=== PATIENT | female | born 1930 | race Hispanic/Latino ===

== ENCOUNTER 2016-12-25 10:16 | Inpatient (IN) | payer MEDICARE ==
[2016-12-25 10:31] VITALS: BMI 30.2
--- NOTE | 2016-12-25 10:59 | ED PDOC ---
Arrival/HPI - General Chief Complaint: Chest Pain Time Seen by Provider: 12/25/16 10:25 Historian: Patient - History of Present Illness Narrative History of Present Illness (Text): 12/25/16 10:40 An 86 year old female presents to the emergency department complaining of chest pain. Patient reports the pain is across the chest, it is intermittent, which started last week but the latest constant episode since 9:30am, about 2 hours ago. Patient has some nausea but denies any vomiting, fever, sweating, hematochezia, abdominal pain, shortness of breath, cough or any other complaints at this time. PMD: Dr. Padilla Time/Duration: 1-3 hours Symptom Onset: Sudden Symptom Course: Intermittent Quality: Other Activities at Onset: Rest Context: Home Past Medical History - Provider Review Nursing Documentation Reviewed: Yes - Infectious Disease Hx of Infectious Diseases: None - Tetanus Immunization Tetanus Immunization: Unknown - Reproductive Menopause: Yes - Cardiac Hx Cardiac Disorders: Yes Hx Hypertension: Yes - Pulmonary Hx Chronic Obstructive Pulmonary Disease (COPD): Yes (daughter denies) - Neurological HX Cerebrovascular Accident: No - HEENT Hx HEENT Disorder: Yes ([place]) Hx Blind: No Hx Cataracts: Yes (b/l sx) Hx Difficulty Chewing: No Hx Epistaxis: No Hx Glaucoma: No Hx Macular Degeneration: No - Renal Hx Renal Failure: No - Endocrine/Metabolic Hx Diabetes Mellitus Type 2: Yes - Hematological/Oncological Hx Anemia: No Hx Cancer: No Hx Hepatitis A: No Hx Hepatitis B: No Hx Hepatitis C: No - Integumentary Hx Dermatological Disorder: Yes Hx Basal Cell Carcinoma: No Hx Eczema: No Hx Melanoma: No Hx Psoriasis: No Hx Squamous Cell Carcinoma: No - Musculoskeletal/Rheumatological Hx Arthritis: Yes (OA) - Gastrointestinal Hx Gastrointestinal Disorders: Yes (bleeding gastric ulcers) Hx Crohn's Disease: No Hx Diverticulitis: No Hx Gastroesophageal Reflux: No Hx Liver Failure: No - Genitourinary/Gynecological Hx Genitourinary Disorders: No Hx Hematuria: No Hx Incontinence: No Hx Sexually Transmitted Diseases: No Hx Urinary Tract Infection: No - Psychiatric Hx Psychophysiologic Disorder: Yes Hx Anxiety: Yes Hx Emotional Abuse: No Hx Physical Abuse: No Hx Substance Use: No - Surgical History Hx Appendectomy: Yes Other/Comment: 'bowel surgery for ulcers' x 2 per pt, partial gastrectomy - Anesthesia Hx Anesthesia: Yes Hx Anesthesia Reactions: No Hx Malignant Hyperthermia: No - Suicidal Assessment Feels Threatened In Home Enviroment: No Family/Social History - Physician Review Nursing Documentation Reviewed: Yes Family/Social History: Aortic/Thoracic Disection Smoking Status: Never Smoked Hx Alcohol Use: No Hx Substance Use: No Hx Substance Use Treatment: No Allergies/Home Meds Allergies/Adverse Reactions: Allergies No Known Allergies Allergy (Verified 12/25/16 10:57) Home Medications: Home Meds Medication Instructions Recorded Confirmed Diazepam 5 mg PO PRN PRN 12/25/16 12/25/16 Losartan [Cozaar] 25 mg PO DAILY 12/25/16 12/25/16 metFORMIN [glucOPHAGE] 500 mg PO BID 12/25/16 12/25/16 traMADol [Ultram] 50 mg PO Q6 PRN 12/25/16 12/25/16 Review of Systems - Physician Review All systems were reviewed & negative as marked: Yes - Review of Systems Constitutional: absent: Fevers Respiratory: absent: SOB, Cough Cardiovascular: Chest Pain Gastrointestinal: Nausea. absent: Abdominal Pain, Hematochezia Endocrine: absent: Diaphoresis Physical Exam - Physical Exam Narrative Physical Exam (Text): Constitutional: No acute distress. Head: Normocephalic. Atraumatic. Eyes: PERRL. ENT: Moist mucous membranes. Neck: Supple. Cardiovascular: Regular rate. Chest: No tenderness. Respiratory: Clear to auscultation bilaterally. GI: Soft. Nontender. Nondistended. Back: No CVA tenderness. Musculoskeletal: No tenderness or swelling of extremities. Skin: No rash. Neurologic: Alert and oriented x2, no focal deficit. Vital Signs Reviewed: Yes Vital Signs Temp Pulse Resp BP Pulse Ox 12/25/16 14:16 97.6 F 68 18 110/76 12/25/16 13:45 97.9 F 73 18 141/57 L 98 12/25/16 13:20 68 18 110/76 98 12/25/16 12:30 72 18 108/84 96 12/25/16 10:27 97.6 F 67 16 132/79 96 Temperature: Afebrile Blood Pressure: Normal Pulse: Regular Respiratory Rate: Normal Appearance: Positive for: Well-Appearing, Non-Toxic, Comfortable Pain Distress: None Mental Status: No: Alert and Oriented X 3 Medical Decision Making ED Course and Treatment: 12/25/16 10:40 Impression: A 86 year old female with chest pain. Differential Diagnosis include but are not limited to: Chest wall pain, PNA, gastritis, r/o ACS Plan: -- EKG -- Chest X-ray -- Labs -- Urinalysis -- Aspirin and Zofran -- Reassess and disposition Prior Visits: Notes and results from previous visits were reviewed. The patient last presented to the emergency department on 08/13/16 for evaluation of black stool. Progress Notes: EKG: Ordered, reviewed, and independently interpreted the EKG. Rate : 60 BPM Rhythm : NSR Interpretation : No ST-segment elevations 12/25/16 11:20 Chest X-ray: Creator : Michi Crystal MD COMPARISON: 08/13/2016 FINDINGS: LUNGS: No active pulmonary disease. PLEURA: No significant pleural effusion identified, no pneumothorax apparent. CARDIOVASCULAR: There is moderate cardiomegaly. There is moderate vascular congestion. OSSEOUS STRUCTURES: No significant abnormalities. VISUALIZED UPPER ABDOMEN: Normal. OTHER FINDINGS: None. IMPRESSION: There is moderate cardiomegaly. There is moderate vascular congestion. 12/25/16 11:[address] Padilla, who is aware and agrees with the plan to place the patient in Telemetry for observation for chest pain. Consult placed for Dr. Mohr at his recommendation. I have discussed the results and plan with the patient, who expresses understanding. Patient given the opportunity to ask question, all questions were answered and there is agreement with the plan to be admitted to the hospital. - Lab Interpretations Lab Results: 12/25/16 11:00 12/25/16 11:00 Lab Results 12/25/16 11:00: WBC 7.7, RBC 5.51, Hgb 10.6 L, Hct 35.6 L, MCV 64.6 L, MCH 19.2 L, MCHC 29.8 L, RDW 19.5 H, Plt Count 319, Gran % 55.1, Lymph % (Auto) 36.0 H, [place] % (Auto) 6.7 H, Eos % (Auto) 1.6, Baso % (Auto) 0.6, Gran # 4.26, Lymph # 2.8, [place] # 0.5, Eos # 0.1, Baso # 0.05 12/25/16 11:00: Sodium 136, Potassium 3.8, Chloride 100, Carbon Dioxide 30, Anion Gap 10, BUN 18, Creatinine 1.0, Est GFR ( Amer) > 60, Est GFR (Non- Af Amer) 53, Random Glucose 201 H, Calcium 9.7, Total Bilirubin 1.2, AST 22, ALT 16, Alkaline Phosphatase 108, Total Creatine Kinase 26 L, Troponin I < 0.01 D, Total Protein 7.2, Albumin 3.7, Globulin 3.5, Albumin/Globulin Ratio 1.1, Lipase 35 I have reviewed the lab results: Yes - RAD Interpretation Radiology Orders: 12/25/16 10:53 CHEST PORTABLE [RAD] Stat - Medication Orders Current Medication Orders: Aspirin (Ecotrin) 81 mg PO DAILY AUGUSTINE Atorvastatin Calcium (Lipitor) 20 mg PO DIN AUGUSTINE Diazepam (Valium) 5 mg PO BID PRN; Protocol PRN Reason: Anxiety Docusate Sodium (Colace) 100 mg PO DAILY AUGUSTINE Insulin Human Regular (Humulin R Med) 0 units SC ACHS AUGUSTINE PRN Reason: Protocol Losartan Potassium (Cozaar) 25 mg PO DAILY AUGUSTINE Last Admin: 12/25/16 14:10 Dose: Pantoprazole Sodium (Protonix Ec Tab) 40 mg PO 0630 AUGUSTINE Polyethylene Glycol (Miralax) 17 gm PO DIN PRN PRN Reason: Constipation Tramadol HCl (Ultram) 50 mg PO Q6 PRN PRN Reason: Pain, severe (8-10) Discontinued Medications Aspirin (Aspirin) 325 mg PO STAT STA Stop: 12/25/16 10:54 Last Admin: 12/25/16 11:24 Dose: 325 mg Ondansetron HCl (Zofran Inj) 4 mg IVP STAT STA Stop: 12/25/16 10:54 Last Admin: 12/25/16 11:24 Dose: 4 mg Pneumococcal Polyvalent Vaccine (Pneumovax 23 Vaccine) 0.5 ml IM .ONCE ONE Stop: 12/25/16 14:25 Last Admin: 12/25/16 14:54 Dose: - Scribe Statement The provider has reviewed the documentation as recorded by the Scribe Mikayla Lion Provider Scribe Attestation: All medical record entries made by the Scribe were at my direction and personally dictated by me. I have reviewed the chart and agree that the record accurately reflects my personal performance of the history, physical exam, medical decision making, and the department course for this patient. I have also personally directed, reviewed, and agree with the discharge instructions and disposition. Disposition/Present on Arrival - Present on Arrival Any Indicators Present on Arrival: No History of DVT/PE: No History of Uncontrolled Diabetes: No Urinary Catheter: No History of Decub. Ulcer: No History Surgical Site Infection Following: None - Disposition Have Diagnosis and Disposition been Completed?: Yes Diagnosis: Chest pain Disposition: HOSPITALIZED Disposition Time: 11:44 Patient Plan: Observation, Telemetry Condition: FAIR
[2016-12-25 11:16] LABS: ADD MANUAL DIFF? NO
--- NOTE | 2016-12-25 11:19 | RAD ---
HISTORY: r/o PNA COMPARISON: 08/13/2016 FINDINGS: LUNGS: No active pulmonary disease. PLEURA: No significant pleural effusion identified, no pneumothorax apparent. CARDIOVASCULAR: There is moderate cardiomegaly. There is moderate vascular congestion. OSSEOUS STRUCTURES: No significant abnormalities. VISUALIZED UPPER ABDOMEN: Normal. OTHER FINDINGS: None. IMPRESSION: There is moderate cardiomegaly. There is moderate vascular congestion.
[2016-12-25 11:27] LABS: ALB/GLOB RATIO 1.1 (1.1-1.8); ALKALINE PHOSPHATASE 108 U/L (38-133); ALT/SGPT 16 U/L (7-56); AST/SGOT 22 U/L (15-39); BILIRUBIN,TOTAL 1.2 mg/dL (0.2-1.3); BLOOD UREA NITROGEN 18 mg/dL (7-21); CALCIUM 9.7 mg/dL (8.4-10.5); CARBON DIOXIDE 30 mmol/L (21-33); CHLORIDE 100 mmol/L (98-107); GFR AFRICAN-AMERICAN > 60; GLUCOSE,RANDOM 201 mg/dL (70-110); LIPASE 35 U/L (23-300); POTASSIUM 3.8 mmol/L (3.6-5.0); SODIUM 136 mmol/L (132-148); TOTAL PROTEIN 7.2 g/dL (5.8-8.3)
[2016-12-25 11:28] LABS: BASO # 0.05 K/mm3 (0.0-2.0); BASO % 0.6 % (0.0-3.0); EOS # 0.1 (0.0-0.7); EOS % 1.6 % (1.5-5.0); GRAN # 4.26 (1.4-6.5); GRAN % 55.1 % (50.0-68.0); HEMATOCRIT 35.6 % (36.0-48.0); LYMPH # 2.8 (1.2-3.4); MEAN CELL VOLUME 64.6 fL (80.0-105.0); MEAN CORPUSCULAR HEMOGLOBIN 19.2 pg (25.0-35.0); MEAN CORPUSCULAR HGB CONC 29.8 g/dl (31.0-37.0); MONO # 0.5 (0.1-0.6); MONO % 6.7 % (1.0-6.0); PLATELET COUNT 319 10^3/uL (120.0-450.0); RED CELL DISTRIBUTION WIDTH 19.5 % (11.5-14.5); WHITE BLOOD COUNT 7.7 10^3/ul (4.5-11.0)
[2016-12-25 11:40] LABS: TROPONIN I < 0.01 ng/mL
[2016-12-25] MEDS ORDERED: POLYETHYLENE GLYCOL 3350 17 GM/Dose PACKET PO PRN (14:14)
--- NOTE | 2016-12-25 14:19 | CP.PCM.HP ---
History of Present Illness - History of Present Illness History of Present Illness: 86 year old female with history of hypertension, diabetes mellitus II , spinal stenosis, gastric ulcers and arthritis presented to the ER with chest pressure. According to her , Hung, she has been complaining of chest pressure for the last week. She says the pressure lasts for a few seconds and then goes away on its own. Patient denies nausea, vomiting, diaphoresis, or fever. Present on Admission - Present on Admission Any Indicators Present on Admission: No Review of Systems - Cardiovascular Cardiovascular: As Per HPI - Respiratory Respiratory: absent: Cough, Dyspnea - Musculoskeletal Musculoskeletal: Abnormal Gait, Back Pain Past Patient History - Infectious Disease Hx of Infectious Diseases: None - Tetanus Immunizations Tetanus Immunization: Unknown - Past Social History Smoking Status: Never Smoked - CARDIAC Hx Cardiac Disorders: Yes Hx Hypertension: Yes - NEUROLOGICAL HX Cerebrovascular Accident: No - HEENT Hx HEENT Problems: Yes ([place]) Hx Blind: No Hx Cataracts: Yes (b/l sx) Hx Difficulty Chewing: No Hx Epistaxis: No Hx Glaucoma: No Hx Macular Degeneration: No - RENAL Hx Renal Failure: No - ENDOCRINE/METABOLIC Hx Diabetes Mellitus Type 2: Yes - HEMATOLOGICAL/ONCOLOGICAL Hx Anemia: No Hx Cancer: No Hx Hepatitis A: No Hx Hepatitis B: No Hx Hepatitis C: No - INTEGUMENTARY Hx Dermatological Problems: Yes Hx Basil Cell: No Hx Eczema: No Hx Melanoma: No Hx Psoriasis: No Hx Squamous Cell: No - MUSCULOSKELETAL/RHEUMATOLOGICAL Hx Arthritis: Yes (OA) - GASTROINTESTINAL Hx Gastrointestinal Disorders: Yes (bleeding gastric ulcers) Hx Crohn's Disease: No Hx Diverticulitis: No Hx Gastroesophageal Reflux: No Hx Liver Failure: No - GENITOURINARY/GYNECOLOGICAL Hx Genitourinary Disorders: No Hx Hematuria: No Hx Incontinence: No Hx Sexually Transmitted Disorders: No Hx Urinary Tract Infection: No - PSYCHIATRIC Hx Psychophysiologic Disorder: Yes Hx Anxiety: Yes Hx Emotional Abuse: No Hx Physical Abuse: No Hx Substance Use: No - SURGICAL HISTORY Hx Appendectomy: Yes Other/Comment: 'bowel surgery for ulcers' x 2 per pt, partial gastrectomy - ANESTHESIA Hx Anesthesia: Yes Hx Anesthesia Reactions: No Hx Malignant Hyperthermia: No Meds Allergies/Adverse Reactions: Allergies Allergy/AdvReac Type Severity Reaction Status Date / Time No Known Allergies Allergy Verified 12/25/16 10:57 Physical Exam - Constitutional Appears: No Acute Distress - Head Exam Head Exam: ATRAUMATIC, NORMOCEPHALIC - Respiratory Exam Respiratory Exam: Clear to Auscultation Bilateral, NORMAL BREATHING PATTERN - Cardiovascular Exam Cardiovascular Exam: +S1, +S2 - GI/Abdominal Exam GI & Abdominal Exam: Normal Bowel Sounds, Soft. absent: Tenderness - Extremities Exam Extremities exam: Positive for: normal inspection - Neurological Exam Neurological exam: Alert, Oriented x3 Results - Vital Signs Recent Vital Signs: Last Vital Signs Temp 97.6 F 12/25/16 10:27 Pulse 68 12/25/16 13:20 Resp 18 12/25/16 13:20 BP 110/76 12/25/16 13:20 Pulse Ox 98 12/25/16 13:20 - Labs Result Diagrams: 12/25/16 11:00 12/25/16 11:00 Assessment & Plan - Assessment and Plan (Free Text) Assessment: Chest pressure R/O ACS DMII HTN Arthritis H/O gastric ulcers and partial gastrectomy Microcytic anemia Plan: Patient complaining of chest pressure. Cardiac enzymes and troponin X [address] Mohr Hold metformin Accuchecks with SS insulin coverage Patient with microcytic anemia - check iron and TIBC levels continue Protonix for gastritis Colace and Miralax PRN for constipation
[2016-12-25] MEDS ORDERED: Pneumococcal 23-Valent Vaccine IM ONE (14:24)
[2016-12-25] MEDS: Insulin Reg-MEDIUM-Coverage SC SCH ×2 (16:18→21:49)
[2016-12-25 16:52] LABS: IRON 23 ug/dL (45-180)
[2016-12-25 16:59] LABS: TROPONIN I 2.04 ng/mL
[2016-12-25] MEDS ORDERED: Enoxaparin 60 mg Syringe SC STA (19:18)
[2016-12-25 21:23] LABS: URINE BILIRUBIN NEGATIVE (NEGATIVE); URINE BLOOD SMALL (NEGATIVE); URINE GLUCOSE (UA) NEGATIVE (NEGATIVE); URINE KETONE NEGATIVE (NEGATIVE); URINE LEUKOCYTE ESTERASE NEGATIVE Leu/uL (NEGATIVE); URINE PROTEIN NEGATIVE mg/dL (<30 mg/dL); URINE UROBILINOGEN 0.2 E.U./dL (<1 E.U./dL)
[2016-12-25 21:26] LABS: URINE APPEARANCE CLEAR (CLEAR); URINE COLOR YELLOW (YELLOW)
[2016-12-25 22:04] LABS: URINE RBC 0 - 2 /hpf (0-2); URINE WBC 0 - 2 /hpf (0-6)
--- NOTE | 2016-12-26 01:39 | CARD ---
APPROVED REPORT EKG Measurement Heart [id number] <Conclusion> Normal sinus rhythm with sinus arrhythmia Left axis deviation Moderate voltage criteria for LVH, may be normal variant Nonspecific ST abnormality Abnormal ECG
[2016-12-26] MEDS: Pantoprazole 40 mg EC Tab PO SCH (06:03)
[2016-12-26 07:37] LABS: ADD MANUAL DIFF? NO
[2016-12-26 07:48] LABS: BASO # 0.07 K/mm3 (0.0-2.0); EOS # 0.1 (0.0-0.7); EOS % 0.7 % (1.5-5.0); GRAN % 62.3 % (50.0-68.0); HEMATOCRIT 34.6 % (36.0-48.0); LYMPH % 29.2 % (22.0-35.0); MEAN CELL VOLUME 64.3 fL (80.0-105.0); MEAN CORPUSCULAR HEMOGLOBIN 19.1 pg (25.0-35.0); MEAN CORPUSCULAR HGB CONC 29.8 g/dl (31.0-37.0); MONO # 0.5 (0.1-0.6); MONO % 6.8 % (1.0-6.0); PLATELET COUNT 344 10^3/uL (120.0-450.0); RED CELL DISTRIBUTION WIDTH 19.6 % (11.5-14.5); WHITE BLOOD COUNT 6.9 10^3/ul (4.5-11.0)
[2016-12-26] MEDS: Insulin Reg-MEDIUM-Coverage SC SCH ×4 (08:00→21:57)
[2016-12-26 08:06] LABS: ALB/GLOB RATIO 1.2 (1.1-1.8); ALKALINE PHOSPHATASE 99 U/L (38-133); ALT/SGPT 14 U/L (7-56); AST/SGOT 30 U/L (15-39); BILIRUBIN,TOTAL 1.1 mg/dL (0.2-1.3); BLOOD UREA NITROGEN 18 mg/dL (7-21); CALCIUM 9.6 mg/dL (8.4-10.5); CARBON DIOXIDE 31 mmol/L (21-33); CHLORIDE 99 mmol/L (98-107); GFR AFRICAN-AMERICAN > 60; GLUCOSE,RANDOM 135 mg/dL (70-110); POTASSIUM 4.7 mmol/L (3.6-5.0); SODIUM 137 mmol/L (132-148); TOTAL PROTEIN 6.9 g/dL (5.8-8.3)
[2016-12-26] MEDS ORDERED: Lidocaine 2% Inj (20ml) ONE ×2 (08:20)
[2016-12-26] MEDS ORDERED: Nitroglycerin 50mg in D5W 0 MG/0 ML BOTTLE IV ONE (08:21)
[2016-12-26] MEDS ORDERED: Heparin 0 ML IV ONE (08:21)
[2016-12-26] MEDS ORDERED: Iohexol 350mgl/ml 50 ML ONE (08:23)
[2016-12-26] MEDS ORDERED: Iohexol 350 MG/100 ML VIAL ONE (08:23)
[2016-12-26] MEDS ORDERED: Phenylephrine 10 mg/ml Inj ONE (08:34)
[2016-12-26] MEDS ORDERED: Midazolam 2 MG/2 ML VIAL ONE (08:36)
[2016-12-26 08:39] LABS: TROPONIN I 3.87 ng/mL
--- NOTE | 2016-12-26 08:57 | PN ---
DATE: 12/26/2016 She is an 86-year-old white female. She is obese and disabled due to severe osteoarthritis. PAST MEDICAL HISTORY: Coronary artery disease, hypertension, diabetes mellitus , severe osteoarthritis, bursitis of the hip, bursitis of the knee. The patient presented in the Emergency Room yesterday with chest pain. The patient was evaluated and admitted to the [facility] in [place]. The patient is in room 270, bed 2. She was seen this morning. PHYSICAL EXAMINATION: VITAL SIGNS: The patient's pulse is 56, blood pressure 146/75. Respirations are 19. O2 sat is 94% on room air. HEAD: Normocephalic. NECK: The thyroid is not enlarged. HEART: NSR. S1, S2 present. No murmur. No rubs. LUNGS: Trachea is central. Breath sounds are vesicular. No adventitious sounds are heard. ABDOMEN: Soft. No masses. No tenderness noted. CENTRAL NERVOUS SYSTEM: The patient is conscious, rational, and oriented, has some deficit in hearing, and the patient denies any complaints this morning. LABORATORY WORK: Shows that the patient's hemoglobin 10.3. The patient's chemistry: The sugar is 155. The patient's troponin is 2.04; it was elevated from time of admission. The patient's cardiologists are Dr. Mohr and Dr. Garcia. They are following up the patient. She is placed on Plavix, as well as aspirin and beta-chloe. LIST OF MEDICATIONS: The patient is on Colace 100 mg daily, Losartan 25 mg daily, aspirin 81 mg daily, insulin coverage for hyperglycemia, Lipitor 20 mg daily, metoprolol 25 mg b.i.d., MiraLax 17 grams daily, pantoprazole 40 mg daily. The patient is on Tylenol for pain, and Valium 5 mg b.i.d. p.r.n. for anxiety, and Aspirin as mentioned 325 mg daily at this time. The patient is also placed on Lovenox for deep vein thrombosis and prevention of pulmonary embolus. She is also on Plavix 75 mg daily. The patient received pneumococcal vaccine, and the patient is on a 2-gram sodium heart-healthy diet. We will follow up. The patient's condition is not clearly established at this time. She does have unstable angina with abnormal troponin, which makes her condition critical. Giulia Padilla MD cc: [phone] TT: 12/26/2016 08:56:14 Confirmation # [id number] Dictation # [id number] jn MTDD
[2016-12-26 09:02] LABS: CHOLESTEROL 132 mg/dL (130-200)
[2016-12-26] MEDS ORDERED: Sodium Chloride 0.9% 1,000 ML IV SCH (10:15)
--- NOTE | 2016-12-26 10:28 | CON ---
DATE: 12/26/2016 SERVICE: Cardiology. PHYSICIAN: Priscila Mohr MD. REASON FOR CONSULTATION: Cardiac evaluation, admitted with chest pain, unstable angina, [id number] nt myocardial infarction. BRIEF CLINICAL HISTORY: This is an 86-year-old female with past medical history significant for hype rtension, diabetes, history of black tarry stool, admitted in July when the patient's hemoglobin d ropped to 7. The patient says he had chest tightness yesterday across the chest from right to left t ight band-like ____. First troponin was negative. Second troponin is 2, but he still feels chest pa in. The patient was started on aspirin, Plavix, and gave 1 dose of Lovenox. PAST MEDICAL HISTORY: Significant for hypertension, gouty arthritis, diabetes, lumbar spinal stenosi s, gastroesophageal reflux, over-reactive bladder, difficult to control, poorly controlled, and histo ry of GI bleed on 08/13/2016. Previous cardiac workup as follows: The patient had echocardiography on 05/11/2016 that showed eject ion fraction of 55%, no aortic regurgitation, mild to moderate valvular aortic stenosis, trace mitral regurgitation, mild to moderate tricuspid regurgitation, RV systolic pressure 23. EKG on last admission was normal sinus. Recent EKG shows normal sinus, left atrial abnormality, LVH. CURRENT MEDICATIONS: The patient at home was taking tramadol, metformin, losartan, ____, atorvastati n, Lipitor, and baby aspirin 81 mg daily. ALLERGIES: No known drug allergies. REVIEW OF SYSTEMS: A 14-point review of systems is negative except per HPI. PHYSICAL EXAMINATION: VITAL SIGNS: Temperature afebrile, heart rate ____, blood pressure 146/75. HEENT: PERRLA. Extraocular muscles intact. NECK: Supple. No carotid bruits. No thyromegaly. CHEST: Clear to auscultation. HEART: S1, S2 regular. ABDOMEN: Soft. EXTREMITIES: Clubbing and cyanosis negative. LABORATORY DATA: WBC 6.9, hemoglobin 10.3, hematocrit 34.6, platelet count 344. Chemistry shows sod ium 137, potassium 4.7, chloride 99, carbon dioxide 30, anion gap of 12, BUN 18, creatinine 1.0. Tro ponin 3.87. IMPRESSION: Non-ST segment myocardial infarction, unstable angina, rising troponin - first one was 0 .1, second 2.4; now it is 3.87. Chest pain. ____. Diabetes, hypertension, hyperlipidemia, gouty ar thritis, lumbar spinal stenosis, gastroesophageal reflux, overactive bladder, difficult to control. Last echo shows ejection fraction 55%. No aortic regurgitation, mild to moderate valvular aortic janet nosis, trace to mild mitral regurgitation, mild to moderate tricuspid regurgitation, right ventricula r systolic pressure 23, dated 05/11/2016. In view of recent myocardial infarction, worsening chest pain, ____, myocardial infarction and non-ST myocardial infarction. The patient ____ risks, benefits, and alternatives were discussed with the p miguelangel. The patient agreed. Discussed also with the and discussed with Dr. Padilla. Isac l take to the computer lab para professional, and if needed, we will put bare metal stent because the patient has a history of black tarry stools and dropped the hemoglobin to 7 in July. Further recommendation after the cardiac catheterization will follow. We will give aspirin, Plavix started yesterday. Lovenox was gi dionna, and we will follow hemoglobin and hematocrit. Further recommendation after the cardiac catheter ization. Thank you, Dr. Padilla, for providing the opportunity in taking care of the patient. We will keep n.p.o. for now for cardiac catheterization. Priscila Mohr MD cc:Giulia Padilla MD [phone] TT: 12/26/2016 09:53:57 Confirmation # [id number] Dictation # [id number] jn 12/26/2016 09:27:05
--- NOTE | 2016-12-26 18:27 | CARD ---
APPROVED REPORT Procedure(s) performed: Left Heart Catheterization HISTORY The patient is a 86 year-old female with a history of : diabetes mellitus with insulin treatment , hypertension , dyslipidemia , Admitted with NSTEMI. INDICATION The indication(s) include : unstable angina , non-STEMI . CASE TECHNIQUE The patient was brought urgently to the Cardiac Catheterization Laboratory in a fasting state and was prepped and draped in a sterile manner. The right femoral groin was infiltrated with 2% Lidocaine subcutaneous anesthesia. A 6 Fr x 11 cm Anais sheath was inserted into the right femoral artery without difficulty. Coronary angiography was performed using coronary diagnostic catheters. The left coronary system was accessed and visualized with a Diagnostic ,6 Fr JL 4 catheter. The right coronary system was accessed and visualized with a Diagnostic ,6 Fr JR 4 catheter. The left ventricle was accessed and visualized with a 6 Fr Pigtail catheter. Left ventricular/Aortic Valve gradient assessed on pullback. Left ventriculogram was performed in ANDRADE projection. Closure device was deployed with a 6 Fr / 7 Fr MynxGrip without any complications. The patient tolerated the procedure well and there were no complications associated with the procedure. Vessel Analysis The patient's coronary anatomy is co-dominant. The left main coronary artery is a large size vessel with diffuse calcification noted throughout this vessel and with significant stenosis. There is a 90% stenosis in the distal segment. The left main bifurcates to the left anterior descending and circumflex. The left anterior descending artery is a medium size vessel with diffuse calcification noted throughout this vessel and with significant stenosis. There is a 90% stenosis in the ostial segment. Mid LAD has 95 % stenosis The first diagonal branch is a medium size vessel with diffuse calcification noted throughout this vessel and without significant stenosis. The circumflex artery is a large size vessel with diffuse calcification noted throughout this vessel and with significant stenosis. There is a 95% stenosis in the ostial segment. Mid to Distal Cx has 60-70% stenosis The first obtuse marginal branch is a medium size vessel with diffuse calcification noted throughout this vessel and with significant stenosis. There is a 90% stenosis in the proximal segment. The left posterior descending artery is a medium size vessel with diffuse calcification noted throughout this vessel and without significant stenosis. The right coronary artery is a medium size vessel with diffuse calcification noted throughout this vessel and without significant stenosis. There is a 30-40% stenosis in the proximal segment. The right posterior descending artery is a small size vessel with intimal irregularities and without significant stenosis. Left Ventricle The left ventricle is mildly enlarged in size with mild to moderately decreased contractility. Ischemic cardiomyopathy. The left ventricular ejection fraction is estimated to be 35-40%. The left ventricular end diastolic pressure is 20-25 mmHg. There was no gradient across the aortic valve upon pullback. Conclusion Triple vessel Disease including Ledft Main, Ostial LAD, Mid LAD and Ostial Cx DIz Mild Disease in RCA LVEF-35-40%, EDP-20-25% Recommendations Complete Revascularization:Consideration would Be OHS VS High Risk PTCA using Impella device and Pt.'s age and comorbidities and Natalie op risk of CVA in case of OHS. Interim Beta chloe, Nitrates, ASA., Lovenox 12 hrs after Cath. CC; Drs. Gonzales/ Radha.
[2016-12-26] MEDS: Nitroglycerin 2% Ointment Foilpak UD TOP SCH (18:57)
[2016-12-27] MEDS: Nitroglycerin 2% Ointment Foilpak UD TOP SCH ×4 (00:27→17:43)
[2016-12-27] MEDS: Pantoprazole 40 mg EC Tab PO SCH (05:37)
--- NOTE | 2016-12-27 07:14 | PN ---
DATE: 12/27/2016 The patient is in the [facility] in [place], admitted with chest pain, rule out TN, acute complicated coronary artery disease. The patient is in room 270, bed 2. This patient is an 86-year-old white female. She has a history of coronary artery disease, hypertension, diabetes mellitus, degenerative arthritis. PHYSICAL EXAMINATION: VITAL SIGNS: This morning, the pulse is 62, blood pressure is 149/64, respirations are 20, O2 sat is 98% on room air, her temperature is 98.1. HEAD: Normocephalic. NECK: The thyroid is not enlarged. JVP is flat. There is no lymphadenopathy in the neck. LUNGS: Trachea central. Breath sounds vesicular. No adventitious sounds. HEART: NSR. S1, S2 present. No murmurs, no rubs. ABDOMEN: Soft, obesity present. No organomegaly. CENTRAL NERVOUS SYSTEM: The patient is confused, but occasionally she has difficulty in understanding. She possibly has some hearing problem. She also has some mild mental confusion. LABORATORY DATA: The patient's blood work done in the hospital: Current hemoglobin is 10.3. The patient's chemistry: The blood sugar is 113. The patient's lipid profile: The cholesterol is 121. The patient's troponin level is 3.87 yesterday. A/P: The patient had a cardiac cath done and she has complicated multivessel disease. The patient is going to be transferred to [facility] in [place] for high risk angioplasty. Apparently, the equipment installation professional has talked to the patient's family and explained the condition of the patient and the risks involved. I think it is high risk to do angioplasty, so the patient will go to [facility] today and have angioplasty performed there by the equipment installation professional in [facility]. Giulia Padilla MD cc: [phone] TT: 12/27/2016 07:13:45 Confirmation # [id number] Dictation # [id number] german CARVALHO
[2016-12-27 07:58] LABS: ADD MANUAL DIFF? NO
[2016-12-27 08:04] LABS: BASO # 0.07 K/mm3 (0.0-2.0); EOS # 0.1 (0.0-0.7); EOS % 1.2 % (1.5-5.0); GRAN # 4.35 (1.4-6.5); HEMATOCRIT 34.2 % (36.0-48.0); LYMPH # 1.9 (1.2-3.4); MEAN CORPUSCULAR HEMOGLOBIN 19.1 pg (25.0-35.0); MEAN CORPUSCULAR HGB CONC 29.8 g/dl (31.0-37.0); MEAN PLATELET VOLUME 9.8 fl (7.0-11.0); MONO # 0.5 (0.1-0.6); MONO % 7.8 % (1.0-6.0); PLATELET COUNT 289 10^3/uL (120.0-450.0); RED CELL DISTRIBUTION WIDTH 19.4 % (11.5-14.5); WHITE BLOOD COUNT 6.9 10^3/ul (4.5-11.0)
[2016-12-27 08:22] LABS: BLOOD UREA NITROGEN 18 mg/dL (7-21); CALCIUM 9.3 mg/dL (8.4-10.5); CARBON DIOXIDE 30 mmol/L (21-33); CHLORIDE 97 mmol/L (98-107); GFR AFRICAN-AMERICAN > 60; GLUCOSE,RANDOM 131 mg/dL (70-110); POTASSIUM 3.9 mmol/L (3.6-5.0); SODIUM 136 mmol/L (132-148)
[2016-12-27] MEDS: Insulin Reg-MEDIUM-Coverage SC SCH ×4 (08:47→22:12)
--- NOTE | 2016-12-27 14:17 | PN ---
DATE: 12/27/2016 REASON FOR CONSULTATION: Cardiac evaluation, unstable angina, [id number] myocardial infarction, status post cardiac catheterization, left main disease. BRIEF CLINICAL HISTORY: An 86-year-old female with a past medical history significant for hypertensi on, diabetes, history of GI bleed in the past admitted yesterday in July. Now patient's H and H i s stable. Yesterday, admitted with unstable angina. The patient underwent cardiac catheterization, showed left main disease. The patient is scheduled for, the patient is thought to be very high risk for bypass, the patient is scheduled at [facility] for evaluation of left main stenti ng with Impella device. The patient denies any chest pain, shortness of breath, any palpitation. PHYSICAL EXAMINATION: VITAL SIGNS: Temperature afebrile, heart rate 62, blood pressure 150/64. HEENT: PERRLA. Extraocular muscles intact. NECK: Supple. No carotid bruits. No thyromegaly. CHEST: Clear to auscultation. HEART: S1, S2 regular. ABDOMEN: Soft. EXTREMITIES: Clubbing, cyanosis negative. BLOOD WORKUP: WBC , hemoglobin 10.2, hematocrit 34.2, platelet count 289. Chemistry shows sodi um 130, potassium 3.9, chloride 96, carbon dioxide 30, anion gap of 13, BUN 18, creatinine 1.0. IMPRESSION: Unstable angina, troponin maximum 3.87, left main disease, bifurcating into left anterio r descending and circumflex, ostial disease, mid left anterior descending has disease, mild disease i n right coronary artery, preserved left ventricular function. Continue aspirin, continue Plavix. H and H is stable. The patient has a history of gastrointestinal bleed in July, but the patient is stable now and no evidence of active bleeding since then. The patient is scheduled for elective cardiac cath, possible angioplasty tomorrow with Impella device at [facility]. Will be transferred tomorrow at 7:00 for p ossible angioplasty will inform Dr. Padilla and the family. We will follow with you. Thank you, Dr. Padilla, for providing us the opportunity in taking care of the patient. Priscila Mohr MD cc: [id number] TT: 12/27/2016 12:04:03 Confirmation # [id number] Dictation # [id number] en 12/27/2016 13:17:16
--- NOTE | 2016-12-27 22:48 | CP.PCM.PN ---
Subjective - Date & Time of Evaluation Date of Evaluation: 12/27/16 Time of Evaluation: 22:45 - Subjective Subjective: S: It was requested to get a consent for EMTLA form for this patient who is going to [facility] tomorrow for cardiaca catheterization with Impella device. Patient has no complaints now. Pertinent medical record was reviewed. O: Last Vital Signs 3 Temp 98.1 F 12/27/16 18:00 Pulse 53 L 12/27/16 18:00 Resp 20 12/27/16 18:00 BP 145/66 12/27/16 18:00 Pulse Ox 98 12/27/16 05:45 Alert, oriented , not in distress. LUNGS:Normal breathing pattern. A:Informed consent P:A consent was obtained after explaining in presence of patient's primary nurse. Objective - Vital Signs/Intake and Output Vital Signs (last 24 hours): Temp Pulse Resp BP Pulse Ox 98.1 F 53 L 20 145/66 98 12/27/16 18:00 12/27/16 18:00 12/27/16 18:00 12/27/16 18:00 12/27/16 05:45 Intake and Output: 12/27/16 12/28/16 18:59 06:59 Intake Total 600 Output Total 450 Balance 150 - Medications Medications: Current Medications Aspirin (Ecotrin) 81 mg PO DAILY [facility] Last Admin: 12/27/16 09:53 Dose: 81 mg Atorvastatin Calcium (Lipitor) 20 mg PO DIN [facility] Last Admin: 12/27/16 17:44 Dose: 20 mg Diazepam (Valium) 5 mg PO BID PRN; Protocol PRN Reason: Anxiety Docusate Sodium (Colace) 100 mg PO DAILY [facility] Last Admin: 12/27/16 09:54 Dose: 100 mg Furosemide (Lasix) 40 mg PO DAILY [facility] Last Admin: 12/27/16 09:53 Dose: 40 mg Insulin Human Regular (Humulin R Med) 0 units SC ACHS [facility] PRN Reason: Protocol Last Admin: 12/27/16 22:12 Dose: Not Given Losartan Potassium (Cozaar) 25 mg PO DAILY [facility] Last Admin: 12/27/16 09:54 Dose: 25 mg Metoprolol Tartrate (Lopressor) 25 mg PO BID [facility] Last Admin: 12/27/16 17:42 Dose: 25 mg Nitroglycerin (Nitro-Bid 2% Oint) 1 ea TOP Q6H [facility] Last Admin: 12/27/16 17:43 Dose: 1 ea Pantoprazole Sodium (Protonix Ec Tab) 40 mg PO 0630 [facility] Last Admin: 12/27/16 05:37 Dose: 40 mg Polyethylene Glycol (Miralax) 17 gm PO DIN PRN PRN Reason: Constipation Tramadol HCl (Ultram) 50 mg PO Q6 PRN PRN Reason: Pain, severe (8-10) - Labs Labs: 12/27/16 07:40 12/27/16 07:40
[2016-12-28] MEDS: Nitroglycerin 2% Ointment Foilpak UD TOP SCH (01:00)
[2016-12-28 06:16] VITALS: BP 154/75; PULSE 61; RESP 18; TEMP 98.1; O2SAT 96
== END 2016-12-28 06:39 | disposition short-term general hospital (02) | DRG 282 ==
LOC: ED 10:16 → ERH 11:58 → 2RSO 13:49 → OBSVTOIN 12-26 08:32
PROVIDERS: ADMIT Internal Medicine; ATTEND Internal Medicine
PROC: 4A023N7 Measurement of Cardiac Sampling and Pressure, Left Heart, Percutaneous Approach (ICD-10-PCS; principal; 2016-12-26)
PROC: B2111ZZ Fluoroscopy of Multiple Coronary Arteries using Low Osmolar Contrast (ICD-10-PCS; 2016-12-26)
PROC: B2151ZZ Fluoroscopy of Left Heart using Low Osmolar Contrast (ICD-10-PCS; 2016-12-26)
DX: I21.4 Non-ST elevation (NSTEMI) myocardial infarction (principal); I25.5 Ischemic cardiomyopathy; I25.110 Atherosclerotic heart disease of native coronary artery with unstable angina pectoris; E11.9 Type 2 diabetes mellitus without complications; I11.9 Hypertensive heart disease without heart failure; N32.81 Overactive bladder; D50.9 Iron deficiency anemia, unspecified; E78.5 Hyperlipidemia, unspecified; M48.06 Spinal stenosis, lumbar region; M10.00 Idiopathic gout, unspecified site; K21.9 Gastro-esophageal reflux disease without esophagitis; E66.9 Obesity, unspecified; M19.90 Unspecified osteoarthritis, unspecified site; Z79.4 Long term (current) use of insulin; Z87.11 Personal history of peptic ulcer disease; Z90.3 Acquired absence of stomach [part of]

== ENCOUNTER 2016-12-31 19:01 | Inpatient (IN) | payer MEDICARE ==
--- NOTE | 2016-12-31 19:49 | ED PDOC ---
Arrival/HPI - General Time Seen by Provider: 12/31/16 19:26 Historian: Patient - History of Present Illness Narrative History of Present Illness (Text): 12/31/16 19:46 86 year old female whose past medical history includes hypertension, diabetes type II, spinal stenosis, gastric ulcers, arthritis, recent cardiac catheterization, multiple stent placement at [facility], presents to the emergency department after upon arriving at home today following discharge from the hospital, began feeling weakness and generalized malaise. Patient is unable to specify exactly what was bothering her. According to daughter, patient has chronic history of back pains, difficulty ambulating on her own. When questioning patient, she states she does not feel well. Denies chest pain or shortness of breath. Denies abdominal pain. She reports some back discomfort which is chronic for her. No history of any fever or chills. Time/Duration: 24 hours Symptom Onset: Gradual Symptom Course: Unchanged Associated Symptoms (Text): None Past Medical History - Provider Review Nursing Documentation Reviewed: Yes - Infectious Disease Hx of Infectious Diseases: None - Tetanus Immunization Tetanus Immunization: Unknown - Cardiac Hx Cardiac Disorders: Yes Hx Hypertension: Yes - Pulmonary Hx Chronic Obstructive Pulmonary Disease (COPD): Yes (daughter denies) - Neurological HX Cerebrovascular Accident: No - HEENT Hx HEENT Disorder: Yes ([place]) Hx Blind: No Hx Cataracts: Yes (b/l sx) Hx Difficulty Chewing: No Hx Epistaxis: No Hx Glaucoma: No Hx Macular Degeneration: No - Renal Hx Renal Failure: No - Endocrine/Metabolic Hx Diabetes Mellitus Type 2: Yes - Hematological/Oncological Hx Anemia: No Hx Cancer: No Hx Hepatitis A: No Hx Hepatitis B: No Hx Hepatitis C: No - Integumentary Hx Dermatological Disorder: Yes Hx Basal Cell Carcinoma: No Hx Eczema: No Hx Melanoma: No Hx Psoriasis: No Hx Squamous Cell Carcinoma: No - Musculoskeletal/Rheumatological Hx Arthritis: Yes (OA) - Gastrointestinal Hx Gastrointestinal Disorders: Yes (bleeding gastric ulcers) Hx Crohn's Disease: No Hx Diverticulitis: No Hx Gastroesophageal Reflux: No Hx Liver Failure: No - Genitourinary/Gynecological Hx Genitourinary Disorders: No Hx Hematuria: No Hx Incontinence: No Hx Sexually Transmitted Diseases: No Hx Urinary Tract Infection: No - Psychiatric Hx Psychophysiologic Disorder: Yes Hx Anxiety: Yes Hx Emotional Abuse: No Hx Physical Abuse: No Hx Substance Use: No - Surgical History Hx Appendectomy: Yes Other/Comment: 'bowel surgery for ulcers' x 2 per pt, partial gastrectomy - Anesthesia Hx Anesthesia: Yes Hx Anesthesia Reactions: No Hx Malignant Hyperthermia: No - Suicidal Assessment Feels Threatened In Home Enviroment: No Family/Social History - Physician Review Nursing Documentation Reviewed: Yes Family/Social History: Unknown Family HX Smoking Status: Never Smoked Hx Alcohol Use: No Hx Substance Use: No Hx Substance Use Treatment: No Allergies/Home Meds Allergies/Adverse Reactions: Allergies No Known Allergies Allergy (Verified 12/25/16 10:57) Home Medications: Home Meds Medication Instructions Recorded Confirmed Aspirin [Adult Low Dose Aspirin EC] 81 mg PO DAILY 12/31/16 12/31/16 Atorvastatin [Lipitor] 20 mg PO DAILY 12/31/16 12/31/16 Carvedilol [Coreg] 3.125 mg PO DAILY 12/31/16 12/31/16 Clopidogrel [Plavix] 75 mg PO DAILY 12/31/16 12/31/16 GlipiZIDE [Glucotrol] 5 mg PO DAILY 12/31/16 12/31/16 MetFORMIN [glucoPHAGE] 1,000 mg PO DAILY 12/31/16 12/31/16 Pantoprazole [Protonix EC Tab] 40 mg PO DAILY 12/31/16 12/31/16 Sucralfate [Carafate] 1 gm PO DAILY 12/31/16 12/31/16 amLODIPine [Norvasc] 5 mg PO DAILY 12/31/16 12/31/16 Review of Systems - Physician Review All systems were reviewed & negative as marked: Yes - Review of Systems Constitutional: Other (Weakness, Generalized malaise). absent: Fevers Respiratory: absent: SOB Cardiovascular: absent: Chest Pain Gastrointestinal: absent: Abdominal Pain Musculoskeletal: Back Pain (chronic) Physical Exam Vital Signs Reviewed: Yes Vital Signs Temp Pulse Resp BP Pulse Ox 12/31/16 19:28 98.7 F 90 18 148/73 94 L Temperature: Afebrile Blood Pressure: Normal Pulse: Regular Respiratory Rate: Normal Appearance: Positive for: Well-Appearing, Non-Toxic, Comfortable Pain Distress: None Mental Status: Positive for: Alert and Oriented X 3 - Systems Exam Head: Present: Atraumatic, Normocephalic Pupils: Present: PERRL Extroacular Muscles: Present: EOMI Conjunctiva: Present: Normal Mouth: Present: Moist Mucous Membranes Neck: Present: Normal Range of Motion, Other (Surgical dressing in place on right lateral neck. No tenderness.) Respiratory/Chest: Present: Clear to Auscultation, Good Air Exchange. No: Respiratory Distress, Accessory Muscle Use Cardiovascular: Present: Regular Rate and Rhythm, Normal S1, S2. No: Murmurs Abdomen: Present: Normal Bowel Sounds, Other (Globose). No: Tenderness, Distention, Peritoneal Signs Back: Present: Normal Inspection, Other (No dorsospinal tenderness). No: Midline Tenderness, Paraspinal Tenderness Upper Extremity: Present: Normal Inspection, Normal ROM. No: Cyanosis, Edema Lower Extremity: Present: Normal Inspection, Normal ROM. No: Edema Neurological: Present: GCS=15, CN II-XII Intact, Speech Normal, Other (No focal neurological deficits ) Skin: Present: Warm, Dry, Normal Color. No: Rashes Psychiatric: Present: Alert, Oriented x 3, Normal Insight, Normal Concentration Medical Decision Making ED Course and Treatment: Impression: 86 year old female whose past medical history includes hypertension , diabetes type II, spinal stenosis, gastric ulcers, arthritis, recent cardiac catheterization, multiple stent placement at [facility], presents to the emergency department after upon arriving at home today following discharge from the hospital, began feeling weakness and generalized malaise. Differential Diagnosis included but are not limited to: Plan: -- EKG, CXR -- Labs -- Reassess and disposition Prior Visits: Notes and results from previous visits were reviewed. Patient last seen in the ED on 12/25/16 for chest pain and admitted to telemetry for observation. Progress Notes: 12/31/16 22:07 Pt. was seen and evaluated by PMD in ED.Pt. just discharged following extensive cardiac intervention.Appears weak following her ordeal.Pt. with hx. chronic medical conditions.Will eventually require cardiac rehab.PMD agrees will place on observation /further management. - Lab Interpretations Lab Results: 12/31/16 20:15 12/31/16 20:15 Lab Results 12/31/16 20:15: pO2 59 H, VBG pH 7.39, VBG pCO2 51.0, VBG HCO3 30.9 H, VBG Total CO2 32.5 H, VBG O2 Sat (Calc) 93.7 H, VBG Base Excess 5.1 H, VBG Potassium 3.9, Sodium 133.0, Chloride 100.0, Glucose 160 H, Lactate 1.2, FiO2 21.0, Venous Blood Potassium 3.9 12/31/16 20:15: PT 11.3, INR 1.05, APTT 28.0 12/31/16 20:15: WBC 8.3 D, RBC 3.91, Hgb 9.1 L, Hct 28.7 L, MCV 73.4 L, MCH 23.3 L, MCHC 31.7, RDW 25.2 H, Plt Count 209, MPV 9.8 12/31/16 20:15: Sodium 134, Chloride 99, Potassium 3.9, Carbon Dioxide 29, Anion Gap 10, BUN 24 H, Creatinine 0.9, Est GFR ( Amer) > 60, Est GFR ( Non-Af Amer) 60, Random Glucose 147 H, Calcium 9.1, Total Bilirubin 1.7 H, AST 24, ALT 19, Alkaline Phosphatase 89, Lactate Dehydrogenase 480, Total Creatine Kinase 44, Troponin I 1.28 H* D, Total Protein 5.9, Albumin 2.9 L, Globulin 3.0 , Albumin/Globulin Ratio 1.0 L - RAD Interpretation Radiology Orders: 12/31/16 19:48 CHEST PORTABLE [RAD] Stat - Medication Orders Current Medication Orders: Discontinued Medications Morphine Sulfate (Morphine) 2 mg IVP STAT STA Stop: 12/31/16 22:05 - Scribe Statement The provider has reviewed the documentation as recorded by the Sunny Bruno Provider Scribe Attestation: All medical record entries made by the Sunny were at my direction and personally dictated by me. I have reviewed the chart and agree that the record accurately reflects my personal performance of the history, physical exam, medical decision making, and the department course for this patient. I have also personally directed, reviewed, and agree with the discharge instructions and disposition. Disposition/Present on Arrival - Present on Arrival Any Indicators Present on Arrival: No History of DVT/PE: No History of Uncontrolled Diabetes: No Urinary Catheter: No History of Decub. Ulcer: No History Surgical Site Infection Following: None - Disposition Have Diagnosis and Disposition been Completed?: Yes Diagnosis: Spinal stenosis, Weakness generalized, Back pain Disposition: HOSPITALIZED Disposition Time: 22:06 Patient Plan: Observation Patient Problems: Current Active Problems Problem Status Onset Back pain Acute Spinal stenosis Acute Weakness generalized Acute Condition: STABLE Discharge Instructions (ExitCare): Weakness (ED) Referrals: Cheyenne Padilla MD [Primary Care Provider] - Follow up with primary
[2016-12-31 20:26] LABS: VENOUS BLOOD GAS BASE EXCESS 5.1 mmol/L (0.0-2.0); VENOUS BLOOD PH 7.39 (7.32-7.43)
[2016-12-31 20:30] LABS: HEMATOCRIT 28.7 % (36.0-48.0); MEAN CELL VOLUME 73.4 fL (80.0-105.0); MEAN CORPUSCULAR HEMOGLOBIN 23.3 pg (25.0-35.0); MEAN CORPUSCULAR HGB CONC 31.7 g/dl (31.0-37.0); MEAN PLATELET VOLUME 9.8 fl (7.0-11.0); RED CELL DISTRIBUTION WIDTH 25.2 % (11.5-14.5); WHITE BLOOD COUNT 8.3 10^3/ul (4.5-11.0)
[2016-12-31 20:36] LABS: ALKALINE PHOSPHATASE 89 U/L (38-133); ALT/SGPT 19 U/L (7-56); AST/SGOT 24 U/L (15-39); BILIRUBIN,TOTAL 1.7 mg/dL (0.2-1.3); BLOOD UREA NITROGEN 24 mg/dL (7-21); CALCIUM 9.1 mg/dL (8.4-10.5); CARBON DIOXIDE 29 mmol/L (21-33); CHLORIDE 99 mmol/L (98-107); GFR AFRICAN-AMERICAN > 60; GLUCOSE,RANDOM 147 mg/dL (70-110); POTASSIUM 3.9 mmol/L (3.6-5.0); SODIUM 134 mmol/L (132-148); TOTAL PROTEIN 5.9 g/dL (5.8-8.3)
[2016-12-31 20:37] LABS: INR 1.05 (0.93-1.08)
[2016-12-31 20:48] LABS: TROPONIN I 1.28 ng/mL
--- NOTE | 2016-12-31 21:18 | HP ---
HISTORY OF PRESENT ILLNESS: The patient is seen in the Emergency Room. The daughter is with the patient. She was discharged from [facility] after high-risk angioplasty today, and ambulance transported her home, and the patient apparently became very weak and lethargic, and she was not able to get out and of bed, which she does normally, and she has complained of pain in the lower back and in the arms and the leg. The family brought the patient in by ambulance to the Emergency Room for evaluation and treatment. The patient is seen in the Emergency Room. She appears to be lethargic and weak, but she can be aroused. The patient, in the Emergency Room, on evaluation was found to show evidence of multiple bruises. She has a needle site in the right side of the neck. She has multiple bruises in both arms, IV sites. PAST MEDICAL HISTORY: Significant in that the patient has had multiple admissions in the hospital for coronary artery disease, for chest pain. The patient has had history of gastric ulcer, bleeding, and gastrointestinal hemorrhage from the stomach. The patient has had a gastric surgery in the past. The patient also has a history of spinal stenosis, lower back pain, severe. The patient has history of altered mental state, falls, and fracture of the right wrist. PHYSICAL EXAMINATION: VITAL SIGNS: The pulse is 90, blood pressure 148/73, respirations are 18, temperature 98.7, O2 sat is 94% on room air. HEAD: Normocephalic. NECK: There is evidence of patch on the right side of the neck, probably an IV site. The jugular vein was used for the procedure, intravenous. The patient also has no lymphadenopathy in the neck. LUNGS: Trachea central. Breath sounds vesicular. No adventitious sounds are heard. HEART: Normal sinus rhythm, sinus tachycardia. ABDOMEN: Soft, no tenderness. CENTRAL NERVOUS SYSTEM: The patient is conscious, but lethargic, and the patient is incontinent of urine and feces. RECTAL: Deferred. The patient will be admitted for observation and management of weakness and altered mental state which is secondary to acute procedure, angioplasty. The patient has general weakness and inability to get up. MEDICATIONS: The patient's medication list. The patient is on Tramadol for pain, which will not be continued now. The patient will be put on morphine 2 mg IV q.4 hours for pain. The patient is going to be placed on losartan 25 mg daily, metformin 500 mg b.i.d., Lipitor 20 mg daily, aspirin 81 mg daily. The patient is going to be placed on anticoagulation medication that is used for the patient post-angioplasty. The patient will be on Plavix. The patient's blood sugar will be tested 4 times a day; that is before meals and at bedtime. The patient will be placed on low-dose insulin coverage. The patient's diet will be heart-healthy diet as tolerated. LABORATORY DATA: Has been ordered, but results are not available. We will evaluate the patient in the morning, and the patient probably might need further rehabilitation or subacute care. We will talk with the family and discuss regarding further management in the morning. Giulia Padilla MD cc: [phone] TT: 12/31/2016 21:18:04 german [email or web address]
[2016-12-31] MEDS ORDERED: Morphine 2 mg/ml ISec IVP STA (22:04)
[2017-01-01 02:09] VITALS: BMI 77.5
[2017-01-01] MEDS ORDERED: Insulin Reg-LOW-Coverage SC SCH (07:30)
--- NOTE | 2017-01-01 08:21 | CP.PCM.PN ---
Subjective - Date & Time of Evaluation Date of Evaluation: 01/01/17 Time of Evaluation: 08:00 - Subjective Subjective: Patient is seen this morning in room 568 bed 1. She is awake and denies pain at this time. She is lying in bed. Objective - Vital Signs/Intake and Output Vital Signs (last 24 hours): Temp Pulse Resp BP Pulse Ox 98.2 F 81 20 127/66 95 01/01/17 07:30 01/01/17 07:30 01/01/17 07:30 01/01/17 07:30 01/01/17 07:30 Intake and Output: 01/01/17 01/01/17 06:59 18:59 Intake Total 0 Output Total 3 Balance -3 - Medications Medications: Current Medications Amlodipine Besylate (Norvasc) 5 mg PO DAILY [facility] Aspirin (Ecotrin) 81 mg PO DAILY [facility] Atorvastatin Calcium (Lipitor) 20 mg PO DAILY [facility] Carvedilol (Coreg) 3.125 mg PO DAILY [facility] Clopidogrel Bisulfate (Plavix) 75 mg PO DAILY [facility] Insulin Human Regular (Humulin R Med) 0 units SC ACHS [facility] PRN Reason: Protocol Pantoprazole Sodium (Protonix Ec Tab) 40 mg PO DAILY [facility] Sucralfate (Carafate Tab) 1 gm PO DAILY [facility] - Labs Labs: PT 11.3 Seconds (9.9-11.8) 12/31/16 20:15 INR 1.05 (0.93-1.08) 12/31/16 20:15 APTT 28.0 Seconds (23.7-30.8) 12/31/16 20:15 - Constitutional Appears: No Acute Distress - Head Exam Head Exam: ATRAUMATIC, NORMOCEPHALIC - Respiratory Exam Respiratory Exam: Clear to Ausculation Bilateral, NORMAL BREATHING PATTERN - Cardiovascular Exam Cardiovascular Exam: +S1, +S2 - GI/Abdominal Exam GI & Abdominal Exam: Soft, Normal Bowel Sounds. absent: Tenderness - Neurological Exam Neurological Exam: Alert, Awake, Oriented x3 Assessment and Plan - Assessment and Plan (Free Text) Assessment: Generalized weakness Lethargy s/p high risk angioplasty CAD DMII Arthritis Plan: Patient was feeling weak and lethargic yesterday after having high risk angioplasty at [facility]. She was unable to get out of bed. We will order physical therapy evaluation. Patient will need rehab for generalized weakness. Troponin is still elevated after angioplasty. will order repeat Troponin and consult Dr. Mohr, cosmetic assembler Total bilirubin is also elevated. We will check direct bilirubin and order an ultrasound of the abdomen.
[2017-01-01] MEDS: Insulin Reg-MEDIUM-Coverage SC SCH ×3 (08:31→16:26)
--- NOTE | 2017-01-01 08:44 | RAD ---
HISTORY: fever COMPARISON: 12/25/2016 FINDINGS: LUNGS: No active pulmonary disease. PLEURA: No significant pleural effusion identified, no pneumothorax apparent. CARDIOVASCULAR: Mild cardiomegaly OSSEOUS STRUCTURES: No significant abnormalities. VISUALIZED UPPER ABDOMEN: Normal. OTHER FINDINGS: None. IMPRESSION: No active disease.
[2017-01-01] MEDS: Pantoprazole 40 mg EC Tab PO SCH (09:39)
--- NOTE | 2017-01-01 09:59 | CARD ---
APPROVED REPORT EKG Measurement Heart [id number] <Conclusion> Normal sinus rhythm Incomplete right bundle branch block Left anterior fascicular block STTW changes c/w ischemia and prolonged QTC, new
[2017-01-01 12:59] LABS: IRON 27 ug/dL (45-180)
--- NOTE | 2017-01-01 14:04 | CT ---
PROCEDURE: CT HEAD WITHOUT CONTRAST. HISTORY: AMS/weakness COMPARISON: 08/04/2016 TECHNIQUE: Axial computed tomography images were obtained through the head/brain without intravenous contrast. Radiation dose: Total exam DLP = 687.93 mGy-cm. This CT exam was performed using one or more of the following dose reduction techniques: Automated exposure control, adjustment of the mA and/or kV according to patient size, and/or use of iterative reconstruction technique. FINDINGS: HEMORRHAGE: No intracranial hemorrhage. 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 Chronic Again seen are moderate chronic microangiopathic changes. There is no territorial infarction, mass, mass effect or abnormal extra-axial fluid collection. VENTRICLES: There is moderate age-related global parenchymal volume loss and proportionate enlargement of the ventricles and cortical sulci. CALVARIUM: The skull base and calvarium are normal. PARANASAL SINUSES: Predominantly clear. MASTOID AIR CELLS: Predominantly clear. OTHER FINDINGS: None. IMPRESSION: No acute intracranial abnormality. 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
--- NOTE | 2017-01-01 14:38 | US ---
HISTORY: elevated bilirubin COMPARISON: None. TECHNIQUE: Grayscale imaging was performed. FINDINGS: LIVER: Measures 17.0 cm. There is mild diffuse increased echogenicity with coarse echotexture. . No mass. No intrahepatic bile duct dilatation. GALLBLADDER: Unremarkable. No gallstones. COMMON BILE DUCT: Measures 3.0 mm. No stones. No dilatation. PANCREAS: Unremarkable as visualized. No mass. No ductal dilatation. RIGHT KIDNEY: Measures 9.8cm. Normal echogenicity. No calculus, mass, or hydronephrosis. LEFT KIDNEY: Measures 10.1cm. Normal echogenicity. No calculus, mass, or hydronephrosis. SPLEEN: Normal in size and contour. No mass. AORTA: No aneurysmal dilatation. IVC: Unremarkable. OTHER FINDINGS: None. IMPRESSION: Mild hepatomegaly. Diffuse increased echogenicity in the liver with coarse echotexture may reflect hepatic steatosis however parenchymal infectious/ inflammatory etiologies cannot be entirely excluded. Clinical and laboratory correlation is advised. No evidence of cholelithiasis or biliary dilatation.
--- NOTE | 2017-01-01 15:18 | CON ---
DATE: 01/01/2017 SERVICE: Cardiology. REASON FOR CONSULTATION AND FOLLOWUP: Coronary artery disease, status post left main stent in LAD an d circumflex. BRIEF CLINICAL HISTORY: This is an 86-year-old female who was recently admitted with a mlr-UL-fzosic t myocardial infarction and the patient was transferred to [facility] with high risk PTCA where the patient underwent PTCA of left main, LAD and circumflex and was discharged yesterday. The ambulance transported her home. The patient apparently became very weak, lethargic and unable t o get out of the bed. Brought in by the ambulance to the Emergency Room for evaluation and treatment . The patient was noted to be very weak, lethargic, not very much communicative. PAST MEDICAL HISTORY: Significant for gouty arthritis, hypertension, diabetes, lumbar spinal stenosi s, gastroesophageal reflux, overactive bladder, difficult to control, poorly controlled, history of G I bleed on 08/13/2016, history of non-ST segment myocardial infarction on 12/26/2016, history of cardia c catheterization on 12/26/2014 that revealed triple vessel disease including left main disease, ostia l LAD, mid LAD, and ostial circumflex disease, mild disease in RCA, ejection fraction 35%-40%, EDP wa s in the range of 20-25. The patient underwent PTCA with a drug-eluting stent with Impella device at [facility], left main, LAD and circumflex. During this, patient had a blood transfu brigid post-procedure. The patient had multiple packed RBCs. The patient is very weak, lethargic. SOCIAL HISTORY: Denies any history of smoking. Denies any history of alcohol abuse. Previous echo 05/11/2016 showed ejection fraction 50%, mild to moderate valvular aortic stenosis, trace mitral and mild to moderate tricuspid regurgitation, no gradient across aortic valve noted on recent catheteriza tion. CURRENT MEDICATIONS: The patient is taking at bedside amlodipine 5 mg daily, sucralfate 1 gram, pant oprazole 40 mg, metformin 1 gram, glipizide 5 mg, Plavix 75 mg, carvedilol, Coreg 3.125, atorvastatin 20 mg daily. REVIEW OF SYSTEMS: Negative except for HPI. PHYSICAL EXAMINATION: VITAL SIGNS: Temperature afebrile, heart rate 81, blood pressure 114/64. HEENT: Atraumatic. Extraocular muscles intact. NECK: Supple. No carotid bruits. No thyromegaly. CHEST: Clear to auscultation. HEART: S1, S2 regular. ABDOMEN: Soft. EXTREMITIES: Clubbing and cyanosis negative. BLOOD WORKUP: As follows: WBC 8.3, hemoglobin 9.8, hematocrit 28.7, platelet count 209. Chemistry shows . Troponin 1.25. IMPRESSION: Anemia, status post stent in left main, left anterior descending, ostial, right coronary artery, weak, lethargic, status post-RBC transfusion, tou-XB-enugche myocardial infarction, maximum troponin on last admission is trending down. RECOMMENDATION: Will start aspirin, Plavix, monitor with repeat echo to assess LV function. We will follow with you. Thank you, Dr. Padilla, for providing the opportunity in taking care of this patient. Will get a lipid profile, TSH and monitor H and H, and rehabilitation. Priscila Mohr MD cc: [id number] TT: 01/01/2017 15:17:20 Confirmation # [id number] Dictation # [id number] kirti
[2017-01-02 07:39] LABS: ADD MANUAL DIFF? NO
[2017-01-02 07:46] LABS: BASO # 0.06 K/mm3 (0.0-2.0); BASO % 0.9 % (0.0-3.0); EOS # 0.2 (0.0-0.7); EOS % 3.2 % (1.5-5.0); GRAN # 4.43 (1.4-6.5); HEMATOCRIT 27.7 % (36.0-48.0); LYMPH # 1.3 (1.2-3.4); LYMPH % 19.7 % (22.0-35.0); MEAN CELL VOLUME 76.1 fL (80.0-105.0); MEAN CORPUSCULAR HEMOGLOBIN 23.1 pg (25.0-35.0); MEAN CORPUSCULAR HGB CONC 30.3 g/dl (31.0-37.0); MEAN PLATELET VOLUME 9.8 fl (7.0-11.0); MONO # 0.6 (0.1-0.6); MONO % 9.2 % (1.0-6.0); PLATELET COUNT 225 10^3/uL (120.0-450.0); RED CELL DISTRIBUTION WIDTH 26.5 % (11.5-14.5); WHITE BLOOD COUNT 6.6 10^3/ul (4.5-11.0)
[2017-01-02 08:21] LABS: ALB/GLOB RATIO 0.9 (1.1-1.8); ALKALINE PHOSPHATASE 90 U/L (38-133); ALT/SGPT 20 U/L (7-56); AST/SGOT 24 U/L (15-39); BILIRUBIN,DIRECT 0.2 mg/dL (0.0-0.4); BILIRUBIN,TOTAL 1.3 mg/dL (0.2-1.3); BLOOD UREA NITROGEN 23 mg/dL (7-21); CALCIUM 8.9 mg/dL (8.4-10.5); CARBON DIOXIDE 32 mmol/L (21-33); CHLORIDE 101 mmol/L (98-107); GFR AFRICAN-AMERICAN > 60; GLUCOSE,RANDOM 140 mg/dL (70-110); PHOSPHOROUS 2.9 mg/dL (2.5-4.5); POTASSIUM 3.7 mmol/L (3.6-5.0); SODIUM 136 mmol/L (132-148); TOTAL PROTEIN 5.6 g/dL (5.8-8.3)
--- NOTE | 2017-01-02 08:36 | PN ---
DATE: 01/02/2017 The patient is in the [facility] in [place], room 568, bed 1. The patient was admitted with pain, shortness of breath, lethargy, and patient had a high risk angioplasty at [facility], and after that the patient was transported to home where the family found that she was lethargic and complaining of pain and was not following any commands. The patient was brought back to the Emergency Room. PHYSICAL EXAMINATION: VITAL SIGNS: This morning, the pulse is 73, blood pressure 106/79, respirations are 17, O2 sat 94% on room air. EENT: The head is normocephalic. The patient is able to recognize person but patient is confused regarding events. LUNGS: Clear. HEART: Normal sinus rhythm. ABDOMEN: Soft, obesity present. CENTRAL NERVOUS SYSTEM: The patient has evidence of cerebrovascular insufficiency, chronic. PAST MEDICAL HISTORY: The patient has had past history of altered mental state , transient. The patient also has history of coronary artery disease, diabetes mellitus; degenerative arthritis, severe, more in the hip and the knees and the lower back. MEDICATIONS: The patient's list of medications consist of Carafate 1 gram daily. The patient gets Coreg 3.125 mg b.i.d., aspirin 81 mg daily, iron supplement because the patient had acute bleeding during angioplasty (she received 4 units of blood transfusion; that was at [facility] a few days ago). The patient is on insulin coverage for diabetes, Lipitor 20 mg daily. The patient is on Lovenox for prophylaxis of deep vein thrombosis and thromboembolism. The patient is on amlodipine 5 mg daily, Plavix 75 mg daily, pantoprazole 40 mg daily, multivitamin. The patient is going to receive some therapy. She has to be able to ambulate at least short distances, which she did before. She moves from the bed with assistance to the lounge chair in her home or apartment. We expect her to get more improvement regarding ambulation. Pending current acute management, the patient will be placed in the transitional care or subacute rehab. The patient's hemoglobin is 8.4 today, yesterday it was 9.1. We will follow up with hemoglobin. Will repeat it and, if necessary, will consider giving the patient blood transfusion. The patient's chemistry: The iron level is low. The patient is getting iron by oral route. We will give the patient an infusion of iron IV so that we can boost production of RBCs. Her troponin was slightly elevated. She is post angioplasty. The mission planner will evaluate that parameter. Her condition is clinically stable. Overall prognosis is guarded. Giulia Padilla MD cc: [id number] TT: 01/02/2017 08:35:53 Confirmation # [id number] Dictation # [id number] mn MTDD
[2017-01-02] MEDS: Pantoprazole 40 mg EC Tab PO SCH (09:45)
[2017-01-02] MEDS: Insulin Reg-MEDIUM-Coverage SC SCH ×4 (09:45→23:42)
[2017-01-02] MEDS: Multivitamin Therapeutic Tab PO SCH (09:45)
[2017-01-02 13:04] LABS: FOLATE 7.6 ng/mL
--- NOTE | 2017-01-02 19:17 | PN ---
DATE: 01/02/2017 LOCATION: The patient is in room 568, bed 1. REASON FOR CONSULTATION: Coronary artery disease status post left main stent in LAD and circumflex. HISTORY OF PRESENT ILLNESS: An 86-year-old female who was recently admitted with a nkh-BH-xwvzkbe el evation myocardial infarction. The patient was transferred to [facility] with high r isk PTCA. She underwent PTCA of the left main, LAD, and circumflex, and was discharged 1 day earlier to the admission to the [facility]. The patient apparently became very weak and letharg ic, and unable to get out of bed. The patient denies any chest pain, shortness of breath, palpitatio n. The patient's cardiac cath findings have been discussed in our consult dated 01/01/2017. PHYSICAL EXAMINATION: VITAL SIGNS: Blood pressure 141/61, respirations 22, pulse 75, temperature 97.4. Earlier blood pres sure 110/59. HEAD: Normocephalic. EYES: Pupils normal. Conjunctivae pale. NECK: JVP low. Carotid equal. THORAX: AP diameter normal. LUNGS: Clear. CARDIOVASCULAR: S1, S2. ABDOMEN: Soft, nontender, no organomegaly. EXTREMITIES: No clubbing, no cyanosis. LABORATORY DATA: WBC 6.6, hemoglobin 8.4, hematocrit 27.7, platelet 225. Sodium 136, potassium 3.7, BUN 23, creatinine 0.9. AST, ALT normal. Total protein 5.6, albumin 2.7. DIAGNOSES: Anemia, status post stent in left main, left anterior descending artery, ostial right cor onary artery, recent mjk-RI-hojwfcy elevation myocardial infarction, anemia. PLAN: Will continue Coreg 3.125 p.o. daily, aspirin 81 mg p.o. daily, ferrous sulfate 324 mg t.i.d., Lipitor 20 mg daily, Lovenox 30 mg subcutaneous daily, amlodipine 5 mg daily, Plavix 75 daily, Mckayla nix 40 daily. Repeat echo has been requested to assess LV function. Will follow with you. Priscila Garcia MD cc: [id number] TT: 01/02/2017 19:16:38 Confirmation # [id number] Dictation # [id number] dn
--- NOTE | 2017-01-02 20:11 | US ---
PROCEDURE: Bilateral carotid artery duplex ultrasound HISTORY: Carotid stenosis PHYSICIAN(S): Aaron Mobley MD. TECHNIQUE: Duplex sonography and color-flow Doppler were used to evaluate the carotid bifurcations and limited segments of the vertebral arteries bilaterally. FINDINGS: There is moderate heterogeneous echogenic plaque noted at the carotid bifurcations bilaterally. The peak systolic velocity in the proximal right internal carotid artery is 168 cm/sec. This corresponds to a 60-79 percent proximal right ICA stenosis. Normal systolic velocities are noted in the proximal right external carotid artery. There is antegrade flow in the right vertebral artery. There is echogenic occlusive thrombus noted in the right internal jugular vein, subacute/ chronic. The peak systolic velocity in the proximal left internal carotid artery is 88 cm/sec. This corresponds to a 20 to 39% proximal left ICA stenosis. Normal systolic velocities are noted in the proximal left external carotid artery. There is antegrade flow in the small left vertebral artery. IMPRESSION: 1. 60-79 percent proximal right ICA stenosis. 2. 20- 39 percent proximal left ICA stenosis. 3. 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 Antegrade flow in both vertebral arteries.
[2017-01-03 00:14] LABS: URINE BILIRUBIN NEGATIVE (NEGATIVE); URINE BLOOD MODERATE (NEGATIVE); URINE GLUCOSE (UA) NEGATIVE (NEGATIVE); URINE KETONE NEGATIVE (NEGATIVE); URINE LEUKOCYTE ESTERASE NEGATIVE Leu/uL (NEGATIVE); URINE PROTEIN 30 mg/dL (<30 mg/dL); URINE UROBILINOGEN 0.2 E.U./dL (<1 E.U./dL)
[2017-01-03 00:16] LABS: URINE APPEARANCE CLEAR (CLEAR); URINE COLOR YELLOW (YELLOW)
[2017-01-03 00:30] LABS: URINE BACTERIA RARE (NEG); URINE WBC 0 - 2 /hpf (0-6)
[2017-01-03 07:03] LABS: ADD MANUAL DIFF? NO
[2017-01-03 07:11] LABS: BASO # 0.07 K/mm3 (0.0-2.0); EOS # 0.2 (0.0-0.7); EOS % 3.2 % (1.5-5.0); GRAN # 4.34 (1.4-6.5); GRAN % 63.2 % (50.0-68.0); HEMATOCRIT 28.6 % (36.0-48.0); LYMPH # 1.7 (1.2-3.4); LYMPH % 24.3 % (22.0-35.0); MEAN CELL VOLUME 75.5 fL (80.0-105.0); MEAN CORPUSCULAR HGB CONC 30.4 g/dl (31.0-37.0); MEAN PLATELET VOLUME 9.7 fl (7.0-11.0); MONO # 0.6 (0.1-0.6); MONO % 8.3 % (1.0-6.0); PLATELET COUNT 252 10^3/uL (120.0-450.0); RED CELL DISTRIBUTION WIDTH 26.4 % (11.5-14.5); WHITE BLOOD COUNT 6.9 10^3/ul (4.5-11.0)
[2017-01-03 07:26] LABS: BLOOD UREA NITROGEN 24 mg/dL (7-21); CALCIUM 9.4 mg/dL (8.4-10.5); CARBON DIOXIDE 30 mmol/L (21-33); CHLORIDE 98 mmol/L (98-107); GFR AFRICAN-AMERICAN > 60; GLUCOSE,RANDOM 166 mg/dL (70-110); MAGNESIUM 1.9 mg/dL (1.7-2.2); PHOSPHOROUS 3.3 mg/dL (2.5-4.5); POTASSIUM 3.9 mmol/L (3.6-5.0); SODIUM 133 mmol/L (132-148)
[2017-01-03] MEDS: Insulin Reg-MEDIUM-Coverage SC SCH ×4 (07:30→22:03)
[2017-01-03 08:04] VITALS: RESP 20
[2017-01-03] MEDS ORDERED: Iron Sucrose 100 mg/5 ml Inj IVP ONE (08:20)
[2017-01-03] MEDS ORDERED: POLYETHYLENE GLYCOL 3350 17 GM/Dose PACKET PO PRN (08:22)
--- NOTE | 2017-01-03 09:27 | PN ---
DATE: 01/03/2017 The patient is in the [facility] in [place], room 568, bed 1. She was admitted a couple of days ago with history of weakness, pain, inability to walk, and altered mental faculties because she was not able to even get up from bed. The patient had a high risk angioplasty. This is the third day. The patient is known to have diabetes mellitus and hypertension. The patient has history of degenerative arthritis, lumbar neuritis, severe bursitis of both knees and the hip. MEDICATION LIST: Consists of Carafate 1 gram daily. The patient was treated for peptic ulcer disease in the past. She has possibly a past history of partial gastrectomy for peptic ulcer disease. The patient is on carvedilol 3.125 mg b.i.d., aspirin 81 mg daily, ferrous sulfate daily. The patient is on insulin coverage for diabetes, Lipitor, Lovenox for prevention of deep vein thrombosis, amlodipine, Plavix for status post angioplasty. The patient has bare metal stents. The patient is on pantoprazole 40 mg daily, vitamin B12. She is on a heart healthy diet. PHYSICAL EXAMINATION: LUNGS: Clear. HEART: Normal sinus rhythm. S1, S2 present. ABDOMEN: Soft, obesity present. CENTRAL NERVOUS SYSTEM: The patient has decreased cerebral function with mild disorientation at times, but the patient answers all questions. No focal neurological deficits are noted. The patient is going to be treated, and she needs further physical therapy and rehabilitation to get up and to walk. Prior to her admission to the hospital for acute illness, the patient was able to get out of bed with help and go into the living room and sit in the lounge chair and watch TV and talk to people. We hope that she will be able to gain some of her previous level of function. We will continue all medications and follow up with consultations. Note: The patient did have peptic ulcer disease and GI bleeding, and she had blood transfusion a few months ago as well. Giulia Padilla MD cc: [id number] TT: 01/03/2017 09:26:30 Confirmation # [id number] Dictation # [id number] jn DEVEN
--- NOTE | 2017-01-03 10:21 | CT ---
PROCEDURE: CT HEAD WITHOUT CONTRAST. HISTORY: r/o CVA COMPARISON: 01/01/2017. TECHNIQUE: Axial computed tomography images were obtained through the head/brain without intravenous contrast. Radiation dose: Total exam DLP = 734.14 mGy-cm. This CT exam was performed using one or more of the following dose reduction techniques: Automated exposure control, adjustment of the mA and/or kV according to patient size, and/or use of iterative reconstruction technique. FINDINGS: HEMORRHAGE: No intracranial hemorrhage. BRAIN: Again seen are old infarctions is right-sided enlarged thyroid. There are moderate chronic microangiopathic changes. There is no mass, mass effect or abnormal extra-axial fluid collection. There are coarse atherosclerotic calcifications in the cavernous carotid arteries. VENTRICLES: There is modest age-related global parenchymal volume loss and proportionate enlargement of the ventricles and cortical sulci. CALVARIUM: There is no calvarial fracture or extracranial soft tissue swelling. PARANASAL SINUSES: Predominantly clear. MASTOID AIR CELLS: Predominantly OTHER FINDINGS: Clear. IMPRESSION: No acute intracranial abnormality. If there is a persistent focal neurologic deficit and an ongoing clinical concern for acute infarction, an MRI of the brain without intravenous contrast would be a more sensitive modality for evaluation of hyperacute/acute ischemic infarction. 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
[2017-01-03] MEDS: Enoxaparin 30 mg Syringe SC SCH (10:32)
[2017-01-03] MEDS: Pantoprazole 40 mg EC Tab PO SCH (10:33)
[2017-01-03] MEDS: Multivitamin Therapeutic Tab PO SCH (10:34)
--- NOTE | 2017-01-03 16:07 | PN ---
DATE: 01/03/2017 REASON FOR CONSULTATION AND FOLLOWUP: Coronary artery disease status post PTCA of left main, LAD, ci rcumflex. BRIEF CLINICAL HISTORY: An 86-year-old female recently admitted with unstable angina and non-ST-segm ent myocardial infarction. The patient had a cardiac catheterization and found to be left main. Thi s is thought to be high risk for surgery. The patient went to [facility] and had a stent in the left main, circumflex and LAD with Impella device. Now patient is in [facility] f or continuity of care. Denies any chest pain, shortness of breath, any palpitation. PHYSICAL EXAMINATION: VITAL SIGNS: Temperature afebrile, heart rate 65, blood pressure 141/61. HEENT: PERRLA. Extraocular muscles intact. NECK: Supple. No carotid bruits. No thyromegaly. CHEST: Clear to auscultation. HEART: S1, S2 regular. ABDOMEN: Soft. EXTREMITIES: Clubbing and cyanosis negative. BLOOD WORKUP: WBC 6.____, hemoglobin 8.7, hematocrit 28.6, platelet count 252. Chemistry shows sodi um 130, potassium 3.9, chloride ____, carbon dioxide 30, anion gap of 9, BUN 24, creatinine 0.9. IMPRESSION: Unstable angina, status post frj-TO-mixidlqev myocardial infarction, status post acute c oronary syndrome; status post left main stenting, circumflex, and left anterior descending with high risk with Impella device; anemia status post packed red blood cell transfusion, methicillin-resistant Staphylococcus aureus in the nares. CT head: Moderate chronic microangiopathic changes and more ag e-related global parenchymal volume loss noted. Bilateral carotid duplex: Right internal carotid ar earnest 60-79% stenosis, left 20-39% stenosis. RECOMMENDATION: Continue aspirin, continue Plavix. Will start DVT prophylaxis from tomorrow. Will follow H and H. Continue amlodipine. Will follow with you. Thank you, Dr. Padilla, for providing the opportunity in taking care of the patient. Will follow with you. Priscila Mohr MD cc: [id number] TT: 01/03/2017 16:07:18 Confirmation # [id number] Dictation # [id number] mn
[2017-01-04 07:52] LABS: BLOOD UREA NITROGEN 21 mg/dL (7-21); CALCIUM 9.2 mg/dL (8.4-10.5); CARBON DIOXIDE 30 mmol/L (21-33); CHLORIDE 100 mmol/L (98-107); GFR AFRICAN-AMERICAN > 60; GLUCOSE,RANDOM 159 mg/dL (70-110); POTASSIUM 3.9 mmol/L (3.6-5.0); SODIUM 135 mmol/L (132-148)
[2017-01-04 07:59] LABS: ADD MANUAL DIFF? NO
[2017-01-04] MEDS: Insulin Reg-MEDIUM-Coverage SC SCH ×2 (08:00→13:18)
--- NOTE | 2017-01-04 08:01 | CON ---
DATE: 01/03/2017 CHIEF COMPLAINT: Gait instability, abnormal CAT scan, generalized weakness. HISTORY OF PRESENT ILLNESS: This 86-year-old woman with history of hypertension; dyslipidemia; histo ry of peptic ulcer disease, status post gastric surgery in the past; history of spinal stenosis; lumb osacral neuritis; history of altered mental status came in for generalized weakness and lethargy, was in and out of bed, and she was complaining of lower back pain, and in the arms and legs. The patien yesica was brought to the hospital where she was found to be lethargic and weak and found to have multiple bruises. She had a history of NSTEMI with history of stent to the left main circumflex and LAD with Impella device at [facility]. Was called to evaluate for her generalized weakness. She had a CT head, showed old infarctions throughout cerebellar hemisphere, but no acute intracrani al abnormalities, no hyperdensities, just chronic ischemic changes, parenchymal loss. She was found to have transient low systolic and diastolic blood pressures with transient drops of 106/59 and 110/59. She also had a low B12 of 197, is currently being replaced, and was mildly dehydrated. Cur rently, she is following commands, hard of hearing at her baseline, moving all extremities. 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 PAST MEDICAL HISTORY: History of coronary artery disease; NSTEMI; history of stent in the left main circumflex and LAD; history of gastric ulcer bleeding and gastrointestinal hemorrhage from stomach, s tatus post gastric surgery in the past; history of lumbosacral spinal stenosis; and deconditioned sta te. REVIEW OF SYSTEMS: A 14-point review of systems is negative except for the HPI. FAMILY HISTORY: Noncontributory. SOCIAL HISTORY: No illicit drug use, smoking, or ETOH abuse. MEDICATIONS: Reviewed via nurses reconciliation sheet. ALLERGIES: No known drug allergies. PHYSICAL EXAMINATION: VITAL SIGNS: Temperature 98.2, pulse rate of 81, blood pressure 127/66, respiratory rate 20, oxygen saturation 95% on room air. GENERAL: The patient is sitting up in bed in no acute distress. HEENT: Atraumatic, normocephalic. PERRLA. Extraocular muscles intact. NECK: Supple. No JVD. No adenopathy noted. LUNGS: Clear to auscultation. No adventitious sounds. HEART: S1, S2, normal rate and rhythm. No murmurs, rubs, or gallops. ABDOMEN: Soft, nontender, nondistended. Bowel sounds present. EXTREMITIES: No clubbing. No cyanosis. Peripheral pulses 2+ felt bilaterally. NEUROLOGIC: The patient is alert, oriented to person and place, hard of hearing. 0/3. Crani al nerves II-XII are intact. MOTOR: Slight increased tone throughout. Moves all extremities equally with no seen. SENSORY: Decreased light touch, pinprick, proprioception, vibration. DTRs are 1+ throughout and abs ent at the ankles. COORDINATION: Tzicgt-nc-rgta intact. GAIT: Deferred for now. LABORATORY DATA: B12 is 197, which is low. Sodium is 133, potassium 3.9, chloride 9 , carbon dioxide of 30, BUN of 24, creatinine 0.9, random glucose 166. ASSESSMENT AND PLAN: This is an 86-year-old woman with past medical history of hypertension; dyslipi demia; history of peptic ulcers and bleeding; history of gastric surgery; history of unstable angina, status post non-ST elevation myocardial infarction, status post acute coronary syndrome, status post left main stenting circumflex, left anterior descending with Impella device; history of anemia; with a history of a right internal carotid 60-79% ICA stenosis on the right and left ICA stenosis of 20-3 9%, was on aspirin and Plavix, for stroke prevention is Lipitor, also had a subacute occlusive thrombosis in the right internal jugular vein and was restarted on DVT prophylaxis. I was consulted for lethargy and generalized weakness and falls. She had a CAT scan that just showed old cerebellar infarctions, but no acute abnormalities and old cerebral infarction in the right cerebellar hemispher e. Currently, she seems deconditioned dehydrated and has B12 deficiency with a low B12 of 197, is currently being replaced. Overall, her constitutional symptoms are likely secondary to her under lying chronic medical problems in terms of mental status with mild dehydration and deconditioned stat e, as well as underlying B12 deficiency. Recommend: 1. Aspirin 81 and Plavix 75 and Lipitor 20 mg for stroke prevention as well given her recent history of NSTEMI. 2. Lovenox 30 mg subQ daily given her underlying subacute chronic right jugular vein thrombus. 3. Continue with B12 1000 mcg p.o. daily for B12 deficiency. She has low B12. 4. Monitor H and H and continue with p.o. t.i.d. for iron deficiency anemia, and anemia of car diac disease. 5. We will recommend subacute rehab for underlying deconditioned state and cardiac condition and for gait balance and muscle strengthening. Continue with case management and transition for underlying therapy facility and continue with current present medical management. No further neurological raj p at this time. Thank you for this consult. Please reconsult as necessary. We will sign off. Ankur Alfonso MD cc: [id number] TT: 01/03/2017 19:58:45 Confirmation # [id number] Dictation # [id number] tn 01/04/2017 07:00:21
[2017-01-04 08:06] LABS: BASO # 0.08 K/mm3 (0.0-2.0); BASO % 1.1 % (0.0-3.0); EOS # 0.2 (0.0-0.7); EOS % 3.1 % (1.5-5.0); GRAN # 5.05 (1.4-6.5); GRAN % 67.5 % (50.0-68.0); HEMATOCRIT 28.4 % (36.0-48.0); LYMPH # 1.4 (1.2-3.4); LYMPH % 18.9 % (22.0-35.0); MEAN CELL VOLUME 75.5 fL (80.0-105.0); MEAN CORPUSCULAR HEMOGLOBIN 23.1 pg (25.0-35.0); MEAN CORPUSCULAR HGB CONC 30.6 g/dl (31.0-37.0); MONO # 0.7 (0.1-0.6); MONO % 9.4 % (1.0-6.0); PLATELET COUNT 315 10^3/uL (120.0-450.0); RED CELL DISTRIBUTION WIDTH 26.7 % (11.5-14.5); WHITE BLOOD COUNT 7.5 10^3/ul (4.5-11.0)
--- NOTE | 2017-01-04 08:16 | CP.PCM.PN ---
Subjective - Date & Time of Evaluation Date of Evaluation: 01/04/17 Time of Evaluation: 07:45 - Subjective Subjective: Patient is seen this morning. She is awake, alert. She denies chest pain or SOB. Objective - Vital Signs/Intake and Output Vital Signs (last 24 hours): Temp Pulse Resp BP Pulse Ox 97.6 F 64 20 116/61 95 01/03/17 16:00 01/03/17 16:00 01/03/17 16:00 01/03/17 16:00 01/03/17 16:00 Intake and Output: 01/04/17 01/04/17 06:59 18:59 Intake Total 720 Output Total 900 Balance -180 - Medications Medications: Current Medications Amlodipine Besylate (Norvasc) 5 mg PO DAILY [facility] Last Admin: 01/03/17 10:33 Dose: 5 mg Aspirin (Ecotrin) 81 mg PO DAILY [facility] Last Admin: 01/03/17 10:33 Dose: 81 mg Atorvastatin Calcium (Lipitor) 20 mg PO DAILY [facility] Last Admin: 01/03/17 10:33 Dose: 20 mg Carvedilol (Coreg) 3.125 mg PO DAILY [facility] Last Admin: 01/03/17 10:34 Dose: 3.125 mg Clopidogrel Bisulfate (Plavix) 75 mg PO DAILY [facility] Last Admin: 01/03/17 10:33 Dose: 75 mg Cyanocobalamin (Vitamin B12 1000 Mcg Tab) 1,000 mcg PO DAILY [facility] Last Admin: 01/03/17 10:33 Dose: 1,000 mcg Docusate Sodium (Colace) 100 mg PO DAILY [facility] Last Admin: 01/03/17 10:33 Dose: 100 mg Enoxaparin Sodium (Lovenox) 30 mg SC DAILY [facility] PRN Reason: Protocol Last Admin: 01/03/17 10:32 Dose: 30 mg Ferrous Sulfate (Feosol) 324 mg PO TID [facility] Last Admin: 01/03/17 17:12 Dose: 324 mg Insulin Human Regular (Humulin R Med) 0 units SC ACHS [facility] PRN Reason: Protocol Last Admin: 01/03/17 22:03 Dose: Not Given Multivitamins (Thera Tab) 1 tab PO DAILY [facility] Last Admin: 01/03/17 10:34 Dose: 1 tab Pantoprazole Sodium (Protonix Ec Tab) 40 mg PO DAILY [facility] Last Admin: 01/03/17 10:33 Dose: 40 mg Polyethylene Glycol (Miralax) 17 gm PO 1800 PRN PRN Reason: Constipation Sucralfate (Carafate Tab) 1 gm PO DAILY [facility] Last Admin: 01/03/17 10:33 Dose: 1 gm - Labs Labs: 01/03/17 07:00 01/04/17 06:30 PT 11.3 Seconds (9.9-11.8) 12/31/16 20:15 INR 1.05 (0.93-1.08) 12/31/16 20:15 APTT 28.0 Seconds (23.7-30.8) 12/31/16 20:15 - Constitutional Appears: No Acute Distress - Head Exam Head Exam: ATRAUMATIC, NORMOCEPHALIC - Respiratory Exam Respiratory Exam: Clear to Ausculation Bilateral, NORMAL BREATHING PATTERN - Cardiovascular Exam Cardiovascular Exam: +S1, +S2 - GI/Abdominal Exam GI & Abdominal Exam: Soft, Normal Bowel Sounds. absent: Tenderness - Neurological Exam Neurological Exam: Alert, Awake Assessment and Plan - Assessment and Plan (Free Text) Assessment: Generalized weakness CAD s/p angioplasty with stents Iron deficiency Anemia HTN DMII Arthritis Plan: Patient is more awake and alert this morning. continue ASA, Plavix, BB for CAD. She underwent high risk angioplasty 1 week ago. Hemoglobin is 8.7 yesterday. One dose of venofer given yesterday. Will give another dose today. follow H&H Patient was walking with walker at home. She needs further PT for strengthening and gait training so she can get out of bed and walk with walker at home. [facility]CU evaluation.
[2017-01-04 08:34] VITALS: PULSE 72; TEMP 98.2; O2SAT 96
[2017-01-04] MEDS: Pantoprazole 40 mg EC Tab PO SCH (09:47)
[2017-01-04] MEDS: Multivitamin Therapeutic Tab PO SCH (09:49)
[2017-01-04] MEDS: Enoxaparin 30 mg Syringe SC SCH (09:49)
[2017-01-04 09:51] VITALS: BP 112/52
--- NOTE | 2017-01-04 20:00 | PN ---
DATE: 01/04/2017 LOCATION: Room 56, bed 1. REASON FOR CONSULTATION AND FOLLOWUP: Coronary artery disease, status post percutaneous transluminal coronary angioplasty also left main, left anterior descending, circumflex. HISTORY OF PRESENT ILLNESS: The patient is an 86-year-old female recently admitted with unstable ang eddie, non-ST segment elevation myocardial infarction. The patient had catheterization, which showed l eft main blockage and the patient was thought to be high risk for surgery, so the patient was transfe rred to [facility] for left main stent in circumflex and LAD with Impella device patent. N ow the patient was readmitted to [facility] because the patient felt very weak and lethar gic. The patient is now conscious, alert, sitting in chair without chest pain, shortness of breath, or palpitation. PHYSICAL EXAMINATION: VITAL SIGNS: Blood pressure 112/52, respirations 20, pulse 72, temperature 98.2. HEAD: Normocephalic. EYES: Pupils normal. Conjunctivae slightly pale. NECK: JVP low. Carotid equal. THORAX: AP diameter normal. LUNGS: Clear. CARDIOVASCULAR: S1, S2. ABDOMEN: Soft, nontender, no organomegaly. Bowel sounds normal. EXTREMITIES: No clubbing, no cyanosis. LABORATORY DATA: WBC 7.5, hemoglobin 8.7, hematocrit 28.4, platelets 315. Sodium 135, potassium 3.9 , BUN 21, creatinine 0.9, random glucose 104. DIAGNOSES: Status post non-ST segment elevation myocardial infarction, status post acute coronary sy ndrome, status post stent left main circumflex and left anterior descending with Impella device, anem ia, status post blood transfusions at [facility], right internal carotid artery 60% t o 79% stenosis, weakness and drowsiness, has improved. PLAN: Is to continue present therapy and will follow with you. Priscila Garcia MD cc: [id number] TT: 01/04/2017 19:59:23 Confirmation # [id number] Dictation # [id number] dn
--- NOTE | 2017-01-07 14:49 | PQF GENQUE ---
01/07/17 Dr. Gonzales, Please clarify principal diagnosis--reason for admission after study. Thank you. Clarification of your documentation is requested to better reflect the severity of illness and intensity of treatment of your patient. Indicators present [] Specify: [] [] Specify: [] [] Specify: [] [] Specify: [] Location in the medical record that reflects the above clinical findings: [] Treatment Provided: [] PHYSICIAN'S RESPONSE Based on your medical judgment of the clinical indicators outlined above please clarify the following: [x] Practitioner response - Patient was admitted for weakness and altered mental state (lethargy). Patient had workup for CVA, but MRI could not be done due to recent angioplasty so whether patient had CVA is unknown. [] If unable to determine, please check the box, sign and date. Present On Admission (POA) Indicator: [x] Present at the time of admission [] Not present at the time of admission [] Clinically Undetermined In responding to this query, please exercise your independent professional judgment. The fact that a question is asked does not imply that any particular answer is desired or expected. Thank you for your clarification on this documentation. If you have any questions please call:[ ] * Thank you, [ ] public health service officer DEVEN
--- NOTE | 2017-01-08 11:49 | CARD ---
APPROVED REPORT EXAM: Two-dimensional and M-mode echocardiogram with Doppler and color Doppler. INDICATION S/P PTCA 2D DIMENSIONS Left Atrium (2D)4.1 (1.6-4.0cm)IVSd1.2 (0.7-1.1cm) LVDd4.7 (3.9-5.9cm)LVOT Diameter1.9 (1.8-2.4cm) PWd1.2 (0.7-1.1cm)LVDs3.5 (2.5-4.0cm) FS (%) 25.9 %LVEF (%)51.0 (>50%) M-Mode DIMENSIONS Aortic Root2.50 (2.2-3.7cm)Aortic Cusp Exc.0.60 (1.5-2.0cm) Aortic Valve AoV Peak Yzboippi324.0cm/sAoV VTI64.9cmAO Peak GR.36mmHg LVOT Peak Hjxacbmf962.0cm/sLVOT VTI22.40cmAO Mean GR.17mmHg JYOTSNA (VMAX)0.26xq9OPP (VTI)0.98cm2 Mitral Valve MV E Tzhddvef38.3cm/sMV A Zauwxgzu393.0cm/sE/A ratio0.6 TDI E/Lateral E'0.0E/Medial E'0.0 Tricuspid Valve TR Peak Wvbqevck579gv/sRAP PIJBNTQI46xrIyOX Peak Gr.13mmHg [id number] LEFT VENTRICLE The left ventricle is normal size. There is borderline to mild concentric left ventricular hypertrophy. The systolic function is mildly impaired.EF-45-50% There is global hypokinesis of the left ventricle. Transmitral Doppler flow pattern is Grade III-reversible restrictive diastolic dysfunction. No left ventricle thrombus noted on this study. There is no ventricular septal defect visualized. There is no left ventricular aneurysm. There is no mass noted in the left ventricle. RIGHT VENTRICLE The right ventricle is normal size. There is normal right ventricular wall thickness. The right ventricular systolic function is normal. ATRIA The left atrium is borderline dilated. The right atrium size is normal. The interatrial septum is intact with no evidence for an atrial septal defect. AORTIC VALVE The aortic valve is calcified and displays decreased opening. There is trace to mild aortic regurgitation. There is moderate valvular aortic stenosis. There is no aortic valvular vegetation. MITRAL VALVE The mitral valve is calcified but opens well. Mitral annular calcification is moderate. Mitral regurgitation is trace to mild. There is no mitral valve stenosis. There is no evidence of mitral valve prolapse. TRICUSPID VALVE The tricuspid valve leaflets are thickened , but open well. There is trace tricuspid regurgitation.RVSP-23 mmof Hg. There is no tricuspid valve stenosis. There is no tricuspid valve prolapse or vegetation. PULMONIC VALVE The pulmonic valve is borderline thickened. There is trace pulmonic valvular regurgitation. There is no pulmonic valvular stenosis. GREAT VESSELS The aortic root is normal in size. The ascending aorta is normal in size. The pulmonary artery is normal. The IVC is normal in size and collapses >50% with inspiration. PERICARDIAL EFFUSION There is no pleural effusion. There is no pericardial effusion. <Conclusion> There is borderline to mild concentric left ventricular hypertrophy. The systolic function is mildly impaired. The systolic function is mildly impaired.EF-45-50% There is trace to mild aortic regurgitation. There is moderate valvular aortic stenosis. Mitral regurgitation is trace to mild. There is trace tricuspid regurgitation.RVSP-23 mmof Hg. There is no pericardial effusion. The IVC is normal in size and collapses >50% with inspiration.
--- NOTE | 2017-02-09 11:19 | DS ---
BRIEF HISTORY: This is an 86-year-old female with history of coronary artery disease, gastric ulcer, type II diabetes mellitus, spinal stenosis, who was recently discharged from [facility] in [place], [place] for a high-risk angioplasty. Once the patient was brought home, the family noticed that she was very weak and lethargic. She was unable to get out of bed and complained of pain in the lower back, arms and legs. The family then called the ambulance to bring her to the emergency room for evaluation and treatment. She was extremely lethargic and weak, but arousable on arrival to the emergency room. HOSPITAL COURSE: The patient was admitted to the general medical floor. She was seen by , rotary shear operator, and Dr. Alfonso, neurologist. Her hemoglobin was also monitored while she was in the hospital, on admission it was 9.1, it dropped to 8.4. She was given IV Venofer for this. The patient was started on physical therapy and it was advised that the patient would need more physical therapy in order to get out of the bed and walk. She was previously walking with a walker at home. She was transferred to the transitional care unit for further rehab. 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 Carotid ultrasound showed 28% to 39% left proximal stenosis and 60% to 79% on the right side. Echocardiogram showed ejection fraction of 61%. Borderline to mild concentric LVH, systolic function mildly impaired, [id number] aortic regurgitation, moderate valvular aortic stenosis, trace tricuspid regurgitation. DISCHARGE DIAGNOSES: Gait dysfunction, altered mental state, hypertension, coronary artery disease, spinal stenosis, diabetes type 2, gastric ulcers. DISCHARGE MEDICATIONS: Aspirin 81 mg once a day, Plavix 75 mg daily, Protonix 40 mg daily, sucralfate 1 g daily, Coreg 3.125 mg daily, metformin 1000 mg daily, Glucotrol 5 mg daily, Lipitor 20 mg daily, MiraLax 17 g daily, Norvasc 5 mg daily, and vitamin B12 1000 mcg daily. FOLLOWUP: The patient will be followed up in the transitional care unit. Ute Padilla MD cc: [email or web address]
== END 2017-01-04 17:00 | DRG 948 ==
LOC: ED 19:01 → ERH 22:11 → 5RNO 23:56 → OBSVTOIN 01-01 08:30
PROVIDERS: ADMIT Internal Medicine; ATTEND Internal Medicine
DX: R41.82 Altered mental status, unspecified (principal); R53.1 Weakness; E11.9 Type 2 diabetes mellitus without complications; I08.3 Combined rheumatic disorders of mitral, aortic and tricuspid valves; E86.0 Dehydration; D50.9 Iron deficiency anemia, unspecified; I10 Essential (primary) hypertension; E53.8 Deficiency of other specified B group vitamins; I25.110 Atherosclerotic heart disease of native coronary artery with unstable angina pectoris; I65.23 Occlusion and stenosis of bilateral carotid arteries; N32.81 Overactive bladder; M10.9 Gout, unspecified; K21.9 Gastro-esophageal reflux disease without esophagitis; M48.00 Spinal stenosis, site unspecified; Z79.02 Long term (current) use of antithrombotics/antiplatelets; Z79.82 Long term (current) use of aspirin; Z79.899 Other long term (current) drug therapy; I25.2 Old myocardial infarction; E78.5 Hyperlipidemia, unspecified; H91.90 Unspecified hearing loss, unspecified ear; Z86.73 Personal history of transient ischemic attack (TIA), and cerebral infarction without residual deficits; Z87.11 Personal history of peptic ulcer disease; Z90.3 Acquired absence of stomach [part of]; Z90.49 Acquired absence of other specified parts of digestive tract; Z95.5 Presence of coronary angioplasty implant and graft; R26.2 Difficulty in walking, not elsewhere classified; Z98.42 Cataract extraction status, left eye; Z98.41 Cataract extraction status, right eye; T14.8 Other injury of unspecified body region; M16.10 Unilateral primary osteoarthritis, unspecified hip; M17.0 Bilateral primary osteoarthritis of knee; M47.9 Spondylosis, unspecified; M71.9 Bursopathy, unspecified; M54.16 Radiculopathy, lumbar region; Z86.14 Personal history of Methicillin resistant Staphylococcus aureus infection

== ENCOUNTER 2017-01-04 17:00 | Inpatient (IN) | payer OTHER, MEDICARE ==
[2017-01-04 17:15] VITALS: BMI 52.4
[2017-01-04] MEDS: Insulin Reg-MEDIUM-Coverage SC SCH (22:00)
[2017-01-05] MEDS: Pantoprazole 40 mg EC Tab PO SCH (05:34)
[2017-01-05] MEDS: Enoxaparin 30 mg Syringe SC SCH (05:34)
[2017-01-05] MEDS: Insulin Reg-MEDIUM-Coverage SC SCH ×4 (07:52→22:34)
--- NOTE | 2017-01-05 08:16 | CP.PCM.HP ---
History of Present Illness - History of Present Illness History of Present Illness: 86 year old female with history of arthritis, HTN, DMII and CAD with recent angioplasty who was admitted to the [facility] for lethargy and generalized weakness. Patient was having difficulty getting out of bed and walking on her own. She is now admitted to the [facility] for rehab for gait training and strengthening. Present on Admission - Present on Admission Any Indicators Present on Admission: No Review of Systems - Cardiovascular Cardiovascular: absent: Chest Pain, Diaphoresis, Dyspnea - Respiratory Respiratory: absent: Cough, Dyspnea - Gastrointestinal Gastrointestinal: absent: Abdominal Pain, Constipation, Diarrhea Past Patient History - Infectious Disease Hx of Infectious Diseases: None - Tetanus Immunizations Tetanus Immunization: Unknown - Past Social History Smoking Status: Former Smoker - CARDIAC Hx Cardiac Disorders: Yes Hx Hypertension: Yes - PULMONARY Hx Chronic Obstructive Pulmonary Disease (COPD): Yes - NEUROLOGICAL HX Cerebrovascular Accident: No - HEENT Hx HEENT Problems: Yes (cheesh-na) Hx Blind: No Hx Cataracts: Yes (b/l sx) Hx Difficulty Chewing: No Hx Epistaxis: No Hx Glaucoma: No Hx Macular Degeneration: No - RENAL Hx Renal Failure: No - ENDOCRINE/METABOLIC Hx Endocrine Disorders: Yes Hx Diabetes Mellitus Type 2: Yes - HEMATOLOGICAL/ONCOLOGICAL Hx Anemia: No Hx Cancer: No Hx Hepatitis A: No Hx Hepatitis B: No Hx Hepatitis C: No - INTEGUMENTARY Hx Dermatological Problems: No Hx Basil Cell: No Hx Eczema: No Hx Melanoma: No Hx Psoriasis: No Hx Squamous Cell: No - MUSCULOSKELETAL/RHEUMATOLOGICAL Hx Arthritis: Yes (OA) Hx Falls: Yes - GASTROINTESTINAL Hx Gastrointestinal Disorders: Yes (bleeding gastric ulcers) Hx Crohn's Disease: No Hx Diverticulitis: No Hx Gastroesophageal Reflux: No Hx Liver Failure: No - GENITOURINARY/GYNECOLOGICAL Hx Genitourinary Disorders: No Hx Hematuria: No Hx Incontinence: No Hx Sexually Transmitted Disorders: No Hx Urinary Tract Infection: No - PSYCHIATRIC Hx Psychophysiologic Disorder: Yes Hx Anxiety: Yes Hx Emotional Abuse: No Hx Physical Abuse: No Hx Substance Use: No - SURGICAL HISTORY Hx Appendectomy: Yes Other/Comment: 'bowel surgery for ulcers' x 2 per pt, partial gastrectomy - ANESTHESIA Hx Anesthesia: Yes Hx Anesthesia Reactions: No Hx Malignant Hyperthermia: No Meds Allergies/Adverse Reactions: Allergies Allergy/AdvReac Type Severity Reaction Status Date / Time No Known Allergies Allergy Verified 12/25/16 10:57 Physical Exam - Constitutional Appears: No Acute Distress - Head Exam Head Exam: ATRAUMATIC, NORMOCEPHALIC - Respiratory Exam Respiratory Exam: Clear to Auscultation Bilateral, NORMAL BREATHING PATTERN - Cardiovascular Exam Cardiovascular Exam: +S1, +S2 - GI/Abdominal Exam GI & Abdominal Exam: Soft. absent: Tenderness - Neurological Exam Neurological exam: Alert, Oriented x3 Results - Vital Signs Recent Vital Signs: Last Vital Signs Temp Pulse 75 01/04/17 18:34 Resp 18 01/04/17 23:37 BP 127/66 01/04/17 18:34 Pulse Ox - Labs Labs: Laboratory Results - last 24 hr 01/04/17 01/05/17 21:14 05:56 POC Glucose (mg/dL) 146 H 189 H Assessment & Plan - Assessment and Plan (Free Text) Assessment: Generalized weakness HTN CAD s/p stents DMII Arthritis Iron deficiency anemia Plan: Patient to continue ASA, plavix, Beta chloe continue physical therapy for gait training and strengthening continue colace and Miralax for constipation continue iron will check CBC, CMP in am
[2017-01-05] MEDS: Multivitamin Therapeutic Tab PO SCH (10:20)
[2017-01-05] MEDS: POLYETHYLENE GLYCOL 3350 17 GM/Dose PACKET PO SCH (10:21)
--- NOTE | 2017-01-05 11:48 | CON ---
DATE: 01/05/2017 CHIEF COMPLAINT: Followup for gait instability and generalized weakness. HISTORY OF PRESENT ILLNESS: This is an 86-year-old woman with past medical history of hypertension, dyslipidemia, history of peptic ulcer disease, bleeding, history of gastric surgery, history of unsta ble angina, status post non-ST elevation myocardial infarction, status post acute coronary syndrome, status post left main, stent in the circumflex, left anterior descending with Impella device, history of anemia, history of right internal carotid 60-79% ICA stenosis on the right and the left ICA steno sis 20-39%, who was on aspirin and Plavix for stroke prevention and is on Lipitor, also had a subacu te occlusive thrombosis in the right internal jugular vein, which was started on the medical side of floor DVT prophylaxis at that time. I was consulted initially for generalized weakness, lethargy and falls. 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 She had B12 deficiency. Low B12 os 197 is currently being replaced and at that time, her neuro evaluation on the medical side was that she had generalized weakness secondary to chronic medical problems with mild dehydration deconditioned st ate, underlying B12 deficiency. She is currently on TRCU for gait training and strengthening. No ac ugashik events overnight, following all commands. PAST MEDICAL HISTORY: History of coronary artery disease, NSTEMI, history of stent in the left main, circumflex and LAD and history of gastric ulcer from stomach, status post gastric surgery in the pas t, history of lumbosacral stenosis, deconditioned state. REVIEW OF SYSTEMS: A 14-point review of systems is negative except for the HPI. FAMILY HISTORY: Noncontributory. SOCIAL HISTORY: No illicit drug use, smoking, or ETOH abuse. ALLERGIES: No known drug allergies. PHYSICAL EXAMINATION: VITAL SIGNS: Temperature afebrile, pulse rate of 70, blood pressure 129/62, respiratory rate of 18. GENERAL: The patient is sitting up in bed in no acute distress. HEENT: Atraumatic, normocephalic. PERRLA. Extraocular muscles intact. NECK: Supple, no JVD, no adenopathy noted. LUNGS: Clear to auscultation. No adventitious sounds. HEART: S1, S2, normal rate and rhythm. No murmurs, rubs, or gallops. ABDOMEN: Soft, nontender, nondistended. Bowel sounds are present. EXTREMITIES: No clubbing, no cyanosis. Peripheral pulses 2+ felt bilaterally. NEUROLOGIC: The patient is alert, oriented to person, place, month and year. She is hard of hearing . Her recall after 5 minutes is 0/3. Poor attention span, slowed thought process. Cranial nerves I I-XII are intact. MOTOR: Slight increased tone throughout. Moves all extremities. No pronator drift seen. SENSORY: Decreased light touch and pinprick up to the calves bilaterally. Decreased vibration of th e toes. DTRs are 1+ throughout and absent at the ankles. COORDINATION: Bxjzgn-dy-[id number] intact. GAIT: Deferred for now. LABORATORY DATA: Blood glucose is 189. ASSESSMENT AND PLAN: This is an 86-year-old woman with history of hypertension, dyslipidemia, peptic ulcer and status post bleeding, status post gastric surgery, status post non-ST elevation myocardial infarction, status post acute coronary syndrome, status post left main stent and circumflex, left an terior descending with Impella device, history of anemia, history of right internal carotid artery st enosis of 60-79% and left internal carotid artery stenosis of 20-39% on aspirin and Plavix and Lipito r for stroke prevention, had a subacute occlusive thrombus in the right internal jugular vein and was restarted on deep venous thrombosis prophylaxis on the medical side. She was stabilized on the medi jewels side for generalized weakness and falls. A CAT scan shows old right cerebellar hemisphere infarc tions, no acute abnormalities. Currently, she is on transitional care unit for deconditioned state. She was dehydrated, has B12 deficiency. At this time, her overall constitutional symptoms are likel y secondary to underlying chronic medical problems as well as transient change in mental status secon marialuisa to mild dehydration, deconditioned state, underlying B12 deficiency. At this time, recommend: 1. Aspirin 81, Plavix 75, Lipitor 20 mg for stroke prevention given her recent history of NSTEMI. 2. Continue with B12 supplementation of 1000 mcg p.o. daily for underlying B12 deficiency in which h er B12 level was low. 3. Monitor H and H and continue with iron sulfate for her iron deficiency anemia.. 4. Continue with physical and occupational therapy for underlying gait training, muscle strengthenin g and deconditioned state. No further neurological workup needed at this time. We will sign off. P lease reconsult if necessary. Ankur Alfonso MD cc: [phone] TT: 01/05/2017 11:47:26 Confirmation # [id number] Dictation # [id number] tn
[2017-01-06] MEDS: Enoxaparin 30 mg Syringe SC SCH (05:36)
[2017-01-06] MEDS: Pantoprazole 40 mg EC Tab PO SCH (05:37)
[2017-01-06] MEDS: Insulin Reg-MEDIUM-Coverage SC SCH ×4 (06:43→22:22)
[2017-01-06 07:47] LABS: ADD MANUAL DIFF? NO
[2017-01-06 07:57] LABS: BASO # 0.06 K/mm3 (0.0-2.0); BASO % 0.9 % (0.0-3.0); EOS # 0.1 (0.0-0.7); GRAN # 4.43 (1.4-6.5); GRAN % 67.8 % (50.0-68.0); LYMPH # 1.2 (1.2-3.4); LYMPH % 18.1 % (22.0-35.0); MEAN CELL VOLUME 77.1 fL (80.0-105.0); MEAN CORPUSCULAR HEMOGLOBIN 23.4 pg (25.0-35.0); MEAN CORPUSCULAR HGB CONC 30.4 g/dl (31.0-37.0); MEAN PLATELET VOLUME 9.9 fl (7.0-11.0); MONO # 0.7 (0.1-0.6); MONO % 11.2 % (1.0-6.0); PLATELET COUNT 342 10^3/uL (120.0-450.0); RED CELL DISTRIBUTION WIDTH 27.6 % (11.5-14.5); WHITE BLOOD COUNT 6.5 10^3/ul (4.5-11.0)
[2017-01-06 08:00] LABS: ALKALINE PHOSPHATASE 107 U/L (38-133); ALT/SGPT 20 U/L (7-56); AST/SGOT 22 U/L (15-39); BILIRUBIN,TOTAL 1.3 mg/dL (0.2-1.3); BLOOD UREA NITROGEN 26 mg/dL (7-21); CALCIUM 9.1 mg/dL (8.4-10.5); CARBON DIOXIDE 26 mmol/L (21-33); CHLORIDE 100 mmol/L (95-110); GFR AFRICAN-AMERICAN > 60; GLUCOSE,RANDOM 171 mg/dL (70-110); POTASSIUM 3.9 mmol/L (3.6-5.0); SODIUM 132 mmol/L (132-148); TOTAL PROTEIN 5.6 g/dL (5.8-8.3)
[2017-01-06] MEDS: POLYETHYLENE GLYCOL 3350 17 GM/Dose PACKET PO SCH (09:50)
[2017-01-06] MEDS: Multivitamin Therapeutic Tab PO SCH (09:50)
--- NOTE | 2017-01-06 10:20 | PN ---
DATE: 01/06/2017 The patient is in the transitional care unit, room 302, bed 1. She is an 86- year-old white female. The patient was brought in to the hospital with pain, weakness and altered mental state. She was able to get out of bed and difficulty following commands. The patient was evaluated and treated in the acute care, and now the patient is in transitional care unit for rehabilitation. The patient has no pain. She is able to talk, and she seems to be feeling more comfortable now, and she understands that she needs some therapy to be able to ambulate from the bed to the chair and also to the bathroom in her home. PHYSICAL EXAMINATION: VITAL SIGNS: This morning, the patient's pulse is 74, blood pressure 144/66. Respirations are 18. O2 sat is 92% on room air. LUNGS: Clear. HEART: Normal sinus rhythm. ABDOMEN: Soft. Obesity present. There is evidence of a hematoma on the left side of her abdomen. She says it is secondary to some injections of Lovenox. CENTRAL NERVOUS SYSTEM: She is conscious, oriented and answers all questions. The patient's cranial nerves are intact. Motor functions are weak. MEDICATIONS: The patient is on Carafate 1 gram daily. The patient is on carvedilol 3.125 mg b.i.d., aspirin 81 mg daily, ferrous sulfate 324 mg daily, insulin coverage for diabetes, Lipitor 20 mg daily. The patient is on Lovenox 30 mg subQ daily. The patient is on MiraLax 17 grams daily, amlodipine 5 mg daily, and Plavix 75 mg daily. Note the patient had a high risk angioplasty done at [facility] about 10 days ago, and all her events took place after that. The patient was discharged from [facility] and went home and got ill. LABORATORY DATA: The hemoglobin is 8.5. The patient had received iron supplement, and we will repeat the patient's blood work. Follow up the hemoglobin. Currently, the patient is clinically improving, and we will continue with physical therapy and rehabilitation. Giulia Padilla MD cc: [phone] TT: 01/06/2017 10:19:43 Confirmation # [id number] Dictation # [id number] mn [id number]
[2017-01-07] MEDS: Enoxaparin 30 mg Syringe SC SCH (06:27)
[2017-01-07] MEDS: Pantoprazole 40 mg EC Tab PO SCH (06:28)
[2017-01-07] MEDS: Insulin Reg-MEDIUM-Coverage SC SCH ×4 (06:58→21:59)
[2017-01-07] MEDS: Multivitamin Therapeutic Tab PO SCH (09:22)
[2017-01-07] MEDS: POLYETHYLENE GLYCOL 3350 17 GM/Dose PACKET PO SCH (09:22)
--- NOTE | 2017-01-07 10:51 | PN ---
DATE: 01/07/2017 The patient is in the transitional care unit, room 302, bed 1. The patient was admitted for rehabilitation, deconditioning and to get the patient able to get out of bed and to walk with the help of a walker. The patient's admission was secondary to acute coronary artery syndrome, high grade angioplasty or high risk angioplasty was performed on the patient at [facility]. Now, she is awake and alert and able to answer questions. She can stand and take a couple of steps with a walker, but unable to get out of the bed by herself at this time. She is getting therapy to improve her ability to get out of the bed and to use the walker to get from the bed to the bathroom and to the chair. PHYSICAL EXAMINATION: VITAL SIGNS: This morning, the pulse is 72, blood pressure 115/55. The patient 's respirations are 18, temperature 98.5. The patient's O2 on room air is 96%. LUNGS: Clear. HEART: Normal sinus rhythm. ABDOMEN: Soft, obesity present. There is hematoma on the left side of the abdomen. CENTRAL NERVOUS SYSTEM: The patient is conscious, rational, oriented at this time. No focal neurological deficit. The patient has past history of diabetes, hypertension, coronary artery disease , osteoarthritis, severe. MEDICATIONS: The patient is on this time, Carafate for GI bleed. The patient has a past history of gastrectomy also. Coreg 3.125 mg b.i.d., aspirin 81 mg daily, ferrous sulfate 324 mg 3 times a day, insulin coverage for diabetes, Lipitor 20 mg daily. The patient is on Lovenox for prophylaxis. The patient gets Plavix 75 mg daily, pantoprazole 40 mg daily, amlodipine 5 mg daily, vitamin B12 1000 mg daily. The patient's prognosis is guarded. Condition is improving. We will continue current management. Giulia Padilla MD cc: [phone] TT: 01/07/2017 10:51:06 Confirmation # [id number] Dictation # [id number] en MTDD
[2017-01-07 12:46] LABS: ADD MANUAL DIFF? NO
[2017-01-07 12:54] LABS: BASO # 0.07 K/mm3 (0.0-2.0); BASO % 0.8 % (0.0-3.0); EOS # 0.2 (0.0-0.7); EOS % 1.8 % (1.5-5.0); GRAN # 5.98 (1.4-6.5); GRAN % 72.6 % (50.0-68.0); HEMATOCRIT 29.7 % (36.0-48.0); LYMPH # 1.4 (1.2-3.4); LYMPH % 17.2 % (22.0-35.0); MEAN CELL VOLUME 77.5 fL (80.0-105.0); MEAN PLATELET VOLUME 9.5 fl (7.0-11.0); MONO # 0.6 (0.1-0.6); MONO % 7.6 % (1.0-6.0); PLATELET COUNT 387 10^3/uL (120.0-450.0); RED CELL DISTRIBUTION WIDTH 27.6 % (11.5-14.5); WHITE BLOOD COUNT 8.3 10^3/ul (4.5-11.0)
[2017-01-08] MEDS: Enoxaparin 30 mg Syringe SC SCH (05:50)
[2017-01-08] MEDS: Pantoprazole 40 mg EC Tab PO SCH (05:51)
[2017-01-08] MEDS: Insulin Reg-MEDIUM-Coverage SC SCH ×4 (06:42→21:42)
--- NOTE | 2017-01-08 08:07 | CP.PCM.PN ---
Subjective - Date & Time of Evaluation Date of Evaluation: 01/08/17 Time of Evaluation: 07:30 - Subjective Subjective: Patient is doing good she says. She states that she is able to walk with the walker to the bathroom, but still needs help getting out of bed. Objective - Vital Signs/Intake and Output Vital Signs (last 24 hours): Temp Pulse Resp BP Pulse Ox 99.2 F 73 20 135/61 96 01/07/17 16:00 01/07/17 16:00 01/07/17 16:00 01/07/17 16:00 01/06/17 16:00 - Medications Medications: Current Medications Amlodipine Besylate (Norvasc) 5 mg PO DAILY AUGUSTINE PRN Reason: Protocol Last Admin: 01/07/17 09:22 Dose: 5 mg Aspirin (Ecotrin) 81 mg PO 0800 AUGUSTINE PRN Reason: Protocol Last Admin: 01/07/17 08:23 Dose: 81 mg Atorvastatin Calcium (Lipitor) 20 mg PO DAILY AUGUSTINE PRN Reason: Protocol Last Admin: 01/07/17 09:21 Dose: 20 mg Carvedilol (Coreg) 3.125 mg PO 0800,1800 AUGUSTINE PRN Reason: Protocol Last Admin: 01/07/17 17:50 Dose: 3.125 mg Clopidogrel Bisulfate (Plavix) 75 mg PO DAILY AUGUSTINE PRN Reason: Protocol Last Admin: 01/07/17 09:22 Dose: 75 mg Cyanocobalamin (Vitamin B12 1000 Mcg Tab) 1,000 mcg PO DAILY AUGUSTINE PRN Reason: Protocol Last Admin: 01/07/17 09:22 Dose: 1,000 mcg Docusate Sodium (Colace) 100 mg PO DAILY AUGUSTINE PRN Reason: Protocol Last Admin: 01/07/17 09:22 Dose: 100 mg Enoxaparin Sodium (Lovenox) 30 mg SC 0600 AUGUSTINE PRN Reason: Protocol Last Admin: 01/08/17 05:50 Dose: 30 mg Ferrous Sulfate (Feosol) 324 mg PO TID AUGUSTINE PRN Reason: Protocol Last Admin: 01/07/17 17:50 Dose: 324 mg Insulin Human Regular (Humulin R Med) 0 units SC ACHS AUGUSTINE PRN Reason: Protocol Last Admin: 01/08/17 06:42 Dose: 3 units Multivitamins (Thera Tab) 1 tab PO DAILY AUGUSTINE PRN Reason: Protocol Last Admin: 01/07/17 09:22 Dose: 1 tab Pantoprazole Sodium (Protonix Ec Tab) 40 mg PO 0630 AUGUSTINE PRN Reason: Protocol Last Admin: 01/08/17 05:51 Dose: 40 mg Polyethylene Glycol (Miralax) 17 gm PO DAILY [facility] Last Admin: 01/07/17 09:22 Dose: 17 gm Sucralfate (Carafate Tab) 1 gm PO 0600 AUGUSTINE PRN Reason: Protocol Last Admin: 01/08/17 05:50 Dose: 1 gm - Labs Labs: 01/07/17 12:15 01/06/17 06:10 - Constitutional Appears: No Acute Distress - Head Exam Head Exam: ATRAUMATIC, NORMOCEPHALIC - Respiratory Exam Respiratory Exam: Clear to Ausculation Bilateral, NORMAL BREATHING PATTERN - Cardiovascular Exam Cardiovascular Exam: +S1, +S2 - GI/Abdominal Exam GI & Abdominal Exam: Soft, Normal Bowel Sounds. absent: Tenderness - Neurological Exam Neurological Exam: Alert, Awake Assessment and Plan - Assessment and Plan (Free Text) Assessment: Generalized weakness Iron Deficiency anemia CAD s/p angioplasty DMII HTN Spinal stenosis Plan: Patient is doing better. She still requires therapy for strengthening and for transfers. continue iron for iron deficiency anemia continue accuchecks with insulin coverage continue ASA, plavix, coreg
[2017-01-08] MEDS: Multivitamin Therapeutic Tab PO SCH (09:12)
[2017-01-08] MEDS: POLYETHYLENE GLYCOL 3350 17 GM/Dose PACKET PO SCH (09:13)
--- NOTE | 2017-01-08 11:52 | PN ---
DATE: 01/08/2017 REASON FOR CONSULTATION AND FOLLOWUP: Continuity of care in transitional care unit. BRIEF CLINICAL HISTORY: This is an 86-year-old female with a past medical history significant for hy pertension, admitted with acute coronary syndrome. Cardiac catheterization revealed left main diseas e. Transferred to [facility] where the patient underwent high risk PTCA with Impella device, status post RBC transfusion. Transferred here for continuity of care. The patient is stabl e. Now is in the transitional care unit. Family is at the bedside, daughter. The patient denies an y chest pain, shortness of breath, any palpitation. PHYSICAL EXAMINATION: VITAL SIGNS: Temperature afebrile, heart rate 73, blood pressure 135/64. HEENT: PERRLA. Extraocular muscles intact. NECK: Supple. No carotid bruits or thyromegaly. CHEST: Clear to auscultation. HEART: S1, S2 regular. ABDOMEN: Soft. EXTREMITIES: Clubbing and cyanosis negative. BLOOD WORKUP: As follows: WBC 8.3, hemoglobin 9.____, hematocrit 29.7, platelet count 387. Supervisor Wet Room ry: Sodium 130, potassium 3.9, chloride ____, carbon dioxide 26, anion gap of 10, BUN 26, creatinine 0.9. IMPRESSION: Diabetes, hypertension, hyperlipidemia, coronary artery disease, unstable angina; status post angioplasty of left main, high risk case, at [facility]; anemia. RECOMMENDATION: Continue aspirin, continue Coreg, continue Plavix 75 mg, continue atorvastatin, cont inue DVT prophylaxis, continue ____ multivitamin. Continue rehabilitation. YESTERDAY MY CONSULT IS NOT AVAILABLE OF NOW; POSSIBLY STILL IN DISASTER RECOVERY CONSULTANT. Priscila Morh MD cc: [id number] TT: 01/08/2017 11:52:19 Confirmation # [id number] Dictation # [id number] mn
--- NOTE | 2017-01-08 12:42 | CON ---
DATE: 01/07/2017 REASON FOR CONSULTATION: Follow up and continued care in the transitional care unit, status post lef t main stent, unstable angina. BRIEF CLINICAL HISTORY: This is an 86-year-old female, who was initially admitted to [facility] for [id number] myocardial infarction. Subsequently the patient underwent cardiac cathete rization that revealed left main disease. The patient was transferred to [facility] where the patient underwent a stent to the left main, LAD and circumflex. The patient was transferre d back for continuity of care and for rehabilitation. The patient denies any chest pain, shortness o f breath or any palpitation. PAST MEDICAL HISTORY: Is significant for hypertension, hyperlipidemia, diabetes, lumbar spinal steno sis, gastroesophageal reflux, overactive bladder. CARDIAC WORKUP: The patient had a cardiac catheterization after having a non-ST HI 12/26/2016, that revealed triple vessel disease including left main, ostial LAD, mid LAD, and also circumflex, mid RCA disease. Ejection fraction 35% to 40%. 20-25. The patient underwent PTCA with Impella brady franz. Now the patient is transferred back for rehab in the transitional care unit. SOCIAL HISTORY: Denies any , denies any history of alcohol abuse. Previous cardiac echo 05/11/2015, ejection fraction 50%, [id number]-[id number] aortic stenosis, mild tricu spid regurgitation. CURRENT MEDICATIONS: The patient is taking aspirin, Plavix, sucralfate, carvedilol, ferrous sulfate, insulin, atorvastatin, enoxaparin, amlodipine. REVIEW OF SYSTEMS: As per HPI. PHYSICAL EXAMINATION: VITAL SIGNS: Temperature afebrile, heart rate 73, blood pressure 135/61. HEENT: PERRLA. Extraocular muscles intact. NECK: Supple. No carotid bruits. No thyromegaly. CHEST: Clear to auscultation. HEART: S1, S2 regular. ABDOMEN: Soft. EXTREMITIES: Clubbing and cyanosis negative. LABORATORY DATA: Blood workup as follows: WBC , hemoglobin , hematocrit 29.7, platelet co unt 387. Chemistry shows sodium 130, potassium , chloride , carbon dioxide 26, anion gap o f 15, BUN 26, creatinine 0.6, albumin 2.8. IMPRESSION: Protein calorie malnutrition, which was present with this admission, anemia, status post RBC transfusion, status post TAVR, severe aortic stenosis, left main disease, LAD disease, hypothyro idism, hypertension, trgi-qi-qvesoghi aortic stenosis, trace mitral regurgitation, mild tricuspid reg urgitation, no gradient noted during cardiac catheterization. RECOMMENDATION: Continue aspirin, continue Plavix, continue multivitamin, continue carvedilol, juany nue , continue insulin, continue DVT prophylaxis. Will follow with you. Thank you, Dr. Padilla, for providing me the opportunity in taking care of the patient. Priscila Mohr MD cc: [id number] TT: 01/07/2017 21:14:28 Confirmation # [id number] Dictation # [id number] [email or web address]
[2017-01-09] MEDS: Enoxaparin 30 mg Syringe SC SCH (05:21)
[2017-01-09] MEDS: Pantoprazole 40 mg EC Tab PO SCH (05:34)
[2017-01-09] MEDS: Insulin Reg-MEDIUM-Coverage SC SCH ×4 (07:06→21:29)
[2017-01-09] MEDS: POLYETHYLENE GLYCOL 3350 17 GM/Dose PACKET PO SCH (10:51)
[2017-01-09] MEDS: Multivitamin Therapeutic Tab PO SCH (10:53)
[2017-01-09 11:29] LABS: ADD MANUAL DIFF? NO
[2017-01-09 11:39] LABS: BASO # 0.09 K/mm3 (0.0-2.0); BASO % 1.3 % (0.0-3.0); EOS # 0.1 (0.0-0.7); GRAN # 4.95 (1.4-6.5); GRAN % 69.3 % (50.0-68.0); HEMATOCRIT 30.4 % (36.0-48.0); LYMPH # 1.4 (1.2-3.4); LYMPH % 19.4 % (22.0-35.0); MEAN CELL VOLUME 78.6 fL (80.0-105.0); MEAN CORPUSCULAR HGB CONC 30.6 g/dl (31.0-37.0); MEAN PLATELET VOLUME 9.7 fl (7.0-11.0); MONO # 0.6 (0.1-0.6); PLATELET COUNT 392 10^3/uL (120.0-450.0); RED CELL DISTRIBUTION WIDTH 27.9 % (11.5-14.5); WHITE BLOOD COUNT 7.1 10^3/ul (4.5-11.0)
[2017-01-09 11:48] LABS: ALB/GLOB RATIO 0.9 (1.1-1.8); ALKALINE PHOSPHATASE 114 U/L (38-133); ALT/SGPT 13 U/L (7-56); AST/SGOT 24 U/L (15-39); BILIRUBIN,DIRECT 0.4 mg/dL (0.0-0.4); BILIRUBIN,TOTAL 1.7 mg/dL (0.2-1.3); BLOOD UREA NITROGEN 22 mg/dL (7-21); CALCIUM 9.2 mg/dL (8.4-10.5); CARBON DIOXIDE 29 mmol/L (21-33); CHLORIDE 99 mmol/L (98-107); GFR AFRICAN-AMERICAN > 60; GLUCOSE,RANDOM 205 mg/dL (70-110); MAGNESIUM 1.8 mg/dL (1.7-2.2); PHOSPHOROUS 3.3 mg/dL (2.5-4.5); POTASSIUM 4.5 mmol/L (3.6-5.0); SODIUM 134 mmol/L (132-148); TOTAL PROTEIN 6.2 g/dL (5.8-8.3)
--- NOTE | 2017-01-09 11:53 | PN ---
DATE: 01/09/2017 This is coverage for Dr. Padilla. The patient is seen with the physical therapy in the hallway with a wheelchair. According to the [facility] ses, patient is upset because the patient's room was changed and patient has been constantly ringing the lovell for change of the room. The patient is complaining of bilateral leg swelling and also swell ing in the lower abdominal area because of cardiac catheterization and patient is also complaining of abdominal swelling also. The patient is examined and seen in the wheelchair. PHYSICAL EXAMINATION: VITAL SIGNS: T-max 98.1, heart rate 82-98, blood pressure 165/76, 130/70, respirations 18, O2 sat 96 %. Intake and output not documented. HEAD: Normocephalic, atraumatic. HEENT: Shows pinkish, pale conjunctivae. Anicteric sclerae. No oropharyngeal lesion. NECK: Soft carotid bruit. CHEST: Kyphosis. LUNGS: Shows decreased breath sound at the bases. CARDIOVASCULAR: Shows S1, S2, regular rhythm, positive systolic murmur left sternal border, left sec ond intercostal space, right second intercostal space. ABDOMEN: Obese, distended, protuberant. GENITALIA: Female. RECTAL: Deferred. EXTREMITIES: Show pitting edema of 2+. Questionable bilateral calf tenderness. MUSCULOSKELETAL: Shows a body mass index of 43. NEUROLOGIC: Without any gross deficit. The patient is performing physical therapy with the physical therapist. Gait examination could not be tested. DIAGNOSTICS AND LABORATORY: None from today. Last hemoglobin and hematocrit from 01/07 was 9.2 and 2 9.7, platelets 387. WBC 8.3. Chemistry was from 01/06. Fingerstick blood sugar 166, 161, 187, 215, 207, 191. IMPRESSION AND PLAN: 1. Deconditioning. 2. Gait dysfunction. 3. Abdominal pain and distention and protuberance, etiology undetermined. 4. Questionable lower abdominal hematoma. 5. Bilateral lower extremity venous stasis. 6. Hypertension. 7. Acute coronary syndrome. 8. Status post high risk percutaneous transluminal coronary angioplasty with Impella device. 9. Microcytic anemia. 10. Status post packed red blood cell transfusion. 11. Insulin-requiring diabetes mellitus. 12. Hypertension. 13. Microcytic anemia. 14. Granulocytosis. 15. Protein malnutrition and hypoalbuminemia. 16. Acute coronary syndrome, non-ST elevation myocardial infarction. 17. Status post cardiac catheterization showing left main coronary artery disease. 18. Status post angioplasty and stent placement of the left main, left anterior descending and left circumflex. 19. Status post transcatheter aortic valve replacement for severe aortic stenosis. 20. Left ventricular ejection fraction of 50%. 21. Global left ventricular hypokinesis. 22. Moderate valvular aortic stenosis with calcified aortic valve and decreased opening. 23. Moderate mitral annular calcification with mild mitral regurgitation. 24. Mildly impaired left ventricular systolic function with ejection fraction of 45%-50%. 25. Moderate valvular aortic stenosis. 26. Left anterior hemiblock. 27. Incomplete right bundle branch block. 28. Constipation. 29. Diabetes mellitus. 30. Dyslipidemia. 31. Constipation. 32. Hypertension. 33. Vitamin B12 deficiency. 34. History of hypertension, dyslipidemia, peptic ulcer disease. 35. Status post non-ST elevation myocardial infarction. 36. Status post left main and left circumflex and left anterior descending angioplasty and Impella d evice placement. 37. Right internal carotid artery stenosis 60%-79% and left internal carotid artery stenosis 20%-39% . 38. Subacute occlusive thrombus in the right internal jugular vein. 39. 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 40. Vitamin B12 deficiency. 41. Dyslipidemia. PLAN: At this time, the patient has been ordered a stat venous Doppler. The patient has been ordere d a CAT scan of the abdomen and pelvis with p.o. contrast only for evaluation of abdominal distention and hematoma. Current consultation, cardiology and neurology. CURRENT MEDICATIONS: The patient is on: 1. Carafate 1 gram daily. 2. Colace 100 mg daily. 3. Coreg 3.125 twice a day. 4. Aspirin 81 mg daily. 5. Ferrous sulfate 324 mg 3 times a day. 6. Metformin 1000 mg daily. 7. Regular insulin sliding scale coverage a.c. and at bedtime. 8. Lipitor 20 mg daily. 9. Lovenox 30 mg daily. 10. MiraLax 17 g daily. 11. Norvasc 5 mg daily. 12. Plavix 75 mg daily. 13. Protonix 40 mg daily. 14. Thera-Plus 1 tablet daily. 15. Vitamin B12 1000 mcg p.o. daily. The patient has been ordered venous Doppler of the lower extremity, CAT scan of the abdomen and pelvi s. DISCHARGE PLAN: At this time, patient is to be continued on above therapeutic intervention. We will repeat labs for today, including the CBC, CMP, LFTs, magnesium, phosphorus. At present, patient's f urther management will be dependent upon the patient's clinical condition, hemodynamic status, and as per patient's response to therapeutic intervention, as per patient's diagnostic test results and as per recommendation by all physicians involved in the care of the patient. In addition, the patient w ill also be typed and cross matched in case patient needs blood transfusion. At present, patient is to be continued on TCU until further recommendation. Dictated and electronically signed, not read. Fuentes Valle MD cc: [id number] TT: 01/09/2017 11:52:38 Confirmation # [id number] Dictation # [id number] [email or web address]
--- NOTE | 2017-01-09 17:07 | CP.PCM.CON ---
Addendum entered and electronically signed by Jose A Fontenot DO 01/09/17 17:50: Under physical exam Skin Exam: Diffused hematoma on left lower back, approximately 30cm x 10cm Inner bilateral thigh hematoma Original Note: <Jose A Fontenot - Last Filed: 01/09/17 17:41> History of Present Illness - History of Present Illness History of Present Illness: General Surgery Consult Note for Dr. Chisholm 86 year old female with past medical history of hypertension, CAD s/p 5 stents on 12/27/16, diabetes mellitus type II, arthritis and dementia presents to [facility] for lethargy and generalized weakness soon after discharging from [facility]. Patient has been stabilized medically and currently in TCU for physical rehabilitation. Surgical consultation was requested to evaluate patient 's bilateral hip hematoma. History per patient's daughter, patient did not have any recent falls and just realized about the hematoma today. Patient states they are not painful and she is not sure how long they have been there. Patient reports she sleeps on her sides, left more than right side. Patient denies having headache, fever, chills, chest pain, shortness of breath, nausea, vomiting, lower extremity pain, or urinary symptoms. Review of Systems - Constitutional Constitutional: As Per HPI. absent: Chills, Fever, Headache - EENT Eyes: As Per HPI. absent: Loss of Vision Ears: As Per HPI. absent: Dizziness Nose/Mouth/Throat: As Per HPI - Cardiovascular Cardiovascular: As Per HPI. absent: Chest Pain, Edema, Syncope - Respiratory Respiratory: As Per HPI. absent: Cough, Dyspnea - Gastrointestinal Gastrointestinal: As Per HPI. absent: Abdominal Pain, Diarrhea, Vomiting - Genitourinary Genitourinary: As Per HPI. absent: Urinary Frequency, Urinary Hesitance, Urinary Urgency - Musculoskeletal Musculoskeletal: As Per HPI. absent: Back Pain, Numbness, Tingling - Integumentary Integumentary: As Per HPI. absent: Rash, Skin Ulcer Additional comments: hematoma lateral thighs - Neurological Neurological: As Per HPI. absent: Numbness, Syncope, Tremor - Psychiatric Psychiatric: As Per HPI - Endocrine Endocrine: As Per HPI - Hematologic/Lymphatic Hematologic: As Per HPI, Easy Bruising Past Patient History - Infectious Disease Hx of Infectious Diseases: None - Tetanus Immunizations Tetanus Immunization: Unknown - Past Social History Smoking Status: Former Smoker - CARDIAC Hx Cardiac Disorders: Yes Hx Hypertension: Yes - PULMONARY Hx Chronic Obstructive Pulmonary Disease (COPD): Yes - NEUROLOGICAL HX Cerebrovascular Accident: No - HEENT Hx HEENT Problems: Yes ([place]) Hx Blind: No Hx Cataracts: Yes (b/l sx) Hx Difficulty Chewing: No Hx Epistaxis: No Hx Glaucoma: No Hx Macular Degeneration: No - RENAL Hx Renal Failure: No - ENDOCRINE/METABOLIC Hx Diabetes Mellitus Type 2: Yes - HEMATOLOGICAL/ONCOLOGICAL Hx Anemia: No Hx Cancer: No Hx Hepatitis A: No Hx Hepatitis B: No Hx Hepatitis C: No - INTEGUMENTARY Hx Dermatological Problems: No Hx Basil Cell: No Hx Eczema: No Hx Melanoma: No Hx Psoriasis: No Hx Squamous Cell: No - MUSCULOSKELETAL/RHEUMATOLOGICAL Hx Arthritis: Yes - GASTROINTESTINAL Hx Gastrointestinal Disorders: Yes (bleeding gastric ulcers) Hx Crohn's Disease: No Hx Diverticulitis: No Hx Gastroesophageal Reflux: No Hx Liver Failure: No - GENITOURINARY/GYNECOLOGICAL Hx Genitourinary Disorders: No Hx Hematuria: No Hx Incontinence: No Hx Sexually Transmitted Disorders: No Hx Urinary Tract Infection: No - PSYCHIATRIC Hx Psychophysiologic Disorder: Yes Hx Anxiety: Yes Hx Emotional Abuse: No Hx Physical Abuse: No Hx Substance Use: No - SURGICAL HISTORY Hx Appendectomy: Yes Other/Comment: 'bowel surgery for ulcers' x 2 per pt, partial gastrectomy - ANESTHESIA Hx Anesthesia: Yes Hx Anesthesia Reactions: No Hx Malignant Hyperthermia: No Meds Allergies/Adverse Reactions: Allergies Allergy/AdvReac Type Severity Reaction Status Date / Time No Known Allergies Allergy Verified 01/06/17 01:51 - Medications Medications: Current Medications Amlodipine Besylate (Norvasc) 5 mg PO DAILY [facility] PRN Reason: Protocol Last Admin: 01/09/17 10:52 Dose: 5 mg Aspirin (Ecotrin) 81 mg PO 0800 [facility] PRN Reason: Protocol Last Admin: 01/09/17 08:29 Dose: 81 mg Atorvastatin Calcium (Lipitor) 20 mg PO DAILY [facility] PRN Reason: Protocol Last Admin: 01/09/17 10:50 Dose: 20 mg Carvedilol (Coreg) 3.125 mg PO 0800,1800 [facility] PRN Reason: Protocol Last Admin: 01/09/17 08:28 Dose: 3.125 mg Clopidogrel Bisulfate (Plavix) 75 mg PO DAILY [facility] PRN Reason: Protocol Last Admin: 01/09/17 10:53 Dose: 75 mg Cyanocobalamin (Vitamin B12 1000 Mcg Tab) 1,000 mcg PO DAILY [facility] PRN Reason: Protocol Last Admin: 01/09/17 10:54 Dose: 1,000 mcg Docusate Sodium (Colace) 100 mg PO DAILY [facility] PRN Reason: Protocol Last Admin: 01/09/17 10:46 Dose: 100 mg Enoxaparin Sodium (Lovenox) 30 mg SC 0600 [facility] PRN Reason: Protocol Last Admin: 01/09/17 05:21 Dose: 30 mg Ferrous Sulfate (Feosol) 324 mg PO TID [facility] PRN Reason: Protocol Last Admin: 01/09/17 10:47 Dose: 324 mg Insulin Human Regular (Humulin R Med) 0 units SC ACHS [facility] PRN Reason: Protocol Last Admin: 01/09/17 12:22 Dose: 3 units Metformin HCl (Glucophage Xr) 1,000 mg PO 0800 [facility] PRN Reason: Protocol Last Admin: 01/09/17 08:30 Dose: 1,000 mg Multivitamins (Thera Tab) 1 tab PO DAILY [facility] PRN Reason: Protocol Last Admin: 01/09/17 10:53 Dose: 1 tab Pantoprazole Sodium (Protonix Ec Tab) 40 mg PO 0630 [facility]INE PRN Reason: Protocol Last Admin: 01/09/17 05:34 Dose: 40 mg Polyethylene Glycol (Miralax) 17 gm PO DAILY [facility] Last Admin: 01/09/17 10:51 Dose: 17 gm Sucralfate (Carafate Tab) 1 gm PO 0600 [facility] PRN Reason: Protocol Last Admin: 01/09/17 05:21 Dose: 1 gm Physical Exam - Constitutional Appears: Non-toxic, No Acute Distress - Head Exam Head Exam: ATRAUMATIC, NORMAL INSPECTION - Eye Exam Eye Exam: EOMI, Normal appearance - ENT Exam ENT Exam: Mucous Membranes Moist - Neck Exam Neck exam: Positive for: Normal Inspection - Respiratory Exam Respiratory Exam: NORMAL BREATHING PATTERN. absent: Respiratory Distress - Cardiovascular Exam Cardiovascular Exam: +S1, +S2 - GI/Abdominal Exam GI & Abdominal Exam: Normal Bowel Sounds, Soft. absent: Tenderness - Extremities Exam Extremities exam: Positive for: normal capillary refill, pedal pulses present - Neurological Exam Neurological exam: Alert, Oriented x3 - Psychiatric Exam Psychiatric exam: Normal Affect, Normal Mood - Skin Skin Exam: Warm Additional comments: Hematoma located on lateral thighs bilaterally approximately 20cm x 10cm Hematoma located below umbilicus, 1cm in diameter Results - Vital Signs Recent Vital Signs: Last Vital Signs Temp 98 F 01/09/17 10:00 Pulse 82 01/09/17 10:52 Resp 14 01/09/17 10:00 BP 165/76 H 01/09/17 10:52 Pulse Ox 96 01/08/17 16:00 - Labs Result Diagrams: 01/09/17 11:29 01/09/17 11:29 Labs: Laboratory Results - last 24 hr 01/08/17 01/08/17 01/09/17 16:36 21:32 06:52 WBC RBC Hgb Hct MCV MCH MCHC RDW Plt Count MPV Gran % Lymph % (Auto) [place] % (Auto) Eos % (Auto) Baso % (Auto) Gran # Lymph # [place] # Eos # Baso # Sodium Potassium Chloride Carbon Dioxide Anion Gap BUN Creatinine Est GFR ( Amer) Est GFR (Non-Af Amer) POC Glucose (mg/dL) 187 H 161 H 166 H Random Glucose Calcium Phosphorus Magnesium Total Bilirubin Direct Bilirubin AST ALT Alkaline Phosphatase Total Protein Albumin Globulin Albumin/Globulin Ratio Blood Type Antibody Screen Antibody Identification Crossmatch BBK History Checked 01/09/17 01/09/17 01/09/17 11:29 11:29 11:29 WBC 7.1 RBC 3.87 Hgb 9.3 L Hct 30.4 L MCV 78.6 L MCH 24.0 L MCHC 30.6 L RDW 27.9 H Plt Count 392 MPV 9.7 Gran % 69.3 H Lymph % (Auto) 19.4 L [place] % (Auto) 8.0 H Eos % (Auto) 2.0 Baso % (Auto) 1.3 Gran # 4.95 Lymph # 1.4 [place] # 0.6 Eos # 0.1 Baso # 0.09 Sodium 134 Potassium 4.5 Chloride 99 Carbon Dioxide 29 Anion Gap 11 BUN 22 H Creatinine 0.9 Est GFR ( Amer) > 60 Est GFR (Non-Af Amer) 60 POC Glucose (mg/dL) Random Glucose 205 H Calcium 9.2 Phosphorus 3.3 Magnesium 1.8 Total Bilirubin 1.7 H Direct Bilirubin 0.4 AST 24 ALT 13 Alkaline Phosphatase 114 Total Protein 6.2 Albumin 3.0 Globulin 3.2 Albumin/Globulin Ratio 0.9 L Blood Type A POSITIVE Antibody Screen Positive Antibody Identification Negative Panel Crossmatch See Detail BBK History Checked Patient has bt Assessment & Plan - Assessment and Plan (Free Text) Assessment: 86 year old female with past medical history of hypertension, CAD s/p 5 stents on 12/27/16, diabetes mellitus type II, arthritis and dementia presents to [facility] for lethargy and generalized weakness. Surgery consultation was requested to evaluated patient's abdominal and thigh hematoma. Plan: Abdominal and thigh hematoma -Likely lovenox induced, discontinued -Follow up CBC, CMP, PTT -Continue to monitor and reevaluate next day -d/w attending Dr. Chisholm <Walter Chisholm - Last Filed: 01/09/17 20:47> Meds - Medications Medications: Current Medications Amlodipine Besylate (Norvasc) 5 mg PO DAILY [facility] PRN Reason: Protocol Last Admin: 01/09/17 10:52 Dose: 5 mg Aspirin (Ecotrin) 81 mg PO 0800 [facility] PRN Reason: Protocol Last Admin: 01/09/17 08:29 Dose: 81 mg Atorvastatin Calcium (Lipitor) 20 mg PO DAILY [facility] PRN Reason: Protocol Last Admin: 01/09/17 10:50 Dose: 20 mg Carvedilol (Coreg) 3.125 mg PO 0800,1800 [facility] PRN Reason: Protocol Last Admin: 01/09/17 17:58 Dose: 3.125 mg Clopidogrel Bisulfate (Plavix) 75 mg PO DAILY [facility] PRN Reason: Protocol Last Admin: 01/09/17 10:53 Dose: 75 mg Cyanocobalamin (Vitamin B12 1000 Mcg Tab) 1,000 mcg PO DAILY [facility] PRN Reason: Protocol Last Admin: 01/09/17 10:54 Dose: 1,000 mcg Docusate Sodium (Colace) 100 mg PO DAILY [facility] PRN Reason: Protocol Last Admin: 01/09/17 10:46 Dose: 100 mg Ferrous Sulfate (Feosol) 324 mg PO TID [facility] PRN Reason: Protocol Last Admin: 01/09/17 18:00 Dose: 324 mg Insulin Human Regular (Humulin R Med) 0 units SC ACHS [facility] PRN Reason: Protocol Last Admin: 01/09/17 18:01 Dose: 1 units Metformin HCl (Glucophage Xr) 1,000 mg PO 0800 [facility] PRN Reason: Protocol Last Admin: 01/09/17 08:30 Dose: 1,000 mg Multivitamins (Thera Tab) 1 tab PO DAILY [facility] PRN Reason: Protocol Last Admin: 01/09/17 10:53 Dose: 1 tab Pantoprazole Sodium (Protonix Ec Tab) 40 mg PO 0630 [facility] PRN Reason: Protocol Last Admin: 01/09/17 05:34 Dose: 40 mg Polyethylene Glycol (Miralax) 17 gm PO DAILY [facility] Last Admin: 01/09/17 10:51 Dose: 17 gm Sucralfate (Carafate Tab) 1 gm PO 0600 [facility] PRN Reason: Protocol Last Admin: 01/09/17 05:21 Dose: 1 gm Results - Vital Signs Recent Vital Signs: Last Vital Signs Temp 98.8 F 01/09/17 16:00 Pulse 64 01/09/17 17:58 Resp 18 01/09/17 16:00 BP 131/60 01/09/17 17:58 Pulse Ox 92 L 01/09/17 16:00 - Labs Result Diagrams: 01/09/17 11:29 01/09/17 11:29 Labs: Laboratory Results - last 24 hr 01/08/17 01/08/17 01/09/17 16:36 21:32 06:52 WBC RBC Hgb Hct MCV MCH MCHC RDW Plt Count MPV Gran % Lymph % (Auto) [place] % (Auto) Eos % (Auto) Baso % (Auto) Gran # Lymph # [place] # Eos # Baso # Sodium Potassium Chloride Carbon Dioxide Anion Gap BUN Creatinine Est GFR ( Amer) Est GFR (Non-Af Amer) POC Glucose (mg/dL) 187 H 161 H 166 H Random Glucose Calcium Phosphorus Magnesium Total Bilirubin Direct Bilirubin AST ALT Alkaline Phosphatase Total Protein Albumin Globulin Albumin/Globulin Ratio Blood Type Antibody Screen Antibody Identification Crossmatch BBK History Checked 01/09/17 01/09/17 01/09/17 11:29 11:29 11:29 WBC 7.1 RBC 3.87 Hgb 9.3 L Hct 30.4 L MCV 78.6 L MCH 24.0 L MCHC 30.6 L RDW 27.9 H Plt Count 392 MPV 9.7 Gran % 69.3 H Lymph % (Auto) 19.4 L [place] % (Auto) 8.0 H Eos % (Auto) 2.0 Baso % (Auto) 1.3 Gran # 4.95 Lymph # 1.4 [place] # 0.6 Eos # 0.1 Baso # 0.09 Sodium 134 Potassium 4.5 Chloride 99 Carbon Dioxide 29 Anion Gap 11 BUN 22 H Creatinine 0.9 Est GFR ( Amer) > 60 Est GFR (Non-Af Amer) 60 POC Glucose (mg/dL) Random Glucose 205 H Calcium 9.2 Phosphorus 3.3 Magnesium 1.8 Total Bilirubin 1.7 H Direct Bilirubin 0.4 AST 24 ALT 13 Alkaline Phosphatase 114 Total Protein 6.2 Albumin 3.0 Globulin 3.2 Albumin/Globulin Ratio 0.9 L Blood Type A POSITIVE Antibody Screen Positive Antibody Identification Negative Panel Crossmatch See Detail BBK History Checked Patient has bt Assessment & Plan - Assessment and Plan (Free Text) Assessment: consult done under my direct supervision. Attending notified-No surgery recommended Alec Chisholm MD FACS
[2017-01-09 17:09] VITALS: RESP 18; TEMP 98.8; O2SAT 92
--- NOTE | 2017-01-09 18:45 | CP.PCM.PCO ---
Physician Communication Note - Physician Communication Note Physician Communication Note: SubQ Hematoma(2)-stable HgB/No surgery/DC Lovenox
--- NOTE | 2017-01-09 19:13 | US ---
HISTORY: Leg pain and swelling. Evaluate for DVT PHYSICIAN(S): Aaron Mobley MD. TECHNIQUE: Duplex sonography and color-flow Doppler with graded compression were used to evaluate the deep venous systems of both lower extremities. The exam is very limited by edema and body habitus. FINDINGS: The visualized deep venous systems of both lower extremities are sonographically normal and compressible. Normal wave forms and augmentation are seen. There is no sonographic evidence for deep venous thrombosis in the visualized segments of both lower extremities. There is an oblong complex 7.2 x 9 cm fluid collection in the right groin. The differential includes trauma. IMPRESSION: No sonographic evidence for deep venous thrombosis in the visualized segments of both lower extremities. Large complex fluid collection in the right groin.
[2017-01-10] MEDS: Pantoprazole 40 mg EC Tab PO SCH (05:49)
[2017-01-10] MEDS: Insulin Reg-MEDIUM-Coverage SC SCH (06:52)
[2017-01-10 07:07] LABS: ADD MANUAL DIFF? NO
[2017-01-10 07:14] LABS: BASO # 0.07 K/mm3 (0.0-2.0); BASO % 1.1 % (0.0-3.0); EOS # 0.1 (0.0-0.7); EOS % 2.1 % (1.5-5.0); GRAN # 4.76 (1.4-6.5); GRAN % 72.9 % (50.0-68.0); HEMATOCRIT 30.7 % (36.0-48.0); LYMPH # 1.1 (1.2-3.4); LYMPH % 17.3 % (22.0-35.0); MEAN CELL VOLUME 78.3 fL (80.0-105.0); MEAN CORPUSCULAR HEMOGLOBIN 23.7 pg (25.0-35.0); MEAN CORPUSCULAR HGB CONC 30.3 g/dl (31.0-37.0); MEAN PLATELET VOLUME 9.6 fl (7.0-11.0); MONO # 0.4 (0.1-0.6); MONO % 6.6 % (1.0-6.0); PLATELET COUNT 414 10^3/uL (120.0-450.0); RED CELL DISTRIBUTION WIDTH 28.4 % (11.5-14.5); WHITE BLOOD COUNT 6.5 10^3/ul (4.5-11.0)
[2017-01-10 07:25] LABS: ALB/GLOB RATIO 0.9 (1.1-1.8); ALKALINE PHOSPHATASE 115 U/L (38-133); ALT/SGPT 20 U/L (7-56); AST/SGOT 24 U/L (15-39); BILIRUBIN,TOTAL 1.7 mg/dL (0.2-1.3); BLOOD UREA NITROGEN 19 mg/dL (7-21); CALCIUM 9.4 mg/dL (8.4-10.5); CARBON DIOXIDE 30 mmol/L (21-33); CHLORIDE 98 mmol/L (98-107); GFR AFRICAN-AMERICAN > 60; GLUCOSE,RANDOM 176 mg/dL (70-110); POTASSIUM 4.3 mmol/L (3.6-5.0); SODIUM 134 mmol/L (132-148); TOTAL PROTEIN 6.2 g/dL (5.8-8.3)
[2017-01-10 07:26] LABS: FIBRINOGEN 278.3 mg/dL (187-400); INR 1.03 (0.93-1.08); PARTIAL THROMBOPLASTIN TIME 28.4 Seconds (23.7-30.8)
--- NOTE | 2017-01-10 07:45 | CP.PCM.PCO ---
Physician Communication Note - Physician Communication Note Physician Communication Note: HgB/hematomas stable/Etiology presumptively Lovenox not Cath
--- NOTE | 2017-01-10 09:34 | CP.PCM.PN ---
Subjective - Date & Time of Evaluation Date of Evaluation: 01/10/17 Time of Evaluation: 08:15 - Subjective Subjective: General Surgery Progress Note for Dr. Chisholm Patient seen and examined at bedside. No acute events overnight. Patient has no current complaints. Patient denies having pain at hematoma sites. Denies trauma or recent injuries. Objective - Vital Signs/Intake and Output Vital Signs (last 24 hours): Temp Pulse Resp BP Pulse Ox 98.8 F 72 18 144/60 92 L 01/09/17 16:00 01/10/17 08:30 01/09/17 16:00 01/10/17 08:30 01/09/17 16:00 - Medications Medications: Current Medications Amlodipine Besylate (Norvasc) 5 mg PO DAILY [facility] PRN Reason: Protocol Last Admin: 01/09/17 10:52 Dose: 5 mg Aspirin (Ecotrin) 81 mg PO 0800 [facility] PRN Reason: Protocol Last Admin: 01/10/17 08:31 Dose: 81 mg Atorvastatin Calcium (Lipitor) 20 mg PO DAILY [facility] PRN Reason: Protocol Last Admin: 01/09/17 10:50 Dose: 20 mg Carvedilol (Coreg) 3.125 mg PO 0800,1800 [facility] PRN Reason: Protocol Last Admin: 01/10/17 08:30 Dose: 3.125 mg Clopidogrel Bisulfate (Plavix) 75 mg PO DAILY [facility] PRN Reason: Protocol Last Admin: 01/09/17 10:53 Dose: 75 mg Cyanocobalamin (Vitamin B12 1000 Mcg Tab) 1,000 mcg PO DAILY [facility] PRN Reason: Protocol Last Admin: 01/09/17 10:54 Dose: 1,000 mcg Docusate Sodium (Colace) 100 mg PO DAILY [facility] PRN Reason: Protocol Last Admin: 01/09/17 10:46 Dose: 100 mg Ferrous Sulfate (Feosol) 324 mg PO TID [facility] PRN Reason: Protocol Last Admin: 01/09/17 18:00 Dose: 324 mg Insulin Human Regular (Humulin R Med) 0 units SC ACHS [facility] PRN Reason: Protocol Last Admin: 01/10/17 06:52 Dose: 3 units Metformin HCl (Glucophage Xr) 1,000 mg PO 0800 [facility] PRN Reason: Protocol Last Admin: 01/10/17 08:32 Dose: 1,000 mg Multivitamins (Thera Tab) 1 tab PO DAILY [facility] PRN Reason: Protocol Last Admin: 01/09/17 10:53 Dose: 1 tab Pantoprazole Sodium (Protonix Ec Tab) 40 mg PO 0630 [facility] PRN Reason: Protocol Last Admin: 01/10/17 05:49 Dose: 40 mg Polyethylene Glycol (Miralax) 17 gm PO DAILY [facility] Last Admin: 01/09/17 10:51 Dose: 17 gm Sucralfate (Carafate Tab) 1 gm PO 0600 [facility] PRN Reason: Protocol Last Admin: 01/10/17 05:49 Dose: 1 gm - Labs Labs: 01/10/17 06:45 01/10/17 06:45 PT 11.1 Seconds (9.9-11.8) 01/10/17 06:45 INR 1.03 (0.93-1.08) 01/10/17 06:45 APTT 28.4 Seconds (23.7-30.8) 01/10/17 06:45 - Constitutional Appears: Non-toxic, No Acute Distress - Head Exam Head Exam: ATRAUMATIC, NORMAL INSPECTION - Eye Exam Eye Exam: EOMI, Normal appearance - ENT Exam ENT Exam: Mucous Membranes Moist - Neck Exam Neck Exam: Normal Inspection - Respiratory Exam Respiratory Exam: absent: Respiratory Distress - Cardiovascular Exam Cardiovascular Exam: +S1, +S2 - GI/Abdominal Exam GI & Abdominal Exam: Soft, Normal Bowel Sounds. absent: Tenderness - Extremities Exam Extremities Exam: Normal Capillary Refill. absent: Tenderness - Neurological Exam Neurological Exam: Alert, Awake, Oriented x3 - Psychiatric Exam Psychiatric exam: Normal Affect, Normal Mood - Skin Skin Exam: Dry, Intact, Warm. absent: Normal Color Additional comments: Diffused hematoma on left lower back, approximately 30cm x 10cm Bilateral inner thigh hematoma Hematoma located on lateral thighs bilaterally approximately 20cm x 10cm Hematoma located below umbilicus, 1cm in diameter Overall hematoma improved slightly in size and color Assessment and Plan - Assessment and Plan (Free Text) Assessment: 86 year old female with past medical history of hypertension, CAD s/p 5 stents on 12/27/16, diabetes mellitus type II, arthritis and dementia [place] [facility] [place] and generalized weakness. Surgery consultation was requested to evaluated patient's abdominal and thigh hematoma. Plan: Abdominal and thigh hematoma -Likely lovenox induced, discontinued -AM Blood work stable -OK to be discharged from surgery standpoint -d/w attending Dr. Chisholm
[2017-01-10] MEDS: POLYETHYLENE GLYCOL 3350 17 GM/Dose PACKET PO SCH (10:43)
[2017-01-10] MEDS: Multivitamin Therapeutic Tab PO SCH (10:44)
[2017-01-10 10:46] VITALS: BP 135/51; PULSE 64
--- NOTE | 2017-01-10 23:19 | DS ---
HISTORY OF PRESENT ILLNESS: I was called by the patient's nurse that the patient's approved days of transitional care unit are up today and patient has been cleared for discharge today. The patient was seen today in room 327. The patient is seen out of bed to chair. The patient is yaz rt, awake, responsive. The patient appears to be more comfortable today as compared to yesterday. T he patient's overnight nurse's notes were reviewed. The patient is sitting up in the chair. The pat ient denies any bleeding. Denies abdominal pain. PHYSICAL EXAMINATION: VITAL SIGNS: T-max afebrile, heart rate 64-72, blood pressure 144/60. HEAD: Normocephalic, atraumatic. HEENT: Examination shows pinkish pale conjunctivae. Anicteric sclerae. No oropharyngeal lesion. NECK: No neck rigidity. Soft carotid bruit. CHEST: Kyphosis. LUNGS: Examination shows questionable decreased breath sounds at the base. CARDIOVASCULAR: S1, S2. Positive systolic murmur right 2nd intercostal space, left sternal border. ABDOMEN: Protuberant. Positive hematoma noted on the anterior abdominal wall laterally of the left side and the right groin and right lower abdominal wall. GENITALIA: Female. RECTAL: Deferred. EXTREMITIES: Shows positive swelling of the lower extremity, no calf tenderness today. No Homans' s ign. MUSCULOSKELETAL: Examination shows a body mass index as per the BMI numbers. NEUROLOGIC: The patient is alert, awake, oriented x 3. The patient is able to move upper and lower extremities without assistance. Body mass index is elevated. Cranial nerves II-XII limited. GAIT: Not tested. DIAGNOSTICS: WBC 6.5, hemoglobin/hematocrit 9.3/31, platelets 414,000. Chemistry: LFTs are within normal limits. Glucose 171-205. The patient had a CAT scan of the abdomen and pelvis with p.o. contrast done, which was reviewed. Th e patient had a venous Doppler of the lower extremity, which was reviewed. The patient was requested to be seen by general surgery, Dr. Chisholm. The patient was evaluated by Dr. Chisholm for abdominal wall hematoma and right groin and right lower abdominal wall hematoma and left anterior abdominal wall hematoma. The patient's Lovenox was discontinued. FINAL IMPRESSION, PLAN, AND DISCHARGE DIAGNOSES: 1. Gait dysfunction. 2. Deconditioning. 3. Anterior abdominal wall left-sided hematoma. 4. Right anterior abdominal wall and right groin and right upper thigh hematoma. 5. Anemia. 6. Status post packed red blood cell transfusion. 7. Diabetes mellitus. 8. Hypertension. 9. [id number] myocardial infarction. 10. Status post angioplasty and high-risk stent placement. 11. Multivessel coronary artery disease. 12. Bilateral lower extremity venous stasis. 13. Anterior abdominal wall hematoma involving the left anterior abdominal wall and right anterior a bdominal wall, with right groin and right upper thigh hematoma. The patient is cleared by surgery and all the subspecialties. The patient is to be discharged home. Discharge referral to A, home health aide, home PT. DISCHARGE FOLLOWUP: With Dr. Padilla within 1 week. DISCHARGE MEDICATIONS: As per ambulatory orders, which were reconciled. The patient was advised to return to the Emergency Room in case of any adverse events and if patient is not feeling well. Time spent in the entire discharge process more than 45 minutes. The patient was extensively explained about her test results between yesterday and today, and patient was extensively advised in layman's language about the management and treatment plan, which she ackn owledged to understand. All questions answered. Dictated and electronically signed, not read. Fuentes Valle MD cc:Giulia Padilla MD [id number] TT: 01/10/2017 23:19:27 [email or web address]
== END 2017-01-10 13:21 | disposition home or self-care (01) | DRG 946 ==
LOC: TRCU 17:00
PROVIDERS: ADMIT Internal Medicine; ATTEND Internal Medicine
PROC: F07Z9FZ Gait Training/Functional Ambulation Treatment using Assistive, Adaptive, Supportive or Protective Equipment (ICD-10-PCS; principal; 2017-01-06)
PROC: F07Z8ZZ Transfer Training Treatment (ICD-10-PCS; 2017-01-06)
PROC: F07L6ZZ Therapeutic Exercise Treatment of Musculoskeletal System - Lower Back / Lower Extremity (ICD-10-PCS; 2017-01-06)
PROC: F08Z2FZ Grooming/Personal Hygiene Treatment using Assistive, Adaptive, Supportive or Protective Equipment (ICD-10-PCS; 2017-01-08)
PROC: F08Z1FZ Dressing Techniques Treatment using Assistive, Adaptive, Supportive or Protective Equipment (ICD-10-PCS; 2017-01-08)
DX: R53.1 Weakness (principal); R26.9 Unspecified abnormalities of gait and mobility; F03.90 Unspecified dementia, unspecified severity, without behavioral disturbance, psychotic disturbance, mood disturbance, and anxiety; I08.3 Combined rheumatic disorders of mitral, aortic and tricuspid valves; I10 Essential (primary) hypertension; D50.9 Iron deficiency anemia, unspecified; E11.9 Type 2 diabetes mellitus without complications; E53.8 Deficiency of other specified B group vitamins; E78.5 Hyperlipidemia, unspecified; I25.10 Atherosclerotic heart disease of native coronary artery without angina pectoris; M19.90 Unspecified osteoarthritis, unspecified site; K59.00 Constipation, unspecified; Z87.11 Personal history of peptic ulcer disease; M48.07 Spinal stenosis, lumbosacral region; N32.81 Overactive bladder; K21.9 Gastro-esophageal reflux disease without esophagitis; I25.118 Atherosclerotic heart disease of native coronary artery with other forms of angina pectoris; I87.8 Other specified disorders of veins; M79.81 Nontraumatic hematoma of soft tissue; I65.23 Occlusion and stenosis of bilateral carotid arteries; I45.10 Unspecified right bundle-branch block; I25.2 Old myocardial infarction; Z95.5 Presence of coronary angioplasty implant and graft; Z86.718 Personal history of other venous thrombosis and embolism

== ENCOUNTER 2018-06-01 07:45 | Inpatient (IN) | payer MEDICARE ==
[2018-06-01 08:14] VITALS: BMI 37.6
--- NOTE | 2018-06-01 08:26 | ED PDOC ---
Arrival/HPI <Junior Dennison - Last Filed: 06/01/18 11:53> - General Historian: Patient, Spouse (Hung, ) - History of Present Illness Narrative History of Present Illness (Text): This is a pleasantly demented 88 year old female with PMH of HTN, alzheimer's d ementia, NIDDM2, CAD with stents on plavix/asa, arthritis, bladder problems, GI bleeding who presents s/p fall 30 minutes prior to arrival. and pt report that the she was walking with her walker, when she slipped and fell forward. Pt states that she fell on her knees and hit the top of her head on the wall. Pt is not complaining of any pain at this time. reports that pt has had increased urinary frequency lately. Pt denies fever, chills, dizziness, visual changes, chest pain, sob, palpitations, abdominal pain, n/v/d, hematochezia, melena, hematuria, neck pain, back pain, hip pain, or any other pain. Pt also fell once last month, and was not hurt. PMD: Valerie PMH: HTN, alzheimer's dementia, NIDDM2, CAD with stents on plavix/asa, arthritis, bladder problems, GI bleeding PSH: surgery for GI bleed many years ago, cardiac catheterization 1 year ago Meds: See MAR Allx: NKDA Social hx: walks by herself with use of walker, no etoh, former smoker, no illicit drug use Time/Duration: 1/2 hour Symptom Onset: Sudden Symptom Course: Unchanged <Cruz Weir - Last Filed: 06/01/18 12:13> - General Chief Complaint: Trauma Time Seen by Provider: 06/01/18 07:47 Past Medical History - Provider Review Nursing Documentation Reviewed: Yes - Infectious Disease Hx of Infectious Diseases: None - Tetanus Immunization Tetanus Immunization: Unknown - Cardiac Hx Cardiac Disorders: Yes Hx Hypertension: Yes - Pulmonary Hx Chronic Obstructive Pulmonary Disease (COPD): Yes - Neurological HX Cerebrovascular Accident: No - HEENT Hx HEENT Disorder: Yes ([place]) Hx Blind: No Hx Cataracts: Yes (b/l sx) Hx Difficulty Chewing: No Hx Epistaxis: No Hx Glaucoma: No Hx Macular Degeneration: No - Renal Hx Renal Failure: No - Endocrine/Metabolic Hx Diabetes Mellitus Type 2: Yes - Hematological/Oncological Hx Anemia: No Hx Cancer: No Hx Hepatitis A: No Hx Hepatitis B: No Hx Hepatitis C: No - Integumentary Hx Dermatological Disorder: No Hx Basal Cell Carcinoma: No Hx Eczema: No Hx Melanoma: No Hx Psoriasis: No Hx Squamous Cell Carcinoma: No - Musculoskeletal/Rheumatological Hx Arthritis: Yes Hx Falls: Yes - Gastrointestinal Hx Gastrointestinal Disorders: Yes (bleeding gastric ulcers) Hx Crohn's Disease: No Hx Diverticulitis: No Hx Gastroesophageal Reflux: No Hx Liver Failure: No - Genitourinary/Gynecological Hx Genitourinary Disorders: No Hx Hematuria: No Hx Incontinence: No Hx Sexually Transmitted Diseases: No Hx Urinary Tract Infection: No - Psychiatric Hx Psychophysiologic Disorder: Yes Hx Anxiety: Yes Hx Emotional Abuse: No Hx Physical Abuse: No Hx Substance Use: No - Surgical History Hx Appendectomy: Yes Other/Comment: 'bowel surgery for ulcers' x 2 per pt, partial gastrectomy - Anesthesia Hx Anesthesia: Yes Hx Anesthesia Reactions: No Hx Malignant Hyperthermia: No - Suicidal Assessment Feels Threatened In Home Enviroment: No <Cruz Weir - Last Filed: 06/01/18 12:13> Family/Social History - Physician Review Nursing Documentation Reviewed: Yes Family/Social History: Unknown Family HX Smoking Status: Former Smoker Hx Alcohol Use: No Hx Substance Use: No Hx Substance Use Treatment: No <Cruz Weir - Last Filed: 06/01/18 12:13> Allergies/Home Meds <Junior Dennison - Last Filed: 06/01/18 11:53> <Cruz Weir - Last Filed: 06/01/18 12:13> Allergies/Adverse Reactions: Allergies No Known Allergies Allergy (Verified 01/06/17 01:51) Home Medications: Home Meds Medication Instructions Recorded Confirmed Aspirin [Adult Low Dose Aspirin EC] 81 mg PO DAILY 12/31/16 01/06/17 Atorvastatin [Lipitor] 20 mg PO DAILY 12/31/16 01/06/17 Carvedilol [Coreg] 3.125 mg PO DAILY 12/31/16 01/06/17 Clopidogrel [Plavix] 75 mg PO DAILY 12/31/16 01/06/17 GlipiZIDE [Glucotrol] 5 mg PO DAILY 12/31/16 01/06/17 MetFORMIN [glucoPHAGE] 1,000 mg PO DAILY 12/31/16 01/06/17 Pantoprazole [Protonix EC Tab] 40 mg PO DAILY 12/31/16 01/06/17 Sucralfate [Carafate] 1 gm PO DAILY 12/31/16 01/06/17 amLODIPine [Norvasc] 5 mg PO DAILY 12/31/16 01/06/17 Review of Systems - Review of Systems Constitutional: Normal Eyes: Normal ENT: Other (hard of hearing) Respiratory: Normal Cardiovascular: Normal Gastrointestinal: Normal Genitourinary Female: Frequency. absent: Dysuria, Hematuria Musculoskeletal: Arthralgias Skin: Other (areas of chronic ecchymosis) Neurological: Normal Psychiatric: Normal (worsening dementia symptoms as per ) <Cruz Weir - Last Filed: 06/01/18 12:13> Physical Exam Vital Signs Temp Pulse Resp BP Pulse Ox 06/01/18 10:00 78 18 131/65 96 06/01/18 09:55 75 96 06/01/18 07:51 98.4 F 68 18 135/68 95 <Junior Dennison - Last Filed: 06/01/18 11:53> Vital Signs Reviewed: Yes Vital Signs Temp Pulse Resp BP Pulse Ox 06/01/18 07:51 98.4 F 68 18 135/68 95 Temperature: Afebrile Blood Pressure: Normal Pulse: Regular Respiratory Rate: Normal Appearance: Positive for: Well-Appearing, Non-Toxic, Comfortable Pain Distress: None Mental Status: No: Alert and Oriented X 3 (AAox2, not oriented to time; which is baseline as per ), Confused, Agitated, Lethargic - Systems Exam Head: Present: Tenderness (mild tendernes to palpation of 3 cm x 2 cm hematoma with ecchymosis to the left superior scalp, no active bleeding or laceration) Pupils: Present: PERRL Extroacular Muscles: Present: EOMI Conjunctiva: Present: Normal Mouth: Present: Dry Neck: Present: Normal Range of Motion. No: MIDLINE TENDERNESS, Paraspinal Tenderness Respiratory/Chest: Present: Clear to Auscultation, Good Air Exchange. No: Wheezes, Rales, Rhonchi Cardiovascular: Present: Regular Rate and Rhythm, Murmurs (3/6 systolic murmur radiating to the carotids heard loudest in the right 2nd ICS sternal border; 3/6 systolic murmur at the left 5 ICS sternal border), Normal S1, S2, Peripheal Pulses Present. No: Irregular Rhythm, Tachycardic, Rub, Gallop Abdomen: Present: Distention (baseline as per pt and ), Normal Bowel Sounds, Hernias (umbilical). No: Tenderness, Rebound, Guarding Back: Present: Normal Inspection. No: Midline Tenderness, Paraspinal Tenderness Upper Extremity: Present: Normal ROM, NORMAL PULSES, Tenderness (mild tenderness to the bilateral elbows with 3 cm by 3 cm area of hematoma with ecchymosis with small skin tear; light bleeding from the right, no bleeding from the left ), Other ((+) old ecchymosis of the left dorsal hand, nontender) Lower Extremity: Present: Edema (bilaterally, nonpitting, nontender), NORMAL PULSES. No: CALF TENDERNESS, Tenderness Neurological: Present: GCS=15, CN II-XII Intact, Speech Normal, Motor Func Grossly Intact Skin: Present: Warm, Dry Psychiatric: Present: Alert. No: Oriented x 3 (AAox2, not oriented to time; which is baseline as per ) <Cruz Weir - Last Filed: 06/01/18 12:13> Medical Decision Making - Lab Interpretations Lab Results: 06/01/18 08:51 06/01/18 08:51 Lab Results 06/01/18 10:34: Urine Color Yellow, Urine Appearance Clear, Urine pH 6.0, Ur Specific [place] 1.020, Urine Protein Trace H, Urine Glucose (UA) Negative, Urine Ketones Negative, Urine Blood Small H, Urine Nitrate Positive H, Urine Bilirubin Negative, Urine Urobilinogen 0.2, Ur Leukocyte Esterase Trace H, Urine RBC 1 - 3, Urine WBC 5 - 10, Ur Epithelial Cells 0 - 2, Urine Bacteria Many 06/01/18 08:51: Sodium 134, Potassium 4.8, Chloride 99, Carbon Dioxide 28, Anion Gap 11, BUN 26 H, Creatinine 1.0, Est GFR ( Amer) > 60, Est GFR (Non-Af Amer) 53, Random Glucose 137 H, Calcium 9.6, Phosphorus 4.0, Magnesium 2.2, Total Bilirubin 0.7, AST 19, ALT 18, Alkaline Phosphatase 115, Total Creatine Kinase 42, Troponin I 0.06 D, Total Protein 6.6, Albumin 3.4, Globulin 3.2, Albumin/Globulin Ratio 1.1 06/01/18 08:51: PT 10.9, INR 0.95, APTT 30.1 06/01/18 08:51: WBC 6.1, RBC 4.84, Hgb 10.2 L, Hct 33.2 L, MCV 68.6 L, MCH 21.1 L, MCHC 30.7 L, RDW 18.5 H, Plt Count 351, MPV 9.7, Gran % 56.2, Lymph % (Auto) 31.9, [place] % (Auto) 8.7 H, Eos % (Auto) 2.5, Baso % (Auto) 0.7, Gran # 3.42, Lymph # (Auto) 1.9, [place] # (Auto) 0.5, Eos # (Auto) 0.2, Baso # (Auto) 0.04 - RAD Interpretation Radiology Orders: 06/01/18 08:15 CERVICAL SPINE W/O CONTRAST [CT] Stat EXT LOWER W/O CONTRAST LEFT [CT] Stat HEAD W/O CONTRAST [CT] Stat CHEST PORTABLE [RAD] Stat 06/01/18 08:42 ELBOW LEFT 3 VIEWS ROUTINE [RAD] Stat ELBOW RIGHT 3 VIEWS ROUTINE [RAD] Stat - Medication Orders Current Medication Orders: Discontinued Medications Acetaminophen (Tylenol 325mg Tab) 650 mg PO STAT STA Stop: 06/01/18 10:14 Last Admin: 06/01/18 11:15 Dose: 650 mg MAR Pain/Vitals Document 06/01/18 11:15 GMI (Rec: 06/01/18 11:15 GMI [id number]) Pain Reassessment Is This A Pain ReAssessment? Yes Sleep Is patient sleeping during reassessment? No Presence of Pain Presence of Pain Yes Pain Scale Used Protocol: PSCALES Pain Scale Used Numeric Location Pain Location Body Site Generalized Description Intermittent Intensity 5 Scale Used Numeric Pain Behavior Facial Grimacing Sodium Chloride (Sodium Chloride 0.9%) 1,000 mls @ 999 mls/hr IV .Q1H1M STA Stop: 06/01/18 11:13 Last Admin: 06/01/18 11:16 Dose: 999 mls/hr eMAR Start Stop Document 06/01/18 11:16 GMI (Rec: 06/01/18 11:17 [facility] [id number]) Intravenous Solution Start Date 06/01/18 Start Time 11:16 End Date 06/01/18 End time 12:20 Total Infusion Time 64 Metoclopramide HCl (Reglan) 10 mg IVP STAT STA Stop: 06/01/18 10:14 Last Admin: 06/01/18 11:16 Dose: 10 mg IVP Administration Document 06/01/18 11:16 [facility] (Rec: 06/01/18 11:16 [facility] [id number]) Charges for Administration # of IVP Administrations 1 <Junior Dennison - Last Filed: 06/01/18 11:53> ED Course and Treatment: 06/01/18 09:15 88 year old female on ASA/Plavix who presents s/p fall with head trauma. Head CT without contrast, C-spine ct without contrast, left lower extremity CT without contrast, bilateral elbow x-rays, CXR, EKG, troponin, CPK, CBC, CMP, UA. 06/01/18 12:06 Tech attempted to walk the patient multiple times, but the pt is unable to stand on two feet, let alone ambulate. Case discussed with Dr. Lesly Padilla, who will admit the pt to inpatient med/surg. 06/01/18 12:12 Will treat UTI on UA with urinary frequency with Rocephin 1g IVPB x1 - Lab Interpretations Interpretation: Abnormal lab values (UTI on UA) - RAD Interpretation Narrative RAD Interpretations (Text): Accession No. : [id number] Patient Name / ID : SADIA SALOMON / [id number] Exam Date : 06/01/2018 09:04:56 ( Approved ) Study Comment : Sex / Age : F / 88Y Creator : Michi Crystal MD Dictator : Michi Crystal MD [employer] Attendant : Engineering Associate : Michi Crystal MD Approver2 : Report Date : 06/01/2018 09:18:10 My Comment : Date of service: 06/01/2018 PROCEDURE: CT HEAD WITHOUT CONTRAST. HISTORY: head trauma COMPARISON: 01/03/2017 TECHNIQUE: Axial computed tomography images were obtained through the head/brain without intravenous contrast. Radiation dose: Total exam DLP = 806.94 mGy-cm. This CT exam was performed using one or more of the following dose reduction techniques: Automated exposure control, adjustment of the mA and/or kV according to patient size, and/or use of iterative reconstruction technique. FINDINGS: HEMORRHAGE: No intracranial hemorrhage. BRAIN: No mass effect or edema. Severe chronic microvascular changes and moderate atrophy VENTRICLES: Unremarkable. No hydrocephalus. CALVARIUM: Unremarkable. PARANASAL SINUSES: Unremarkable as visualized. No significant inflammatory changes. MASTOID AIR CELLS: Unremarkable as visualized. No inflammatory changes. OTHER FINDINGS: None. IMPRESSION: No acute intracranial findings Accession No. : [id number] Patient Name / ID : SADIA SALOMON / [id number] Exam Date : 06/01/2018 09:09:52 ( Approved ) Study Comment : Sex / Age : F / 88Y Creator : Michi Crystal MD Dictator : Michi Crystal MD [employer] Attendant : Engineering Associate : Michi Crystal MD Approver2 : Report Date : 06/01/2018 09:49:51 My Comment : Date of service: 06/01/2018 PROCEDURE: CT Cervical Spine without contrast HISTORY: fall, head trauma COMPARISON: None available. TECHNIQUE: Axial computed tomography images were obtained of the cervical spine without the use of intravenous contrast. Coronal and sagittal reformatted images were c reated and reviewed. Radiation dose: Total exam DLP = 567.4 mGy-cm. This CT exam was performed using one or more of the following dose reduction techniques: Automated exposure control, adjustment of the mA and/or kV according to patient size, and/or use of iterative reconstruction technique. FINDINGS: VERTEBRAE: No fracture. Normal alignment. No destructive bony lesion. DISCS/SPINAL CANAL/NEURAL FORAMINA: No significant central canal or neural foraminal stenosis. There is multilevel disc degeneration with loss of disc height. Anterior osteophytes. PARASPINAL SOFT TISSUES: Unremarkable. OTHER FINDINGS: None. IMPRESSION: No acute findings Accession No. : [id number] Patient Name / ID : SADIA Gandara [id number] Exam Date : 06/01/2018 09:13:27 ( Approved ) Study Comment : Sex / Age : F / 88Y Creator : Michi Crystal MD Dictator : Michi Crystal MD [employer] Attendant : Engineering Associate : Michi Crystal MD Approver2 : Report Date : 06/01/2018 10:17:57 My Comment : * Date of service: 06/01/2018 PROCEDURE: CT of the left knee HISTORY: s/p fall COMPARISON: TECHNIQUE: Radiation dose: Total exam DLP = 338.79 mGy-cm. This CT exam was performed using one or more of the following dose reduction techniques: Automated exposure control, adjustment of the mA and/or kV according to patient size, and/or use of iterative reconstruction technique. FINDINGS: Severe chronic degenerative changes are seen in the medial compartment with joint space narrowing bony sclerosis and large subchondral cysts. Meniscal calcifications are seen in the lateral meniscus. No evidence of fracture. There is a moderate-sized joint effusion IMPRESSION: Severe chronic degenerative changes. No acute fracture Accession No. : [id number] Patient Name / ID : SADIA Gandara [id number] Exam Date : 06/01/2018 09:30:51 ( Approved ) Study Comment : Sex / Age : F / 88Y Creator : Michi Crystal MD Dictator : Michi Crystal MD [employer] Attendant : Engineering Associate : Michi Cyrstal MD Approver2 : Report Date : 06/01/2018 10:22:58 My Comment : Date of service: 06/01/2018 HISTORY: fall COMPARISON: 12/31/2016 FINDINGS: LUNGS: No active pulmonary disease. PLEURA: No significant pleural effusion identified, no pneumothorax apparent. CARDIOVASCULAR: Minimal aortic calcification Moderate cardiomegaly no pulmonary vascular congestion. OSSEOUS STRUCTURES: No significant abnormalities. VISUALIZED UPPER ABDOMEN: Normal. OTHER FINDINGS: None. IMPRESSION: No active disease. Accession No. : [id number] Patient Name / ID : SADIA Gandara [id number] Exam Date : 06/01/2018 09:31:34 ( Approved ) Study Comment : Sex / Age : F / 88Y Creator : Michi Crystal MD Dictator : Michi Crystal MD [employer] Attendant : Engineering Associate : Michi Crystal MD Approver2 : Report Date : 06/01/2018 10:23:46 My Comment : Date of service: 06/01/2018 PROCEDURE: Radiographs of the left elbow. HISTORY: fall COMPARISON: No prior. FINDINGS: BONES: Normal. No fracture. JOINTS: Normal. No osteoarthritis. SOFT TISSUES: Normal. JOINT EFFUSION: None. OTHER FINDINGS: None IMPRESSION: Unremarkable radiographs of the left elbow. Accession No. : [id number] Patient Name / ID : SADIA SALOMON / [id number] Exam Date : 06/01/2018 09:35:58 ( Approved ) Study Comment : Sex / Age : F / 88Y Creator : Michi Crystal MD Dictator : Michi Crystal MD G[employer]met [employer] Attendant : Engineering Associate : Michi Crystal MD Approver2 : Report Date : 06/01/2018 10:24:25 My Comment : Date of service: 06/01/2018 PROCEDURE: Radiographs of the right elbow. HISTORY: fall COMPARISON: No prior. FINDINGS: BONES: Normal. No fracture. JOINTS: Normal. No osteoarthritis. SOFT TISSUES: Normal. JOINT EFFUSION: None. OTHER FINDINGS: None. IMPRESSION: Unremarkable radiographs of the right elbow. Radiology Orders: 06/01/18 08:15 CERVICAL SPINE W/O CONTRAST [CT] Stat EXT LOWER W/O CONTRAST LEFT [CT] Stat HEAD W/O CONTRAST [CT] Stat CHEST PORTABLE [RAD] Stat - EKG Interpretation EKG Interpretation (Text): EKG shows NSR at 62, left anterior fasicular block, minimal voltage for LVH, q waves in inferior leads; LR is 180, QTc 432; as read by ED attending. Interpreted by ED Physician: Yes <Cruz Weir - Last Filed: 06/01/18 12:13> Disposition/Present on Arrival - Present on Arrival Any Indicators Present on Arrival: No - Disposition Have Diagnosis and Disposition been Completed?: Yes Disposition Time: 11:54 Patient Plan: Admission <Junior Dennison - Last Filed: 06/01/18 11:53> - Present on Arrival Any Indicators Present on Arrival: No History of DVT/PE: No History of Uncontrolled Diabetes: No Urinary Catheter: No History of Decub. Ulcer: No History Surgical Site Infection Following: None - Disposition Have Diagnosis and Disposition been Completed?: Yes Patient Plan: Admission <Cruz Weir - Last Filed: 06/01/18 12:13> - Disposition Diagnosis: Fall, Muscular deconditioning, Leg pain, UTI (urinary tract infection) Disposition: HOSPITALIZED Condition: STABLE
[2018-06-01 09:08] LABS: BASO # 0.04 K/mm3 (0.0-2.0); BASO % 0.7 % (0.0-3.0); EOS # 0.2 (0.0-0.7); EOS % 2.5 % (1.5-5.0); GRAN # 3.42 (1.4-6.5); GRAN % 56.2 % (50.0-68.0); HEMOGLOBIN 10.2 g/dL (12.0-16.0); LYMPH # 1.9 (1.2-3.4); LYMPH % 31.9 % (22.0-35.0); MEAN CELL VOLUME 68.6 fl (80.0-105.0); MEAN CORPUSCULAR HEMOGLOBIN 21.1 pg (25.0-35.0); MEAN CORPUSCULAR HGB CONC 30.7 g/dl (31.0-37.0); MEAN PLATELET VOLUME 9.7 fl (7.0-11.0); MONO # 0.5 (0.1-0.6); MONO % 8.7 % (1.0-6.0); RBC 4.84 10^6/uL (3.5-6.1); RED CELL DISTRIBUTION WIDTH 18.5 % (11.5-14.5); WHITE BLOOD COUNT 6.1 10^3/uL (4.5-11.0)
[2018-06-01 09:17] LABS: ALB/GLOB RATIO 1.1 (1.1-1.8); ALBUMIN 3.4 g/dL (3.0-4.8); BLOOD UREA NITROGEN 26 mg/dL (7-21); CALCIUM 9.6 mg/dL (8.4-10.5); GFR NON-AFRICAN AMERICAN 53
[2018-06-01 09:21] LABS: INR 0.95; PARTIAL THROMBOPLASTIN TIME 30.1 Seconds (25.1-36.5); PROTHROMBIN TIME 10.9 SECONDS (9.4-12.5)
--- NOTE | 2018-06-01 09:22 | CT ---
Date of service: 06/01/2018 PROCEDURE: CT HEAD WITHOUT CONTRAST. HISTORY: head trauma COMPARISON: 01/03/2017 TECHNIQUE: Axial computed tomography images were obtained through the head/brain without intravenous contrast. Radiation dose: Total exam DLP = 806.94 mGy-cm. This CT exam was performed using one or more of the following dose reduction techniques: Automated exposure control, adjustment of the mA and/or kV according to patient size, and/or use of iterative reconstruction technique. FINDINGS: HEMORRHAGE: No intracranial hemorrhage. BRAIN: No mass effect or edema. Severe chronic microvascular changes and moderate atrophy VENTRICLES: Unremarkable. No hydrocephalus. CALVARIUM: Unremarkable. PARANASAL SINUSES: Unremarkable as visualized. No significant inflammatory changes. MASTOID AIR CELLS: Unremarkable as visualized. No inflammatory changes. OTHER FINDINGS: None. IMPRESSION: No acute intracranial findings
[2018-06-01 09:27] LABS: ALT/SGPT 18 U/L (7-56); AST/SGOT 19 U/L (14-36)
[2018-06-01 09:28] LABS: TROPONIN I 0.06 ng/mL
--- NOTE | 2018-06-01 09:53 | CT ---
Date of service: 06/01/2018 PROCEDURE: CT Cervical Spine without contrast HISTORY: fall, head trauma COMPARISON: None available. TECHNIQUE: Axial computed tomography images were obtained of the cervical spine without the use of intravenous contrast. Coronal and sagittal reformatted images were created and reviewed. Radiation dose: Total exam DLP = 567.4 mGy-cm. This CT exam was performed using one or more of the following dose reduction techniques: Automated exposure control, adjustment of the mA and/or kV according to patient size, and/or use of iterative reconstruction technique. FINDINGS: VERTEBRAE: No fracture. Normal alignment. No destructive bony lesion. DISCS/SPINAL CANAL/NEURAL FORAMINA: No significant central canal or neural foraminal stenosis. There is multilevel disc degeneration with loss of disc height. Anterior osteophytes. PARASPINAL SOFT TISSUES: Unremarkable. OTHER FINDINGS: None. IMPRESSION: No acute findings
[2018-06-01] MEDS ORDERED: Sodium Chloride 0.9% 1,000 ML IV STA (10:13)
--- NOTE | 2018-06-01 10:21 | CT ---
Date of service: 06/01/2018 PROCEDURE: CT of the left knee HISTORY: s/p fall COMPARISON: TECHNIQUE: Radiation dose: Total exam DLP = 338.79 mGy-cm. This CT exam was performed using one or more of the following dose reduction techniques: Automated exposure control, adjustment of the mA and/or kV according to patient size, and/or use of iterative reconstruction technique. FINDINGS: Severe chronic degenerative changes are seen in the medial compartment with joint space narrowing bony sclerosis and large subchondral cysts. Meniscal calcifications are seen in the lateral meniscus. No evidence of fracture. There is a moderate-sized joint effusion IMPRESSION: Severe chronic degenerative changes. No acute fracture
--- NOTE | 2018-06-01 10:27 | RAD ---
Date of service: 06/01/2018 PROCEDURE: Radiographs of the left elbow. HISTORY: fall COMPARISON: No prior. FINDINGS: BONES: Normal. No fracture. JOINTS: Normal. No osteoarthritis. SOFT TISSUES: Normal. JOINT EFFUSION: None. OTHER FINDINGS: None IMPRESSION: Unremarkable radiographs of the left elbow.
--- NOTE | 2018-06-01 10:27 | RAD ---
Date of service: 06/01/2018 HISTORY: fall COMPARISON: 12/31/2016 FINDINGS: LUNGS: No active pulmonary disease. PLEURA: No significant pleural effusion identified, no pneumothorax apparent. CARDIOVASCULAR: Minimal aortic calcification Moderate cardiomegaly no pulmonary vascular congestion. OSSEOUS STRUCTURES: No significant abnormalities. VISUALIZED UPPER ABDOMEN: Normal. OTHER FINDINGS: None. IMPRESSION: No active disease.
--- NOTE | 2018-06-01 10:28 | RAD ---
Date of service: 06/01/2018 PROCEDURE: Radiographs of the right elbow. HISTORY: fall COMPARISON: No prior. FINDINGS: BONES: Normal. No fracture. JOINTS: Normal. No osteoarthritis. SOFT TISSUES: Normal. JOINT EFFUSION: None. OTHER FINDINGS: None. IMPRESSION: Unremarkable radiographs of the right elbow.
[2018-06-01 11:24] LABS: URINE BILIRUBIN NEGATIVE (NEGATIVE); URINE BLOOD SMALL (NEGATIVE); URINE GLUCOSE (UA) NEGATIVE (NEGATIVE); URINE LEUKOCYTE ESTERASE TRACE Leu/uL (NEGATIVE); URINE PROTEIN TRACE mg/dL (<30 mg/dL); URINE UROBILINOGEN 0.2 E.U./dL (<1 E.U./dL)
[2018-06-01 11:26] LABS: URINE APPEARANCE CLEAR (CLEAR); URINE COLOR YELLOW (YELLOW)
[2018-06-01 11:49] LABS: URINE BACTERIA MANY (NEG); URINE EPITHELIAL CELLS 0 - 2 /hpf (0-5)
[2018-06-01] MEDS ORDERED: cefTRIAXone 1 gm 1 GM/100 ML BAG IVPB STA (12:11)
--- NOTE | 2018-06-01 15:58 | HP ---
HISTORY OF PRESENT ILLNESS: The patient is seen in the [facility]. She is in room 572, bed 1. She was admitted today. She had a fall at home and she sustained injury to both her knees. The patient was in pain and had inability to walk. The patient denies any pain over the head area and she denies any loss of consciousness. She has mild dementia and she has past history of osteoarthritis involving back, multiple articular joints, knee, elbow and shoulder. The patient has a history of coronary artery disease, has stents in the coronary arteries. She has had a stress test done a year ago. PAST MEDICAL HISTORY: The patient has past history of gastrectomy times two. The patient has a history of bleeding from the remnant of the stomach. The patient has a history of diabetes mellitus, hypertension and hyperlipidemia. PHYSICAL EXAMINATION: VITAL SIGNS: The pulse is 85, blood pressure 135/83, respirations are 20, O2 sat is 98% on room air. HEENT: The patient's head is normocephalic. No evidence of any injuries. NECK: Thyroid is not enlarged. JVP is flat. Carotid pulses are present. LUNGS: Trachea central. Breath sounds are vesicular and diminished bilaterally. HEART: Normal sinus rhythm. S1 and S2 present. There is a systolic murmur. Current history of aortic stenosis. The patient has a past history of aortic stenosis. ABDOMEN: Soft. Liver and spleen not palpable. No tenderness. No masses. CENTRAL NERVOUS SYSTEM: She is conscious, oriented to place and person, not to time. The patient also has poor recollection. Neurological evaluation shows the patient's cranial nerves are intact. Motor and sensory functions are within normal range. The patient has no evidence of neurological damage. DIAGNOSTICS AND LABORATORY DATA: X-rays done on the elbows and knee are within normal limits. The patient's chest x-ray is clear. The patient had CAT scan of the head done that did not reveal any significant pathology. The patient's blood work done in the emergency room: The hemoglobin is 10.2, which is not bad for her. She has had chronic gastric disease. Chemistry: The blood sugar is 137; sodium, potassium, BUN and creatinine are within normal range. ASSESSMENT AND PLAN: The patient is admitted with history of fall, weakness, disability, inability to walk, discomfort and pain in multiple joints. The patient has cardiac history. The patient also has neurological history. We will have consultation with a neurologist and loan review manager and physical therapy to improve her ambulation. Currently, she will be placed on her medications. She is on Carafate 1 g b.i.d.; Colace 100 mg daily; Coreg 3.125 mg b.i.d.; aspirin 81 mg daily; metformin 1000 mg daily, we will reduce it to 500 mg twice a day and glipizide 5 mg daily, insulin coverage for hyperglycemia. The patient is on Lipitor 20 mg daily. The patient will be on MiraLax for constipation, amlodipine 5 mg daily for hypertension. The patient will be on Plavix, post angioplasty patient. She will be placed on pantoprazole also 40 mg daily. The patient's clinical condition is stable at this time. The patient needs further management regarding ambulation and the patient also needs conservative treatment for pain. Giulia Padilla MD MTDD
--- NOTE | 2018-06-01 16:15 | CARD ---
APPROVED REPORT Date of service: 06/01/2018 EKG Measurement Heart [id number] <Conclusion> Normal sinus rhythm Left anterior fascicular block Minimal voltage criteria for LVH, may be normal variant Cannot rule out Anterior infarct, age undetermined Abnormal ECG
[2018-06-01] MEDS: Insulin Reg-LOW-Coverage SC SCH ×2 (17:47→22:14)
[2018-06-01] MEDS: Sodium Chloride 0.45% 1,000 ML IV SCH (17:57)
[2018-06-01] MEDS: Bacitracin/Neomycin/Polymyxin Oint(30GM) TOP SCH (19:05)
[2018-06-02] MEDS: Insulin Reg-LOW-Coverage SC SCH ×4 (08:00→22:00)
[2018-06-02] MEDS: Bacitracin/Neomycin/Polymyxin Oint(30GM) TOP SCH (10:00)
[2018-06-02] MEDS: POLYETHYLENE GLYCOL 3350 17 GM/Dose PACKET PO SCH (10:06)
[2018-06-02] MEDS: Pantoprazole 40 mg EC Tab PO SCH (10:07)
[2018-06-02] MEDS: Sodium Chloride 0.45% 1,000 ML IV SCH (10:08)
--- NOTE | 2018-06-02 13:34 | PN ---
DATE: 06/02/2018 LOCATION: The patient is in [facility] room 572, bed 1. SUBJECTIVE: She was admitted yesterday after fall in her home in the vicinity of the restroom. The patient was unable to get up and she was in pain. She had bruises of both elbows and the knee and apparently there was a bump pn the left side on the back of the head. On examination, I do not clearly see a bump. She has some mild tenderness at the site of the posterior occipital area on the left side. The patient is seen this morning. She is awake, she is alert, but she is somewhat confused. She has a hearing problem; now she denies any pain excepting that she states she is weak. PAST MEDICAL HISTORY: Significant that she has history of coronary artery disease, diabetes mellitus, osteoarthritis, severe. The patient has had coronary artery angioplasty in the past. The patient also has past history of peptic ulcer disease, gastrectomy in the past, twice. The patient has had history of fall in the past may be more than a year ago. PHYSICAL EXAMINATION: VITAL SIGNS: This morning, the patient's pulse is 78, blood pressure 154/73, respirations are 20. Temperature is 97.7, O2 sat is 98% on room air. HEENT: The patient's head is normocephalic. No clear contusion is noted. The patient's superficial palpation of the head does not reveal any abnormalities. NECK: The thyroid is not enlarged. JVP is flat. Carotid pulses are present. LUNGS: Trachea central. Breath sounds are vesicular. No adventitious sounds. HEART: Normal sinus rhythm. S1, S2 present. Systolic murmur present in the precordial area consistent with aortic stenosis. ABDOMEN: Soft. Liver, spleen not palpable. IP ATTORNEY: No focal deficits noted. The patient has general weakness and inability to stand and balance. The gait is actively abnormal. MEDICATIONS: Currently, the patient is on medications, Carafate 1 g twice a day. The patient is on pantoprazole 40 mg daily. The patient is on aspirin 81 mg daily, Coreg 3.125 mg b.i.d., metformin 1000 mg p.o. daily. The patient is on Lipitor 20 mg daily, insulin coverage for elevated blood sugar. The patient is on MiraLax for constipation. LABORATORY DATA: Blood work: Hemoglobin is 10.2, hemoglobin is average range between 10 and 11. The patient's chemistry, there is no acute significant changes, blood sugar is 124, BUN is 26. ASSESSMENT AND PLAN: The patient is on 60 mL of half normal saline to hydrate the patient. The patient will be on a heart-healthy diabetic diet. We will have the Social Service Department to see her, physical therapy department to see her to evaluate for ambulation and consultation with neurologist and wire products inspector has been placed and we will follow up on the reports of the consultations. The overall prognosis is guarded. Condition clinically is stable at this time. Giulia Padilla MD MTDD
[2018-06-02] MEDS ORDERED: Dextrose 50% SYRINGE Inj (50 ml) IVP ONE ×2 (16:18→17:09)
--- NOTE | 2018-06-02 19:29 | CON ---
DATE: 06/02/2018 NEUROLOGY CONSULTATION CHIEF COMPLAINT: Status post fall. HISTORY OF PRESENT ILLNESS: This is an 88-year-old woman with history of coronary artery disease, status post stent; history of diabetes mellitus type 2; osteoarthritis severe especially in the knees and hips; history of peptic ulcer disease and gastrectomy in the past twice. The patient had multiple falls in the past who was actually came after a fall at home in the vicinity of the restroom. The patient was unable to get up and she was in pain. She had bruises on her both elbows and knees and there was a bump on the left side back of the head. CAT scan of the head showed no acute intracranial abnormality. Currently, she is not describing any headache. She is alert and oriented to person, place and year. Recall time is 0/3. Poor attention span. Slow thought process. She is definitely very deconditioned with underlying arthritis and recommended physical therapy. She was mildly dehydrated for which I advised adequate fluids. PAST MEDICAL HISTORY: As above. SOCIAL HISTORY: No illicit drug use, smoking or EtOH abuse. MEDICATIONS: Reviewed by nurses' reconciliation sheet. REVIEW OF SYSTEMS: Fourteen-point review of systems is negative except as per the HPI. FAMILY HISTORY: Noncontributory. LABORATORY DATA: Sodium 134, potassium 4.9, chloride 99, carbon dioxide 28, BUN of 26, creatinine 1, and random glucose 124. PHYSICAL EXAMINATION: VITAL SIGNS: Temperature 97.7, pulse rate 78, blood pressure 154/73, respiratory rate 20, and oxygen saturation 98% on room air. GENERAL: The patient is seen up in bed, in no acute distress. HEENT: Atraumatic and normocephalic. PERRLA. Extraocular muscles intact. NECK: Supple. No JVD. No adenopathy noted. LUNGS: Clear to auscultation. No adventitious sounds. HEART: S1 and S2 present. Systolic murmur present in the precordial area consistent with aortic stenosis. ABDOMEN: Soft, nontender, and nondistended. Bowel sounds are present. EXTREMITIES: No clubbing. No cyanosis. Peripheral pulses 2+ felt bilaterally. NEUROLOGIC: The patient is alert and oriented to person, place, and year. Recall after 5 minutes is 0/2. Poor attention span. Slow thought process. Cranial nerves II through XII are intact. Motor exam, slightly deconditioned, increased tone throughout. Moves all extremities equally. No pronator drift seen. Sensory; decreased light touch and pinprick up to the calves bilaterally. Decreased vibration of the toes. DTRs are 2+ throughout, 1 at both knees and ankles. Coordination; xliazy-[id number] intact. No dysmetria noted. Gait is deferred for now. IMPRESSION AND PLAN: 1. Ms. Rosemarie Ojeda is an 88-year-old woman with history of coronary disease, status post stent; history of osteoarthritis severe in both knees as well as in other joints, history of type 2 diabetes mellitus, status post fall, unable to get up, head as well as her elbows with some bruises. She is deconditioned. Her falls are likely secondary to underlying osteoarthritis of the joint as well as superimposed on diabetic peripheral neuropathy interfering with balance that she uses a walker. At this time, I will recommend physical and occupational therapy for gait and coordination exercises. 2. Keep her blood sugars 140 to 180. 3. Outpatient evaluation for an EMG to assess the degree of neuropathy. 4. Follow Cardiology's recommendations in regards to any current cardiac issues and keep her blood pressures between 130s to 140s systolic and diastolic 70s to 80s. 5. Continue with aspirin 81 and Lipitor 20 for stroke prevention as well as Plavix and continue current present medical management. She is clinically stable from my standpoint. Thank you for this consult. Ankur Alfonso MD
--- NOTE | 2018-06-03 02:34 | CON ---
DATE: 06/02/2018 REASON FOR CONSULTATION AND FOLLOWUP: The patient is followed to rule out syncope. BRIEF CLINICAL HISTORY: This is an 88-year-old female with past medical history significant for gastrectomy because of the bleeding ulcer, diabetes, hypertension, hyperlipidemia, obesity who fell down and sustained injury in the knee more on the left than right. History of unsteady gait, walks with a walker, walker gave up and the patient fell down. Denies any loss of consciousness. Denies any chest pain or shortness of breath. is at the bedside. PAST MEDICAL HISTORY: Significant for coronary artery disease status post stent in the past. Past history is significant for gastrectomy from the bleeding ulcer, history of coronary artery disease, history of diabetes, hypertension, hyperlipidemia, COPD. History of lumbar spinal stenosis, history of gastroesophageal reflux disease, history of overactive bladder in the past. Cardiac workup as outpatient, had a cardiac catheterization after having non-ST segment myocardial infarction on 12/26/2016 that revealed triple vessel disease including left main ostial LAD, mid LAD and also circumflex mid RCA. EF 35% to 40%. EDP was in the range of 20% to 25%. The patient underwent PTCA with Impella device in 12/2016 at [facility] ([facility] Previous echo dated 05/11/2015, ejection fraction 50%, [id number] aortic stenosis, mild tricuspid regurgitation. CURRENT MEDICATIONS: Patient at home was taking atorvastatin 20 mg daily, amlodipine 5 mg daily, sucralfate 1 g daily, polyethylene glycol 17 g daily, Protinex, metformin 1 g daily, glipizide 5 mg daily, Colace 1 g daily, cyanocobalamin 1 g daily, Plavix 75 mg daily, Coreg 3.125 mg daily, aspirin 81 mg daily. SOCIAL HISTORY: Denies any history of smoking. REVIEW OF SYSTEMS: As per HPI. PHYSICAL EXAMINATION: Height of the patient 4 feet 10 inches, weight of the patient 180 pounds, body mass index is 37.5 kg/m2. VITAL SIGNS: Temperature afebrile, heart rate 78, blood pressure 154/73. HEENT: PERRLA. Extraocular muscles are intact. NECK: Supple. No carotid bruits. No thyromegaly. CHEST: Clear to auscultation. HEART: S1 and S2, regular. ABDOMEN: Soft. EXTREMITIES: Clubbing and cyanosis negative. DIAGNOSTIC DATA: EKG shows normal sinus rate of 64. No acute ST or T wave changes noted. LABORATORY DATA: Blood workup as follows: WBC 6.8, hemoglobin 10.2, hematocrit 33.2, platelet count 351. Chemistry shows sodium 134, potassium 4.8, chloride 99, carbon dioxide 28, anion gap of 11, BUN 26, creatinine 1.0. Troponin is 0.01. IMPRESSION: An 88-year-old female with past medical history significant for coronary artery disease, left main circ left anterior descending, status post percutaneous transluminal coronary angioplasty with Impella device [facility] on 12/2017 at [facility]), unsteady gait who fell down and sustained left knee trauma but no bony injury. She was admitted after a fall. She has a history of loss of consciousness, history of coronary artery disease as mentioned, history of percutaneous transluminal coronary angioplasty of left main, diabetes, hypertension, hyperlipidemia, history of non-ST segment myocardial infarction on last admission where the patient underwent cardiac catheterization that revealed left main disease, left anterior descending ostial circumflex as well as disease and mid RCA. Ejection fraction 20% to 25%. The patient underwent percutaneous transluminal coronary angioplasty with drug-eluting stent with the help of Impella device at [facility] ([facility]) for left main LAD and circumflex. No gradient across aortic valve noted on CAT. The patient had an echocardiography done on 01/01/2017 that revealed ejection fraction 45% to 50% moderate valvular aortic stenosis, [id number] mitral regurgitation, trace tricuspid regurgitation, but no aortic stenosis on catheterization, admitted at this time after a fall. No evidence of acute myocardial infarction. EKG essentially normal. No evidence of syncope. RECOMMENDATIONS: We will get orthostatic hypotension. We will check lipid profile due to his . We will follow with you and we will repeat echo. Thank you for providing us the opportunity in taking care of the patient, Rosemarie Ojeda. Priscila Mohr MD
[2018-06-03 07:05] LABS: BLOOD UREA NITROGEN 19 mg/dL (7-21); CALCIUM 8.8 mg/dL (8.4-10.5); GFR NON-AFRICAN AMERICAN 59; HDL CHOLESTEROL 41 mg/dL (29-60)
[2018-06-03 07:11] LABS: BASO # 0.03 K/mm3 (0.0-2.0); BASO % 0.6 % (0.0-3.0); EOS # 0.2 (0.0-0.7); EOS % 2.9 % (1.5-5.0); GRAN # 2.82 (1.4-6.5); GRAN % 54.5 % (50.0-68.0); HEMOGLOBIN 10.3 g/dL (12.0-16.0); LYMPH # 1.7 (1.2-3.4); LYMPH % 32.7 % (22.0-35.0); MEAN CELL VOLUME 69.2 fl (80.0-105.0); MEAN CORPUSCULAR HEMOGLOBIN 21.5 pg (25.0-35.0); MEAN PLATELET VOLUME 9.6 fl (7.0-11.0); MONO # 0.5 (0.1-0.6); MONO % 9.3 % (1.0-6.0); RBC 4.8 10^6/uL (3.5-6.1); RED CELL DISTRIBUTION WIDTH 18.3 % (11.5-14.5); WHITE BLOOD COUNT 5.2 10^3/uL (4.5-11.0)
[2018-06-03 07:14] LABS: LDL CHOLESTEROL 63 mg/dL (0-129)
[2018-06-03] MEDS: Insulin Reg-LOW-Coverage SC SCH ×4 (08:27→23:55)
[2018-06-03] MEDS: Pantoprazole 40 mg EC Tab PO SCH (10:14)
[2018-06-03] MEDS: POLYETHYLENE GLYCOL 3350 17 GM/Dose PACKET PO SCH (10:15)
[2018-06-03] MEDS: Bacitracin/Neomycin/Polymyxin Oint(30GM) TOP SCH (10:15)
--- NOTE | 2018-06-03 14:45 | PN ---
DATE: 06/03/2018 REASON FOR CONSULTATION AND FOLLOWUP: Rule out syncope status post fall. Patient denies any chest pain, shortness of breath, or any palpitations. OBJECTIVE: GENERAL: Not in apparent distress. VITAL SIGNS: Temperature afebrile, heart rate 82, blood pressure 140/72. HEENT: PERRLA. Extraocular muscles intact. NECK: Supple. No carotid bruits or thyromegaly. CHEST: Clear to auscultation. HEART: S1, S2 regular. ABDOMEN: Soft. EXTREMITIES: Clubbing and cyanosis negative. LABORATORY DATA: Blood workup as follows: WBC 5.8, hemoglobin 10.3, hematocrit 33.2, platelet count 325. Chemistry shows sodium 134, potassium 4.6, chloride 102, carbon dioxide 27, anion gap of 9, BUN 19, creatinine 0.9. IMPRESSION: An 88-year-old female with past medical history significant for coronary artery disease including left main, left anterior descending, and circumflex, status post percutaneous transluminal coronary angioplasty with Impella device in 12/2017 admitted after a mechanical fall. Denies any chest pain, shortness of breath. RECOMMENDATIONS: Check for orthostatic hypotension. Echo to assess LV function. No evidence of acute VA. I will resume back aspirin, Plavix. Continue Coreg. Continue low dose of ALINA inhibitors as blood pressure is tolerated and renal function. We will check for orthostatic. TSH 2.2, transferrin 121, cholesterol 116, LDL 63, HDL 41, hemoglobin A1c pending, Thank you, Dr. Padilla, for providing us the opportunity in taking care of the patient, Rosemarie Ojeda. Priscila Mohr MD
--- NOTE | 2018-06-03 15:04 | PN ---
DATE: 06/03/2018 SUBJECTIVE: This patient is an 88-year-old white female. She was brought into the Emergency Room for history of fall and multiple superficial injuries of elbow and knees and the head. The patient did not lose consciousness at that time. She was evaluated and admitted for further management and evaluation. The patient needs physical therapy to help her ambulate properly, so that she will not fall. PHYSICAL EXAMINATION: VITAL SIGNS: This morning, the patient's pulse is 64, blood pressure is 122/70, the patient's respirations are 20. HEENT: The patient's head is normocephalic. No real focal deficits on the head noted. NECK: The thyroid is not enlarged. JVP is flat. LUNGS: Clear. HEART: Normal sinus rhythm. S1 and S2 present. Systolic murmur present. ABDOMEN: Soft. Liver and spleen not palpable. HELPER COORDINATOR: The patient has no focal deficits, but does have mild dementia. LABORATORY DATA: The patient's blood work: The hemoglobin is 10.3, is stable. The patient's chemistry, the BUN is 19 and creatinine is 0.9. The patient's cholesterol is 116; the patient has been on statin. Blood sugar has dropped during the day yesterday to 41. She is a diabetic. She is on 2 medications for control of sugar, metformin and glipizide. MEDICATIONS: The list of medications: The patient is on Carafate 1 g twice a day. The patient is on Colace 100 mg daily. The patient is on Coreg 3.125 mg b.i.d., aspirin 81 mg daily, metformin 500 mg b.i.d. The patient is on insulin coverage for elevated blood sugar. Lipitor 20 mg daily. The patient gets Macrobid for urinary tract infection. The patient is on MiraLax for constipation, amlodipine 5 mg daily for hypertension, Plavix 75 mg daily, pantoprazole 40 mg daily for gastritis. Note the patient has had past history of gastrectomy. The patient is on Pyridium to disinfect the urine because she is not cooperative with drinking fluids that much. ASSESSMENT AND PLAN: Her condition seemed to be improving. She will be discharged and transferred to Transitional Care Unit according to the Social Service Department. We will follow up. Giulia Padilla MD [facility] # [id number] DEVEN
--- NOTE | 2018-06-03 20:10 | CARD ---
APPROVED REPORT Date of service: 06/03/2018 EXAM: Two-dimensional and M-mode echocardiogram with Doppler and color Doppler. INDICATION S/P PTCA/ CAD 2D DIMENSIONS Left Atrium (2D)4.9 (1.6-4.0cm)IVSd1.3 (0.7-1.1cm) LVDd4.8 (3.9-5.9cm)LVOT Diameter2.0 (1.8-2.4cm) PWd1.2 (0.7-1.1cm) M-Mode DIMENSIONS Aortic Root2.70 (2.2-3.7cm)Aortic Cusp Exc.1.00 (1.5-2.0cm) Aortic Valve AoV Peak Szncqoun416.0cm/sAoV VTI86.2cmAO Peak GR.64mmHg LVOT Peak Kwxnkcck805.0cm/sLVOT VTI28.00cmAO Mean GR.32mmHg JYOTSNA (VMAX)1.48pt2UTJ (VTI)1.02cm2 Mitral Valve MV E Xipuojml03.5cm/sMV A Weoknqtk733.0cm/sE/A ratio0.6 TDI Lateral E' Peak V4.39cm/sMedial E' Peak V4.00cm/sE/Lateral E'15.6 E/Medial E'17.1 Pulmonary Valve PV Peak Jowqvmca43.9cm/sPV Peak Grad.2mmHg LEFT VENTRICLE The left ventricle is normal size. There is mild concentric left ventricular hypertrophy. Low Normal, EF-50% There is mild hypokinesis in the apical anterior wall. Transmitral Doppler flow pattern is Grade III-reversible restrictive diastolic dysfunction. No left ventricle thrombus noted on this study. There is no ventricular septal defect visualized. There is no left ventricular aneurysm. There is no mass noted in the left ventricle. RIGHT VENTRICLE The right ventricle is normal size. There is normal right ventricular wall thickness. The right ventricular systolic function is normal. ATRIA The left atrium is mildly dilated. The right atrium size is normal. The interatrial septum is intact with no evidence for an atrial septal defect. AORTIC VALVE The aortic valve is calcified and displays decreased opening. There is trace aortic regurgitation. There is moderate valvular aortic stenosis. There is no aortic valvular vegetation. MITRAL VALVE The mitral valve is thickened but opens well. Mitral annular calcification is moderate to severe. Mitral regurgitation is trace. There is no mitral valve stenosis. There is no evidence of mitral valve prolapse. TRICUSPID VALVE The tricuspid valve leaflets are thickened , but open well. There is trace tricuspid regurgitation. There is no tricuspid valve stenosis. There is no tricuspid valve prolapse or vegetation. PULMONIC VALVE The pulmonic valve is borderline thickened. There is trace pulmonic valvular regurgitation. There is no pulmonic valvular stenosis. GREAT VESSELS The aortic root is normal in size. The ascending aorta is normal in size. The pulmonary artery is normal. The IVC is normal in size and collapses >50% with inspiration. PERICARDIAL EFFUSION There is no pleural effusion. There is no pericardial effusion. <Conclusion> The left ventricle is normal size. There is mild concentric left ventricular hypertrophy. Low Normal, EF-50% There is trace aortic regurgitation. There is moderate valvular aortic stenosis. Mitral regurgitation is trace. There is trace tricuspid regurgitation. There is trace pulmonic valvular regurgitation. The IVC is normal in size and collapses >50% with inspiration. There is no pericardial effusion.
--- NOTE | 2018-06-04 07:04 | CP.PCM.PN ---
Subjective - Date & Time of Evaluation Date of Evaluation: 06/04/18 Time of Evaluation: 06:15 - Subjective Subjective: Awake, alert, no distress Reason for consultation and follow up: Cardiac evaluation post fall, rule out syncope, history of hypertension, CAD with stents Seen and examined by me and Dr. Mohr Objective - Vital Signs/Intake and Output Vital Signs (last 24 hours): Temp Pulse Resp BP Pulse Ox 97.9 F 67 18 150/70 93 L 06/03/18 22:35 06/03/18 22:35 06/03/18 22:35 06/03/18 22:35 06/03/18 22:35 Intake and Output: 06/04/18 06/04/18 06:59 18:59 Intake Total 2260 Output Total 1700 Balance 560 - Medications Medications: Current Medications Amlodipine Besylate (Norvasc) 5 mg PO DAILY [facility] Last Admin: 06/03/18 10:15 Dose: 5 mg Aspirin (Ecotrin) 81 mg PO DAILY [facility] Last Admin: 06/03/18 10:15 Dose: 81 mg Atorvastatin Calcium (Lipitor) 20 mg PO DIN [facility] Last Admin: 06/03/18 17:14 Dose: 20 mg Carvedilol (Coreg) 3.125 mg PO DAILY [facility] Last Admin: 06/03/18 10:15 Dose: 3.125 mg Clopidogrel Bisulfate (Plavix) 75 mg PO DAILY [facility] Last Admin: 06/03/18 10:15 Dose: 75 mg Docusate Sodium (Colace) 100 mg PO DAILY [facility] Last Admin: 06/03/18 10:14 Dose: 100 mg Sodium Chloride (Sodium Chloride 0.45%) 1,000 mls @ 60 mls/hr IV .[id number] [facility] Last Admin: 06/02/18 10:08 Dose: 60 mls/hr Insulin Human Regular (Humulin R Low) 0 units SC [facility]; Protocol Last Admin: 06/03/18 23:55 Dose: Not Given Lisinopril (Zestril) 2.5 mg PO DAILY [facility] Last Admin: 06/03/18 15:57 Dose: 2.5 mg Metformin HCl (Glucophage) 500 mg PO BID [facility] Last Admin: 06/03/18 17:14 Dose: 500 mg Neomycin/Polymyxin/Bacitracin (Neosporin Triple Antibiotic Oint) 0 gm TOP DAILY [facility] Last Admin: 06/03/18 10:15 Dose: 1 applic Nitrofurantoin Macrocrystals (Macrobid) 100 mg PO Q12 [facility]; Protocol Last Admin: 06/03/18 21:16 Dose: 100 mg Pantoprazole Sodium (Protonix Ec Tab) 40 mg PO DAILY [facility] Last Admin: 06/03/18 10:14 Dose: 40 mg Phenazopyridine HCl (Pyridium) 100 mg PO PC [facility] Stop: 06/08/18 18:01 Last Admin: 06/03/18 17:07 Dose: Not Given Polyethylene Glycol (Miralax) 17 gm PO DAILY [facility] Last Admin: 06/03/18 10:15 Dose: 17 gm Sucralfate (Carafate Tab) 1 gm PO DAILY [facility] Last Admin: 06/03/18 10:15 Dose: 1 gm - Labs Labs: 06/03/18 06:30 06/03/18 06:30 PT 10.9 SECONDS (9.4-12.5) 06/01/18 08:51 INR 0.95 06/01/18 08:51 APTT 30.1 Seconds (25.1-36.5) 06/01/18 08:51 - Constitutional Appears: Non-toxic, No Acute Distress - Head Exam Head Exam: NORMAL INSPECTION, NORMOCEPHALIC - Eye Exam Eye Exam: Normal appearance Pupil Exam: NORMAL ACCOMODATION - ENT Exam ENT Exam: Mucous Membranes Moist, Normal Exam - Respiratory Exam Respiratory Exam: Clear to Ausculation Bilateral, NORMAL BREATHING PATTERN - Cardiovascular Exam Cardiovascular Exam: +S1, +S2 Additional comments: No JVD - GI/Abdominal Exam GI & Abdominal Exam: Soft, Normal Bowel Sounds - Extremities Exam Extremities Exam: Full ROM, Normal Capillary Refill - Neurological Exam Neurological Exam: Alert, Awake, Oriented x3 - Psychiatric Exam Psychiatric exam: Normal Affect, Normal Mood - Skin Skin Exam: Dry, Normal Color, Warm Assessment and Plan - Assessment and Plan (Free Text) Assessment: An 88 year old female who came in to the ER due to fall. She fell on her knees while walking with walker. History of coronary artery disease with stents with Impella 12/2017. History of hypertension,Alzheimer's disease, dementia, NIDDM,arthritis, GI bleeding. Echo done. Will check orthostatic vital signs. No evidence of myocardial ischemia. Plan: Echo done-LV normal size, LVEF50% Trace aortic regurgitation, moderate valvular aortic stenosis Trace mitral regurgitation/tricuspid regurgitation/pulmonic valve regurgitation No pericardial effusion No distress,denies chest pain Heart rate controlled Blood pressure stable Orthostatic vital signs Continue current medications Continue current treatment Chart reviewed Will follow up Plan and treatment discussed with Dr. Mohr
[2018-06-04] MEDS: Insulin Reg-LOW-Coverage SC SCH ×2 (07:59→11:51)
[2018-06-04 08:15] VITALS: RESP 20
--- NOTE | 2018-06-04 09:52 | PN ---
DATE: 06/04/2018 LOCATION: The patient is in room 572, bed 1 [facility] in [place]. SUBJECTIVE: The patient was admitted with history of fall, altered mental status. The patient has also difficulty in walking, contusion on both elbows and knees. The patient had contusion on back of the head, noted recognizable identifiable mass or lump on the back of the head. The patient's past history is significant. She has history of peptic ulcer disease, gastrectomy. The patient has history of coronary artery disease, angioplasty. The patient has history of diabetes, hypertension. The patient has severe osteoarthritis involving multiple appendicular joints. The patient is seen this morning. She is awake. She seemed to be alert in general condition, concentration is poor. She does not remember she had some physical therapy and she was out of bed yesterday. She is waiting to be assessed by the Transitional Care Unit to get her some further rehab. PHYSICAL EXAMINATION: VITAL SIGNS: Today, the pulse is 67, blood pressure 150/70, respirations are 18. The patient's O2 sat is 93% on room air. HEENT: The patient's head is normocephalic. No evidence of clear-cut lump in the left posterior occipital area, but there is mild tenderness on the same side. NECK: The JVP is flat. Carotid pulses are present. Thyroid is not enlarged. HEART: Normal sinus rhythm. S1, S2 present LUNGS: Trachea central. Breath sounds are vesicular. No adventitious sounds. ABDOMEN: Soft. Liver, spleen not palpable. No tenderness. GENITOURINARY: The patient has urinary tract infection. CIRCULATION DIRECTOR: The patient has mild dementia. No focal neurological deficits. MEDICATIONS: She is on Catapres 1 g twice a day, Colace 100 mg daily, MiraLax 17 g daily, Coreg 3.125 mg b.i.d., aspirin 81 mg daily, metformin 500 mg b.i.d. The patient is on insulin coverage for hyperglycemia, Lipitor 20 mg daily, and Macrobid 100 daily, this will be continued for 5 days and we will repeat the urinalysis. The patient is on amlodipine 5 mg daily. LABORATORY DATA: The patient's blood work is essentially the same as what was reported on 06/03/2018. ASSESSMENT AND PLAN: The patient is on a heart healthy diabetic diet. We will continue current management, physical therapy assessment, and hopefully, the patient will get some subacute transitional care type physical therapy for her. Giulia Padilla MD MTDXavi
[2018-06-04] MEDS: Pantoprazole 40 mg EC Tab PO SCH (10:20)
[2018-06-04] MEDS: POLYETHYLENE GLYCOL 3350 17 GM/Dose PACKET PO SCH (10:20)
[2018-06-04] MEDS: Bacitracin/Neomycin/Polymyxin Oint(30GM) TOP SCH (10:21)
[2018-06-04 15:43] VITALS: BP 158/85; PULSE 73; TEMP 97.8; O2SAT 92
--- NOTE | 2018-06-06 13:13 | DS ---
BRIEF HISTORY: This is an 88-year-old female with history of gastrectomy due to bleeding ulcer, diabetes mellitus, hypertension, COPD, and degenerative arthritis involving the back, knee, elbow and shoulder as well as multiple joints. Patient fell at home and sustained injury to both of her knees. Patient was complaining of pain and inability to walk. HOSPITAL COURSE: Patient was admitted to the general medical floor. She was seen by Cardiology and Neurology for possible syncope causing her fall. She was also continued on all of her maintenance medications. Echocardiogram was done, which showed EF of 50%, moderate valvular aortic stenosis, trace mitral regurg, tricuspid regurg, and pulmonic valve regurgitation. There was no evidence of myocardial ischemia. CAT scan of the head did not show any acute changes. X-rays were also done of the elbows, which did not show any acute fractures. Patient underwent physical therapy evaluation and was recommended to go to TCU. She was discharged in stable condition to the Transitional Care Unit for further rehab and treatment of her medical problems. DISCHARGE DIAGNOSES: Syncope, fall, hypertension, diabetes mellitus type 2, severe degenerative arthritis, and history of gastrectomy. DISCHARGE MEDICATIONS: Aspirin 81 mg once a day, Carafate 1 g daily, Colace 100 mg daily, Coreg 3.125 mg daily, metformin 500 mg twice a day, Lipitor 20 mg at night, Macrobid 100 mg twice a day, MiraLax 17 g daily, Norvasc 5 mg daily, Plavix 75 mg daily, Protonix 40 mg daily, Pyridium 100 mg daily, and Zestril 2.5 mg daily. Patient was also found to have E. coli urinary tract infection. She was started on Macrodantin 100 mg twice a day. Ute Padilla MD
--- NOTE | 2018-06-06 13:46 | PN ---
DATE: 06/04/2018 Patient is in room 572, bed 1. Patient's progress note has been written by Anita Maza. This is addendum for rule out syncope, coronary artery disease, status post angioplasty, admitted with mechanical fall. Patient, from cardiac point of view, continued to be stable without any chest pain, shortness of breath, or palpitation. DIAGNOSES: Mechanical fall, coronary artery disease, history of angioplasty and stent insertion. Patient also had another angioplasty with Impella device insertion in December 2017. We will continue present therapy. Clinically, cardiac status is stable. We will follow with you. Priscila Garcia MD
== END 2018-06-04 16:30 | DRG 690 ==
LOC: ED 07:45 → ERH 12:01 → 5RSO 13:51
PROVIDERS: ADMIT Internal Medicine; ATTEND Internal Medicine
DX: N39.0 Urinary tract infection, site not specified (principal); M17.0 Bilateral primary osteoarthritis of knee; I25.10 Atherosclerotic heart disease of native coronary artery without angina pectoris; I10 Essential (primary) hypertension; F02.80 Dementia in other diseases classified elsewhere, unspecified severity, without behavioral disturbance, psychotic disturbance, mood disturbance, and anxiety; G30.9 Alzheimer's disease, unspecified; M47.9 Spondylosis, unspecified; J44.9 Chronic obstructive pulmonary disease, unspecified; S09.90XA Unspecified injury of head, initial encounter; W01.0XXA Fall on same level from slipping, tripping and stumbling without subsequent striking against object, initial encounter; M16.0 Bilateral primary osteoarthritis of hip; E11.42 Type 2 diabetes mellitus with diabetic polyneuropathy; E86.0 Dehydration; S50.01XA Contusion of right elbow, initial encounter; S50.02XA Contusion of left elbow, initial encounter; E78.5 Hyperlipidemia, unspecified; I25.2 Old myocardial infarction; K21.9 Gastro-esophageal reflux disease without esophagitis; M19.90 Unspecified osteoarthritis, unspecified site; N32.81 Overactive bladder; S00.03XA Contusion of scalp, initial encounter; Y92.009 Unspecified place in unspecified non-institutional (private) residence as the place of occurrence of the external cause; Y93.01 Activity, walking, marching and hiking; Z79.02 Long term (current) use of antithrombotics/antiplatelets; Z79.82 Long term (current) use of aspirin; Z79.84 Long term (current) use of oral hypoglycemic drugs; Z79.899 Other long term (current) drug therapy; Z87.11 Personal history of peptic ulcer disease; Z90.3 Acquired absence of stomach [part of]; Z90.49 Acquired absence of other specified parts of digestive tract; Z95.5 Presence of coronary angioplasty implant and graft; Z98.42 Cataract extraction status, left eye; Z98.41 Cataract extraction status, right eye; R40.2412 Glasgow coma scale score 13-15, at arrival to emergency department; I08.8 Other rheumatic multiple valve diseases; R55 Syncope and collapse; E66.9 Obesity, unspecified; Z68.35 Body mass index [BMI] 35.0-35.9, adult

== ENCOUNTER 2018-06-04 16:30 | Inpatient (IN) | payer OTHER, MEDICARE ==
[2018-06-04 17:20] VITALS: BMI 36.2
[2018-06-04] MEDS ORDERED: Pneumococcal 23-Valent Vaccine IM ONE (20:19)
[2018-06-04] MEDS ORDERED: Influenza Vaccine 60 mcg/0.5 mL SYR (4YR UP) IM ONE (20:19)
[2018-06-04] MEDS: Sodium Chloride 0.45% 1,000 ML IV SCH (21:31)
[2018-06-04] MEDS: Insulin Reg-LOW-Coverage SC SCH (21:34)
[2018-06-05] MEDS: Pantoprazole 40 mg EC Tab PO SCH (06:19)
[2018-06-05] MEDS: Insulin Reg-LOW-Coverage SC SCH ×5 (06:31→22:45)
[2018-06-05] MEDS: POLYETHYLENE GLYCOL 3350 17 GM/Dose PACKET PO SCH (09:46)
[2018-06-05] MEDS: Bacitracin/Neomycin/Polymyxin Oint(30GM) TOP SCH (09:47)
[2018-06-05] MEDS: Sodium Chloride 0.45% 1,000 ML IV SCH (09:48)
--- NOTE | 2018-06-05 13:12 | HP ---
DATE OF EXAM: 06/05/2018 The patient is in Transitional Care Unit, room 318, bed 1. HISTORY OF PRESENT ILLNESS: She is an 88-year-old white female. She was admitted after being discharged from the Acute Medical Floor. She is admitted to the Transitional Care Unit for physical therapy, rehabilitation and deconditioning. The patient initially admitted for fall and inability to walk and altered mental state. The patient has history of diabetes, hypertension, peptic ulcer disease and osteoarthritis. The patient was seen this morning. The patient is awake. She is reasonably comfortable. PHYSICAL EXAMINATION: VITAL SIGNS: Pulse is 77, blood pressure 120/70, respirations are 20, the patient's temperature is 98 and O2 saturation is 97% on room air. HEENT: Head is normocephalic. NECK: Thyroid is not enlarged. Carotid pulses are present. JVP is flat. LUNGS: Trachea is central. Breath sounds are vesicular. No adventitious sounds. HEART: Normal sinus rhythm. S1 and S2 present. There is a systolic murmur in pericardium suggestive of a murmur of aortic stenosis. ABDOMEN: Soft. Liver and spleen not palpable. MILLROOM SUPERVISOR: No focal deficit, except the patient has inability to walk due to severe osteoarthritis of the hip, the knees and lower back. The patient's condition is minimally improved, but she needs physical therapy and rehabilitation. MEDICATIONS: Consists of Carafate 1 g twice a day. The patient is on Colace and MiraLAX for constipation. The patient is on aspirin 81 mg daily and metformin 500 mg b.i.d. The patient gets insulin coverage for hypoglycemia, Lipitor 300 mg daily, Macrobid 100 mg b.i.d. We will repeat the urinalysis. The patient is on amlodipine 5 mg daily. Heart-healthy diet. The patient has not had any blood work since she was admitted to the TCU and we will order a chemistry, urinalysis and a blood count. We will request physical therapy and rehabilitation and followup. Giulia Padilla MD DEVEN
[2018-06-06] MEDS: Sodium Chloride 0.45% 1,000 ML IV SCH (05:06)
[2018-06-06] MEDS: Pantoprazole 40 mg EC Tab PO SCH (05:06)
[2018-06-06 06:17] LABS: BASO # 0.03 K/mm3 (0.0-2.0); BASO % 0.4 % (0.0-3.0); EOS # 0.1 (0.0-0.7); EOS % 1.4 % (1.5-5.0); GRAN # 4.98 (1.4-6.5); GRAN % 67.3 % (50.0-68.0); LYMPH # 1.4 (1.2-3.4); LYMPH % 19.5 % (22.0-35.0); MEAN CELL VOLUME 68.8 fl (80.0-105.0); MEAN CORPUSCULAR HEMOGLOBIN 20.9 pg (25.0-35.0); MEAN CORPUSCULAR HGB CONC 30.4 g/dl (31.0-37.0); MEAN PLATELET VOLUME 9.4 fl (7.0-11.0); MONO # 0.8 (0.1-0.6); MONO % 11.4 % (1.0-6.0); RBC 4.78 10^6/uL (3.5-6.1); WHITE BLOOD COUNT 7.4 10^3/uL (4.5-11.0)
[2018-06-06 06:23] LABS: ALB/GLOB RATIO 0.9 (1.1-1.8); ALBUMIN 3.1 g/dL (3.0-4.8); ALT/SGPT 16 U/L (7-56); AST/SGOT 21 U/L (14-36); BLOOD UREA NITROGEN 18 mg/dL (7-21); CALCIUM 9.1 mg/dL (8.4-10.5); GFR NON-AFRICAN AMERICAN 59
[2018-06-06] MEDS: Insulin Reg-LOW-Coverage SC SCH ×4 (06:33→22:18)
[2018-06-06 07:41] LABS: PH,URINE 5.5 (4.7-8.0); URINE BILIRUBIN NEGATIVE (NEGATIVE); URINE BLOOD NEGATIVE (NEGATIVE); URINE GLUCOSE (UA) 100 mg/dL (NEGATIVE); URINE LEUKOCYTE ESTERASE NEGATIVE Leu/uL (NEGATIVE); URINE PROTEIN 30 mg/dL (<30 mg/dL)
[2018-06-06 07:46] LABS: URINE COLOR DARK YELLOW (YELLOW)
[2018-06-06 07:47] LABS: URINE APPEARANCE CLEAR (CLEAR)
[2018-06-06 07:56] LABS: URINE BACTERIA FEW (NEG); URINE RBC 0 - 2 /hpf (0-2); URINE WBC 0 - 2 /hpf (0-6)
--- NOTE | 2018-06-06 08:41 | CON ---
DATE: 06/05/2018 BRIEF MEDICAL HISTORY: This is an 88-year-old female with past medical history significant for gastrectomy because of beginning of diabetes, hypertension, hyperlipidemia fell down and sustained fracture, history of coronary artery disease in the past. , shortness of breath or any palpitation. PAST MEDICAL HISTORY: Past history significant for coronary artery disease, status post stent in the past. History of diabetes, hypertension, hyperlipidemia with COPD, history of lumbar spinal stenosis, history of gastroesophageal reflux, history of overactive bladder in the past. PAST SURGICAL HISTORY: Significant for gastrectomy secondary to bleeding peptic ulcer. Review of his cardiac workup as follows: The patient had a cardiac catheterization after having non-ST segment myocardial infarction on 12/26/2016, that revealed triple vessel disease including left main at LAD, also circumflex disease. Mild disease in mid RCA. Ejection fraction 35% to 40%. EDP in the range of 20% to 25%. The patient underwent PTCA with Impella device on 01/22/2018 at [facility]. The patient had a repeat echo done on this admission 06/03/2018 that revealed ejection fraction 50% moderate valvular aortic stenosis mild, trace mitral regurgitation and tricuspid regurgitation. CURRENT MEDICATIONS: The patient is taking sucralfate, Colace, carvedilol, aspirin, metformin, atorvastatin, MiraLax, Plavix, amlodipine, and lisinopril 2.5 twice a day. ALLERGIES: No known drug allergies. PHYSICAL EXAMINATION GENERAL: Height of the patient 4 feet 10 inches, weight of the patient 173 pounds, body mass index 36.2 kg/m2. VITAL SIGNS: Temperature afebrile, heart rate 76, blood pressure 126/70. HEENT: PERRLA. Extraocular muscles are intact. NECK: Supple. No carotid bruits or thyromegaly. CHEST: Clear to auscultation. HEART: S1 and S2 regular. ABDOMEN: Soft. EXTREMITIES: Clubbing and cyanosis negative. LABORATORY DATA: Blood workup as follows: WBC 5.8, hemoglobin 10.8, hematocrit 33.2, platelet count 325. Chemistry shows sodium 134, potassium 4.7, chloride 102, carbon dioxide 26, anion gap of 9, BUN 19, creatinine 0.9, triglyceride 121, cholesterol 116, LDL 63, HDL 41, troponin 0.03. IMPRESSION: An 88-year-old female with past medical history of diabetes, hypertension, hyperlipidemia, coronary artery disease, status post stent in the left main with Impella device. At that time, ejection of 35% go 40%, now post stent a year ago. The patient had a echo done 50% who admitted after a fall showed no evidence of acute UT. The patient has continuity of care in Transitional Care Unit and further rehab. RECOMMENDATION: Continue aspirin, continue Plavix, continue beta chloe, continue ALINA inhibitor. CVS status is stable. We will follow with you. Thank you who has been taking care of the patient, Rosemarie Ojeda. Priscila Mohr MD
[2018-06-06] MEDS: Bacitracin/Neomycin/Polymyxin Oint(30GM) TOP SCH (09:29)
[2018-06-06] MEDS: POLYETHYLENE GLYCOL 3350 17 GM/Dose PACKET PO SCH (09:29)
[2018-06-06] MEDS: Sodium Chloride 0.9% 1,000 ML IV SCH (09:30)
[2018-06-06] MEDS: Lidocaine 5% Patch TD SCH (13:43)
--- NOTE | 2018-06-06 15:55 | PN ---
DATE: 06/06/2018 LOCATION: The patient is in [facility] Transitional Care Unit, room 318, bed 1. SUBJECTIVE: The patient was admitted after a fall to the hospital. She was evaluated and currently the patient is seen in the Transitional Care Unit for rehabilitation, deconditioning, and ambulation. The patient has significant past history of coronary artery disease, diabetes mellitus, hypertension, gastritis, gastric surgery. PHYSICAL EXAMINATION: VITAL SIGNS: This morning, the pulse is 86, blood pressure is 130/72, the O2 sat is 93%, respirations are 20. GENERAL: The patient is awake, confused somewhat. She is reluctant to be in the Transitional Care Unit, she wants to go home, however. LUNGS: Clear. HEART: Normal sinus rhythm. ABDOMEN: Soft. Liver and spleen not palpable. PAD ASSEMBLER: No focal deficits, except the patient has general weakness. The patient has severe osteoarthritis with tenderness in the knee joints on palpation. MEDICATIONS: Carafate 1 g b.i.d. The patient is on Colace 100 mg daily, Coreg 3.125 mg b.i.d., aspirin 81 mg daily, metformin 500 mg b.i.d., insulin coverage for hyperglycemia, the patient is on Lipitor 20 mg daily, Macrobid 100 mg b.i.d. The patient is on MiraLax for constipation; amlodipine 5 mg daily; Plavix 75 mg daily, post angioplasty patient; pantoprazole 40 mg daily. The patient is on Pyridium 100 mg daily which is a urine antiseptic; lisinopril 2.5 mg daily. LABORATORY DATA: The hemoglobin yesterday was 10. The patient's chemistry, the sodium is 131, the patient's renal functions have been in normal limits. Blood sugar is 125. ASSESSMENT AND PLAN: We will continue physical therapy, rehabilitation, and we will follow up. Giulia Padilla MD MTDD
--- NOTE | 2018-06-06 16:48 | PN ---
DATE: 06/06/2018 LOCATION: The patient is in room 318, bed 1. REASON FOR CONSULTATION: History of fall, deconditioning, diabetes, hypertension, peptic ulcer disease, osteoarthritis. SUBJECTIVE: The patient denies any chest pain, shortness of breath. She has difficulty walking, but she does not have any cardiac symptoms at present. PHYSICAL EXAMINATION: VITAL SIGNS: Blood pressure is 136/74, respirations 20, pulse 79, temperature 97.8. HEENT: Head is normocephalic. Eyes: Pupils normal. Conjunctivae slightly pale. NECK: JVP low. Carotids equal. THORAX: AP diameter normal. LUNGS: Clear. CARDIOVASCULAR: S1 and S2. ABDOMEN: Soft. Bowel sounds normal. EXTREMITIES: No clubbing. No cyanosis. LABORATORY DATA: WBC 7.4, hemoglobin 10, hematocrit 32.9, platelets 301. Sodium 129, potassium 4.7, BUN 18, creatinine 0.9, random sugar 138, calcium 9.1, total bilirubin 1.2, AST 21, ALT 16. Total protein, albumin normal. Echo was done on 06/03/2018 showed normal-size LV. Mild concentric left ventricular hypertrophy, ejection fraction 50%. Trace aortic regurg. Moderate valvular aortic stenosis. Trace mitral regurg. Trace tricuspid regurg. DIAGNOSES: Status post fall, deconditioning, moderate aortic stenosis, hypertension, diabetes, hyperlipidemia, coronary artery disease, status post stent insertion in the left main with device about 1 year ago. Status post fall. Echocardiogram showed left ventricular ejection fraction of 50%. PLAN: Continue physical therapy. The patient is on carvedilol 3.125 p.o. daily, aspirin 81 daily, Carafate 1 g p.o. daily, Lipitor 20 daily, amlodipine 5 daily, lisinopril 2.5 daily, Plavix 75 daily. We will continue physical therapy and we will follow with you. Priscila Garcia MD
[2018-06-07] MEDS: Sodium Chloride 0.9% 1,000 ML IV SCH ×2 (00:40→17:05)
--- NOTE | 2018-06-07 00:43 | CON ---
DATE: 06/06/2018 ORTHOPEDIC CONSULTATION LOCATION: In room 318, bed 1. HISTORY OF PRESENT ILLNESS: She is an 88-year-old female, seen with Dr. Padilla for left knee pain. X-ray shows osteoarthritis of the left knee mostly on the medial side with mild genu varum and basically bone on bone in the left knee on the medial side. She has a mild effusion, so it is going to hurt it,i will give her a cortisone shot to help the pain, so she could do physical therapy better, so we aspirated 10 mL of clear fluid injected to the left knee with Depo-Medrol, Marcaine, and hopefully she could do therapy better now and she always has to walk with the walker close to being room ambulator. She is not a candidate for artificial knee at this time. FINAL DIAGNOSIS: Osteoarthritis with effusion of the left knee with genu varum. Michi Jaquez DO DEVEN
[2018-06-07] MEDS: Pantoprazole 40 mg EC Tab PO SCH (05:15)
[2018-06-07] MEDS: Insulin Reg-LOW-Coverage SC SCH ×3 (06:37→16:53)
--- NOTE | 2018-06-07 08:30 | PN ---
DATE: 06/07/2018 SUBJECTIVE: The patient is seen in the Transitional Care Unit in room 318 bed 1. The patient was admitted to the Transitional Care Unit for rehabilitation, deconditioning, training to walk. The patient's gait is poor. She has pain in the knees. She also has pain in both elbows and the back. She had a fall at home before she was admitted in the hospital. She has a past history of diabetes, hypertension, coronary artery disease, peptic ulcer disease, gastritis, osteoarthritis. The patient has had surgery on the stomach, gastrectomy on 2 occasions. The patient has had enteroscopy, colonoscopy. The patient is seen this morning. She is lying in bed and eating the breakfast. She complains of pain. She is conscious, but not alert in that she is confused, does not correctly answer questions. PHYSICAL EXAMINATION: VITAL SIGNS: The patient's blood pressure is 130/75, respirations are 18 per minute, pulse is 80 per minute, O2 sat is 98% on room air. HEENT: The patient's head is normocephalic. No abnormalities noted. NECK: The JVP is flat in the neck. Carotid pulses are present. Thyroid is not enlarged. LUNGS: Trachea central. Breath sounds are vesicular. No adventitious sounds are heard. HEART: Normal sinus rhythm. S1 and S2 present. Systolic murmur in the precordium. The patient has history of aortic stenosis. BUSINESS SYSTEMS ADMINISTRATOR: No focal deficits. The patient has mild dementia. MEDICATIONS: The patient is on Carafate 1 g twice a day. The patient is on Protonix 40 mg daily. The patient gets aspirin 81 mg daily, Coreg 3.125 mg b.i.d., Lipitor 20 mg daily, metformin 500 mg b.i.d. The patient is on amlodipine 5 mg daily, Plavix 75 mg daily. ASSESSMENT AND PLAN: Angioplasty patient. The patient is also getting Pyridium for antiseptic in the urine. She has chronic cystitis. The patient's sodium is low, 129 and we have started the patient on normal saline and we will continue current management. Await physical therapy and continue medications. Giulia Padilla MD [facility] # [id number] DEVEN
[2018-06-07] MEDS ORDERED: Bupivacaine 0.5% Inj(30mL) IJ ONE (08:35)
[2018-06-07] MEDS ORDERED: MethylPREDNISolone Depo 40 mg/ml Inj IM ONE (08:35)
[2018-06-07] MEDS: Lidocaine 5% Patch TD SCH (10:40)
[2018-06-07] MEDS: POLYETHYLENE GLYCOL 3350 17 GM/Dose PACKET PO SCH (10:40)
[2018-06-07] MEDS: Bacitracin/Neomycin/Polymyxin Oint(30GM) TOP SCH (10:41)
[2018-06-08] MEDS: Insulin Reg-LOW-Coverage SC SCH ×4 (03:10→17:19)
[2018-06-08] MEDS: Pantoprazole 40 mg EC Tab PO SCH (07:13)
[2018-06-08 07:15] LABS: BLOOD UREA NITROGEN 33 mg/dL (7-21); CALCIUM 9.2 mg/dL (8.4-10.5); GFR NON-AFRICAN AMERICAN 53
[2018-06-08] MEDS: Sodium Chloride 0.9% 1,000 ML IV SCH (10:09)
--- NOTE | 2018-06-08 10:09 | PN ---
DATE: 06/08/2018 SUBJECTIVE: The patient is in Transitional Care Unit room 318, bed 1. This patient is an 88-year-old white female. She was admitted with history of fall, contusion on knee, elbow, inability to walk, altered mental state from mild dementia. The patient has loss of balance. She is in [facility] for rehabilitation, deconditioning and management of diabetes. PHYSICAL EXAMINATION: VITAL SIGNS: This morning, her pulse is 70, blood pressure 100/60, her respirations are 20, O2 sat is 96% on room air. HEENT: The patient's head is normocephalic, no injury is noted at this time. NECK: The thyroid is not enlarged. JVP is flat. The carotid pulses are present. HEART: Normal sinus rhythm. S1, S2 present, systolic murmur present. ABDOMEN: Soft. Liver, spleen not palpable. COMPOTYPE OPERATOR: The patient had no focal deficits. She has altered mental state associated with dementia. MEDICATIONS: Continue the same medicines listed as Carafate, Colace, carvedilol which is Coreg, aspirin, metformin, insulin coverage, lidocaine patch, Lipitor, Plavix, Protonix, Pyridium, lisinopril. The patient's diet is heart healthy diabetic diet. She is participating in physical therapy. LABORATORY DATA: Her lab work done on 06/06/2018, hemoglobin is 10, platelet count is 301,000. ASSESSMENT AND PLAN: The patient has chronic anemia. She has past history of peptic ulcer disease. She is on medications to control any gastric symptoms. Her overall prognosis is guarded, condition is clinically stable at this time. We will follow up. Giulia Padilla MD DEVEN
[2018-06-08] MEDS: Lidocaine 5% Patch TD SCH (10:10)
[2018-06-08] MEDS: Bacitracin/Neomycin/Polymyxin Oint(30GM) TOP SCH (10:11)
[2018-06-08] MEDS: POLYETHYLENE GLYCOL 3350 17 GM/Dose PACKET PO SCH (10:11)
[2018-06-09] MEDS: Pantoprazole 40 mg EC Tab PO SCH (05:25)
[2018-06-09] MEDS: Insulin Reg-LOW-Coverage SC SCH ×5 (06:32→21:37)
[2018-06-09] MEDS: Sodium Chloride 0.9% 1,000 ML IV SCH (06:33)
[2018-06-09 07:55] LABS: CALCIUM 9.2 mg/dL (8.4-10.5)
--- NOTE | 2018-06-09 08:09 | CP.PCM.PN ---
Subjective - Date & Time of Evaluation Date of Evaluation: 06/09/18 Time of Evaluation: 07:45 - Subjective Subjective: Patient is seen this morning. She is awake, lying in bed. She denies pain. Objective - Vital Signs/Intake and Output Vital Signs (last 24 hours): Temp Pulse Resp BP Pulse Ox 98.2 F 70 20 103/52 L 96 06/08/18 16:00 06/08/18 16:00 06/08/18 16:00 06/08/18 16:00 06/08/18 16:00 - Medications Medications: Current Medications Amlodipine Besylate (Norvasc) 5 mg PO DAILY [facility]; Protocol Last Admin: 06/08/18 10:11 Dose: 5 mg Aspirin (Ecotrin) 81 mg PO 0800 [facility]; Protocol Last Admin: 06/08/18 08:20 Dose: 81 mg Atorvastatin Calcium (Lipitor) 20 mg PO DIN [facility]; Protocol Last Admin: 06/08/18 17:20 Dose: 20 mg Carvedilol (Coreg) 3.125 mg PO 0800 [facility]; Protocol Last Admin: 06/08/18 08:19 Dose: 3.125 mg Clopidogrel Bisulfate (Plavix) 75 mg PO DAILY [facility]; Protocol Last Admin: 06/08/18 10:12 Dose: 75 mg Docusate Sodium (Colace) 100 mg PO DAILY [facility]; Protocol Last Admin: 06/08/18 10:10 Dose: Not Given Sodium Chloride (Sodium Chloride 0.9%) 1,000 mls @ 60 mls/hr IV .[id number] [facility] Last Admin: 06/09/18 06:33 Dose: 60 mls/hr Insulin Human Regular (Humulin R Low) 0 units SC ACHS [facility]; Protocol Last Admin: 06/09/18 06:50 Dose: Not Given Lidocaine (Lidoderm) 2 ea TD DAILY [facility]; Protocol Last Admin: 06/08/18 10:10 Dose: 2 ea Lisinopril (Zestril) 2.5 mg PO DAILY [facility]; Protocol Last Admin: 06/08/18 10:12 Dose: 2.5 mg Metformin HCl (Glucophage) 500 mg PO 0800,1800 [facility]; Protocol Last Admin: 06/08/18 08:19 Dose: 500 mg Neomycin/Polymyxin/Bacitracin (Neosporin Triple Antibiotic Oint) 1 gm TOP DAILY [facility]; Protocol Last Admin: 06/08/18 10:11 Dose: 1 applic Pantoprazole Sodium (Protonix Ec Tab) 40 mg PO 0600 [facility]; Protocol Last Admin: 06/09/18 05:25 Dose: 40 mg Polyethylene Glycol (Miralax) 17 gm PO DAILY [facility]; Protocol Last Admin: 06/08/18 10:11 Dose: Not Given Sucralfate (Carafate Tab) 1 gm PO DAILY [facility]; Protocol Last Admin: 06/08/18 10:10 Dose: 1 gm - Labs Labs: 06/06/18 05:30 06/09/18 07:00 - Constitutional Appears: No Acute Distress - Head Exam Head Exam: ATRAUMATIC, NORMOCEPHALIC - Respiratory Exam Respiratory Exam: Clear to Ausculation Bilateral, NORMAL BREATHING PATTERN - Cardiovascular Exam Cardiovascular Exam: REGULAR RHYTHM, +S1, +S2 - GI/Abdominal Exam GI & Abdominal Exam: Soft, Normal Bowel Sounds. absent: Tenderness - Neurological Exam Neurological Exam: Alert, Awake Assessment and Plan - Assessment and Plan (Free Text) Assessment: Syncope Fall Severe osteoarthritis HTN DMII Dementia Plan: Patient is seen this morning. She is feeling better. continue physical therapy. continue current medications. Potassium now normalized.
[2018-06-09] MEDS: Lidocaine 5% Patch TD SCH (11:10)
[2018-06-09] MEDS: Bacitracin/Neomycin/Polymyxin Oint(30GM) TOP SCH (11:11)
[2018-06-09] MEDS: POLYETHYLENE GLYCOL 3350 17 GM/Dose PACKET PO SCH (11:11)
--- NOTE | 2018-06-09 18:04 | PN ---
DATE: 06/09/2018 REASON FOR CONSULTATION AND FOLLOWUP: History of fall, deconditioning of the body, diabetes, hypertension, hyperlipidemia, cardiac evaluation, history of , status post PTCA left main. SUBJECTIVE: The patient denies any chest pain, shortness of breath, or any palpitation. PHYSICAL EXAMINATION GENERAL: Not in apparent distress. VITAL SIGNS: Temperature afebrile, heart rate 70, blood pressure 128/60. HEENT: PERRLA. Extraocular muscles intact. NECK: Supple. No carotid bruit or thyromegaly. CHEST: Clear to auscultation. HEART: S1, S2 regular. ABDOMEN: Soft. EXTREMITIES: Clubbing and cyanosis negative. LABORATORY DATA: Blood workup as follows; WBC 7, hemoglobin 10, hematocrit 32.9, platelet count 301,000. Chemistry shows sodium 130, potassium 4.9, chloride 101, carbon dioxide 26, anion gap 12, BUN 42, creatinine 1.2. IMPRESSION: An 88-year-old female with past medical history significant for coronary artery disease, status post non-STEMI, status post triple-vessel disease including left main to LAD and circumflex disease, mild disease in RCA, status post PTCA at [facility] with Impella device on 01/22/2018, now who fell down and sustained , transferred here, decided to be treated medically in outpatient, is in transitional care with continuity of care. Denies any chest pain, shortness of breath, or any palpitation. The patient had a recent echo done on 06/03/2018 that revealed an ejection fraction of 50%, moderate valvular aortic stenosis, trace mitral regurgitation, trace tricuspid regurgitation, significantly EF improved after the angioplasty. RECOMMENDATIONS: Continue rehab. Continue aspirin, continue Coreg, continue atorvastatin, continue Plavix, continue amlodipine. Adequate pain medication. Discontinue IV fluid. We will follow with you. Thank you for providing us the opportunity in taking care of the patient. Priscila Mohr MD (Delete this signature block when dictator is a preceptor.) cc: MD Jase (Delete if not dictated.)
[2018-06-10] MEDS: Pantoprazole 40 mg EC Tab PO SCH (06:15)
[2018-06-10] MEDS: Insulin Reg-LOW-Coverage SC SCH ×4 (06:33→21:32)
[2018-06-10] MEDS: Lidocaine 5% Patch TD SCH (09:25)
[2018-06-10] MEDS: POLYETHYLENE GLYCOL 3350 17 GM/Dose PACKET PO SCH (09:25)
[2018-06-10] MEDS: Bacitracin/Neomycin/Polymyxin Oint(30GM) TOP SCH (09:31)
--- NOTE | 2018-06-10 11:03 | PN ---
DATE: 06/10/2018 REASON FOR CONSULTATION: Cardiac evaluation, history of coronary artery disease, status post PTCA of the left main. Now, the patient is in Transitional Care Unit. SUBJECTIVE: Denies any chest pain, shortness of breath or any palpitation. OBJECTIVE: GENERAL: Not in any apparent distress. VITAL SIGNS: Temperature afebrile, heart rate 90, blood pressure 139/70. HEENT: PERRLA. Extraocular muscles intact. NECK: Supple. No carotid bruit. No thyromegaly. CHEST: Clear to auscultation. HEART: S1 and S2 regular. ABDOMEN: Soft. EXTREMITIES: Clubbing and cyanosis negative. LABORATORY DATA: Blood workup as follows; WBC 7.4, hemoglobin 10, hematocrit 32.9, platelet count 301. Chemistry shows sodium 134, potassium 4.9, chloride 101, carbon dioxide 26, anion gap of 12, BUN 42, creatinine 1.2. IMPRESSION: An 88-year-old female with past medical history significant for coronary artery disease, status post [id number] myocardial infarction, status post triple vessel disease including left main and left anterior descending, status post percutaneous transluminal coronary angioplasty with Impella device of the left main. Recently, the patient fell down and admitted here. Now, the decision was to treat conservatively. Now, the patient is in Transitional Care Unit for the continuity of care. Repeat echocardiogram done on 06/03/ that revealed ejection fraction 50%, moderate valvular aortic stenosis, trace mitral regurgitation, trace tricuspid regurgitation. Significantly improved left ventricle from before when the patient presented with [id number] myocardial infarction before the angioplasty. RECOMMENDATION: Continue rehab. Continue aspirin. Continue Plavix. Continue carvedilol. Continue atorvastatin. We will follow with you. Thank you, Dr. Padilla for providing us the opportunity in taking care of Rosemarie Ojeda. Priscila Mohr MD
--- NOTE | 2018-06-10 11:17 | CP.PCM.PN ---
Subjective - Date & Time of Evaluation Date of Evaluation: 06/10/18 Time of Evaluation: 10:55 - Subjective Subjective: Patient is seen this morning in room 318 bed 1. She is sitting up in the chair. She denies pain in the knees. She says she has some mild back pain. Objective - Vital Signs/Intake and Output Vital Signs (last 24 hours): Temp Pulse Resp BP Pulse Ox 97.9 F 90 20 139/70 94 L 06/09/18 16:00 06/10/18 09:28 06/09/18 16:00 06/10/18 09:28 06/09/18 16:00 Intake and Output: 06/10/18 06/10/18 06:59 18:59 Output Total 650 Balance -650 - Medications Medications: Current Medications Amlodipine Besylate (Norvasc) 5 mg PO DAILY [facility]; Protocol Last Admin: 06/10/18 09:28 Dose: 5 mg Aspirin (Ecotrin) 81 mg PO 0800 [facility]; Protocol Last Admin: 06/10/18 09:28 Dose: 81 mg Atorvastatin Calcium (Lipitor) 20 mg PO DIN [facility]; Protocol Last Admin: 06/09/18 17:16 Dose: 20 mg Carvedilol (Coreg) 3.125 mg PO 0800 [facility]; Protocol Last Admin: 06/10/18 09:28 Dose: 3.125 mg Clopidogrel Bisulfate (Plavix) 75 mg PO DAILY [facility]; Protocol Last Admin: 06/10/18 09:31 Dose: 75 mg Docusate Sodium (Colace) 100 mg PO DAILY [facility]; Protocol Last Admin: 06/10/18 09:27 Dose: 100 mg Insulin Human Regular (Humulin R Low) 0 units SC ACHS [facility]; Protocol Last Admin: 06/10/18 06:33 Dose: Not Given Lidocaine (Lidoderm) 2 ea TD DAILY [facility]; Protocol Last Admin: 06/10/18 09:25 Dose: 2 ea Lisinopril (Zestril) 2.5 mg PO DAILY [facility]; Protocol Last Admin: 06/10/18 09:27 Dose: 2.5 mg Metformin HCl (Glucophage) 500 mg PO 0800,1800 [facility]; Protocol Last Admin: 06/10/18 09:30 Dose: 500 mg Neomycin/Polymyxin/Bacitracin (Neosporin Triple Antibiotic Oint) 1 gm TOP DAILY [facility]; Protocol Last Admin: 06/10/18 09:31 Dose: 1 applic Pantoprazole Sodium (Protonix Ec Tab) 40 mg PO 0600 [facility]; Protocol Last Admin: 06/10/18 06:15 Dose: 40 mg Polyethylene Glycol (Miralax) 17 gm PO DAILY [facility]; Protocol Last Admin: 06/10/18 09:25 Dose: 17 gm Sucralfate (Carafate Tab) 1 gm PO DAILY [facility]; Protocol Last Admin: 06/10/18 09:30 Dose: 1 gm - Labs Labs: 06/06/18 05:30 06/09/18 07:00 - Constitutional Appears: No Acute Distress - Head Exam Head Exam: ATRAUMATIC, NORMOCEPHALIC - Respiratory Exam Respiratory Exam: Clear to Ausculation Bilateral, NORMAL BREATHING PATTERN - Cardiovascular Exam Cardiovascular Exam: REGULAR RHYTHM, +S1, +S2 - GI/Abdominal Exam GI & Abdominal Exam: Soft, Normal Bowel Sounds. absent: Tenderness - Neurological Exam Neurological Exam: Alert, Awake Assessment and Plan - Assessment and Plan (Free Text) Assessment: Syncope Fall Severe degenerative osteoarthritis HTN ASHD DMII Plan: Patient is doing better. continue rehab. continue ASA, Plavix, Coreg and statin. continue Metformin for diabetes. check chemistry in AM.
--- NOTE | 2018-06-10 11:48 | PN ---
DATE: 06/10/2018 LOCATION: Room 318, bed 1. SUBJECTIVE: The patient had an injection of Depo-Medrol with Marcaine in the left arthritic knee and still is feeling well. She is participating in therapy, hopefully should be able to resume good ambulation when she goes home. FINAL DIAGNOSIS: Osteoarthritis, left knee, helped with Depo-Medrol with Marcaine. If she needs more, I could do an Euflexxa injection in the office as an outpatient. Michi Jaquez DO
--- NOTE | 2018-06-10 19:20 | CON ---
DATE: 06/10/2018 HISTORY OF PRESENT ILLNESS: This is an 88-year-old female with past medical history of coronary artery disease and patient has a history of fall and patient was transferred to TICU from the main floor for some rehab and patient deconditioned with past medical history of diabetes, hypertension, hyperlipidemia, and patient is sitting comfortably with the in the room. PHYSICAL EXAMINATION: HEENT: Normocephalic and atraumatic. NECK: Supple. NEUROLOGIC: Awake, alert, and oriented to self and place. No aphasia. Cranial nerves II through XII were tested. Pupils reactive. EOM intact. Visual field full. No facial asymmetry. Tongue midline. Spontaneous movement of the extremities noted. Deep tendon reflexes are 1+. Plantars are downgoing. Sensory appears intact. Cerebellar gait normal. Patient ambulating in the hallway with the therapist. ASSESSMENT AND PLAN: Continue present management. We will follow up. Дмитрий Alfonso MD
[2018-06-11] MEDS: Pantoprazole 40 mg EC Tab PO SCH (05:48)
[2018-06-11] MEDS: Insulin Reg-LOW-Coverage SC SCH ×4 (06:29→21:45)
--- NOTE | 2018-06-11 07:49 | CP.PCM.PN ---
Subjective - Date & Time of Evaluation Date of Evaluation: 06/11/18 Time of Evaluation: 07:30 - Subjective Subjective: Patient is seen this morning. She is awake, lying in bed. She has no new complaints. Objective - Vital Signs/Intake and Output Vital Signs (last 24 hours): Temp Pulse Resp BP Pulse Ox 97.9 F 90 20 139/70 94 L 06/09/18 16:00 06/10/18 09:28 06/09/18 16:00 06/10/18 09:28 06/09/18 16:00 Intake and Output: 06/11/18 06/11/18 06:59 18:59 Output Total 500 Balance -500 - Medications Medications: Current Medications Amlodipine Besylate (Norvasc) 5 mg PO DAILY [facility]; Protocol Last Admin: 06/10/18 09:28 Dose: 5 mg Aspirin (Ecotrin) 81 mg PO 0800 [facility]; Protocol Last Admin: 06/10/18 09:28 Dose: 81 mg Atorvastatin Calcium (Lipitor) 20 mg PO DIN [facility]; Protocol Last Admin: 06/10/18 18:05 Dose: 20 mg Carvedilol (Coreg) 3.125 mg PO 0800 [facility]; Protocol Last Admin: 06/10/18 09:28 Dose: 3.125 mg Clopidogrel Bisulfate (Plavix) 75 mg PO DAILY [facility]; Protocol Last Admin: 06/10/18 09:31 Dose: 75 mg Docusate Sodium (Colace) 100 mg PO DAILY [facility]; Protocol Last Admin: 06/10/18 09:27 Dose: 100 mg Insulin Human Regular (Humulin R Low) 0 units SC ACHS [facility]; Protocol Last Admin: 06/11/18 06:29 Dose: Not Given Lidocaine (Lidoderm) 2 ea TD DAILY [facility]; Protocol Last Admin: 06/10/18 09:25 Dose: 2 ea Lisinopril (Zestril) 2.5 mg PO DAILY [facility]; Protocol Last Admin: 06/10/18 09:27 Dose: 2.5 mg Metformin HCl (Glucophage) 500 mg PO 0800,1800 [facility]; Protocol Last Admin: 06/10/18 18:05 Dose: 500 mg Neomycin/Polymyxin/Bacitracin (Neosporin Triple Antibiotic Oint) 1 gm TOP DAILY [facility]; Protocol Last Admin: 06/10/18 09:31 Dose: 1 applic Pantoprazole Sodium (Protonix Ec Tab) 40 mg PO 0600 [facility]; Protocol Last Admin: 06/11/18 05:48 Dose: 40 mg Polyethylene Glycol (Miralax) 17 gm PO DAILY [facility]; Protocol Last Admin: 06/10/18 09:25 Dose: 17 gm Sucralfate (Carafate Tab) 1 gm PO DAILY [facility]; Protocol Last Admin: 06/10/18 09:30 Dose: 1 gm - Labs Labs: 06/06/18 05:30 06/09/18 07:00 - Constitutional Appears: No Acute Distress - Head Exam Head Exam: ATRAUMATIC, NORMOCEPHALIC - Respiratory Exam Respiratory Exam: Clear to Ausculation Bilateral, NORMAL BREATHING PATTERN - Cardiovascular Exam Cardiovascular Exam: REGULAR RHYTHM, +S1, +S2 - GI/Abdominal Exam GI & Abdominal Exam: Soft, Normal Bowel Sounds. absent: Tenderness - Extremities Exam Extremities Exam: Normal Inspection - Neurological Exam Neurological Exam: Alert, Awake Assessment and Plan - Assessment and Plan (Free Text) Assessment: Syncope Fall HTN DMII mild dementia overactive bladder Plan: Patient completed antibiotics for E. coli urinary tract infection. She is currently off pyridium, but urine with pinkish-orange color. Will order urinalysis. continue current medications. continue rehab.
[2018-06-11] MEDS: Lidocaine 5% Patch TD SCH (09:48)
[2018-06-11] MEDS: POLYETHYLENE GLYCOL 3350 17 GM/Dose PACKET PO SCH (09:50)
[2018-06-11] MEDS: Bacitracin/Neomycin/Polymyxin Oint(30GM) TOP SCH (09:51)
--- NOTE | 2018-06-11 12:55 | PN ---
DATE: 06/11/2018 REASON FOR CONSULTATION AND FOLLOWUP: Cardiac evaluation, history of coronary artery disease, status post PTCA of the left main. Now, the patient is in Transitional Care Unit after a fall. SUBJECTIVE: The patient denies any chest pain, shortness of breath or any palpitation. OBJECTIVE: GENERAL: Not in any apparent distress. VITAL SIGNS: Temperature afebrile, heart rate 80, blood pressure 147/76. HEENT: PERRLA. Extraocular muscles intact. NECK: Supple. No carotid bruit. No thyromegaly. CHEST: Clear to auscultation. HEART: S1 and S2 regular. ABDOMEN: Soft. EXTREMITIES: Clubbing and cyanosis negative. LABORATORY DATA: Blood workup as follows: WBC 7.5, hemoglobin 10, hematocrit 32.9, platelet count 301,000. Chemistry shows sodium 134, potassium 4.9, chloride 101, carbon dioxide 26, anion gap of 12, BUN 42, creatinine 1.2. IMPRESSION: An 88-year-old female with a past medical history significant for coronary artery disease status post non-ST segment myocardial infarction, status post triple-vessel disease status post left main, left anterior descending and circumflex, percutaneous transluminal coronary angioplasty at [facility] with Impella device. Recently, patient admitted here after a fall, now decided to be treated conservatively. Now, patient is in Transitional Care Unit for the continuity of care. Repeat echo was done on this admission dated 06/03/2018 that revealed ejection fraction of 50%, moderate valvular aortic stenosis, trace mitral regurgitation, trace tricuspid regurgitation, significantly improved LV after angioplasty. RECOMMENDATION: Continue aspirin. Continue atorvastatin. Continue Plavix. Continue lisinopril. Continue rehab. Once stable patient can be discharged from Cardiology point of view. Thank you Dr. Padilla for providing us the opportunity in taking care of the patient, Rosemarie Ojeda. Priscila Mohr MD cc: Giulia Padilla MD
[2018-06-12] MEDS: Pantoprazole 40 mg EC Tab PO SCH (05:55)
[2018-06-12] MEDS: Insulin Reg-LOW-Coverage SC SCH ×4 (07:34→21:58)
[2018-06-12 10:10] VITALS: TEMP 97.8
--- NOTE | 2018-06-12 10:21 | PN ---
DATE: 06/12/2018 SUBJECTIVE: The patient is in transitional care unit, room 318, bed #1. The patient was admitted for deconditioning, rehabilitation and ambulation. The patient has past history of diabetes, hypertension, osteoarthritis, coronary artery disease. The patient has peptic ulcer disease. The patient has had surgery on the stomach, gastrectomy from bleeding, peptic ulcer. The patient also history of hyperlipidemia. The patient has been seen this morning. She is somewhat confused, but the patient needs help when she goes home; information systems administrator and the visiting nurse to help out. In the meantime, arrangements have been made. PHYSICAL EXAMINATION VITAL SIGNS: Pulse is 63, blood pressure 133/65, and respirations 20. HEENT: The patient's head is normocephalic. CARDIOPULMONARY: Normal sinus rhythm. LUNGS: Clear. ABDOMEN: Soft. Liver, spleen not palpable. INSURANCE CODER: No focal deficits except dementia symptoms. The patient had difficulty in walking because of severe osteoarthritis involving her knees, hips, and the back. MEDICATIONS: She is on Carafate 1 g twice a day. The patient is on Protonix 40 mg daily. Colace 100 mg daily, Coreg 3.125 mg b.i.d., aspirin 81 mg daily, Plavix 75 mg daily, insulin coverage for hyperglycemia, metformin 500 mg every 12 hours, the patient is on Lipitor 20 mg daily, and MiraLax 17 g daily for constipation. ASSESSMENT AND PLAN: The patient is on heart-healthy diabetic diet. PROGNOSIS: Guarded. CONDITION: Improving. Giulia Padilla MD [id number]
[2018-06-12] MEDS: Lidocaine 5% Patch TD SCH (10:43)
[2018-06-12] MEDS: POLYETHYLENE GLYCOL 3350 17 GM/Dose PACKET PO SCH (10:44)
[2018-06-12] MEDS: Bacitracin/Neomycin/Polymyxin Oint(30GM) TOP SCH (10:44)
[2018-06-12 12:41] LABS: PH,URINE 5.5 (4.7-8.0); URINE BILIRUBIN NEGATIVE (NEGATIVE); URINE BLOOD MODERATE (NEGATIVE); URINE GLUCOSE (UA) NEGATIVE (NEGATIVE); URINE LEUKOCYTE ESTERASE TRACE Leu/uL (NEGATIVE); URINE PROTEIN NEGATIVE mg/dL (<30 mg/dL); URINE UROBILINOGEN 0.2 E.U./dL (<1 E.U./dL)
[2018-06-12 12:47] LABS: URINE APPEARANCE CLEAR (CLEAR); URINE COLOR YELLOW (YELLOW)
[2018-06-12 12:49] LABS: URINE RBC 25 - 30 /hpf (0-2)
[2018-06-12 12:50] LABS: URINE AMORPHOUS SEDIMENT FEW; URINE BACTERIA LARGE (NEG)
--- NOTE | 2018-06-12 12:54 | PN ---
DATE: 06/12/2018 REASON FOR CONSULTATION AND FOLLOWUP: Cardiac evaluation, history of coronary artery disease, status post PTCA of the left main. Now the patient is in Transitional Care Unit for continuity of care after a fall. SUBJECTIVE: Patient denies any chest pain, shortness of breath, or any palpitations. PHYSICAL EXAMINATION: GENERAL: Not in apparent distress. VITAL SIGNS: Temperature afebrile, heart rate 60, blood pressure 119/60. HEENT: PERRLA. Extraocular muscles intact. NECK: Supple. No carotid bruits or thyromegaly. CHEST: Clear to auscultation. HEART: S1, S2 regular. ABDOMEN: Soft. EXTREMITIES: Clubbing, cyanosis negative. LABORATORY DATA: Blood workup as follows: WBC 11.5, hemoglobin 10, hematocrit 32.9, platelet count 301. Chemistry shows sodium 134, potassium 4.9, chloride 101, carbon dioxide 26, anion gap of 12, BUN 42, creatinine 1.2. IMPRESSION: An 88-year-old female with past medical history significant for [id number] myocardial infarction status post stent of the left main with Impella device in LAD and circumflex who admitted at this time after a fall. Initially, plan was to go surgically, but now the patient has been treated medically. Repeat echo was done that shows ejection fraction significantly improved from prior to left main stenting. It is around 35%, now it is 50% EF. Moderate valvular aortic stenosis, trace mitral regurgitation, trace tricuspid regurgitation. RECOMMENDATIONS: Continue atorvastatin, continue aspirin, continue Plavix, continue lisinopril, continue rehab. Okay to discharge once stable from Cardiology point of view. Thank you, Dr. Padilla, for providing us the opportunity in taking care of patient, Rosemarie Ojeda. Priscila Mohr MD
[2018-06-12 16:43] VITALS: RESP 20; O2SAT 96
[2018-06-13] MEDS: Pantoprazole 40 mg EC Tab PO SCH (06:13)
[2018-06-13] MEDS: Insulin Reg-LOW-Coverage SC SCH ×2 (06:30→12:31)
[2018-06-13 08:16] VITALS: BP 145/71; PULSE 79
[2018-06-13] MEDS: POLYETHYLENE GLYCOL 3350 17 GM/Dose PACKET PO SCH (10:16)
[2018-06-13] MEDS: Bacitracin/Neomycin/Polymyxin Oint(30GM) TOP SCH (10:16)
[2018-06-13] MEDS: Lidocaine 5% Patch TD SCH (10:16)
--- NOTE | 2018-06-13 13:16 | PN ---
DATE: 06/13/2018 LOCATION: Patient is in room 318, bed 1. REASON FOR CONSULTATION AND FOLLOWUP: Coronary artery disease status post PTCA of the left main. Patient is transitioned for a deconditioning of physical therapy. SUBJECTIVE: Patient denies chest pain, shortness of breath, or palpitations. Patient is sitting comfortably in chair without any cardiac symptom. PHYSICAL EXAMINATION VITAL SIGNS: Blood pressure 145/71, respirations 18, pulse 79, patient is afebrile. HEENT: Head is normocephalic. Eyes; pupils normal. Conjunctivae slightly pale. NECK: JVP low. Carotids equal. THORAX: AP diameter normal. LUNGS: No rales. CARDIOVASCULAR: S1 and S2. ABDOMEN: Soft. No tenderness. No organomegaly. EXTREMITIES: No clubbing. No cyanosis. LABORATORY DATA: WBC 7.4, hemoglobin 10.0, hematocrit 32.9, platelets 301,000. Random sugar 220. Other labs were done on 06/08, they were reported on previous progress note. DIAGNOSES: Arh-[id number] myocardial infarction status post stent of the left main with Impella device in left anterior descending and circumflex. Patient was admitted to medical floor with a fall. Repeat echo was done, showed left ventricular ejection fraction significantly improved from the prior to left main stenting. At that time, it was 35%, but now it has improved 50% ejection fraction. Moderate valvular aortic stenosis, trace mitral regurgitation, and trace tricuspid regurgitation. PLAN: To continue physical therapy, continue Carafate 1 gram p.o. daily, Coreg 3.125 mg p.o. daily, aspirin 81 mg daily, metformin 500 mg p.o. b.i.d., atorvastatin 20 mg daily, amlodipine 5 mg daily, Plavix 75 mg daily, Protonix 40 mg daily, lisinopril 2.5 mg daily, and patient will continue physical therapy, will follow up. Priscila Garcia MD
--- NOTE | 2018-06-13 16:42 | PN ---
DATE: 06/13/2018 SUBJECTIVE: The patient is in Transitional Care Unit, room 318, bed 1. This patient is being discharged today. The patient was admitted for rehabilitation, deconditioning, physical therapy. The patient has a history of hypertension, diabetes mellitus, peptic ulcer disease. The patient also has mild dementia, osteoarthritis, severe pain in the knee. The patient was seen by Dr. Jaquez during hospitalization. She had intraarticular steroid injection to the knee. The patient was given physical therapy. Her condition is improved somewhat. She is able to walk with the walker. PHYSICAL EXAMINATION: VITAL SIGNS: This morning, the patient's pulse is 80, blood pressure 150/71, the patient's respirations are 16 per minute. HEENT: The patient's head is normocephalic. NECK: The thyroid is not enlarged. LUNGS: Clear. HEART: Normal sinus rhythm. S1 and S2 present. ABDOMEN: Soft. Liver and spleen not palpable. CENTRAL NERVOUS SYSTEM: The patient has mild dementia. MEDICATIONS: The patient's medications list consists of Carafate 1 g twice a day. The patient is on Coreg 3.125 mg b.i.d., aspirin 81 mg daily, metformin 500 mg b.i.d., insulin coverage for diabetes, blood pressure elevations. The patient is on Lipitor 20 mg daily. She will be placed on Macrobid 100 mg once daily for urinary tract infection and the patient is on MiraLax 17 g for constipation. She also gets amlodipine 5 mg daily, Plavix 75 mg daily, pantoprazole 40 mg daily, and lisinopril 2.5 mg daily. DIET: Heart healthy diet, diabetic. ASSESSMENT: The patient will continue current management. Followup. We will continue the Macrobid for 10 days and the patient had a urine culture. We will follow that up. We will see the patient as a house call. She is not able to come to the office. Giulia Padilla MD [facility]
--- NOTE | 2018-06-15 21:49 | DS ---
BRIEF HISTORY: This is an 88-year-old white female with history of hypertension, diabetes mellitus, osteoarthritis, and peptic ulcer disease, who presented to the emergency room for a fall and inability walk as well as altered mental state. The patient was admitted to the general medical floor and was evaluated by Neurology and Cardiology. The patient underwent a workup for possible syncope. She was found to have urinary tract infection with E. coli and started on Macrobid. The patient was then transferred to the Transitional Care Unit for rehab for gait dysfunction. HOSPITAL COURSE: While in the Transitional Care Unit, the patient participated in physical therapy. She finished the course of antibiotics for the urinary tract infection. She did complain of pain in both of her knees, mostly in the left knee. She was seen by orthopedic surgeon Dr. Michi Jaquez, and was injected with cortisone in the left knee. After the injection, the patient's pain in the joints seemed to improve. She continued with therapy and was discharged home in stable condition. DISCHARGE DIAGNOSES: Gait dysfunction, status pot fall, Escherichia coli urinary tract injection, hypertension, type 2 diabetes, severe osteoarthritis, and peptic ulcer disease. DISCHARGE MEDICATIONS: Glucotrol 5 mg once a day, Carafate 1 g daily, Colace 100 mg daily, Coreg 3.125 mg daily, aspirin 81 mg daily, metformin 500 mg twice a day, Lipitor 20 mg at night, MiraLax 17 g daily, amlodipine 5 mg daily, Plavix 75 mg daily, Protonix 40 mg daily, and Zestril 2.5 mg daily. FOLLOWUP: The patient will be followed up as a house call. Uet Padilla MD
== END 2018-06-13 14:59 | disposition home or self-care (01) | DRG 556 ==
LOC: EDBD → TRCU 16:30
PROVIDERS: ADMIT Internal Medicine; ATTEND Internal Medicine
PROC: F07Z9FZ Gait Training/Functional Ambulation Treatment using Assistive, Adaptive, Supportive or Protective Equipment (ICD-10-PCS; principal; 2018-06-05)
PROC: F08Z4FZ Home Management Treatment using Assistive, Adaptive, Supportive or Protective Equipment (ICD-10-PCS; 2018-06-05)
PROC: 3E0U33Z Introduction of Anti-inflammatory into Joints, Percutaneous Approach (ICD-10-PCS; 2018-06-06)
PROC: 3E0U3BZ Introduction of Anesthetic Agent into Joints, Percutaneous Approach (ICD-10-PCS; 2018-06-06)
PROC: 0S9D3ZZ Drainage of Left Knee Joint, Percutaneous Approach (ICD-10-PCS; 2018-06-06)
DX: R26.2 Difficulty in walking, not elsewhere classified (principal); E11.9 Type 2 diabetes mellitus without complications; I10 Essential (primary) hypertension; I25.2 Old myocardial infarction; I25.10 Atherosclerotic heart disease of native coronary artery without angina pectoris; J44.9 Chronic obstructive pulmonary disease, unspecified; I35.0 Nonrheumatic aortic (valve) stenosis; Z91.81 History of falling; K59.00 Constipation, unspecified; M17.12 Unilateral primary osteoarthritis, left knee; Z95.5 Presence of coronary angioplasty implant and graft; E78.5 Hyperlipidemia, unspecified; M25.462 Effusion, left knee; M21.162 Varus deformity, not elsewhere classified, left knee; N30.20 Other chronic cystitis without hematuria; F03.90 Unspecified dementia, unspecified severity, without behavioral disturbance, psychotic disturbance, mood disturbance, and anxiety; N32.81 Overactive bladder; B96.20 Unspecified Escherichia coli [E. coli] as the cause of diseases classified elsewhere; K27.9 Peptic ulcer, site unspecified, unspecified as acute or chronic, without hemorrhage or perforation; D64.9 Anemia, unspecified

== ENCOUNTER 2018-06-15 09:55 | Inpatient (IN) | payer MEDICARE ==
--- NOTE | 2018-06-15 12:01 | RAD ---
HISTORY: r/o infiltrate COMPARISON: Chest x-ray performed 06/01/18 TECHNIQUE: Chest, one view. FINDINGS: LUNGS: Patchy right lower lobe infiltrate. Right hilar prominence. Mild pulmonary venous congestion. Please note that chest x-ray has limited sensitivity for the detection of pulmonary masses. PLEURA: Blunting of bilateral costophrenic angles may reflect tiny pleural effusions or pleural thickening. No definite pneumothorax. CARDIOVASCULAR: Cardiomegaly. Atherosclerotic calcification present. OSSEOUS STRUCTURES: Degenerative changes of the spine. VISUALIZED UPPER ABDOMEN: Unremarkable. OTHER FINDINGS: None. IMPRESSION: Marked cardiomegaly. Dense coronary artery calcifications. Right hilar prominence. Patchy right lower lobe infiltrate. Mild pulmonary venous congestion. Blunting of bilateral costophrenic angles may reflect tiny pleural effusions or pleural thickening.
[2018-06-15 12:14] LABS: BASO # 0.08 K/mm3 (0.0-2.0); BASO % 0.9 % (0.0-3.0); EOS # 0.2 (0.0-0.7); EOS % 2.2 % (1.5-5.0); GRAN # 5.87 (1.4-6.5); GRAN % 67.7 % (50.0-68.0); LYMPH # 1.7 (1.2-3.4); LYMPH % 19.8 % (22.0-35.0); MEAN CELL VOLUME 70.2 fl (80.0-105.0); MEAN CORPUSCULAR HEMOGLOBIN 21.6 pg (25.0-35.0); MEAN CORPUSCULAR HGB CONC 30.8 g/dl (31.0-37.0); MEAN PLATELET VOLUME 9.2 fl (7.0-11.0); MONO # 0.8 (0.1-0.6); MONO % 9.4 % (1.0-6.0); RBC 4.63 10^6/uL (3.5-6.1); RED CELL DISTRIBUTION WIDTH 18.3 % (11.5-14.5); WHITE BLOOD COUNT 8.7 10^3/uL (4.5-11.0)
--- NOTE | 2018-06-15 12:28 | ED PDOC ---
Arrival/HPI - General Chief Complaint: Lower Extremity Problem/Injury Time Seen by Provider: 06/15/18 10:01 Historian: Patient - History of Present Illness Narrative History of Present Illness (Text): 06/15/18 10:57 A 88 year old female, whose past medical history includes hypertension, Alzheimer's dementia, NIDDM2, CAD with stents on plavix/asa, arthritis, bladder problems, and GI bleeding, accompanied by family, presents to the emergency department complaining of generalized weakness and s/p witnessed fall off of bed last night. Family notes patient's bed mattress is 1 foot off the floor. Notes chronic bilateral knee pain secondary to arthritis. Patient denies any head trauma, fever, cough, chest pain, shortness of breath, or any other complaints at this time. Also, it is mentioned patient was recently discharged from transitional care unit. No PMD Past Medical History - Provider Review Nursing Documentation Reviewed: Yes - Infectious Disease Hx of Infectious Diseases: None - Tetanus Immunization Tetanus Immunization: Unknown - Cardiac Hx Cardiac Disorders: Yes Hx Hypertension: Yes - Pulmonary Hx Chronic Obstructive Pulmonary Disease (COPD): Yes - Neurological HX Cerebrovascular Accident: No - HEENT Hx HEENT Disorder: Yes ([place]) Hx Blind: No Hx Cataracts: Yes (b/l sx) Hx Difficulty Chewing: No Hx Epistaxis: No Hx Glaucoma: No Hx Macular Degeneration: No - Renal Hx Renal Failure: No - Endocrine/Metabolic Hx Diabetes Mellitus Type 2: Yes (NIDDM2) - Hematological/Oncological Hx Anemia: No Hx Cancer: No Hx Hepatitis A: No Hx Hepatitis B: No Hx Hepatitis C: No - Integumentary Hx Dermatological Disorder: No Hx Basal Cell Carcinoma: No Hx Eczema: No Hx Melanoma: No Hx Psoriasis: No Hx Squamous Cell Carcinoma: No - Musculoskeletal/Rheumatological Hx Arthritis: Yes (OA) - Gastrointestinal Hx Gastrointestinal Disorders: Yes (GI BLEED,CONSTIPATION,GASTRECTOMY) - Genitourinary/Gynecological Hx Genitourinary Disorders: Yes (UTI) Hx Reproductive Disorders: No - Psychiatric Hx Psychophysiologic Disorder: Yes Hx Anxiety: Yes Hx Emotional Abuse: No Hx Physical Abuse: No Hx Substance Use: No - Surgical History Hx Appendectomy: Yes Other/Comment: 'bowel surgery for ulcers' x 2 per pt, partial gastrectomy - Anesthesia Hx Anesthesia: Yes Hx Anesthesia Reactions: No Hx Malignant Hyperthermia: No - Suicidal Assessment Feels Threatened In Home Enviroment: No Family/Social History - Physician Review Nursing Documentation Reviewed: Yes Family/Social History: No Known Family HX Smoking Status: Former Smoker Hx Alcohol Use: No Hx Substance Use: No Hx Substance Use Treatment: No Allergies/Home Meds Allergies/Adverse Reactions: Allergies No Known Allergies Allergy (Verified 06/04/18 17:42) Home Medications: Home Meds Medication Instructions Recorded Confirmed GlipiZIDE [Glucotrol] 5 mg PO DAILY 12/31/16 06/04/18 Review of Systems - Physician Review All systems were reviewed & negative as marked: Yes - Review of Systems Constitutional: Other (generalized weakness). absent: Fevers Respiratory: absent: SOB, Cough Cardiovascular: absent: Chest Pain Musculoskeletal: Other (chronic knee pain.) Physical Exam Vital Signs Reviewed: Yes Vital Signs Temp Pulse Resp BP Pulse Ox 06/15/18 09:56 98 F 60 18 116/43 L 97 Temperature: Afebrile Blood Pressure: Normal Pulse: Regular Respiratory Rate: Normal Appearance: Positive for: Well-Appearing, Non-Toxic, Comfortable Pain Distress: None Mental Status: Positive for: Alert and Oriented X 3 - Systems Exam Head: Present: Atraumatic, Normocephalic Pupils: Present: PERRL Extroacular Muscles: Present: EOMI Conjunctiva: Present: Normal Mouth: Present: Dry Neck: Present: Normal Range of Motion Respiratory/Chest: Present: Clear to Auscultation, Good Air Exchange. No: Respiratory Distress, Accessory Muscle Use Cardiovascular: Present: Regular Rate and Rhythm, Normal S1, S2. No: Murmurs Abdomen: No: Tenderness, Distention, Peritoneal Signs Back: Present: Normal Inspection Upper Extremity: Present: Normal Inspection. No: Cyanosis, Edema Lower Extremity: Present: Normal Inspection, Other (chronic arthritic changes to both knees). No: Edema Neurological: Present: GCS=15, CN II-XII Intact, Speech Normal Skin: Present: Warm, Dry, Normal Color. No: Rashes Psychiatric: Present: Alert, Oriented x 3, Normal Insight, Normal Concentration Medical Decision Making ED Course and Treatment: 06/15/18 11:00 Impression: 88 year old female with generalized weakness and s/p fall off bed. Plan: -- EKG -- Chest X-ray -- Labs -- Urinalysis -- Urine Culture -- Reassess and disposition Prior Visits: Notes and results from previous visits were reviewed. Patient was last seen in the emergency department on 06/01/2018 for fall. Patient was admitted. Progress Notes: EKG: Ordered, reviewed, and independently interpreted the EKG. Rate : 61 BPM Rhythm : NSR Interpretation : No ST-segment elevations or depressions, no T-wave inversions, normal intervals. Comparison : No previous EKG for comparison. 06/15/2018 11:57 Chest X-ray IMPRESSION: Marked cardiomegaly. Dense coronary artery calcifications. Right hilar prominence. Patchy right lower lobe infiltrate. Mild pulmonary venous congestion. Blunting of bilateral cosotphrenic angles may reflect tiny pleural effusions or pleural thickening. Dictator: Lora Thomas MD 06/15/18 12:[address] Gonzales, including discussing about potassium level at 5.7, and questionable infiltrate on Chest X-ray, and elevated troponin. Full dose of aspirin to be given and hold off on antibiotics since patient does not have cough/fever/white count. 06/15/18 12:[address] Garcia, who is made aware of elevated troponin and agrees with emergency department treatment. - Lab Interpretations I have reviewed the lab results: Yes - RAD Interpretation Radiology Orders: 06/15/18 10:43 CHEST PORTABLE [RAD] Stat - Scribe Statement The provider has reviewed the documentation as recorded by the Sunny Bangura Provider Scribe Attestation: All medical record entries made by the Scribe were at my direction and personally dictated by me. I have reviewed the chart and agree that the record accurately reflects my personal performance of the history, physical exam, medical decision making, and the department course for this patient. I have also personally directed, reviewed, and agree with the discharge instructions and disposition. Disposition/Present on Arrival - Present on Arrival Any Indicators Present on Arrival: No History of DVT/PE: No History of Uncontrolled Diabetes: No Urinary Catheter: No History of Decub. Ulcer: No History Surgical Site Infection Following: None - Disposition Have Diagnosis and Disposition been Completed?: Yes Diagnosis: NSTEMI (non-ST elevated myocardial infarction), Fall, Weakness Disposition: HOSPITALIZED Disposition Time: 12:40 Condition: FAIR
[2018-06-15 12:30] LABS: ALBUMIN 3.3 g/dL (3.0-4.8); ALT/SGPT 15 U/L (7-56); AST/SGOT 20 U/L (14-36); BLOOD UREA NITROGEN 26 mg/dL (7-21); CALCIUM 9.3 mg/dL (8.4-10.5); GFR NON-AFRICAN AMERICAN 53
[2018-06-15] MEDS ORDERED: Sod Polystyrene Sulf 15 gm/60 ml Susp PO STA (12:48)
[2018-06-15 12:57] LABS: TROPONIN I 0.39 ng/mL
[2018-06-15] MEDS: Sodium Chloride 0.9% 1,000 ML IV SCH (13:19)
[2018-06-15 13:46] LABS: URINE BILIRUBIN NEGATIVE (NEGATIVE); URINE BLOOD NEGATIVE (NEGATIVE); URINE COLOR YELLOW (YELLOW); URINE GLUCOSE (UA) NEGATIVE (NEGATIVE); URINE LEUKOCYTE ESTERASE NEGATIVE Leu/uL (NEGATIVE); URINE PROTEIN NEGATIVE mg/dL (<30 mg/dL); URINE UROBILINOGEN 0.2 E.U./dL (<1 E.U./dL)
[2018-06-15 13:47] LABS: URINE APPEARANCE CLEAR (CLEAR)
[2018-06-15 13:54] VITALS: BMI 34.2
[2018-06-15] MEDS: Insulin Reg-LOW-Coverage SC SCH ×2 (17:59→22:00)
--- NOTE | 2018-06-15 22:17 | CARD ---
APPROVED REPORT Date of service: 06/15/2018 EKG Measurement Heart [id number] <Conclusion> Normal sinus rhythm Left anterior fascicular block Moderate voltage criteria for LVH, may be normal variant Abnormal ECG
--- NOTE | 2018-06-16 01:04 | HP ---
DATE OF EXAM: 06/15/2018 HISTORY OF PRESENT ILLNESS: The patient is seen in the emergency room. She was brought in by the family via ambulance; she had fallen yesterday. She was discharged from hospital on Saturday. The patient has complained of pain in the left knee. She has had intraarticular steroid injection by orthopedic surgeon while the patient was in the hospital. However, she had possible weak spell and she was holding on to the walker, but she fell down. She was evaluated in the emergency room for symptoms of fall associated with osteoarthritis, unstable knee joints. PAST MEDICAL HISTORY: The patient has past history of diabetes. The patient had past history of hypertension, coronary artery disease, has had angioplasty about 6 to 9 months ago. The patient is on Plavix. The patient had also been treated for peptic ulcer disease in the past. She has had 2 surgeries on the stomach for bleeding peptic ulcer. The patient has history of hyperlipidemia, and the patient also has history of mild congestive heart failure. PHYSICAL EXAMINATION: HEENT: The patient is examined, head is normocephalic. There is no evidence of any injuries. NECK: Thyroid is not enlarged. Carotid pulses are present. JVP is flat. HEART: Normal sinus rhythm. S1 and S2 present. On pericardium examination, the patient has no murmurs, no rubs. LUNGS: Trachea central. Breath sounds are vesicular. On clinical examination, the patient has diminished breath sounds on the basal area. ABDOMEN: Soft. Liver and spleen not palpable. CENTRAL NERVOUS SYSTEM: The patient is conscious. She has mild dementia. No focal cranial neurological signs. The patient has no motor or sensory signs that can be localized. The patient has general weakness, gait abnormality. The patient is unable to stand by herself without help. LABORATORY DATA: The patient's blood work is significant that she has evidence of hyperkalemia and anemia. The patient also has abnormal troponin level as estimated in the emergency room. The patient's chest x-ray shows some bulging of the hilum and small pleural effusions with possible atelectasis at one side of the lung. IMPRESSION: The patient is going to be admitted to the telemetry floor and we will repeat cardiac troponin levels. We will have a cardiac consult with Dr. Mohr, the industrial gas servicer supervisor who had placed the stents in this patient about 9 months ago. The patient's overall condition is clinically unstable, in that she has general weakness and she had inability to walk because of osteoarthritis. MEDICATIONS: Home medicines: The patient was on Carafate 1 g twice a day. The patient was on amlodipine 5 mg daily. The patient was on metformin 500 mg b.i.d., pantoprazole 40 mg daily. The patient was on lisinopril 2.5 mg daily, insulin coverage. The patient is on glipizide 5 mg daily, Plavix 75 mg daily. The patient is on Coreg 3.125 mg b.i.d., Lipitor 20 mg daily, and aspirin 81 mg daily. PLAN: We will place the medications and we will admit the patient to telemetry and have the industrial gas servicer supervisor evaluate the patient before the patient needs any musculoskeletal and gait evaluation for Physical Therapy. Giulia Padilla MD MTDD
--- NOTE | 2018-06-16 01:57 | CON ---
DATE: 06/15/2018 LOCATION: Room 269, bed 1. REASON FOR CONSULTATION: Followup coronary artery disease, history of fall, troponin elevated, multiple angioplasties and stent insertions. HISTORY OF PRESENT ILLNESS: An 88-year-old female who is known to have coronary artery diseases, status post multiple stent insertions, diabetes mellitus, hypertension, hyperlipidemia, COPD, lumbar spinal stenosis, history of osteoarthritis, gastroesophageal reflux disease, overactive bladder, has a history of gastric surgery for bleeding, admitted with the history from the family that the patient was sitting on the side of a bed and she tried to get down and she fell and the patent has difficulty with walking due to severe left knee pain and the patient was recently in the hospital, but since went home, she is unable to walk because of knee pain and her condition has deteriorated. The patient denies any chest pain, shortness of breath, or palpitation. In the emergency room, blood work, troponin is elevated. PAST MEDICAL HISTORY: Significant for coronary artery disease, status post stent insertion; diabetes; hypertension; hyperlipidemia; COPD; lumbar spinal stenosis; history of gastroesophageal reflux disease; history of overactive bladder; arthritis. The patient was also found to have mild dementia. PAST SURGICAL HISTORY: Gastric surgery for bleeding peptic ulcer. RECENT CARDIAC WORKUP: The patient had cardiac catheterization after having ind-AH-vdgaadz-elevation myocardial infarction on 12/26/2016 that revealed triple vessel disease including left main, critical stenosis at distal left main, also LAD and circumflex, and mild disease in RCA, ejection fraction was 35% to 40% at that time, EDP in the range of 20 to 25. The patient underwent PTCA with Impella device on 01/22/2018 at [facility]. The patient had repeat echo done on 06/03/2018, which revealed ejection fraction improved as compared to before, now it was around 50%, moderate valvular aortic stenosis, trace to mild mitral regurg and tricuspid regurg. MEDICATIONS: The patient's home medication included metformin 500 mg b.i.d., amlodipine 5 mg daily, Carafate 1 g p.o. daily, Protonix 40 mg daily, Lisinopril 2.5 mg daily, Glucotrol 5 mg daily, Plavix 75 mg daily, Coreg 3.125 mg p.o. daily, Lipitor 20 mg daily, aspirin 81 mg daily, Macrobid 100 mg daily. PERSONAL HISTORY: Denies smoking, denies drinking. ALLERGIES: DENIES ALLERGIES. REVIEW OF SYSTEMS: All the systems reviewed, positive mentioned in history, otherwise negative. PHYSICAL EXAMINATION: VITAL SIGNS: Blood pressure 120/71, respirations 19, pulse 72, temperature 98. HEENT: Head is normocephalic. Eyes, pupils normal, conjunctivae slightly pale. NECK: JVP low. Carotid equal. THORAX: AP diameter normal. LUNGS: Clear. CARDIOVASCULAR: S1, S2. Systolic murmur, grade 2-3/6. No rub. ABDOMEN: Protuberant. No organomegaly. EXTREMITIES: No clubbing, no cyanosis. LABORATORY DATA: WBC 8.7, hemoglobin 10, hematocrit 32.5, platelets 369. Sodium 132, potassium 5.7, BUN 26, creatinine 1, random glucose 143. Calcium, magnesium, total bilirubin, AST, ALT normal. Troponin 0.39, total protein 6.8, albumin 3.3. EKG showed regular sinus rhythm, left ventricular hemiblock, nonspecific ST-T changes. Chest x-ray, underpenetrated film, although radiologist read as mild congestion, but I do not think the patient has congestion at this moment because of poor penetration film, clinically the patient lying flat without any symptoms of CHF and there are no rales. DIAGNOSES: Fall; inability to walk; coronary artery disease; history of multiple stents; hypertension; diabetes mellitus; spinal stenosis; osteoarthritis; obesity; hyperlipidemia; hyperkalemia; elevation of troponin, rule out [id number] myocardial infarction; chronic obstructive pulmonary disease; lumbar stenosis; osteoarthritis; gastroesophageal reflux disease; history of overactive bladder; anemia; history of mild dementia. PLAN: The patient is asymptomatic from cardiac point of view, denies any chest pain or shortness of breath. We will repeat troponin. In the meantime, we will continue Coreg, Plavix, aspirin, amlodipine, Kayexalate already ordered by for high potassium, atorvastatin 20 mg daily, Lovenox 30 mg subcu daily, amlodipine 5 mg daily, lisinopril 2.5 mg daily, aspirin 81 mg daily, carvedilol 3.125 mg daily, and we will follow closely with you. Priscila Garcia MD
[2018-06-16] MEDS: Sodium Chloride 0.9% 1,000 ML IV SCH ×2 (02:30→09:45)
[2018-06-16 06:10] VITALS: O2SAT 95
[2018-06-16 06:43] LABS: BASO # 0.08 K/mm3 (0.0-2.0); BASO % 1.3 % (0.0-3.0); EOS # 0.2 (0.0-0.7); EOS % 3.6 % (1.5-5.0); GRAN # 3.73 (1.4-6.5); GRAN % 60.4 % (50.0-68.0); HEMOGLOBIN 9.4 g/dL (12.0-16.0); LYMPH # 1.6 (1.2-3.4); LYMPH % 26.6 % (22.0-35.0); MEAN CELL VOLUME 69.8 fl (80.0-105.0); MEAN CORPUSCULAR HEMOGLOBIN 20.9 pg (25.0-35.0); MEAN CORPUSCULAR HGB CONC 29.9 g/dl (31.0-37.0); MEAN PLATELET VOLUME 9.4 fl (7.0-11.0); MONO # 0.5 (0.1-0.6); MONO % 8.1 % (1.0-6.0); RBC 4.5 10^6/uL (3.5-6.1); RED CELL DISTRIBUTION WIDTH 18.2 % (11.5-14.5); WHITE BLOOD COUNT 6.2 10^3/uL (4.5-11.0)
[2018-06-16 07:27] LABS: ALBUMIN 3.1 g/dL (3.0-4.8); ALT/SGPT 21 U/L (7-56); AST/SGOT 17 U/L (14-36); BLOOD UREA NITROGEN 23 mg/dL (7-21); GFR NON-AFRICAN AMERICAN 53
[2018-06-16 07:53] LABS: TROPONIN I 0.22 ng/mL
--- NOTE | 2018-06-16 08:15 | CP.PCM.PN ---
Subjective - Date & Time of Evaluation Date of Evaluation: 06/16/18 Time of Evaluation: 07:55 - Subjective Subjective: Patient is seen this morning in room 269 bed 1. She is awake and lying in bed. she denies chest pain or shortness of breath. Objective - Vital Signs/Intake and Output Vital Signs (last 24 hours): Temp Pulse Resp BP Pulse Ox 98.0 F 64 18 153/77 H 95 06/16/18 06:09 06/16/18 06:09 06/16/18 06:09 06/16/18 06:09 06/16/18 06:09 Intake and Output: 06/16/18 06/16/18 06:59 18:59 Intake Total 1220 Output Total 1000 Balance 220 - Medications Medications: Current Medications Amlodipine Besylate (Norvasc) 5 mg PO DAILY [facility] Aspirin (Ecotrin) 81 mg PO DAILY [facility] Atorvastatin Calcium (Lipitor) 20 mg PO DIN [facility] Last Admin: 06/15/18 18:03 Dose: 20 mg Carvedilol (Coreg) 3.125 mg PO DAILY [facility] Clopidogrel Bisulfate (Plavix) 75 mg PO DAILY [facility] Docusate Sodium (Colace) 100 mg PO DAILY [facility] Enoxaparin Sodium (Lovenox) 30 mg SC DAILY [facility]; Protocol Sodium Chloride (Sodium Chloride 0.9%) 1,000 mls @ 75 mls/hr IV .[id number] [facility] Last Admin: 06/16/18 02:30 Dose: Not Given Insulin Human Regular (Humulin R Low) 0 units [facility]; Protocol Last Admin: 06/15/18 22:00 Dose: Not Given Lisinopril (Zestril) 2.5 mg PO DAILY [facility] Neomycin/Polymyxin/Bacitracin (Neosporin Triple Antibiotic Oint) 0 gm TOP DAILY [facility] Nystatin (Nystop Topical Powder) 15 gm TOP BID [facility] Pantoprazole Sodium (Protonix Ec Tab) 40 mg PO ACB [facility] Polyethylene Glycol (Miralax) 17 gm PO DAILY [facility] Sucralfate (Carafate Tab) 1 gm PO DAILY [facility] - Labs Labs: 06/16/18 06:00 06/16/18 06:00 - Constitutional Appears: No Acute Distress - Head Exam Head Exam: ATRAUMATIC, NORMOCEPHALIC - Respiratory Exam Respiratory Exam: Decreased Breath Sounds, NORMAL BREATHING PATTERN - Cardiovascular Exam Cardiovascular Exam: REGULAR RHYTHM, +S1, +S2 - GI/Abdominal Exam GI & Abdominal Exam: Soft, Normal Bowel Sounds. absent: Tenderness - Neurological Exam Neurological Exam: Alert, Awake Assessment and Plan - Assessment and Plan (Free Text) Assessment: Elevated troponin Hyperkalemia frequent falls inability to walk HTN DMII CAD Dementia Vaginal discharge Plan: Patient is seen this morning. She has some vaginal discharge. Consult gynecology. Urinalysis is negative. Troponin is trending downward. Patient has had angioplasty last year. cardiology on the case. Potassium is now within normal limits. CXR showed questionable infiltrate, however, patient denies cough or shortness of breath. Will repeat CXR.
[2018-06-16] MEDS: Insulin Reg-LOW-Coverage SC SCH ×4 (08:45→21:21)
[2018-06-16] MEDS: Pantoprazole 40 mg EC Tab PO SCH (08:46)
[2018-06-16] MEDS: Enoxaparin 30 mg Syringe SC SCH (09:40)
[2018-06-16] MEDS: POLYETHYLENE GLYCOL 3350 17 GM/Dose PACKET PO SCH (09:41)
[2018-06-16] MEDS: Nystatin 100,000 Units/gm Topical Pow(15 gm) TOP SCH ×2 (09:42→15:52)
[2018-06-16] MEDS: Bacitracin/Neomycin/Polymyxin Oint(30GM) TOP SCH (09:42)
--- NOTE | 2018-06-16 10:49 | RAD ---
Date of service: 06/16/2018 HISTORY: compare to previous, patchy infiltrate? COMPARISON: 06/15/2018 TECHNIQUE: Chest PA and lateral FINDINGS: LUNGS: There improvement in the previously seen patchy infiltrate at the right lung base. The lungs are clear. PLEURA: No significant pleural effusion identified. No pneumothorax apparent. CARDIOVASCULAR: Aortic calcification Normal cardiac size. No pulmonary vascular congestion. OSSEOUS STRUCTURES: No significant abnormalities. VISUALIZED UPPER ABDOMEN: Normal. OTHER FINDINGS: None. IMPRESSION: Improved right lower lobe infiltrate
--- NOTE | 2018-06-16 11:57 | CP.PCM.CON ---
History of Present Illness - History of Present Illness History of Present Illness: A 88 year old female with a PMH of HTN, Alzheimer's dementia, type 2 DM, CAD with stents on plavix/ASA, urinary urgency/incontinence, GI bleeding admitted for witnessed fall of of bed and generalized weakness. Patient was found to have strong malodorous vaginal discharge in evaluation. Patient has a history of urinary urgency and has difficulty making to bathroom without voiding. Patient denies vaginal bleeding, abdominal pain, currently has no complaints on evaluation Past Patient History - Infectious Disease Hx of Infectious Diseases: None - Tetanus Immunizations Tetanus Immunization: Unknown - Past Social History Smoking Status: Former Smoker - CARDIAC Hx Cardiac Disorders: Yes Hx Hypertension: Yes - PULMONARY Hx Chronic Obstructive Pulmonary Disease (COPD): Yes - NEUROLOGICAL HX Cerebrovascular Accident: No - HEENT Hx HEENT Problems: Yes ([place]) Hx Blind: No Hx Cataracts: Yes (b/l sx) Hx Difficulty Chewing: No Hx Epistaxis: No Hx Glaucoma: No Hx Macular Degeneration: No - RENAL Hx Renal Failure: No - ENDOCRINE/METABOLIC Hx Diabetes Mellitus Type 2: Yes (NIDDM2) - HEMATOLOGICAL/ONCOLOGICAL Hx Anemia: No Hx Cancer: No Hx Hepatitis A: No Hx Hepatitis B: No Hx Hepatitis C: No - INTEGUMENTARY Hx Dermatological Problems: No Hx Basil Cell: No Hx Eczema: No Hx Melanoma: No Hx Psoriasis: No Hx Squamous Cell: No - MUSCULOSKELETAL/RHEUMATOLOGICAL Hx Arthritis: Yes (OA) - GASTROINTESTINAL Hx Gastrointestinal Disorders: Yes (GI BLEED,CONSTIPATION,GASTRECTOMY) - GENITOURINARY/GYNECOLOGICAL Hx Genitourinary Disorders: Yes (UTI) Hx Reproductive Disorders: No - PSYCHIATRIC Hx Psychophysiologic Disorder: Yes Hx Anxiety: Yes Hx Emotional Abuse: No Hx Physical Abuse: No Hx Substance Use: No - SURGICAL HISTORY Hx Appendectomy: Yes Other/Comment: 'bowel surgery for ulcers' x 2 per pt, partial gastrectomy - ANESTHESIA Hx Anesthesia: Yes Hx Anesthesia Reactions: No Hx Malignant Hyperthermia: No Meds Allergies/Adverse Reactions: Allergies Allergy/AdvReac Type Severity Reaction Status Date / Time No Known Allergies Allergy Verified 06/04/18 17:42 - Medications Medications: Current Medications Amlodipine Besylate (Norvasc) 5 mg PO DAILY [facility] Last Admin: 06/16/18 09:41 Dose: 5 mg Aspirin (Ecotrin) 81 mg PO DAILY [facility] Last Admin: 06/16/18 09:41 Dose: 81 mg Atorvastatin Calcium (Lipitor) 20 mg PO DIN [facility] Last Admin: 06/15/18 18:03 Dose: 20 mg Carvedilol (Coreg) 3.125 mg PO DAILY [facility] Last Admin: 06/16/18 09:40 Dose: 3.125 mg Clopidogrel Bisulfate (Plavix) 75 mg PO DAILY [facility] Last Admin: 06/16/18 09:40 Dose: 75 mg Docusate Sodium (Colace) 100 mg PO DAILY [facility] Last Admin: 06/16/18 09:39 Dose: 100 mg Enoxaparin Sodium (Lovenox) 30 mg SC DAILY [facility]; Protocol Last Admin: 06/16/18 09:40 Dose: 30 mg Sodium Chloride (Sodium Chloride 0.9%) 1,000 mls @ 75 mls/hr IV .[id number] [facility] Last Admin: 06/16/18 09:45 Dose: 75 mls/hr Insulin Human Regular (Humulin R Low) 0 units SC [facility]; Protocol Last Admin: 06/16/18 08:45 Dose: 1 unit Lisinopril (Zestril) 2.5 mg PO DAILY [facility] Last Admin: 06/16/18 09:40 Dose: 2.5 mg Neomycin/Polymyxin/Bacitracin (Neosporin Triple Antibiotic Oint) 0 gm TOP DAILY [facility] Last Admin: 06/16/18 09:42 Dose: Not Given Nystatin (Nystop Topical Powder) 15 gm TOP BID [facility] Last Admin: 06/16/18 09:42 Dose: Not Given Pantoprazole Sodium (Protonix Ec Tab) 40 mg PO ACB [facility] Last Admin: 06/16/18 08:46 Dose: 40 mg Polyethylene Glycol (Miralax) 17 gm PO DAILY [facility] Last Admin: 06/16/18 09:41 Dose: 17 gm Sucralfate (Carafate Tab) 1 gm PO DAILY [facility] Last Admin: 06/16/18 09:40 Dose: 1 gm Physical Exam - Constitutional Appears: Well, No Acute Distress - Head Exam Head Exam: NORMAL INSPECTION - Respiratory Exam Respiratory Exam: NORMAL BREATHING PATTERN - Cardiovascular Exam Cardiovascular Exam: REGULAR RHYTHM - GI/Abdominal Exam GI & Abdominal Exam: Normal Bowel Sounds, Soft - Exam Additional comments: no masses/lesions noted externally, roger rash noted in inguinal folds, vaginal discharge noted to be yellowish/thickened - Extremities Exam Extremities exam: Positive for: normal inspection - Neurological Exam Neurological exam: Oriented x3 Results - Vital Signs Recent Vital Signs: Last Vital Signs Temp 98.0 F 06/16/18 06:09 Pulse 65 06/16/18 09:41 Resp 18 06/16/18 06:09 BP 153/77 H 06/16/18 09:41 Pulse Ox 95 06/16/18 06:09 - Labs Result Diagrams: 06/16/18 06:00 06/16/18 06:00 Labs: Laboratory Results - last 24 hr 06/15/18 06/15/18 06/15/18 12:03 12:03 13:22 WBC 8.7 RBC 4.63 Hgb 10.0 L Hct 32.5 L MCV 70.2 L MCH 21.6 L MCHC 30.8 L RDW 18.3 H Plt Count 369 MPV 9.2 Gran % 67.7 Lymph % (Auto) 19.8 L Gray % (Auto) 9.4 H Eos % (Auto) 2.2 Baso % (Auto) 0.9 Gran # 5.87 Lymph # (Auto) 1.7 Gray # (Auto) 0.8 H Eos # (Auto) 0.2 Baso # (Auto) 0.08 Sodium 132 Potassium 5.7 H* Chloride 97 L Carbon Dioxide 29 Anion Gap 12 BUN 26 H Creatinine 1.0 Est GFR ( Amer) > 60 Est GFR (Non-Af Amer) 53 POC Glucose (mg/dL) Random Glucose 143 H Calcium 9.3 Magnesium 1.9 Total Bilirubin 1.0 AST 20 ALT 15 Alkaline Phosphatase 116 Lactate Dehydrogenase 454 Total Creatine Kinase 33 L Troponin I 0.39 H* D Total Protein 6.8 Albumin 3.3 Globulin 3.4 Albumin/Globulin Ratio 1.0 L Urine Color Yellow Urine Appearance Clear Urine pH 6.0 Ur Specific [place] 1.015 Urine Protein Negative Urine Glucose (UA) Negative Urine Ketones Negative Urine Blood Negative Urine Nitrate Negative Urine Bilirubin Negative Urine Urobilinogen 0.2 Ur Leukocyte Esterase Negative 06/15/18 06/15/18 06/16/18 17:02 21:41 06:00 WBC 6.2 D RBC 4.50 Hgb 9.4 L Hct 31.4 L MCV 69.8 L MCH 20.9 L MCHC 29.9 L RDW 18.2 H Plt Count 348 MPV 9.4 Gran % 60.4 Lymph % (Auto) 26.6 Gray % (Auto) 8.1 H Eos % (Auto) 3.6 Baso % (Auto) 1.3 Gran # 3.73 Lymph # (Auto) 1.6 Gray # (Auto) 0.5 Eos # (Auto) 0.2 Baso # (Auto) 0.08 Sodium Potassium Chloride Carbon Dioxide Anion Gap BUN Creatinine Est GFR ( Amer) Est GFR (Non-Af Amer) POC Glucose (mg/dL) 136 H 172 H Random Glucose Calcium Magnesium Total Bilirubin AST ALT Alkaline Phosphatase Lactate Dehydrogenase Total Creatine Kinase Troponin I Total Protein Albumin Globulin Albumin/Globulin Ratio Urine Color Urine Appearance Urine pH Ur Specific [place] Urine Protein Urine Glucose (UA) Urine Ketones Urine Blood Urine Nitrate Urine Bilirubin Urine Urobilinogen Ur Leukocyte Esterase 06/16/18 06/16/18 06:00 11:15 WBC RBC Hgb Hct MCV MCH MCHC RDW Plt Count MPV Gran % Lymph % (Auto) Gray % (Auto) Eos % (Auto) Baso % (Auto) Gran # Lymph # (Auto) Gray # (Auto) Eos # (Auto) Baso # (Auto) Sodium 134 Potassium 4.8 Chloride 101 Carbon Dioxide 28 Anion Gap 11 BUN 23 H Creatinine 1.0 Est GFR ( Amer) > 60 Est GFR (Non-Af Amer) 53 POC Glucose (mg/dL) 91 Random Glucose 133 H Calcium 9.0 Magnesium Total Bilirubin 0.7 AST 17 ALT 21 Alkaline Phosphatase 105 Lactate Dehydrogenase 399 Total Creatine Kinase 23 L Troponin I 0.22 H* D Total Protein 6.3 Albumin 3.1 Globulin 3.2 Albumin/Globulin Ratio 1.0 L Urine Color Urine Appearance Urine pH Ur Specific [place] Urine Protein Urine Glucose (UA) Urine Ketones Urine Blood Urine Nitrate Urine Bilirubin Urine Urobilinogen Ur Leukocyte Esterase Assessment & Plan - Assessment and Plan (Free Text) Assessment: A/P 1. patient evaluated for foul malodorous yellowish vaginal discharge. Will treat patient prophylactically for yeast and BV. 2. Diflucan x 1 dose ordered and Flagyl 500mg PO BID x 7 days 3. Encourage patient to follow up with a vocal music teacher as an outpatient for complete annual exam. All questions answered. Consult appreciated - Date & Time Date: 06/16/18 Time: 11:57
--- NOTE | 2018-06-16 18:34 | PN ---
DATE: 06/16/2018 REASON FOR CONSULTATION AND FOLLOWUP: Cardiac evaluation, history of coronary artery disease, admitted after a fall, borderline troponin positive, asymptomatic. SUBJECTIVE: The patient denies any chest pain, shortness of breath, or any palpitations. PHYSICAL EXAMINATION: As follows: VITAL SIGNS: Temperature afebrile, heart rate 65, blood pressure 153/77. HEENT: PERRLA. Extraocular muscles intact. NECK: Supple. No carotid bruits or thyromegaly. CHEST: Clear to auscultation. HEART: S1 and S2 regular. ABDOMEN: Soft. EXTREMITIES: Clubbing and cyanosis negative. LABORATORY DATA: Blood workup as follows: WBC 6.8, hemoglobin 9, hematocrit 31.4, platelet count 348. Chemistry showed sodium 134, potassium 4.8, chloride 101, carbon dioxide 28, anion gap of 11, BUN 23, creatinine 1. CPK 23, troponin 0.22. IMPRESSION: An 88-year-old female with past medical history significant for coronary artery disease, status post left main stent with Impella device a year ago, status post fall, recently discharged home, came back again after went home and fell down. Recently echocardiogram repeated, left ventricular function significantly improved, pre-procedure ejection fraction 25% to 35%, now it is 50%. RECOMMENDATIONS: Continue aspirin, continue Plavix though the patient on admission is borderline troponin positive, which is trending down, probably secondary to supply, but otherwise asymptomatic. CPK remains flat at 33. Continue DVT prophylaxis, continue aspirin, continue atorvastatin, continue amlodipine, continue Plavix, continue lisinopril. We will start lisinopril 5 mg daily and hold for systolic 120, we will give 2.5 additional dose now and we will discontinue telemetry. Continue carvedilol. We will give 2.5 stat and increase lisinopril from 5 from tomorrow, withholding parameter as mentioned. Continue rehab and we will discontinue telemetry. Since the patient is asymptomatic, troponin within normal and CPK, we will not proceed for any invasive cardiac workup, medical treatment. Thank you, Dr. Padilla, for providing us the opportunity in taking care of patient, Rosemarie Ojeda. Priscila Mohr MD [facility] # [id number]
--- NOTE | 2018-06-17 06:40 | CP.PCM.PN ---
Subjective - Date & Time of Evaluation Date of Evaluation: 06/17/18 Time of Evaluation: 06:30 - Subjective Subjective: Awake, alert, no distress,denies chest pain Reason for consultation and follow up: Cardiac evaluation for borderline positive troponin, status post fall,history of coronary artery disease Seen and examined by me and Dr. Mohr Objective - Vital Signs/Intake and Output Vital Signs (last 24 hours): Temp Pulse Resp BP Pulse Ox 97.8 F 68 18 110/60 95 06/17/18 00:01 06/17/18 00:01 06/17/18 00:01 06/17/18 00:01 06/16/18 06:09 - Medications Medications: Current Medications Amlodipine Besylate (Norvasc) 5 mg PO DAILY [facility] Last Admin: 06/16/18 09:41 Dose: 5 mg Aspirin (Ecotrin) 81 mg PO DAILY [facility] Last Admin: 06/16/18 09:41 Dose: 81 mg Atorvastatin Calcium (Lipitor) 20 mg PO DIN [facility] Last Admin: 06/16/18 18:13 Dose: 20 mg Carvedilol (Coreg) 3.125 mg PO DAILY [facility] Last Admin: 06/16/18 09:40 Dose: 3.125 mg Clopidogrel Bisulfate (Plavix) 75 mg PO DAILY [facility] Last Admin: 06/16/18 09:40 Dose: 75 mg Docusate Sodium (Colace) 100 mg PO DAILY [facility] Last Admin: 06/16/18 09:39 Dose: 100 mg Enoxaparin Sodium (Lovenox) 30 mg SC DAILY [facility]; Protocol Last Admin: 06/16/18 09:40 Dose: 30 mg Sodium Chloride (Sodium Chloride 0.9%) 1,000 mls @ 75 mls/hr IV .[id number] [facility] Last Admin: 06/17/18 00:00 Dose: 75 mls/hr Insulin Human Regular (Humulin R Low) 0 units SC [facility]; Protocol Last Admin: 06/16/18 21:21 Dose: Not Given Lisinopril (Zestril) 5 mg PO DAILY [facility] Metronidazole (Flagyl) 500 mg PO BID [facility]; Protocol Stop: 06/22/18 18:01 Last Admin: 06/16/18 18:13 Dose: 500 mg Neomycin/Polymyxin/Bacitracin (Neosporin Triple Antibiotic Oint) 0 gm TOP DAILY [facility] Last Admin: 06/16/18 09:42 Dose: Not Given Nystatin (Nystop Topical Powder) 15 gm TOP BID [facility] Last Admin: 06/16/18 15:52 Dose: 3 applic Pantoprazole Sodium (Protonix Ec Tab) 40 mg PO ACB [facility] Last Admin: 06/16/18 08:46 Dose: 40 mg Polyethylene Glycol (Miralax) 17 gm PO DAILY [facility] Last Admin: 06/16/18 09:41 Dose: 17 gm Sucralfate (Carafate Tab) 1 gm PO DAILY [facility] Last Admin: 06/16/18 09:40 Dose: 1 gm - Labs Labs: 06/16/18 06:00 06/16/18 06:00 - Constitutional Appears: Non-toxic, No Acute Distress - Eye Exam Eye Exam: Normal appearance Pupil Exam: NORMAL ACCOMODATION - ENT Exam ENT Exam: Mucous Membranes Moist, Normal Exam - Respiratory Exam Respiratory Exam: Clear to Ausculation Bilateral, NORMAL BREATHING PATTERN - Cardiovascular Exam Cardiovascular Exam: +S1, +S2 Additional comments: No JVD - GI/Abdominal Exam GI & Abdominal Exam: Soft, Normal Bowel Sounds - Extremities Exam Extremities Exam: Full ROM, Normal Capillary Refill - Neurological Exam Neurological Exam: Alert, Awake, Oriented x3 - Psychiatric Exam Psychiatric exam: Normal Affect, Normal Mood - Skin Skin Exam: Dry, Normal Color, Warm Assessment and Plan - Assessment and Plan (Free Text) Assessment: An 88 year old female who came in to the ER due to fall and generalized weakness. History of coronary artery disease with stents post left main stents with Impella device a year ago.Recently just discharged from TCU. History of hypertension, Alzheimer's dementia, diabetes,arthritis, GI bleeding, partial gatrectomy, COPD,cataracts,UTI. Latest ECHO LVEF 50%. Troponin borderline positive but trending down. Will treat medically. Patient asymptomatic. Denies chest pain or shortness of breath. Plan: Denies chest pain or shortness of breath Blood pressure controlled Heart rate controlled On Norvasc 5 mg daily,ASA 81 mg daily,Lipitor 20 mg daily, Coreg 3.125 mg daily,Plavix 75 mg daily, Lovenox 30 mg daily, Zestril 5 mg daily, Continue current treatment Continue current medications Chart reviewed Will follow up Plan and treatment discussed with Dr. Mohr
[2018-06-17] MEDS: Insulin Reg-LOW-Coverage SC SCH ×3 (08:00→16:30)
--- NOTE | 2018-06-17 08:11 | CP.PCM.PN ---
Subjective - Date & Time of Evaluation Date of Evaluation: 06/17/18 Time of Evaluation: 07:45 - Subjective Subjective: Patient is seen this morning. She is awake and lying in bed. She denies chest pain. Objective - Vital Signs/Intake and Output Vital Signs (last 24 hours): Temp Pulse Resp BP Pulse Ox 98.2 F 74 18 150/57 L 95 06/17/18 06:00 06/17/18 06:00 06/17/18 06:00 06/17/18 06:00 06/16/18 06:09 Intake and Output: 06/17/18 06/17/18 06:59 18:59 Intake Total 750 120 Output Total 900 Balance 750 -780 - Medications Medications: Current Medications Amlodipine Besylate (Norvasc) 5 mg PO DAILY [facility] Last Admin: 06/16/18 09:41 Dose: 5 mg Aspirin (Ecotrin) 81 mg PO DAILY [facility] Last Admin: 06/16/18 09:41 Dose: 81 mg Atorvastatin Calcium (Lipitor) 20 mg PO DIN [facility] Last Admin: 06/16/18 18:13 Dose: 20 mg Carvedilol (Coreg) 3.125 mg PO DAILY [facility] Last Admin: 06/16/18 09:40 Dose: 3.125 mg Clopidogrel Bisulfate (Plavix) 75 mg PO DAILY [facility] Last Admin: 06/16/18 09:40 Dose: 75 mg Docusate Sodium (Colace) 100 mg PO DAILY [facility] Last Admin: 06/16/18 09:39 Dose: 100 mg Enoxaparin Sodium (Lovenox) 30 mg SC DAILY [facility]; Protocol Last Admin: 06/16/18 09:40 Dose: 30 mg Sodium Chloride (Sodium Chloride 0.9%) 1,000 mls @ 75 mls/hr IV .[id number] [facility] Last Admin: 06/17/18 00:00 Dose: 75 mls/hr Insulin Human Regular (Humulin R Low) 0 units SC [facility]; Protocol Last Admin: 06/16/18 21:21 Dose: Not Given Lisinopril (Zestril) 5 mg PO DAILY [facility] Metronidazole (Flagyl) 500 mg PO BID [facility]; Protocol Stop: 06/22/18 18:01 Last Admin: 06/16/18 18:13 Dose: 500 mg Neomycin/Polymyxin/Bacitracin (Neosporin Triple Antibiotic Oint) 0 gm TOP DAILY [facility] Last Admin: 06/16/18 09:42 Dose: Not Given Nystatin (Nystop Topical Powder) 15 gm TOP BID [facility] Last Admin: 06/16/18 15:52 Dose: 3 applic Pantoprazole Sodium (Protonix Ec Tab) 40 mg PO ACB [facility] Last Admin: 06/16/18 08:46 Dose: 40 mg Polyethylene Glycol (Miralax) 17 gm PO DAILY [facility] Last Admin: 06/16/18 09:41 Dose: 17 gm Sucralfate (Carafate Tab) 1 gm PO DAILY [facility] Last Admin: 06/16/18 09:40 Dose: 1 gm - Labs Labs: 06/16/18 06:00 06/16/18 06:00 - Constitutional Appears: No Acute Distress - Head Exam Head Exam: ATRAUMATIC, NORMOCEPHALIC - Respiratory Exam Respiratory Exam: Decreased Breath Sounds, NORMAL BREATHING PATTERN - Cardiovascular Exam Cardiovascular Exam: REGULAR RHYTHM, +S1, +S2 - GI/Abdominal Exam GI & Abdominal Exam: Soft, Normal Bowel Sounds. absent: Tenderness - Neurological Exam Neurological Exam: Alert, Awake Additional comments: oriented to person and place Assessment and Plan - Assessment and Plan (Free Text) Assessment: Elevated troponin Fall CAD DMII Dementia Bacterial vaginosis Plan: Patient has been seen by gynecology and is treated with Diflucan and Flagyl. Troponin trending downward. Cardiology on case. continue ASA, Plavix, Coreg and Lisinopril.
[2018-06-17] MEDS: Pantoprazole 40 mg EC Tab PO SCH (08:58)
[2018-06-17] MEDS: Nystatin 100,000 Units/gm Topical Pow(15 gm) TOP SCH ×2 (09:30→18:08)
[2018-06-17] MEDS: POLYETHYLENE GLYCOL 3350 17 GM/Dose PACKET PO SCH (09:30)
[2018-06-17] MEDS: Enoxaparin 30 mg Syringe SC SCH (09:32)
[2018-06-17] MEDS: Sodium Chloride 0.9% 1,000 ML IV SCH ×2 (14:00)
--- NOTE | 2018-06-17 15:06 | PN ---
DATE: 06/17/2018 REASON FOR CONSULTATION: Cardiac evaluation, borderline troponin positive status post coronary artery disease. SUBJECTIVE: This note is in addition to dictated by nurse practitioner. The patient asymptomatic. Denies any chest pain, shortness of breath or any palpitation to rehab and adjunct faculty for medical terminology extended care facility. Recent echo shows improved EF at 50% with significantly improved from previous cath when the patient had a stent to the left main when non-STEMI. RECOMMENDATION: Continue rehab therapy. Continue aspirin, Coreg. Continue atorvastatin. Continue DVT prophylaxis. Continue amlodipine. Continue Plavix. We will discontinue telemetry. Continue lisinopril. We will follow with you. Thank you for providing us the opportunity in taking care of the patient Rosemarie Ojeda. We will follow with you. Priscila Mohr MD
[2018-06-17 17:43] VITALS: BP 124/67; PULSE 68; RESP 20; TEMP 97.8
[2018-06-17] MEDS: Bacitracin/Neomycin/Polymyxin Oint(30GM) TOP SCH (18:04)
--- NOTE | 2018-06-20 09:28 | PQF ---
PROVIDER RESPONSE TEXT: Provider was unable to determine a response for this query. REVIEWER QUERY TEXT: Clinical Significance The diagnosis documented below requires documentation to state the clinical significance: __generalized weakness Please respond and also state in your next progress note whether the condition is: -- Clinically insignificant -- Clinically significant, and please also state why it is clinically significant -- Unable to determine clinical significance -- Other, please specify The patient's Clinical Indicators include: Any etiology found for patient's generalized weakness? Thank you. Query created by: Annabel Weinstein on 06/18/2018 2:20 PM Electronically signed by: Ute Padilla MD 06/20/2018 9:24 AM
== END 2018-06-17 19:02 | DRG 948 ==
LOC: ED 09:55 → ERH 12:48 → EDBD 12:48 → ERH 13:37 → 2RNO 15:09
PROVIDERS: ADMIT Internal Medicine; ATTEND Internal Medicine
DX: R53.1 Weakness (principal); M17.0 Bilateral primary osteoarthritis of knee; Z79.84 Long term (current) use of oral hypoglycemic drugs; E87.5 Hyperkalemia; W06.XXXA Fall from bed, initial encounter; I25.10 Atherosclerotic heart disease of native coronary artery without angina pectoris; F02.80 Dementia in other diseases classified elsewhere, unspecified severity, without behavioral disturbance, psychotic disturbance, mood disturbance, and anxiety; E78.5 Hyperlipidemia, unspecified; E11.9 Type 2 diabetes mellitus without complications; E66.9 Obesity, unspecified; D64.9 Anemia, unspecified; R29.6 Repeated falls; Z68.34 Body mass index [BMI] 34.0-34.9, adult; B96.89 Other specified bacterial agents as the cause of diseases classified elsewhere; N76.0 Acute vaginitis; G30.9 Alzheimer's disease, unspecified; I25.2 Old myocardial infarction; I11.0 Hypertensive heart disease with heart failure; I50.9 Heart failure, unspecified; J44.9 Chronic obstructive pulmonary disease, unspecified; K21.9 Gastro-esophageal reflux disease without esophagitis; N32.81 Overactive bladder; N89.8 Other specified noninflammatory disorders of vagina; Y92.003 Bedroom of unspecified non-institutional (private) residence as the place of occurrence of the external cause; Z79.02 Long term (current) use of antithrombotics/antiplatelets; Z87.11 Personal history of peptic ulcer disease; Z87.891 Personal history of nicotine dependence; Z90.3 Acquired absence of stomach [part of]; Z90.49 Acquired absence of other specified parts of digestive tract; Z95.5 Presence of coronary angioplasty implant and graft; Z98.42 Cataract extraction status, left eye; Z98.41 Cataract extraction status, right eye

== ENCOUNTER 2018-07-22 09:17 | Inpatient (IN) | payer MEDICARE ==
[2018-07-22 09:21] VITALS: BMI 27.3
--- NOTE | 2018-07-22 09:36 | ED PDOC ---
Arrival/HPI - General Chief Complaint: Trauma Time Seen by Provider: 07/22/18 09:20 Historian: Patient, Spouse - History of Present Illness Narrative History of Present Illness (Text): 07/22/18 09:36 A 88 year old female, whose past medical history includes dementia, hypertension, arthritis, CAD and hyperlipidemia, presents to the emergency department s/p fall from earlier this morning as per family at bedside. Per family, patient was walking to the bathroom at 4 am this morning when her legs gave out and she fell. Patient's family reports patient had no injury and 911 was called but the patient did not go to the hospital. Over the next few hours, patient had generalized weakness prompting an ER visit. Per family, patient has dementia and is baseline confused. Of note, patient uses a walker and has been seen previously for similar symptoms. Patient denies any fever, chills, shortness of breath, chest pain, diarrhea, nausea, vomiting, urinary symptoms, back pain, neck pain, headache, dizziness, or any other complaints. PMD: [facility] Time/Duration: 4-6 hours (earlier this morning) Symptom Onset: Gradual Symptom Course: Unchanged Activities at Onset: Light Context: Home Past Medical History - Provider Review Nursing Documentation Reviewed: Yes - Infectious Disease Hx of Infectious Diseases: None - Tetanus Immunization Tetanus Immunization: Unknown - Reproductive Menopause: Yes - Cardiac Hx Cardiac Disorders: Yes (CAD s/p angioplasty (6-9 months ago)) Hx Congestive Heart Failure: Yes Hx Hypertension: Yes - Pulmonary Hx Chronic Obstructive Pulmonary Disease (COPD): Yes - Neurological HX Cerebrovascular Accident: No - HEENT Hx HEENT Disorder: Yes ([place]) Hx Cataracts: Yes (b/l sx) - Renal Hx Renal Failure: No - Endocrine/Metabolic Hx Diabetes Mellitus Type 2: Yes (NIDDM2) - Hematological/Oncological Hx Anemia: No Hx Cancer: No Hx Hepatitis A: No Hx Hepatitis B: No Hx Hepatitis C: No - Integumentary Hx Dermatological Disorder: No Hx Basal Cell Carcinoma: No Hx Eczema: No Hx Melanoma: No Hx Psoriasis: No Hx Squamous Cell Carcinoma: No - Musculoskeletal/Rheumatological Hx Arthritis: Yes (OA) - Gastrointestinal Hx Gastrointestinal Disorders: Yes (GI BLEED,CONSTIPATION,GASTRECTOMY) - Genitourinary/Gynecological Hx Genitourinary Disorders: Yes (UTI) Hx Reproductive Disorders: No - Psychiatric Hx Psychophysiologic Disorder: Yes Hx Anxiety: Yes Hx Substance Use: No - Surgical History Hx Appendectomy: Yes Other/Comment: 'bowel surgery for ulcers' x 2 per pt, partial gastrectomy - Anesthesia Hx Anesthesia: Yes Hx Anesthesia Reactions: No Hx Malignant Hyperthermia: No - Suicidal Assessment Feels Threatened In Home Enviroment: No Family/Social History - Physician Review Nursing Documentation Reviewed: Yes Family/Social History: No Known Family HX Smoking Status: Former Smoker Hx Alcohol Use: No Hx Substance Use: No Hx Substance Use Treatment: No Allergies/Home Meds Allergies/Adverse Reactions: Allergies No Known Allergies Allergy (Verified 06/04/18 17:42) Home Medications: Home Meds Medication Instructions Recorded Confirmed RX: GlipiZIDE [Glucotrol] 5 mg PO DAILY 12/31/16 07/22/18 Review of Systems - Physician Review All systems were reviewed & negative as marked: Yes - Review of Systems Constitutional: absent: Fevers, Night Sweats Respiratory: absent: SOB Cardiovascular: absent: Chest Pain Gastrointestinal: absent: Diarrhea, Vomiting Genitourinary Female: absent: Urine Output Changes Musculoskeletal: absent: Back Pain, Neck Pain Neurological: absent: Headache, Dizziness Physical Exam Vital Signs Reviewed: Yes Vital Signs Temp Pulse Resp BP Pulse Ox 07/22/18 09:18 97.4 F L 63 20 138/71 96 Temperature: Hypothermic Blood Pressure: Normal Pulse: Regular Respiratory Rate: Normal Appearance: Positive for: Well-Appearing Pain Distress: None Mental Status: Positive for: other (Awake and alert). No: Alert and Oriented X 3 (Alert and Oriented x2) - Systems Exam Head: Present: Atraumatic, Normocephalic Pupils: Present: PERRL Extroacular Muscles: Present: EOMI Conjunctiva: Present: Normal Mouth: Present: Moist Mucous Membranes Neck: Present: Normal Range of Motion Respiratory/Chest: Present: Decreased Breath Sounds (+decreased breath sounds at bases bilaterally) Cardiovascular: Present: Regular Rate and Rhythm, Normal S1, S2. No: Murmurs Abdomen: Present: Other (+soft reducable umbilical hernia) Back: Present: Normal Inspection Upper Extremity: Present: Normal Inspection. No: Cyanosis, Edema Lower Extremity: Present: Normal Inspection. No: Edema Neurological: Present: GCS=15, CN II-XII Intact, Speech Normal Skin: Present: Warm, Dry, Normal Color. No: Rashes Psychiatric: Present: Alert, Oriented x 3, Normal Insight, Normal Concentration Medical Decision Making ED Course and Treatment: 07/22/18 09:37 Impression: 88 year old female presenting to the emergency room s/p fall. ro intracranial infectious metabolci cardiac etilogy Plan: -- Head CT wiithout contrast -- EKG -- Labs -- CBC -- COAGs -- Chest X-ray -- Urinalysis -- Reassess and disposition Prior Visits: Notes and results from previous visits were reviewed. Progress Notes: 07/22/18 09:40 EKG: Ordered, reviewed, and independently interpreted the EKG. Rate : 62 BPM Rhythm : NSR Interpretation : Non-specifc ST-T wave changes, poor tracing secondary to artifact. Comparison : No interval change from previous. 07/22/18 10:49 Procedure: Chest X-ray Time: 07/22/2018 10:34:09 Dictator: Cas Tang MD Impression: No active disease. No significant interval change compared to the prior examination(s). Procedure: Head CT without contrast Time: 07/22/2018 10:33:26 Dictator: Cas Tang MD Impression: No acute intracranial abnormalities. No significant findings to account for the clinical presentation. No significant interval change compared to the prior examination(s). 07/22/18 12:21 noted bnp lasix given. labs neg. urine treated. accepted by pmd. - RAD Interpretation Radiology Orders: 07/22/18 09:33 HEAD W/O CONTRAST [CT] Stat CHEST PORTABLE [RAD] Stat - Scribe Statement The provider has reviewed the documentation as recorded by the Scribjoel Ndiaye All medical record entries made by the Hillaryibjoel were at my direction and personally dictated by me. I have reviewed the chart and agree that the record accurately reflects my personal performance of the history, physical exam, medical decision making, and the department course for this patient. I have also personally directed, reviewed, and agree with the discharge instructions and disposition. Disposition/Present on Arrival - Present on Arrival Any Indicators Present on Arrival: No History of DVT/PE: No History of Uncontrolled Diabetes: No Urinary Catheter: No History of Decub. Ulcer: No History Surgical Site Infection Following: None - Disposition Have Diagnosis and Disposition been Completed?: Yes Diagnosis: Fall, Weakness generalized, UTI (urinary tract infection), CHF (congestive he art failure) Disposition: HOSPITALIZED Disposition Time: 11:00 Condition: FAIR
[2018-07-22 10:20] LABS: BASO # 0.05 K/mm3 (0.0-2.0); BASO % 0.6 % (0.0-3.0); EOS # 0.1 (0.0-0.7); EOS % 0.6 % (1.5-5.0); GRAN # 5.83 (1.4-6.5); GRAN % 67.4 % (50.0-68.0); HEMOGLOBIN 9.6 g/dL (12.0-16.0); LYMPH % 22.6 % (22.0-35.0); MEAN CELL VOLUME 67.8 fl (80.0-105.0); MEAN CORPUSCULAR HEMOGLOBIN 20.6 pg (25.0-35.0); MEAN CORPUSCULAR HGB CONC 30.4 g/dl (31.0-37.0); MEAN PLATELET VOLUME 9.3 fl (7.0-11.0); MONO # 0.8 (0.1-0.6); MONO % 8.8 % (1.0-6.0); RBC 4.66 10^6/uL (3.5-6.1); RED CELL DISTRIBUTION WIDTH 18.2 % (11.5-14.5); WHITE BLOOD COUNT 8.6 10^3/uL (4.5-11.0)
[2018-07-22 10:23] LABS: URINE BILIRUBIN NEGATIVE (NEGATIVE); URINE BLOOD TRACE-INTACT (NEGATIVE); URINE GLUCOSE (UA) NEGATIVE (NEGATIVE); URINE LEUKOCYTE ESTERASE MODERATE Leu/uL (NEGATIVE); URINE PROTEIN NEGATIVE mg/dL (<30 mg/dL); URINE UROBILINOGEN 0.2 E.U./dL (<1 E.U./dL)
[2018-07-22 10:26] LABS: URINE APPEARANCE SLIGHT-CLOUDY (CLEAR); URINE COLOR YELLOW (YELLOW)
[2018-07-22 10:27] LABS: INR 1.08; PARTIAL THROMBOPLASTIN TIME 29.7 Seconds (25.1-36.5); PROTHROMBIN TIME 12.4 SECONDS (9.4-12.5)
[2018-07-22 10:28] LABS: ALB/GLOB RATIO 1.1 (1.1-1.8); ALBUMIN 3.6 g/dL (3.0-4.8); CALCIUM 9.3 mg/dL (8.4-10.5)
[2018-07-22] MEDS ORDERED: cefTRIAXone 1 gm 1 GM/100 ML BAG IVPB STA (10:28)
--- NOTE | 2018-07-22 10:37 | RAD ---
Date of service: 07/22/2018 HISTORY: Weakness. COMPARISON: 06/16/2017 FINDINGS: LUNGS: No active pulmonary disease. PLEURA: No significant pleural effusion identified, no pneumothorax apparent. CARDIOVASCULAR: No atherosclerotic calcification present Cardiomegaly. No evidence of acute, significant cardiovascular disease. OSSEOUS STRUCTURES: No significant abnormalities. VISUALIZED UPPER ABDOMEN: Normal. OTHER FINDINGS: None. IMPRESSION: No active disease. No significant interval change compared to the prior examination(s).
--- NOTE | 2018-07-22 10:37 | CT ---
Date of service: 07/22/2018 PROCEDURE: CT HEAD WITHOUT CONTRAST. HISTORY: weakness/fall/ams COMPARISON: 06/01/2018 TECHNIQUE: Axial computed tomography images were obtained through the head/brain without intravenous contrast. Supplemental Coronal and Sagittal projections created and reviewed. Radiation dose: Total exam DLP = 779.36 mGy-cm. This CT exam was performed using one or more of the following dose reduction techniques: Automated exposure control, adjustment of the mA and/or kV according to patient size, and/or use of iterative reconstruction technique. FINDINGS: HEMORRHAGE: No intracranial hemorrhage. BRAIN: No mass effect or edema. Cortical and cerebellar atrophy, periventricular small vessel disease. VENTRICLES: Unremarkable. No hydrocephalus. CALVARIUM: Unremarkable. PARANASAL SINUSES: Unremarkable as visualized. No significant inflammatory changes. MASTOID AIR CELLS: Unremarkable as visualized. No inflammatory changes. OTHER FINDINGS: None. IMPRESSION: No acute intracranial abnormalities. No significant findings to account for the clinical presentation. No significant interval change compared to the prior examination(s).
[2018-07-22 10:39] LABS: TROPONIN I 0.05 ng/mL
[2018-07-22 10:42] LABS: URINE BACTERIA MANY /hpf; URINE EPITHELIAL CELLS 0 - 2 /hpf (0-5); URINE RBC 0 - 2 /hpf (0-2)
--- NOTE | 2018-07-22 18:40 | CARD ---
APPROVED REPORT Date of service: 07/22/2018 EKG Measurement Heart [id number] <Conclusion> Normal sinus rhythm Left anterior fascicular block Minimal voltage criteria for LVH, may be normal variant ST & T wave abnormality, consider lateral ischemia Abnormal ECG
--- NOTE | 2018-07-22 22:40 | CP.PCM.HP ---
History of Present Illness - History of Present Illness History of Present Illness: 88 year old female with history of hypertension, coronary artery disease, diabetes, severe osteoarthritis and overactive bladder was brought to the ER after falling at home. Patient was going to the bathroom when she just fell according to the family. The family kept her at home but she was feeling weaker and unable to walk. Patient also with shortness of breath. BNP of 17,500. Present on Admission - Present on Admission Any Indicators Present on Admission: No History of DVT/PE: No History of Uncontrolled Diabetes: No Urinary Catheter: No Decubitus Ulcer Present: No Review of Systems - Constitutional Constitutional: absent: Chills, Fever, Weight Gain - Cardiovascular Cardiovascular: absent: Chest Pain, Diaphoresis, Irregular Heart Rhythm - Respiratory Respiratory: As Per HPI - Gastrointestinal Gastrointestinal: absent: Abdominal Pain, Nausea, Vomiting Past Patient History - Infectious Disease Hx of Infectious Diseases: None - Tetanus Immunizations Tetanus Immunization: Unknown - Past Social History Smoking Status: Former Smoker - CARDIAC Hx Cardiac Disorders: Yes (CAD s/p angioplasty (6-9 months ago)) Hx Congestive Heart Failure: Yes Hx Hypertension: Yes - PULMONARY Hx Chronic Obstructive Pulmonary Disease (COPD): Yes - NEUROLOGICAL HX Cerebrovascular Accident: No - HEENT Hx HEENT Problems: Yes ([place]) Hx Cataracts: Yes (b/l sx) - RENAL Hx Renal Failure: No - ENDOCRINE/METABOLIC Hx Diabetes Mellitus Type 2: Yes (NIDDM2) - HEMATOLOGICAL/ONCOLOGICAL Hx Anemia: No Hx Cancer: No Hx Hepatitis A: No Hx Hepatitis B: No Hx Hepatitis C: No - INTEGUMENTARY Hx Dermatological Problems: No Hx Basil Cell: No Hx Eczema: No Hx Melanoma: No Hx Psoriasis: No Hx Squamous Cell: No - MUSCULOSKELETAL/RHEUMATOLOGICAL Hx Arthritis: Yes (OA) - GASTROINTESTINAL Hx Gastrointestinal Disorders: Yes (GI BLEED,CONSTIPATION,GASTRECTOMY) - GENITOURINARY/GYNECOLOGICAL Hx Genitourinary Disorders: Yes (UTI) Hx Reproductive Disorders: No - PSYCHIATRIC Hx Psychophysiologic Disorder: Yes Hx Anxiety: Yes Hx Substance Use: No - SURGICAL HISTORY Hx Appendectomy: Yes Other/Comment: 'bowel surgery for ulcers' x 2 per pt, partial gastrectomy - ANESTHESIA Hx Anesthesia: Yes Hx Anesthesia Reactions: No Hx Malignant Hyperthermia: No Meds Allergies/Adverse Reactions: Allergies Allergy/AdvReac Type Severity Reaction Status Date / Time No Known Allergies Allergy Verified 06/04/18 17:42 Physical Exam - Constitutional Appears: No Acute Distress - Head Exam Head Exam: ATRAUMATIC, NORMOCEPHALIC - Respiratory Exam Respiratory Exam: Rales, NORMAL BREATHING PATTERN - Cardiovascular Exam Cardiovascular Exam: REGULAR RHYTHM, +S1, +S2 - GI/Abdominal Exam GI & Abdominal Exam: Normal Bowel Sounds, Soft. absent: Tenderness - Extremities Exam Extremities exam: Positive for: pedal edema - Neurological Exam Neurological exam: Alert, Oriented x3 Results - Vital Signs Recent Vital Signs: Last Vital Signs Temp 98.8 F 07/22/18 18:00 Pulse 68 07/22/18 22:00 Resp 18 07/22/18 18:00 BP 111/52 L 07/22/18 18:00 Pulse Ox 92 L 07/22/18 18:00 - Labs Result Diagrams: 07/22/18 10:00 07/22/18 10:00 Labs: Laboratory Results - last 24 hr 07/22/18 07/22/18 07/22/18 10:00 10:00 10:00 WBC 8.6 D RBC 4.66 Hgb 9.6 L Hct 31.6 L MCV 67.8 L MCH 20.6 L MCHC 30.4 L RDW 18.2 H Plt Count 397 MPV 9.3 Gran % 67.4 Lymph % (Auto) 22.6 [place] % (Auto) 8.8 H Eos % (Auto) 0.6 L Baso % (Auto) 0.6 Gran # 5.83 Lymph # (Auto) 2.0 [place] # (Auto) 0.8 H Eos # (Auto) 0.1 Baso # (Auto) 0.05 PT 12.4 INR 1.08 APTT 29.7 Sodium Potassium Chloride Carbon Dioxide Anion Gap BUN Creatinine Est GFR ( Amer) Est GFR (Non-Af Amer) Random Glucose Calcium Magnesium Total Bilirubin AST ALT Alkaline Phosphatase Lactate Dehydrogenase Total Creatine Kinase Troponin I NT-Pro-B Natriuret Pep Total Protein Albumin Globulin Albumin/Globulin Ratio Urine Color Yellow Urine Appearance Slight-cloudy Urine pH 7.0 Ur Specific [place] 1.015 Urine Protein Negative Urine Glucose (UA) Negative Urine Ketones Negative Urine Blood Trace-intact H Urine Nitrate Negative Urine Bilirubin Negative Urine Urobilinogen 0.2 Ur Leukocyte Esterase Moderate H Urine RBC 0 - 2 Urine WBC 5 - 10 H Ur Epithelial Cells 0 - 2 Urine Bacteria Many 12/25/18 10:00 WBC RBC Hgb Hct MCV MCH MCHC RDW Plt Count MPV Gran % Lymph % (Auto) [place] % (Auto) Eos % (Auto) Baso % (Auto) Gran # Lymph # (Auto) [place] # (Auto) Eos # (Auto) Baso # (Auto) PT INR APTT Sodium 133 Potassium 4.9 Chloride 96 L Carbon Dioxide 29 Anion Gap 12 BUN 36 H Creatinine 1.3 H Est GFR ( Amer) 47 Est GFR (Non-Af Amer) 39 Random Glucose 94 Calcium 9.3 Magnesium 1.9 Total Bilirubin 0.8 AST 28 ALT 14 Alkaline Phosphatase 107 Lactate Dehydrogenase 407 Total Creatine Kinase 103 Troponin I 0.05 D NT-Pro-B Natriuret Pep 59171 H Total Protein 7.0 Albumin 3.6 Globulin 3.4 Albumin/Globulin Ratio 1.1 Urine Color Urine Appearance Urine pH Ur Specific [place] Urine Protein Urine Glucose (UA) Urine Ketones Urine Blood Urine Nitrate Urine Bilirubin Urine Urobilinogen Ur Leukocyte Esterase Urine RBC Urine WBC Ur Epithelial Cells Urine Bacteria Assessment & Plan - Assessment and Plan (Free Text) Assessment: Acute systolic heart failure Severe osteoarthritis Renal insufficiency HTN Diabetes Overactive bladder Plan: Patient given Lasix IV in the Emergency Room with improvement of shortness of breath. She will have consultation with Cardiology, Dr. Mohr. continue Glucotrol for diabetes with accuchecks. hold metformin due to renal function. continue protonix and carafate for reflux with history of peptic ulcer disease
[2018-07-23] MEDS: Pantoprazole 40 mg EC Tab PO SCH (05:46)
[2018-07-23 07:06] LABS: BASO # 0.09 K/mm3 (0.0-2.0); BASO % 1.5 % (0.0-3.0); EOS # 0.1 (0.0-0.7); EOS % 1.5 % (1.5-5.0); GRAN # 3.47 (1.4-6.5); GRAN % 56.4 % (50.0-68.0); HEMOGLOBIN 9.3 g/dL (12.0-16.0); LYMPH # 1.7 (1.2-3.4); LYMPH % 27.8 % (22.0-35.0); MEAN CELL VOLUME 68.2 fl (80.0-105.0); MEAN CORPUSCULAR HEMOGLOBIN 20.4 pg (25.0-35.0); MEAN CORPUSCULAR HGB CONC 29.9 g/dl (31.0-37.0); MEAN PLATELET VOLUME 9.4 fl (7.0-11.0); MONO # 0.8 (0.1-0.6); MONO % 12.8 % (1.0-6.0); RBC 4.56 10^6/uL (3.5-6.1); RED CELL DISTRIBUTION WIDTH 18.3 % (11.5-14.5); WHITE BLOOD COUNT 6.2 10^3/uL (4.5-11.0)
[2018-07-23 07:46] LABS: CALCIUM 8.9 mg/dL (8.4-10.5)
--- NOTE | 2018-07-23 07:53 | CP.PCM.PN ---
Subjective - Date & Time of Evaluation Date of Evaluation: 07/23/18 Time of Evaluation: 07:25 - Subjective Subjective: Patient is seen this morning. She is lying in bed. She does not remember falling yesterday. She denies chest pain or shortness of breath. Objective - Vital Signs/Intake and Output Vital Signs (last 24 hours): Temp Pulse Resp BP Pulse Ox 97.9 F 67 20 110/53 L 98 07/23/18 06:00 07/23/18 06:00 07/23/18 06:00 07/23/18 06:00 07/23/18 06:00 Intake and Output: 07/23/18 07/23/18 06:59 18:59 Intake Total 480 Output Total 1225 Balance -745 - Medications Medications: Current Medications Amlodipine Besylate (Norvasc) 5 mg PO DAILY [facility] Aspirin (Ecotrin) 81 mg PO DAILY [facility] Atorvastatin Calcium (Lipitor) 20 mg PO DIN [facility] Last Admin: 07/22/18 17:41 Dose: 20 mg Carvedilol (Coreg) 3.125 mg PO DAILY [facility] Clopidogrel Bisulfate (Plavix) 75 mg PO DAILY [facility] Docusate Sodium (Colace) 100 mg PO DAILY [facility] Furosemide (Lasix) 20 mg IVP DAILY [facility] Glipizide (Glucotrol) 5 mg PO ACB [facility] Pantoprazole Sodium (Protonix Ec Tab) 40 mg PO 0600 [facility] Last Admin: 07/23/18 05:46 Dose: 40 mg Polyethylene Glycol (Miralax) 17 gm PO DAILY [facility] Sucralfate (Carafate Tab) 1 gm PO DAILY [facility] - Labs Labs: 07/23/18 07:00 07/22/18 10:00 PT 12.4 SECONDS (9.4-12.5) 07/22/18 10:00 INR 1.08 07/22/18 10:00 APTT 29.7 Seconds (25.1-36.5) 07/22/18 10:00 - Constitutional Appears: No Acute Distress - Head Exam Head Exam: ATRAUMATIC, NORMOCEPHALIC - Respiratory Exam Respiratory Exam: Clear to Ausculation Bilateral, NORMAL BREATHING PATTERN - Cardiovascular Exam Cardiovascular Exam: REGULAR RHYTHM, +S1, +S2 - GI/Abdominal Exam GI & Abdominal Exam: Soft, Normal Bowel Sounds. absent: Tenderness - Extremities Exam Extremities Exam: Pedal Edema - Neurological Exam Neurological Exam: Alert, Awake Additional comments: oriented to person and place, not time Assessment and Plan - Assessment and Plan (Free Text) Assessment: Acute on chronic systolic and diastolic heart failure Muscle weakness Severe degenerative arthritis Dementia HTN Diabetes Overactive bladder Plan: Patient's legs are swollen. continue Lasix daily. Echocardiogram done on 06/03/18 shows EF of 50% and mild left ventricular hypertrophy. continue glucotrol and accuchecks to monitor glucose. Metformin held due to renal function. Patient also with generalized weakness a nd history of falls. Will order physical therapy evaluation. Will check iron levels for anemia. He moglobin 9.3 this morning.
[2018-07-23 09:38] LABS: IRON 35 ug/dL (45-180)
[2018-07-23 09:47] LABS: % IRON SATURATION 10 % (20-55); TOTAL IRON BINDING CAPACITY 350 ug/dL (265-497)
[2018-07-23] MEDS: POLYETHYLENE GLYCOL 3350 17 GM/Dose PACKET PO SCH (10:23)
[2018-07-23] MEDS ORDERED: Dextrose 50% SYRINGE Inj (50 ml) IV PRN (21:51)
[2018-07-23] MEDS ORDERED: Insulin Regular 1 UNITS/0.01 ML ML SC ONE ×2 (21:51→21:55)
[2018-07-23] MEDS ORDERED: Insulin Reg-LOW-Coverage SC SCH (22:00)
--- NOTE | 2018-07-24 00:48 | CON ---
DATE: 07/23/2018 CARDIOLOGY CONSULTATION REASON FOR CONSULTATION: Cardiac evaluation for elevated BNP, history of coronary artery disease, admitted after a fall. HISTORY OF PRESENT ILLNESS: An 88-year-old female with past medical history significant for history of coronary artery disease status post stent in the past, history of diabetes, hypertension, hyperlipidemia, COPD, who was admitted after a fall, brought here, fall was at home, mechanical fall and found to have elevated BNP. The patient also complained of shortness of breath, admitted here. Cardiac consultation for evaluation for elevated BNP, rule out congestive heart failure, history of coronary artery disease. The patient denies any chest pain, shortness of breath, or any palpitation. PAST MEDICAL HISTORY: Significant for coronary artery disease status post stent in the past, history of diabetes, hypertension, hyperlipidemia, COPD, history of lumbar spinal stenosis, history of gastroesophageal reflux, history of overactive bladder in the past. PREVIOUS CARDIAC WORKUP: As follows: The patient had a cardiac catheterization after having [id number]-elevation myocardial infarction on 12/26/2016 that revealed triple vessel disease including left main LAD and circumflex disease, mild disease in mid RCA, ejection fraction was 35% to 40%, EDP in the range of 20% to 25 %. The patient underwent PTCA of left main using Impella device on 01/22/2018 at [facility]. The patient had repeat echocardiography done on 06/03/2018, that revealed ejection fraction 50%, trace mitral regurgitation and trace tricuspid regurgitation. As mentioned, most recent echo done on 06/03/2018; in the previous admission, that showed ejection fraction 50% trace aortic regurgitation, moderate aortic stenosis, trace mitral regurgitation, trace tricuspid regurgitation, trace pulmonary insufficiency, peak gradient across aortic valve is 64 mmHg, aortic valve area of 1.05 cm sq to around 1.02 cm sq by echo dated 06/03/2018. Previous echo besides this, the patient had an echo on 05/11/2015, ejection fraction 50% with [id number] aortic stenosis at that time, [id number] tricuspid regurgitation. SOCIAL HISTORY: Denies any smoking. Denies any history of alcohol abuse. CURRENT MEDICATIONS: The patient is taking at home; metformin 500 p.o. b.i.d., amlodipine 5 mg daily, sucralfate 1 g daily, MiraLax 17 g p.o. daily, Protonix 40 mg daily, lisinopril 2.5, glipizide 5 mg daily, Colace 100 mg p.o. b.i.d., cyanocobalamin 1000 mcg daily, clopidogrel 75 mg daily, Plavix 75 mg daily, Coreg 3.125 mg twice a day, atorvastatin 20 mg daily, aspirin 81 mg daily. REVIEW OF SYSTEMS: As per HPI. ALLERGIES: NO KNOWN DRUG ALLERGIES. PHYSICAL EXAMINATION: Height of the patient is 5 feet, weight of the patient pounds, and body mass index 33 kg/m2. Rest of the examination: VITAL SIGNS: Temperature afebrile, heart rate , blood pressure 105/60. HEENT: PERRLA. Extraocular muscles are intact. NECK: Supple. No carotid bruits. No thyromegaly. CHEST: Clear to auscultation. HEART: S1 and S2 regular. ABDOMEN: Soft. EXTREMITIES: Clubbing and cyanosis negative. LABORATORY DATA: Blood workup as follows; WBC 6.8, hemoglobin 9.3, hematocrit 31.1, platelet count 372. Chemistry shows sodium 133, potassium 4.4, chloride 98, carbon dioxide 31, anion gap of 9, BUN 30, creatinine 1.4. Chest x-ray read as official; no active diseases, I tried to look the films, but could not open it because some problem in the Internet system, we will review again. IMPRESSION: An 88-year-old female with past medical history significant for coronary artery disease, moderate aortic stenosis, preserved left ventricular function, admitted after a fall, history of coronary artery disease, history of percutaneous transluminal coronary angioplasty of the left main and left anterior descending using Impella device in [facility] in 12/2016. Admitted after a fall. History of recent injury to the knee after a fall. Frequent fall. Initially, last time of admission, it was a plan to go for a surgical intervention, but later on it was postponed and was decided to be treated medically. At this time, the patient was found with no bone injury noted, though BNP is elevated, but clinically the patient is not in failure. History of coronary artery disease, history of stent, left main using Impella device. Recent echo shows moderate aortic stenosis with ejection fraction 50%, valve area 1.1 cm sq, trace mitral regurgitation, trace tricuspid regurgitation. RECOMMENDATIONS: Agree with Dr. Padilla, resume back carvedilol 3.125 mg daily; if patient tolerated, we will b.i.d. Continue baby aspirin, continue gentle diuretics if blood pressure tolerates. Continue atorvastatin. Continue Plavix. Hold amlodipine for systolic blood pressure less than 120. We will follow with you. Monitor electrolytes. We will repeat chest x-ray tomorrow. We will repeat magnesium, phosphorus, and TSH tomorrow. Thank you Dr. Padilla for providing us the opportunity in taking care of the patient, Rosemarie Ojeda. Priscila Mohr MD
[2018-07-24] MEDS: Pantoprazole 40 mg EC Tab PO SCH (05:43)
--- NOTE | 2018-07-24 07:11 | CP.PCM.PN ---
Subjective - Date & Time of Evaluation Date of Evaluation: 07/24/18 Time of Evaluation: 06:30 - Subjective Subjective: Awake, alert, no distress Reason for consultation and follow up:Cardiac evaluation of elevated BNP, admitted post fall, history of coronary artery disease, hypertension Seen and examined by me and Dr. Mohr Objective - Vital Signs/Intake and Output Vital Signs (last 24 hours): Temp Pulse Resp BP Pulse Ox 97.9 F 70 18 109/56 L 97 07/24/18 06:00 07/24/18 06:00 07/24/18 06:00 07/24/18 06:00 07/24/18 06:00 Intake and Output: 07/24/18 07/24/18 06:59 18:59 Output Total 600 Balance -600 - Medications Medications: Current Medications Amlodipine Besylate (Norvasc) 5 mg PO DAILY [facility] Aspirin (Ecotrin) 81 mg PO DAILY [facility] Last Admin: 07/23/18 10:22 Dose: 81 mg Atorvastatin Calcium (Lipitor) 20 mg PO DIN [facility] Last Admin: 07/23/18 18:00 Dose: 20 mg Carvedilol (Coreg) 3.125 mg PO DAILY [facility] Clopidogrel Bisulfate (Plavix) 75 mg PO DAILY [facility] Last Admin: 07/23/18 10:22 Dose: 75 mg Dextrose (Dextrose 50% Inj) 0 ml IV STAT PRN; Protocol PRN Reason: Hypoglycemia Protocol Docusate Sodium (Colace) 100 mg PO DAILY [facility] Last Admin: 07/23/18 10:21 Dose: 100 mg Ferrous Sulfate (Feosol) 324 mg PO BID [facility] Last Admin: 07/23/18 18:00 Dose: 324 mg Furosemide (Lasix) 20 mg IVP DAILY [facility] Last Admin: 07/23/18 10:22 Dose: 20 mg Glipizide (Glucotrol) 5 mg PO ACB [facility] Last Admin: 07/23/18 22:09 Dose: 5 mg Dextrose (Dextrose 5% In Water 1000 Ml) 1,000 mls @ 0 mls/hr IV .Q0M PRN; Protocol PRN Reason: Hypoglycemia Protocol Pantoprazole Sodium (Protonix Ec Tab) 40 mg PO 0600 [facility] Last Admin: 07/24/18 05:43 Dose: 40 mg Polyethylene Glycol (Miralax) 17 gm PO DAILY [facility] Last Admin: 07/23/18 10:23 Dose: 17 gm Sucralfate (Carafate Tab) 1 gm PO DAILY [facility] Last Admin: 07/23/18 10:22 Dose: 1 gm - Labs Labs: 07/23/18 07:00 07/23/18 05:00 PT 12.4 SECONDS (9.4-12.5) 07/22/18 10:00 INR 1.08 07/22/18 10:00 APTT 29.7 Seconds (25.1-36.5) 07/22/18 10:00 - Constitutional Appears: Non-toxic, No Acute Distress - Head Exam Head Exam: NORMAL INSPECTION, NORMOCEPHALIC - Eye Exam Eye Exam: Normal appearance Pupil Exam: NORMAL ACCOMODATION - ENT Exam ENT Exam: Mucous Membranes Moist, Normal Exam - Respiratory Exam Respiratory Exam: Decreased Breath Sounds, NORMAL BREATHING PATTERN - Cardiovascular Exam Cardiovascular Exam: REGULAR RHYTHM, +S1, +S2 Additional comments: Telemetry NSR 60's - GI/Abdominal Exam GI & Abdominal Exam: Soft, Normal Bowel Sounds - Extremities Exam Extremities Exam: Full ROM - Neurological Exam Neurological Exam: Alert, Awake, Oriented x3 - Psychiatric Exam Psychiatric exam: Normal Affect, Normal Mood - Skin Skin Exam: Dry, Normal Color, Warm Assessment and Plan - Assessment and Plan (Free Text) Assessment: A 88 year old female who came in to the ER due to fall. She was feeling weak and unable to walk.She also complained of shortness of breath. History of hypertension, coronary artery disease, diabetes, severe osteoa rthritis and overactive bladder, hyperlipidemia, COPD, lumbar spine stenosis,GERD, Cardiac cath 12/26/2016 done due to non-ST segment TN, triple vessel disease. LVEF 35-40%. she underwent PTCA of left main with Impella at [facility] on 01/22/2018. Echo on 06/03/2018 showed LVEF 50%, trace MR/TR/AR. moderate aortic stenosis. Elevated BNP but Chest X ray-normal. Patient no distress. Rule out congestive heart failure. Urine culture positive for Klebsiella Pneumoniae. Will start Cipro 500 mg BID. Plan: Denies shortness of breath, no distress Blood pressure controlled Heart rate controlled Cardiac status stable On ASA 81 mg daily,Nornasc 5 mg daily,Coreg 3.125 mg daily, Plavix 75 mg daily, Lasix 20 mg daily, Urine culture positive for Klebsiella Pneumoniae. Will start Cipro 500 mg BID. Replenish K as needed Continue current medications Continue current treatment Will follow up Plan and treatment discussed with Dr. Mohr
[2018-07-24 07:23] LABS: BASO # 0.07 K/mm3 (0.0-2.0); EOS # 0.2 (0.0-0.7); EOS % 2.4 % (1.5-5.0); GRAN # 4.12 (1.4-6.5); GRAN % 60.7 % (50.0-68.0); HEMOGLOBIN 9.1 g/dL (12.0-16.0); LYMPH # 1.9 (1.2-3.4); LYMPH % 27.2 % (22.0-35.0); MEAN CELL VOLUME 68.8 fl (80.0-105.0); MEAN CORPUSCULAR HEMOGLOBIN 20.3 pg (25.0-35.0); MEAN CORPUSCULAR HGB CONC 29.4 g/dl (31.0-37.0); MEAN PLATELET VOLUME 9.3 fl (7.0-11.0); MONO # 0.6 (0.1-0.6); MONO % 8.7 % (1.0-6.0); RBC 4.49 10^6/uL (3.5-6.1); RED CELL DISTRIBUTION WIDTH 18.1 % (11.5-14.5); WHITE BLOOD COUNT 6.8 10^3/uL (4.5-11.0)
[2018-07-24 07:47] LABS: CALCIUM 8.7 mg/dL (8.4-10.5)
--- NOTE | 2018-07-24 07:50 | CP.PCM.CON ---
<CarolineHilda - Last Filed: 07/24/18 12:55> History of Present Illness - History of Present Illness History of Present Illness: PGY-[address] Conley ID Consult: UTI Ms Ojeda, 88F, with PMHx of Alzheimer's dementia, triple vessel disease, past NSTEMI/CAD s/p stent/PTCA December 2017, HTN/systolic CHF, DM, OA, OAB, and hx frequent falls, was brought to ED on 07/22 after mechanical fall at home. Pt was going to the bathroom and "just fell". She was unable to walk and feel weak. [place] [address]. Pt was admitted for fall, generalized weakness and CHF. Per cardiology, pt is not in heart failure. Pt has YAMILEX with creatinine 1.4 (baseline 1). U/A via clean catch on 07/22 showed 0-2 epithelial cell, WBC 5-10, moderate ulices est, negative nitrate. trace blood/rbc. Urine culture showed Klebsiella Pneumonia (>100K CFU). On exam, pt did not remember the fall. Her blood pressure dropped to systolic of 80 yesterday. Today it was in low 100s In May 2018, She was recently hospitalized for a fall and found to have strong malodorous vaginal discharge. OBGYN noted roger rash noted in inguinal folds, vaginal discharge noted to be yellowish/thickened. Pt was treated with diflucan x 1 and flagyl x 7 days for yeast infection and bacterial vaginosis. ROS: (+) forgetful (+) constipation. Denies Fever, chills, CP, SOB, N/V/D, dysuria, frequency, change in urine color. PMH Alzheimer's dementia triple vessel disease/NSTEMI/CAD s/p stent 2016 on ASA/Plavix, and PTCA December 2017 CHF, systolic, EF 50% (May 2018) HTN/HLD, moderate aortic stenosis COPD DM2 Severe osteoarthritis Overactive bladder Hard of hearing Hx upper GI bleed from ulcers s/p partial gastrectomy Constipation Anxiety Hx recent fall that injured knee Hx frequent falls Hx E-coli UTI (May 2018) PSH Angioplasty Partial gastrectomy x 2 SH Former smoker, denies etoh/drug All NKDA Med See MAR Past Patient History - Infectious Disease Hx of Infectious Diseases: None - Tetanus Immunizations Tetanus Immunization: Unknown - Past Social History Smoking Status: Former Smoker - CARDIAC Hx Cardiac Disorders: Yes (CAD) Hx Hypertension: Yes - PULMONARY Hx Chronic Obstructive Pulmonary Disease (COPD): Yes - NEUROLOGICAL HX Cerebrovascular Accident: No - HEENT Hx HEENT Problems: Yes ([place]) Hx Cataracts: Yes (b/l sx) - RENAL Hx Renal Failure: No - ENDOCRINE/METABOLIC Hx Diabetes Mellitus Type 2: Yes - HEMATOLOGICAL/ONCOLOGICAL Hx Anemia: No Hx Cancer: No Hx Hepatitis A: No Hx Hepatitis B: No Hx Hepatitis C: No - INTEGUMENTARY Hx Dermatological Problems: No Hx Basil Cell: No Hx Eczema: No Hx Melanoma: No Hx Psoriasis: No Hx Squamous Cell: No - MUSCULOSKELETAL/RHEUMATOLOGICAL Hx Arthritis: Yes - GASTROINTESTINAL Hx Gastrointestinal Disorders: Yes (GI BLEED,CONSTIPATION,GASTRECTOMY) - GENITOURINARY/GYNECOLOGICAL Hx Genitourinary Disorders: Yes (UTI) Hx Reproductive Disorders: No - PSYCHIATRIC Hx Psychophysiologic Disorder: Yes Hx Anxiety: Yes Hx Substance Use: No - SURGICAL HISTORY Hx Appendectomy: Yes Other/Comment: 'bowel surgery for ulcers' x 2 per pt, partial gastrectomy - ANESTHESIA Hx Anesthesia: Yes Hx Anesthesia Reactions: No Hx Malignant Hyperthermia: No Meds Allergies/Adverse Reactions: Allergies Allergy/AdvReac Type Severity Reaction Status Date / Time No Known Allergies Allergy Verified 06/04/18 17:42 - Medications Medications: Current Medications Amlodipine Besylate (Norvasc) 5 mg PO DAILY [facility] Aspirin (Ecotrin) 81 mg PO DAILY [facility] Last Admin: 07/23/18 10:22 Dose: 81 mg Atorvastatin Calcium (Lipitor) 20 mg PO DIN [facility] Last Admin: 07/23/18 18:00 Dose: 20 mg Carvedilol (Coreg) 3.125 mg PO DAILY [facility] Clopidogrel Bisulfate (Plavix) 75 mg PO DAILY [facility] Last Admin: 07/23/18 10:22 Dose: 75 mg Dextrose (Dextrose 50% Inj) 0 ml IV STAT PRN; Protocol PRN Reason: Hypoglycemia Protocol Docusate Sodium (Colace) 100 mg PO DAILY [facility] Last Admin: 07/23/18 10:21 Dose: 100 mg Ferrous Sulfate (Feosol) 324 mg PO BID [facility] Last Admin: 07/23/18 18:00 Dose: 324 mg Furosemide (Lasix) 20 mg IVP DAILY [facility] Last Admin: 07/23/18 10:22 Dose: 20 mg Glipizide (Glucotrol) 5 mg PO ACB [facility] Last Admin: 07/23/18 22:09 Dose: 5 mg Dextrose (Dextrose 5% In Water 1000 Ml) 1,000 mls @ 0 mls/hr IV .Q0M PRN; Protocol PRN Reason: Hypoglycemia Protocol Pantoprazole Sodium (Protonix Ec Tab) 40 mg PO 0600 [facility] Last Admin: 07/24/18 05:43 Dose: 40 mg Polyethylene Glycol (Miralax) 17 gm PO DAILY [facility] Last Admin: 07/23/18 10:23 Dose: 17 gm Sucralfate (Carafate Tab) 1 gm PO DAILY [facility] Last Admin: 07/23/18 10:22 Dose: 1 gm Physical Exam - Constitutional Appears: No Acute Distress - Head Exam Head Exam: ATRAUMATIC, NORMAL INSPECTION, NORMOCEPHALIC - Eye Exam Eye Exam: EOMI, Normal appearance, PERRL Pupil Exam: NORMAL ACCOMODATION - ENT Exam ENT Exam: Mucous Membranes Moist - Neck Exam Additional comments: supple - Respiratory Exam Respiratory Exam: Clear to Auscultation Bilateral, NORMAL BREATHING PATTERN. absent: Decreased Breath Sounds, Rales, Rhonchi, Wheezes - Cardiovascular Exam Cardiovascular Exam: REGULAR RHYTHM, +S1, +S2, Systolic Murmur Additional comments: kyphosis - GI/Abdominal Exam GI & Abdominal Exam: Soft. absent: Firm, Guarding, Rigid, Tenderness Additional comments: No suprapubic tenderness - Extremities Exam Extremities exam: Positive for: pedal edema (2+ pitting). Negative for: calf tenderness - Back Exam Back exam: absent: CVA tenderness (L), CVA tenderness (R) - Neurological Exam Neurological exam: Alert, Oriented x3 - Psychiatric Exam Psychiatric exam: Normal Affect, Normal Mood - Skin Skin Exam: Dry, Normal Color Results - Vital Signs Recent Vital Signs: Last Vital Signs Temp 97.9 F 07/24/18 06:00 Pulse 70 07/24/18 06:00 Resp 18 07/24/18 06:00 BP 109/56 L 07/24/18 06:00 Pulse Ox 97 07/24/18 06:00 - Labs Result Diagrams: 07/24/18 06:30 07/24/18 06:30 Labs: Laboratory Results - last 24 hr 07/22/18 07/22/18 07/23/18 16:08 22:49 07:24 WBC RBC Hgb Hct MCV MCH MCHC RDW Plt Count MPV Gran % Lymph % (Auto) [place] % (Auto) Eos % (Auto) Baso % (Auto) Gran # Lymph # (Auto) [place] # (Auto) Eos # (Auto) Baso # (Auto) Sodium Potassium Chloride Carbon Dioxide Anion Gap BUN Creatinine Est GFR ( Amer) Est GFR (Non-Af Amer) POC Glucose (mg/dL) 114 H 155 H 110 Random Glucose Calcium Phosphorus Magnesium Iron TIBC % Saturation Triglycerides Cholesterol HDL Cholesterol 07/23/18 07/23/18 07/23/18 08:30 11:15 16:16 WBC RBC Hgb Hct MCV MCH MCHC RDW Plt Count MPV Gran % Lymph % (Auto) [place] % (Auto) Eos % (Auto) Baso % (Auto) Gran # Lymph # (Auto) [place] # (Auto) Eos # (Auto) Baso # (Auto) Sodium Potassium Chloride Carbon Dioxide Anion Gap BUN Creatinine Est GFR ( Amer) Est GFR (Non-Af Amer) POC Glucose (mg/dL) 181 H 225 H Random Glucose Calcium Phosphorus Magnesium Iron 35 L TIBC 350 % Saturation 10 L Triglycerides Cholesterol HDL Cholesterol 07/23/18 07/24/18 07/24/18 21:44 02:06 06:30 WBC 6.8 RBC 4.49 Hgb 9.1 L Hct 30.9 L MCV 68.8 L MCH 20.3 L MCHC 29.4 L RDW 18.1 H Plt Count 385 MPV 9.3 Gran % 60.7 Lymph % (Auto) 27.2 [place] % (Auto) 8.7 H Eos % (Auto) 2.4 Baso % (Auto) 1.0 Gran # 4.12 Lymph # (Auto) 1.9 [place] # (Auto) 0.6 Eos # (Auto) 0.2 Baso # (Auto) 0.07 Sodium Potassium Chloride Carbon Dioxide Anion Gap BUN Creatinine Est GFR ( Amer) Est GFR (Non-Af Amer) POC Glucose (mg/dL) 338 H 137 H Random Glucose Calcium Phosphorus Magnesium Iron TIBC % Saturation Triglycerides Cholesterol HDL Cholesterol 07/24/18 06:30 WBC RBC Hgb Hct MCV MCH MCHC RDW Plt Count MPV Gran % Lymph % (Auto) [place] % (Auto) Eos % (Auto) Baso % (Auto) Gran # Lymph # (Auto) [place] # (Auto) Eos # (Auto) Baso # (Auto) Sodium 133 Potassium 4.8 Chloride 99 Carbon Dioxide 27 Anion Gap 12 BUN 39 H Creatinine 1.3 H Est GFR ( Amer) 47 Est GFR (Non-Af Amer) 39 POC Glucose (mg/dL) Random Glucose 136 H Calcium 8.7 Phosphorus 4.2 Magnesium 2.0 Iron TIBC % Saturation Triglycerides 73 Cholesterol 107 L HDL Cholesterol 36 Assessment & Plan - Assessment and Plan (Free Text) Plan: Ms Ojeda, 88F, with PMHx of Alzheimer's dementia, triple vessel disease, past NSTEMI/CAD s/p stent/PTCA December 2017, HTN/systolic CHF, DM, OA, OAB, and hx frequent falls, was brought to ED on 07/22 after mechanical fall at home[place] [address]. Pt was admitted for fall, generalized weakness and CHF. Per cardiology, pt is not in heart failure. Pt has YAMILEX with creatinine 1.4 (baseline 1). U/A on 07/22 showed 0-2 epithelial cell, WBC 5-10, moderate ulices est, negative nitrate. trace blood/rbc. Urine culture showed gram negative elizabeth (>100K CFU). A: Asymptomatic bacteriuria Forgetful YAMILEX likely pre-renal from hypotension episode P: - observe off antibiotics to prevent increased risk of Clostridium difficile. repeat urine study via straight cath - Need to continue monitor clinical course and trend WBC - BP management per primary and cardiology U Cx (07/22): Klebsiella pneumonia U Cx (07/24) EKG (07/22) NSR 62. lateral ischemia. QTc [address] (07/22) - No acute abnormality. no sig changes 05/2018 CXR (07/22) - no active disease, no sig changes 2016 s/r/d/w Dr. Conley <Hiro Conley S - Last Filed: 07/24/18 15:25> Meds - Medications Medications: Current Medications Aspirin (Ecotrin) 81 mg PO DAILY [facility] Last Admin: 07/24/18 12:36 Dose: 81 mg Atorvastatin Calcium (Lipitor) 20 mg PO DIN [facility] Last Admin: 07/23/18 18:00 Dose: 20 mg Carvedilol (Coreg) 3.125 mg PO DAILY [facility] Last Admin: 07/24/18 09:15 Dose: 3.125 mg Clopidogrel Bisulfate (Plavix) 75 mg PO DAILY [facility] Last Admin: 07/24/18 09:13 Dose: 75 mg Dextrose (Dextrose 50% Inj) 0 ml IV STAT PRN; Protocol PRN Reason: Hypoglycemia Protocol Docusate Sodium (Colace) 100 mg PO DAILY [facility] Last Admin: 07/24/18 09:13 Dose: 100 mg Ferrous Sulfate (Feosol) 324 mg PO BID [facility] Last Admin: 07/24/18 09:13 Dose: 324 mg Furosemide (Lasix) 40 mg PO DAILY [facility] Glipizide (Glucotrol) 5 mg PO ACB [facility] Last Admin: 07/24/18 09:15 Dose: Not Given Dextrose (Dextrose 5% In Water 1000 Ml) 1,000 mls @ 0 mls/hr IV .Q0M PRN; Protocol PRN Reason: Hypoglycemia Protocol Pantoprazole Sodium (Protonix Ec Tab) 40 mg PO 0600 [facility] Last Admin: 07/24/18 05:43 Dose: 40 mg Polyethylene Glycol (Miralax) 17 gm PO DAILY [facility] Last Admin: 07/24/18 09:16 Dose: 17 gm Sucralfate (Carafate Tab) 1 gm PO DAILY [facility] Last Admin: 07/24/18 09:13 Dose: 1 gm Results - Vital Signs Recent Vital Signs: Last Vital Signs Temp 97.8 F 07/24/18 12:00 Pulse 63 07/24/18 12:00 Resp 18 07/24/18 12:00 BP 112/52 L 07/24/18 12:00 Pulse Ox 97 07/24/18 06:00 - Labs Result Diagrams: 07/24/18 06:30 07/24/18 06:30 Labs: Laboratory Results - last 24 hr 07/23/18 07/23/18 07/23/18 07:24 11:15 16:16 WBC RBC Hgb Hct MCV MCH MCHC RDW Plt Count MPV Gran % Lymph % (Auto) [place] % (Auto) Eos % (Auto) Baso % (Auto) Gran # Lymph # (Auto) [place] # (Auto) Eos # (Auto) Baso # (Auto) Sodium Potassium Chloride Carbon Dioxide Anion Gap BUN Creatinine Est GFR ( Amer) Est GFR (Non-Af Amer) POC Glucose (mg/dL) 110 181 H 225 H Random Glucose Hemoglobin A1c Calcium Phosphorus Magnesium Triglycerides Cholesterol LDL Cholesterol Direct HDL Cholesterol TSH 3rd Generation 07/23/18 07/24/18 07/24/18 21:44 02:06 06:30 WBC 6.8 RBC 4.49 Hgb 9.1 L Hct 30.9 L MCV 68.8 L MCH 20.3 L MCHC 29.4 L RDW 18.1 H Plt Count 385 MPV 9.3 Gran % 60.7 Lymph % (Auto) 27.2 [place] % (Auto) 8.7 H Eos % (Auto) 2.4 Baso % (Auto) 1.0 Gran # 4.12 Lymph # (Auto) 1.9 [place] # (Auto) 0.6 Eos # (Auto) 0.2 Baso # (Auto) 0.07 Sodium Potassium Chloride Carbon Dioxide Anion Gap BUN Creatinine Est GFR ( Amer) Est GFR (Non-Af Amer) POC Glucose (mg/dL) 338 H 137 H Random Glucose Hemoglobin A1c Calcium Phosphorus Magnesium Triglycerides Cholesterol LDL Cholesterol Direct HDL Cholesterol TSH 3rd Generation 07/24/18 07/24/18 07/24/18 06:30 06:30 06:30 WBC RBC Hgb Hct MCV MCH MCHC RDW Plt Count MPV Gran % Lymph % (Auto) [place] % (Auto) Eos % (Auto) Baso % (Auto) Gran # Lymph # (Auto) [place] # (Auto) Eos # (Auto) Baso # (Auto) Sodium 133 Potassium 4.8 Chloride 99 Carbon Dioxide 27 Anion Gap 12 BUN 39 H Creatinine 1.3 H Est GFR ( Amer) 47 Est GFR (Non-Af Amer) 39 POC Glucose (mg/dL) Random Glucose 136 H Hemoglobin A1c 6.3 Calcium 8.7 Phosphorus 4.2 Magnesium 2.0 Triglycerides 73 Cholesterol 107 L LDL Cholesterol Direct 57 HDL Cholesterol 36 TSH 3rd Generation 2.37 07/24/18 11:21 WBC RBC Hgb Hct MCV MCH MCHC RDW Plt Count MPV Gran % Lymph % (Auto) [place] % (Auto) Eos % (Auto) Baso % (Auto) Gran # Lymph # (Auto) [place] # (Auto) Eos # (Auto) Baso # (Auto) Sodium Potassium Chloride Carbon Dioxide Anion Gap BUN Creatinine Est GFR ( Amer) Est GFR (Non-Af Amer) POC Glucose (mg/dL) 82 Random Glucose Hemoglobin A1c Calcium Phosphorus Magnesium Triglycerides Cholesterol LDL Cholesterol Direct HDL Cholesterol TSH 3rd Generation Assessment & Plan - Assessment and Plan (Free Text) Plan: Infectious diseases Attending Physician Attestation Patient seen and examined, discussed with biomedical engineering aide. I have reviewed the patient's history of present illness, past medical, social, personal and family histories, pertinent physical exam findings, course so far in this hospital admission, pertinent laboratory and imaging results. I agree with the above findings, assessment and plan. In addition, patient with probable asymptomatic bacteriuria. Will repeat clean catch urinalysis and urine cx and monitor off antibiotics.
--- NOTE | 2018-07-24 08:29 | CP.PCM.PN ---
Subjective - Date & Time of Evaluation Date of Evaluation: 07/24/18 Time of Evaluation: 08:00 - Subjective Subjective: Patient is seen this morning lying in bed. Blood pressure dropped to systolic of 80 yesterday. This morning, blood pressure is 109/56. Objective - Vital Signs/Intake and Output Vital Signs (last 24 hours): Temp Pulse Resp BP Pulse Ox 97.9 F 70 18 109/56 L 97 07/24/18 06:00 07/24/18 06:00 07/24/18 06:00 07/24/18 06:00 07/24/18 06:00 Intake and Output: 07/24/18 07/24/18 06:59 18:59 Output Total 600 Balance -600 - Medications Medications: Current Medications Amlodipine Besylate (Norvasc) 5 mg PO DAILY [facility] Aspirin (Ecotrin) 81 mg PO DAILY [facility] Last Admin: 07/23/18 10:22 Dose: 81 mg Atorvastatin Calcium (Lipitor) 20 mg PO DIN [facility] Last Admin: 07/23/18 18:00 Dose: 20 mg Carvedilol (Coreg) 3.125 mg PO DAILY [facility] Clopidogrel Bisulfate (Plavix) 75 mg PO DAILY [facility] Last Admin: 07/23/18 10:22 Dose: 75 mg Dextrose (Dextrose 50% Inj) 0 ml IV STAT PRN; Protocol PRN Reason: Hypoglycemia Protocol Docusate Sodium (Colace) 100 mg PO DAILY [facility] Last Admin: 07/23/18 10:21 Dose: 100 mg Ferrous Sulfate (Feosol) 324 mg PO BID [facility] Last Admin: 07/23/18 18:00 Dose: 324 mg Furosemide (Lasix) 20 mg IVP DAILY [facility] Last Admin: 07/23/18 10:22 Dose: 20 mg Glipizide (Glucotrol) 5 mg PO ACB [facility] Last Admin: 07/23/18 22:09 Dose: 5 mg Dextrose (Dextrose 5% In Water 1000 Ml) 1,000 mls @ 0 mls/hr IV .Q0M PRN; Protocol PRN Reason: Hypoglycemia Protocol Pantoprazole Sodium (Protonix Ec Tab) 40 mg PO 0600 [facility] Last Admin: 07/24/18 05:43 Dose: 40 mg Polyethylene Glycol (Miralax) 17 gm PO DAILY [facility] Last Admin: 07/23/18 10:23 Dose: 17 gm Sucralfate (Carafate Tab) 1 gm PO DAILY [facility] Last Admin: 07/23/18 10:22 Dose: 1 gm - Labs Labs: 07/24/18 06:30 07/24/18 06:30 PT 12.4 SECONDS (9.4-12.5) 07/22/18 10:00 INR 1.08 07/22/18 10:00 APTT 29.7 Seconds (25.1-36.5) 07/22/18 10:00 - Constitutional Appears: No Acute Distress - Head Exam Head Exam: ATRAUMATIC, NORMOCEPHALIC - Respiratory Exam Respiratory Exam: Clear to Ausculation Bilateral, NORMAL BREATHING PATTERN - Cardiovascular Exam Cardiovascular Exam: REGULAR RHYTHM, +S1, +S2 - GI/Abdominal Exam GI & Abdominal Exam: Soft, Normal Bowel Sounds. absent: Tenderness - Extremities Exam Extremities Exam: Pedal Edema - Neurological Exam Neurological Exam: Alert, Awake Assessment and Plan - Assessment and Plan (Free Text) Assessment: Acute on chronic combined heart failure UTI Hypotension DMII CAD HTN Overactive bladder Plan: Patient's blood pressure dropped to systolic of 80 yesterday. BP now 109/56. repeat CXR to be done today. continue Lasix as per cardiology. Urine growing gram negative rods. Patient was recently in [facility] for rehab. continue physical therapy. continue glucotrol for diabetes. continue accuchecks.
[2018-07-24] MEDS: POLYETHYLENE GLYCOL 3350 17 GM/Dose PACKET PO SCH (09:16)
--- NOTE | 2018-07-24 10:32 | RAD ---
Date of service: 07/24/2018 HISTORY: F/U pneumonia and compare COMPARISON: 07/22/2018 TECHNIQUE: Chest PA and lateral FINDINGS: LUNGS: No active pulmonary disease. PLEURA: No significant pleural effusion identified. No pneumothorax apparent. CARDIOVASCULAR: Aortic calcification Moderate cardiomegaly no pulmonary vascular congestion. OSSEOUS STRUCTURES: No significant abnormalities. VISUALIZED UPPER ABDOMEN: Normal. OTHER FINDINGS: None. IMPRESSION: No active disease.
--- NOTE | 2018-07-24 10:36 | CP.PCM.PCO ---
Physician Communication Note - Physician Communication Note Physician Communication Note: patient is medically cleared for ECHO 07/25 if bed is available
--- NOTE | 2018-07-24 15:31 | PN ---
DATE: 07/24/2018 REASON FOR CONSULTATION AND FOLLOWUP: Cardiac evaluation, elevated BNP, admitted after fall, history of coronary artery disease, history of complex intervention of left main with Impella device in December 2017. This note is in addition to dictated by nurse practitioner. The patient feels okay. Denies any chest pain, shortness of breath, or any palpitations. History of ata-US-ffaxwsysk myocardial infarction status post percutaneous transluminal coronary angioplasty of the left main with Impella device on 01/22/2018. Last echo on last admission 06/03/2018 showed ejection fraction of 50%, trace mitral regurgitation, trace tricuspid regurgitation, trace to moderate aortic stenosis, elevated BNP with chest x-ray looks ____ okay. The patient had urine culture positive for Klebsiella pneumoniae, we will start Cipro 500 mg p.o. twice daily. Vital signs are stable, is on the lower side blood pressure 102/88. Continue Coreg, continue iron supplement and continue atorvastatin, continue gentle Lasix and discontinue Norvasc because of the low blood pressure. I discussed with ____ the patient will be discharged today to subacute rehab facility. Thank you Dr. Padilla, for providing us the opportunity in taking care of patient, Rosemarie Ojeda. We will follow with you. Priscila Mohr MD
[2018-07-24 16:20] LABS: URINE BILIRUBIN NEGATIVE (NEGATIVE); URINE BLOOD TRACE-INTACT (NEGATIVE); URINE GLUCOSE (UA) NEGATIVE (NEGATIVE); URINE LEUKOCYTE ESTERASE MODERATE Leu/uL (NEGATIVE); URINE PROTEIN NEGATIVE mg/dL (<30 mg/dL); URINE UROBILINOGEN 0.2 E.U./dL (<1 E.U./dL)
[2018-07-24 16:22] LABS: URINE APPEARANCE SLIGHT-CLOUDY (CLEAR); URINE COLOR LIGHT YELLOW (YELLOW)
[2018-07-24 16:40] LABS: URINE RBC 0 - 2 /hpf (0-2)
[2018-07-24 16:41] LABS: URINE BACTERIA TRACE /hpf
[2018-07-25 06:36] LABS: BASO # 0.04 K/mm3 (0.0-2.0); BASO % 0.6 % (0.0-3.0); EOS # 0.1 (0.0-0.7); EOS % 1.9 % (1.5-5.0); GRAN # 3.68 (1.4-6.5); GRAN % 59.5 % (50.0-68.0); LYMPH # 1.8 (1.2-3.4); LYMPH % 29.6 % (22.0-35.0); MEAN CELL VOLUME 68.4 fl (80.0-105.0); MEAN CORPUSCULAR HEMOGLOBIN 20.5 pg (25.0-35.0); MEAN CORPUSCULAR HGB CONC 29.9 g/dl (31.0-37.0); MEAN PLATELET VOLUME 8.9 fl (7.0-11.0); MONO # 0.5 (0.1-0.6); MONO % 8.4 % (1.0-6.0); RBC 4.4 10^6/uL (3.5-6.1); RED CELL DISTRIBUTION WIDTH 18.2 % (11.5-14.5); WHITE BLOOD COUNT 6.2 10^3/uL (4.5-11.0)
[2018-07-25] MEDS: Pantoprazole 40 mg EC Tab PO SCH (06:56)
--- NOTE | 2018-07-25 07:00 | CP.PCM.PN ---
Subjective - Date & Time of Evaluation Date of Evaluation: 07/25/18 Time of Evaluation: 06:30 - Subjective Subjective: Awake, alert, no distress, lying in bed watching TV Reason for consultation and follow up:Cardiac evaluation of elevated BNP, admitted post fall, history of coronary artery disease, hypertension, Urine culture positive for Klebsiella Pneumoniae. Seen and examined by me and Dr. Mohr Objective - Vital Signs/Intake and Output Vital Signs (last 24 hours): Temp Pulse Resp BP Pulse Ox 96.1 F L 80 22 109/74 97 07/25/18 06:00 07/25/18 06:00 07/25/18 00:01 07/25/18 06:00 07/24/18 06:00 Intake and Output: 07/24/18 07/25/18 18:59 06:59 Intake Total 1320 240 Output Total 950 200 Balance 370 40 - Medications Medications: Current Medications Aspirin (Ecotrin) 81 mg PO DAILY [facility] Last Admin: 07/24/18 12:36 Dose: 81 mg Atorvastatin Calcium (Lipitor) 20 mg PO DIN [facility] Last Admin: 07/24/18 17:21 Dose: 20 mg Carvedilol (Coreg) 3.125 mg PO DAILY [facility] Last Admin: 07/24/18 09:15 Dose: 3.125 mg Clopidogrel Bisulfate (Plavix) 75 mg PO DAILY [facility] Last Admin: 07/24/18 09:13 Dose: 75 mg Dextrose (Dextrose 50% Inj) 0 ml IV STAT PRN; Protocol PRN Reason: Hypoglycemia Protocol Docusate Sodium (Colace) 100 mg PO DAILY [facility] Last Admin: 07/24/18 09:13 Dose: 100 mg Ferrous Sulfate (Feosol) 324 mg PO BID [facility] Last Admin: 07/24/18 17:23 Dose: 324 mg Furosemide (Lasix) 40 mg PO DAILY [facility] Glipizide (Glucotrol) 5 mg PO ACB [facility] Last Admin: 07/24/18 09:15 Dose: Not Given Dextrose (Dextrose 5% In Water 1000 Ml) 1,000 mls @ 0 mls/hr IV .Q0M PRN; Protocol PRN Reason: Hypoglycemia Protocol Pantoprazole Sodium (Protonix Ec Tab) 40 mg PO 0600 [facility] Last Admin: 07/25/18 06:56 Dose: 40 mg Polyethylene Glycol (Miralax) 17 gm PO DAILY [facility] Last Admin: 07/24/18 09:16 Dose: 17 gm Sucralfate (Carafate Tab) 1 gm PO DAILY [facility] Last Admin: 07/24/18 09:13 Dose: 1 gm - Labs Labs: 07/25/18 06:00 07/24/18 06:30 PT 12.4 SECONDS (9.4-12.5) 07/22/18 10:00 INR 1.08 07/22/18 10:00 APTT 29.7 Seconds (25.1-36.5) 07/22/18 10:00 - Constitutional Appears: Non-toxic, No Acute Distress - Head Exam Head Exam: NORMAL INSPECTION, NORMOCEPHALIC - Eye Exam Eye Exam: Normal appearance Pupil Exam: NORMAL ACCOMODATION - ENT Exam ENT Exam: Mucous Membranes Moist, Normal Exam - Respiratory Exam Respiratory Exam: Decreased Breath Sounds, Clear to Ausculation Bilateral, NORMAL BREATHING PATTERN - Cardiovascular Exam Cardiovascular Exam: REGULAR RHYTHM, +S1, +S2 - GI/Abdominal Exam GI & Abdominal Exam: Soft, Normal Bowel Sounds - Extremities Exam Extremities Exam: Full ROM, Normal Capillary Refill - Neurological Exam Neurological Exam: Alert, Awake - Psychiatric Exam Psychiatric exam: Normal Affect, Normal Mood - Skin Skin Exam: Dry, Normal Color, Warm Assessment and Plan - Assessment and Plan (Free Text) Assessment: A 88 year old female who came in to the ER due to fall. She was feeling weak and unable to walk.She also complained of shortness of breath. History of hypertension, coronary artery disease, diabetes, severe osteoarthritis and overactive bladder, hyperlipidemia, COPD, lumbar spine stenosis,GERD, Cardiac cath 12/26/2016 done due to non-ST segment OR, triple vessel disease. LVEF 35-40%. she underwent PTCA of left main with Impella at [facility] on 01/22/2018. Echo on 06/03/2018 showed LVEF 50%, trace MR/TR/AR. moderate aortic stenosis. Elevated BNP but Chest X ray-normal. Patient no distress. Rule out congestive heart failure. Urine culture positive for Klebsiella Pneumoniae. Started on Cipro 500 mg BID.Cardiac status stable. Discontinue telemetry. Plan: Cardiac status stable Denies shortness of breath, no distress Blood pressure controlled Heart rate controlled On ASA 81 mg daily,Nornasc 5 mg daily,Coreg 3.125 mg daily, Plavix 75 mg daily, Lasix 20 mg daily, Urine culture positive for Klebsiella Pneumoniae. On Cipro 500 mg BID. Discontinue telemetry Continue current medications Continue current treatment Will follow up Plan and treatment discussed with Dr. Mohr
--- NOTE | 2018-07-25 08:10 | CP.PCM.PN ---
Subjective - Date & Time of Evaluation Date of Evaluation: 07/25/18 Time of Evaluation: 07:45 - Subjective Subjective: Patient is seen this morning. She denies shortness of breath or chest pain. Objective - Vital Signs/Intake and Output Vital Signs (last 24 hours): Temp Pulse Resp BP Pulse Ox 96.1 F L 80 22 109/74 97 07/25/18 06:00 07/25/18 06:00 07/25/18 00:01 07/25/18 06:00 07/24/18 06:00 Intake and Output: 07/25/18 07/25/18 06:59 18:59 Intake Total 240 Output Total 200 Balance 40 - Medications Medications: Current Medications Aspirin (Ecotrin) 81 mg PO DAILY [facility] Last Admin: 07/24/18 12:36 Dose: 81 mg Atorvastatin Calcium (Lipitor) 20 mg PO DIN [facility] Last Admin: 07/24/18 17:21 Dose: 20 mg Carvedilol (Coreg) 3.125 mg PO DAILY [facility] Last Admin: 07/24/18 09:15 Dose: 3.125 mg Clopidogrel Bisulfate (Plavix) 75 mg PO DAILY [facility] Last Admin: 07/24/18 09:13 Dose: 75 mg Dextrose (Dextrose 50% Inj) 0 ml IV STAT PRN; Protocol PRN Reason: Hypoglycemia Protocol Docusate Sodium (Colace) 100 mg PO DAILY [facility] Last Admin: 07/24/18 09:13 Dose: 100 mg Ferrous Sulfate (Feosol) 324 mg PO BID [facility] Last Admin: 07/24/18 17:23 Dose: 324 mg Furosemide (Lasix) 40 mg PO DAILY [facility] Glipizide (Glucotrol) 5 mg PO ACB [facility] Last Admin: 07/25/18 08:02 Dose: Not Given Dextrose (Dextrose 5% In Water 1000 Ml) 1,000 mls @ 0 mls/hr IV .Q0M PRN; Protocol PRN Reason: Hypoglycemia Protocol Pantoprazole Sodium (Protonix Ec Tab) 40 mg PO 0600 [facility] Last Admin: 07/25/18 06:56 Dose: 40 mg Polyethylene Glycol (Miralax) 17 gm PO DAILY [facility] Last Admin: 07/24/18 09:16 Dose: 17 gm Sucralfate (Carafate Tab) 1 gm PO DAILY [facility] Last Admin: 07/24/18 09:13 Dose: 1 gm - Labs Labs: 07/25/18 06:00 07/24/18 06:30 PT 12.4 SECONDS (9.4-12.5) 07/22/18 10:00 INR 1.08 07/22/18 10:00 APTT 29.7 Seconds (25.1-36.5) 07/22/18 10:00 - Constitutional Appears: No Acute Distress - Head Exam Head Exam: ATRAUMATIC, NORMOCEPHALIC - Respiratory Exam Respiratory Exam: Clear to Ausculation Bilateral, NORMAL BREATHING PATTERN - Cardiovascular Exam Cardiovascular Exam: REGULAR RHYTHM, +S1, +S2 - GI/Abdominal Exam GI & Abdominal Exam: Soft, Normal Bowel Sounds. absent: Tenderness - Extremities Exam Extremities Exam: Pedal Edema - Neurological Exam Neurological Exam: Alert, Awake Assessment and Plan - Assessment and Plan (Free Text) Assessment: Acute on chronic systolic and diastolic heart failure Klebsiella pneumoniae UTI HTN CAD Arthritis Diabetes Plan: Chest X-ray done yesterday is essentially clear. Lasix changed to oral dose. Patient is off antibiotics as per infectious disease. Urine should be repeated as straight cath specimen. continue physical therapy. Patient to go to [facility].
[2018-07-25] MEDS: POLYETHYLENE GLYCOL 3350 17 GM/Dose PACKET PO SCH (09:17)
--- NOTE | 2018-07-25 09:22 | CP.PCM.PN ---
<Hilda Velazquez - Last Filed: 07/25/18 09:20> Subjective - Date & Time of Evaluation Date of Evaluation: 07/25/18 Time of Evaluation: 09:20 - Subjective Subjective: ID progress note PGY-[address] Conley Objective - Vital Signs/Intake and Output Vital Signs (last 24 hours): Temp Pulse Resp BP Pulse Ox 96.1 F L 82 22 145/88 97 07/25/18 06:00 07/25/18 09:15 07/25/18 00:01 07/25/18 09:15 07/24/18 06:00 Intake and Output: 07/25/18 07/25/18 06:59 18:59 Intake Total 240 Output Total 200 Balance 40 - Medications Medications: Current Medications Aspirin (Ecotrin) 81 mg PO DAILY [facility] Last Admin: 07/25/18 09:15 Dose: 81 mg Atorvastatin Calcium (Lipitor) 20 mg PO DIN [facility] Last Admin: 07/24/18 17:21 Dose: 20 mg Carvedilol (Coreg) 3.125 mg PO DAILY [facility] Last Admin: 07/25/18 09:15 Dose: 3.125 mg Clopidogrel Bisulfate (Plavix) 75 mg PO DAILY [facility] Last Admin: 07/25/18 09:15 Dose: 75 mg Dextrose (Dextrose 50% Inj) 0 ml IV STAT PRN; Protocol PRN Reason: Hypoglycemia Protocol Docusate Sodium (Colace) 100 mg PO DAILY [facility] Last Admin: 07/25/18 09:15 Dose: 100 mg Ferrous Sulfate (Feosol) 324 mg PO BID [facility] Last Admin: 07/25/18 09:14 Dose: 324 mg Furosemide (Lasix) 40 mg PO DAILY [facility] Last Admin: 07/25/18 09:14 Dose: 40 mg Glipizide (Glucotrol) 5 mg PO ACB [facility] Last Admin: 07/25/18 08:02 Dose: Not Given Dextrose (Dextrose 5% In Water 1000 Ml) 1,000 mls @ 0 mls/hr IV .Q0M PRN; Protocol PRN Reason: Hypoglycemia Protocol Pantoprazole Sodium (Protonix Ec Tab) 40 mg PO 0600 [facility] Last Admin: 07/25/18 06:56 Dose: 40 mg Polyethylene Glycol (Miralax) 17 gm PO DAILY [facility] Last Admin: 07/25/18 09:17 Dose: Not Given Sucralfate (Carafate Tab) 1 gm PO DAILY [facility] Last Admin: 07/25/18 09:18 Dose: 1 gm - Labs Labs: 07/25/18 06:00 07/24/18 06:30 PT 12.4 SECONDS (9.4-12.5) 07/22/18 10:00 INR 1.08 07/22/18 10:00 APTT 29.7 Seconds (25.1-36.5) 07/22/18 10:00 Assessment and Plan - Assessment and Plan (Free Text) Plan: Ms Ojeda, 88F, with PMHx of Alzheimer's dementia, triple vessel disease, past NSTEMI/CAD s/p stent/PTCA December 2017, HTN/systolic CHF, DM, OA, OAB, and hx frequent falls, was brought to ED on 07/22 after mechanical fall at home. [place] [address]. Pt was admitted for fall, generalized weakness and CHF. Per cardiology, pt is not in heart failure. Pt has YAMILEX with creatinine 1.4 (baseline 1). U/A on 07/22 showed 0-2 epithelial cell, WBC 5-10, moderate ulices est, negative nitrate. trace blood/rbc. Urine culture showed gram negative elizabeth (>100K CFU). A: Likely Asymptomatic bacteriuria Forgetful YAMILEX likely pre-renal from hypotension episode Dizziness, positional - likely orthostatic hypotension Hx frequent falls P: - observe off antibiotics to prevent increased risk of Clostridium difficile. Obtained U/A, UCx via straight cath - Need to continue monitor clinical course and trend WBC - BP management per primary and cardiology - PT and ECHO U Cx (07/22): Klebsiella pneumonia U Cx (07/24) EKG (07/22) NSR 62. lateral ischemia. QTc [address] (07/22) - No acute abnormality. no sig changes 05/2018 CXR (07/22) - no active disease, no sig changes 2016 s/r/d/w <Hiro Conley S - Last Filed: 07/25/18 14:47> Objective - Vital Signs/Intake and Output Vital Signs (last 24 hours): Temp Pulse Resp BP Pulse Ox 98.7 F 107 H 20 126/68 92 L 07/25/18 14:37 07/25/18 14:37 07/25/18 14:37 07/25/18 14:37 07/25/18 14:37 Intake and Output: 07/25/18 07/25/18 06:59 18:59 Intake Total 240 Output Total 200 Balance 40 - Medications Medications: Current Medications Aspirin (Ecotrin) 81 mg PO DAILY [facility] Last Admin: 07/25/18 09:15 Dose: 81 mg Atorvastatin Calcium (Lipitor) 20 mg PO DIN [facility] Last Admin: 07/24/18 17:21 Dose: 20 mg Carvedilol (Coreg) 3.125 mg PO DAILY [facility] Last Admin: 07/25/18 09:15 Dose: 3.125 mg Clopidogrel Bisulfate (Plavix) 75 mg PO DAILY [facility] Last Admin: 07/25/18 09:15 Dose: 75 mg Dextrose (Dextrose 50% Inj) 0 ml IV STAT PRN; Protocol PRN Reason: Hypoglycemia Protocol Docusate Sodium (Colace) 100 mg PO DAILY [facility] Last Admin: 07/25/18 09:15 Dose: 100 mg Ferrous Sulfate (Feosol) 324 mg PO BID [facility] Last Admin: 07/25/18 09:14 Dose: 324 mg Furosemide (Lasix) 40 mg PO DAILY [facility] Last Admin: 07/25/18 09:14 Dose: 40 mg Glipizide (Glucotrol) 5 mg PO ACB [facility] Last Admin: 07/25/18 08:02 Dose: Not Given Dextrose (Dextrose 5% In Water 1000 Ml) 1,000 mls @ 0 mls/hr IV .Q0M PRN; Protocol PRN Reason: Hypoglycemia Protocol Pantoprazole Sodium (Protonix Ec Tab) 40 mg PO 0600 [facility] Last Admin: 07/25/18 06:56 Dose: 40 mg Polyethylene Glycol (Miralax) 17 gm PO DAILY [facility] Last Admin: 07/25/18 09:17 Dose: Not Given Sucralfate (Carafate Tab) 1 gm PO DAILY [facility] Last Admin: 07/25/18 09:18 Dose: 1 gm - Labs Labs: 07/25/18 06:00 07/24/18 06:30 PT 12.4 SECONDS (9.4-12.5) 07/22/18 10:00 INR 1.08 07/22/18 10:00 APTT 29.7 Seconds (25.1-36.5) 07/22/18 10:00 Assessment and Plan - Assessment and Plan (Free Text) Plan: Infectious diseases Attending Physician Attestation Patient seen and examined, discussed with chief medical officer. I have reviewed the patient's history of present illness, past medical, social, personal and family histories, pertinent physical exam findings, course so far in this hospital admission, pertinent laboratory and imaging results. I agree with the above findings, assessment and plan. Patient with asymptomatic bacteriuria. Continue to monitor off antibiotics. Follow up repeat urine cx results.
--- NOTE | 2018-07-25 11:35 | CP.PCM.PCO ---
Physician Communication Note - Physician Communication Note Physician Communication Note: Patient is medically cleared for discharge,per PMD follow urine cx at [facility]
[2018-07-25 14:38] VITALS: BP 126/68; PULSE 107; RESP 20; TEMP 98.7; O2SAT 92
--- NOTE | 2018-07-25 14:44 | CP.PCM.PCO ---
Physician Communication Note - Physician Communication Note Physician Communication Note: per MD, patient can be dc to [facility] if accepted,since MD goes there
--- NOTE | 2018-07-25 19:16 | PN ---
DATE: 07/25/2018 REASON FOR CONSULTATION: Cardiac evaluation, admitted after a fall, history of coronary artery disease, elevated BNP on arrival, urinary tract infection, Klebsiella pneumoniae. This note is in addition to the dictated by nurse practitioner, Anita Maza. SUBJECTIVE: The patient is hemodynamically stable. Heart rate and blood pressure is stable. LABORATORY DATA: Hemoglobin 9, hematocrit 30.1. BUN and creatinine 39 and 1.3. IMPRESSION: This is an 88-year-old female with past medical history significant for left main status post percutaneous transluminal coronary angioplasty with Impella device of the left main in November 2016. History of repeat echo on 06/03/2018, showed significant improvement of left ventricular function with trace mitral regurgitation, trace tricuspid regurgitation, trace aortic regurgitation, moderate aortic stenosis, elevated BNP. Chest x-ray looks stable. History of found to be Klebsiella pneumoniae, started on Cipro. I will discontinue telemetry. RECOMMENDATIONS: Continue aspirin, continue Coreg, continue Plavix 75 mg daily, continue gentle p.o., continue atorvastatin in addition to the baseline medication for diabetes and hypertension. We will follow with you. Discharge planning to rehab facility. Thank you Dr. Padilla, for providing us the opportunity in taking care of patient, Rosemarie Ojeda. Priscila Mohr MD
== END 2018-07-25 22:29 | DRG 689 ==
LOC: ED 09:17 → ERH 10:50 → 2RSO 12:10 → 5RSO 07-25 12:26
PROVIDERS: ADMIT Internal Medicine; ATTEND Internal Medicine
DX: N39.0 Urinary tract infection, site not specified (principal); I50.43 Acute on chronic combined systolic (congestive) and diastolic (congestive) heart failure; N17.9 Acute kidney failure, unspecified; I11.0 Hypertensive heart disease with heart failure; M62.81 Muscle weakness (generalized); G30.9 Alzheimer's disease, unspecified; I25.10 Atherosclerotic heart disease of native coronary artery without angina pectoris; J44.9 Chronic obstructive pulmonary disease, unspecified; E11.9 Type 2 diabetes mellitus without complications; Z79.84 Long term (current) use of oral hypoglycemic drugs; Y93.01 Activity, walking, marching and hiking; W19.XXXA Unspecified fall, initial encounter; M19.90 Unspecified osteoarthritis, unspecified site; N28.9 Disorder of kidney and ureter, unspecified; N32.81 Overactive bladder; I44.4 Left anterior fascicular block; Y92.009 Unspecified place in unspecified non-institutional (private) residence as the place of occurrence of the external cause; I25.2 Old myocardial infarction; Z95.5 Presence of coronary angioplasty implant and graft; W18.30XA Fall on same level, unspecified, initial encounter; R29.6 Repeated falls; F02.80 Dementia in other diseases classified elsewhere, unspecified severity, without behavioral disturbance, psychotic disturbance, mood disturbance, and anxiety; Z87.891 Personal history of nicotine dependence; B96.1 Klebsiella pneumoniae [K. pneumoniae] as the cause of diseases classified elsewhere; I95.1 Orthostatic hypotension; R42 Dizziness and giddiness; B37.2 Candidiasis of skin and nail; E78.5 Hyperlipidemia, unspecified; H91.90 Unspecified hearing loss, unspecified ear; I08.2 Rheumatic disorders of both aortic and tricuspid valves; K21.9 Gastro-esophageal reflux disease without esophagitis; N89.8 Other specified noninflammatory disorders of vagina; Z90.3 Acquired absence of stomach [part of]; Z90.49 Acquired absence of other specified parts of digestive tract; Z98.42 Cataract extraction status, left eye; Z98.41 Cataract extraction status, right eye; Z87.11 Personal history of peptic ulcer disease

== ENCOUNTER 2018-07-26 22:52 | Inpatient (IN) | payer MEDICARE | END 2018-07-30 17:52 | disposition skilled nursing facility (03) | LOC: 5RSO 22:52 ==